=== PATIENT | female | born 1970 | race Caucasian/White ===

== ENCOUNTER 2022-12-20 09:20 | Outpatient (OUT) | payer MEDICARE, SELFPAY ==
--- NOTE | 2022-12-20 09:29 | MM_ITS ---
Patient: LEATHA RAMÍREZ Exam Date: 12/20/2022 : 1970 Gender:F Ordering : DR Giorgi Prakash . Admission #: [id number] Family : DR Carlos Mckeon Moijose rafaelhi . Order #: [id number] CLICK HERE TO VIEW EXAM RADIOLOGY REPORT PROCEDURE: MM TOMOSYNTHESIS DIAGNOSTIC BI COMPARISON: MG MAMM SCREEN FERNANDO W CAD, 01/21/2020. MG MAMM SCREEN FERNANDO W CAD, 09/03/2018. MG MAMM FERNANDO SCRN W CAD DIG, 04/19/2016. MG MAMM FERNANDO SCRN W CAD DIG, 09/23/2012. INDICATIONS: Breast Pain N64.4 Calculator Name NCI Breast Cancer Risk Assessment Tool 5 Year Breast Cancer Risk 0.90% Lifetime Breast Cancer Risk 8.00% Personal Breast Cancer No Personal Ovarian Cancer No Treatments None Family Cancers Grandfather-paternal with gastric cancer at age ~75; Mother with skin cancer at age 57. LOCATION: [facility] BREAST COMPOSITION: Scattered areas fibroglandular density. FINDINGS: DIAGNOSTIC CATEGORY 2--BENIGN FINDING: RIGHT BREAST: No significant suspicious finding. Scattered benign-appearing calcifications are present. No significant change has occurred. LEFT BREAST: No significant suspicious finding. Scattered benign-appearing calcifications are present. No significant change has occurred. RECOMMENDATIONS: ROUTINE MAMMOGRAM AND CLINICAL EVALUATION IN 12 MONTHS. PLEASE NOTE: A NORMAL MAMMOGRAM DOES NOT EXCLUDE THE POSSIBILITY OF BREAST CANCER. A CLINICALLY SUSPICIOUS PALPABLE LUMP SHOULD BE BIOPSIED. Dictated by: Champ Kinney M.D. on 12/20/2022 at 10:22 Approved by: Champ Kinney M.D. on 12/20/2022 at 10:25
--- NOTE | 2022-12-20 09:30 | XR_ITS ---
[address] [address] Patient Name: LEATHA RAMÍREZ MRN: [id number] date: 1970 Sex: F Assigned Patient Location: [facility] Current Patient Location: [facility] Accession/Order Number: [id number] Exam Date: 12/20/2022 10:10 Report Date: 12/20/2022 12:45 At the request of: NELY DUNCAN Procedure: XR DEXA axial skeleton EXAMINATION: XR DEXA axial skeleton HISTORY: Post Menopausal Screening M81.0 COMPARISON: No relevant comparison available. TECHNIQUE: Dual-energy X-ray absorptiometry (DXA) was performed. FINDINGS: FOREARM ANALYSIS: Average bone mineral density is 0.489 g/cm2. T-score (standard deviation relative to young adult mean): -3.1 . HIP ANALYSIS: Lowest bone mineral density is within the femoral trochanter, 0.647 g/cm2. T-score (standard deviation relative to young adult mean): -1.8 . XR/XR DEXA axial skeleton IMPRESSION: World Edward Organization Classification: Osteoporosis - High Fracture Risk Electronically authenticated by: LOURDES MORILLO Date: 12/20/2022 12:45
== END 2022-12-20 09:21 | disposition home or self-care (01) ==
LOC: MAMMO 09:22
PROVIDERS: PCP Family Medicine; Visit Provider Obstetrics & Gynecology
DX: N64.4 Mastodynia (principal); M81.0 Age-related osteoporosis without current pathological fracture
CPT/HCPCS: 77066; 77080; G0279

== ENCOUNTER 2023-03-14 13:54 | Outpatient (OUT) | payer MEDICARE, SELFPAY ==
[2023-03-14 14:48] LABS: Bilirubin Urine NEGATIVE (NEGATIVE); Blood Urine NEGATIVE (NEGATIVE); Clarity Urine CLEAR (CLEAR); Color Urine YELLOW (YELLOW); Glucose Urine UA NEGATIVE (NEGATIVE); Ketones Urine NEGATIVE (NEGATIVE); Leukocyte Esterase Urine NEGATIVE (NEGATIVE); Nitrite Urine NEGATIVE (NEGATIVE); Protein Urine NEGATIVE (NEG/TRACE); Specific Gravity Urine 1.015 (1.005-1.025); Urobilinogen Urine 0.2 EU/dL (0.2-1.0); pH Urine 7.5 (5.0-9.0)
[2023-03-14 14:49] LABS: Urine Microscopic Indicated NO
== END 2023-03-14 13:55 | disposition home or self-care (01) ==
LOC: LAB 13:54
PROVIDERS: PCP Family Medicine; Visit Provider Obstetrics & Gynecology
DX: N39.0 Urinary tract infection, site not specified (principal)
CPT/HCPCS: 81003; 87086

== ENCOUNTER 2023-09-09 16:18 | Emergency (ER) | payer MEDICARE, MEDICAID, SELFPAY ==
[2023-09-09 16:29] VITALS: BP 121/73; PULSE 85; TEMP 36.9; O2SAT 97; O2SAT 99; BMI 30.5
[2023-09-09 16:31] VITALS: PULSE 77
--- NOTE | 2023-09-09 16:35 | ECG_ITS ---
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
--- NOTE | 2023-09-09 16:36 | ED_ITS ---
HPI - SOB/Dyspnea General Chief Complaint: Shortness of Breath/Dyspnea Stated Complaint: Shortness of Breath Time Seen by Provider: 09/09/23 16:23 Source: patient Mode of arrival: Wheelchair Limitations: no limitations History of Present Illness HPI Narrative: 53-year-old female presents for shortness of breath. She is worried about pulmonary embolism. She is postop day #4 from breast reduction and subsequently developed some shortness of breath. She was sent in here by her plastic surgeon to rule out PE. No fever or productive cough. No leg swelling. Related Data Home Medications ?Medication ?Instructions ?Recorded ?Confirmed albuterol sulfate 90 mcg/actuation 2 inh inhalation Q8H 09/09/23 09/09/23 aerosol inhaler alendronate 70 mg tablet 70 mg PO .weekly 09/09/23 09/09/23 baclofen 20 mg tablet 20 mg PO DAILY 09/09/23 09/09/23 gabapentin 600 mg tablet 600 mg PO Q8H 09/09/23 09/09/23 hydroxyzine HCl 25 mg tablet 25 mg PO BID 09/09/23 09/09/23 levothyroxine 100 mcg tablet 100 mcg PO DAILY 09/09/23 09/09/23 oxycodone-acetaminophen 5 mg-325 1 tab PO Q8H 09/09/23 09/09/23 mg tablet phentermine 37.5 mg tablet 37.5 mg PO DAILY 09/09/23 09/09/23 venlafaxine 150 mg 150 mg PO DAILY 09/09/23 09/09/23 capsule,extended release 24 hr venlafaxine 75 mg capsule,extended 75 mg PO DAILY 09/09/23 09/09/23 release 24 hr Allergies Allergy/AdvReac Type Severity Reaction Status Date / Time metformin AdvReac Mild Chest Pain Verified 09/09/23 16:29 Review of Systems ROS Narrative A ten point review of systems is negative except as noted above. Exam Narrative Exam Narrative: Nurses note and vital signs reviewed and patient is not hypoxic. General: The patient appears well and in no apparent distress. Patient is resting comfortably on cart. Skin: Warm, dry, no pallor noted. There is no rash noted. Head: Normocephalic, atraumatic Eye: Normal conjunctiva, no drainage Ears, Nose, Mouth, and Throat: oral mucosa is moist. Nares patent. Cardiovascular: Regular Rate and Rhythm, not Respiratory: Patient is in no distress, no accessory muscle use, lungs are clear to auscultation, no wheezing, rales or rhonchi Back: non-tender GI: Soft and nontender Musculoskeletal: The patient has no evidence of calf tenderness, no pitting edema, symmetrical pulses noted bilaterally Neurological: A&O, normal speech Psychiatric: Cooperative Constitutional Vital Signs, click to edit/add: Last Vital Signs Temp 98.4 F 09/09/23 16:29 Pulse 77 09/09/23 16:31 Resp 16 09/09/23 16:29 BP 112/66 09/09/23 17:30 Pulse Ox 97 09/09/23 16:29 O2 Del Method Room Air 09/09/23 16:29 Course Vital Signs Vital signs: Vital Signs Temperature 98.4 F 09/09/23 16:29 Pulse Rate 85 09/09/23 16:29 Respiratory Rate 16 09/09/23 16:29 Blood Pressure 121/73 09/09/23 16:29 Pulse Oximetry 99 09/09/23 16:29 Oxygen Delivery Method Room Air 09/09/23 16:29 Temperature 98.4 F 09/09/23 16:29 Pulse Rate 77 09/09/23 16:31 Respiratory Rate 16 09/09/23 16:29 Blood Pressure 112/66 09/09/23 17:30 Pulse Oximetry 97 09/09/23 16:29 Oxygen Delivery Method Room Air 09/09/23 16:29 MDM - SOB/Dyspnea MDM Narrative Medical decision making narrative: Workup including CTA is negative and the patient is being discharged home. Treatment diagnosis and follow-up were discussed with the patient. Differential Diagnosis Differential diagnosis: Likely congestive heart failure, community acquired pneumonia and pulmonary embolism Lab Data Attestation: I reviewed the patient's lab results. Labs: Lab Results 09/09/23 Range/Units 16:43 WBC 8.8 (4.0-11.0) 10^3/uL RBC 4.13 L (4.20-5.40) 10^6/uL Hgb 12.2 (12.0-16.0) g/dL Hct 37.3 (36.0-48.0) % MCV 90.3 (81.0-99.0) fL MCH 29.5 (26.7-34.0) pg MCHC 32.7 (29.9-35.2) g/dL RDW 12.0 (11.0-15.0) % Plt Count 367 (150-450) 10^3/uL MPV 9.8 (9.5-13.5) fL Neut % (Auto) 62.3 (43.0-75.0) % Lymph % (Auto) 26.7 (20.5-60.0) % Lipscomb % (Auto) 7.1 (1.7-12.0) % Eos % (Auto) 2.7 (0.9-7.0) % Baso % (Auto) 1.0 (0.2-2.0) % Neut # (Auto) 5.5 (1.4-6.5) 10^3/uL Lymph # (Auto) 2.4 (1.2-3.8) 10^3/uL Lipscomb # (Auto) 0.6 (0.3-0.8) 10^3/uL Eos # (Auto) 0.2 (0.0-0.7) 10^3/uL Baso # (Auto) 0.1 (0.0-0.1) 10^3/uL Abs Immat Gran (auto) 0.02 (0.00-0.03) 10^3/uL Imm/Tot Granulo (auto) 0.2 (0.0-0.5) % Sodium 139 (136-145) mmol/L Potassium 4.0 (3.5-5.1) mmol/L Chloride 102 (98-107) mmol/L Carbon Dioxide 28.1 (21.0-32.0) mmol/L Anion Gap 12.9 BUN 17.0 (7.0-18.0) mg/dL Creatinine 0.53 L (0.55-1.02) mg/dL Est GFR ( Amer) >60 (>=60) Est GFR (Non-Af Amer) >60 (>=60) BUN/Creatinine Ratio 32.1 Glucose 85 (74-106) mg/dL Calcium 9.6 (8.5-10.1) mg/dL Troponin I High Sens 4.4 (4.0-51.3) pg/mL Serum HCG, Qual Negative (NEGATIVE) Imaging Data Chest x-ray: Radiologist's impression: ITS Impressions Chest X-Ray 05/06/24 16:53 Impression: No radiographic evidence of acute cardiopulmonary process. Electronically authenticated by: LAKHWINDER WEN Date: 09/09/2023 17:47 Chest CTA 09/09/23 18:06 IMPRESSION: No evidence of pulmonary embolus. Few patchy ground glass opacities of the left upper lobe, representing atelectasis or early consolidation. Bilateral breast focal subcutaneous emphysema, likely postsurgical changes. Correlation with patient's history is recommended. Electronically authenticated by: LAKHWINDER WEN Date: 09/09/2023 18:40 ECG Data Attestation: I personally reviewed and interpreted this ECG as follows: (EKG on my interpretation shows sinus rhythm with a rate of 77 and no acute changes) Discharge Plan Discharge Stand Alone Forms: Portal Instructions Chief Complaint: Shortness of Breath/Dyspnea Clinical Impression: Dyspnea Patient Disposition: Home, Self-Care Prescriptions / Home Meds: No Action albuterol sulfate 90 mcg/actuation HFA aerosol inhaler 2 inh INHALATION Q8H alendronate 70 mg tablet 70 mg PO .weekly baclofen 20 mg tablet 20 mg PO DAILY gabapentin 600 mg tablet 600 mg PO Q8H hydroxyzine HCl 25 mg tablet 25 mg PO BID levothyroxine 100 mcg tablet 100 mcg PO DAILY oxycodone-acetaminophen 5-325 mg tablet 1 tab PO Q8H phentermine 37.5 mg tablet 37.5 mg PO DAILY venlafaxine 150 mg capsule,extended release 24hr 150 mg PO DAILY venlafaxine 75 mg capsule,extended release 24hr 75 mg PO DAILY Print Language: Lao Instructions: Dyspnea (ED) Referrals: SNEHA BARNES [Primary Care Provider] - 1 week
[2023-09-09 16:47] VITALS: BP 106/71
[2023-09-09 16:50] VITALS: PULSE 77
[2023-09-09 16:52] LABS: Basophils Absolute Auto 0.1 10^3/uL (0.0-0.1); Eosinophils Absolute Auto 0.2 10^3/uL (0.0-0.7); Eosinophils Percent Auto 2.7 % (0.9-7.0); Hematocrit 37.3 % (36.0-48.0); Hemoglobin 12.2 g/dL (12.0-16.0); Immature Granulocytes Abs Auto 0.02 10^3/uL (0.00-0.03); Immature Granulocytes Pct Auto 0.2 % (0.0-0.5); Lymphocytes Absolute Auto 2.4 10^3/uL (1.2-3.8); Lymphocytes Percent Auto 26.7 % (20.5-60.0); Mean Corpuscular HGB Conc 32.7 g/dL (29.9-35.2); Mean Corpuscular Hemoglobin 29.5 pg (26.7-34.0); Mean Corpuscular Volume 90.3 fL (81.0-99.0); Mean Platelet Volume 9.8 fL (9.5-13.5); Monocytes Absolute Auto 0.6 10^3/uL (0.3-0.8); Monocytes Percent Auto 7.1 % (1.7-12.0); Neutrophils Absolute Auto 5.5 10^3/uL (1.4-6.5); Neutrophils Percent Auto 62.3 % (43.0-75.0); Platelet Count 367 10^3/uL (150-450); Red Blood Count 4.13 10^6/uL (4.20-5.40); White Blood Count 8.8 10^3/uL (4.0-11.0)
--- NOTE | 2023-09-09 16:53 | XR_ITS ---
The [address] [address] Patient Name: LEATHA RAMÍREZ MRN: [id number] date: 1970 Sex: F Assigned Patient Location: ER Current Patient Location: ED.MAIN Accession/Order Number: [id number] Exam Date: 09/09/2023 16:50 Report Date: 09/09/2023 17:47 At the request of: MICHELLE MANRIQUE Procedure: XR chest 1V EXAM: XR chest 1V HISTORY: SOB COMPARISON: None. TECHNIQUE: Chest X-ray AP, 1 view FINDINGS: Support devices: None. Lungs/pleura: No consolidation, effusion, or pneumothorax. Heart and mediastinum: Normal contours. Bones: No acute abnormality identified. XR/XR chest 1V Impression: No radiographic evidence of acute cardiopulmonary process. Electronically authenticated by: LAKHWINDER WEN Date: 09/09/2023 17:47
[2023-09-09 17:00] VITALS: BP 122/81
[2023-09-09 17:16] LABS: Anion Gap 12.9; BUN Creatinine Ratio 32.1; Calcium 9.6 mg/dL (8.5-10.1); Carbon Dioxide 28.1 mmol/L (21.0-32.0); Chloride 102 mmol/L (98-107); Estimated GFR (African America >60 (>=60); Estimated GFR (Non-African Ame >60 (>=60); Glucose 85 mg/dL (74-106); Sodium 139 mmol/L (136-145); Troponin I High Sensitivity 4.4 pg/mL (4.0-51.3)
[2023-09-09 17:18] LABS: HCG Qualitative NEGATIVE (NEGATIVE)
[2023-09-09 17:30] VITALS: BP 112/66
--- NOTE | 2023-09-09 18:06 | CT_ITS ---
[address] [address] Patient Name: LEATHA RAMÍREZ MRN: [id number] date: 1970 Sex: F Assigned Patient Location: ER Current Patient Location: Accession/Order Number: [id number] Exam Date: 09/09/2023 17:57 Report Date: 09/09/2023 18:40 At the request of: MICHELLE MANRIQUE Procedure: CT angio chest EXAM: CT angio chest HISTORY: Short of breath, rule out PE COMPARISON: None. TECHNIQUE: CT chest with intravenous contrast was performed with timing for the evaluation for pulmonary arteries. Multiplanar reformats were performed. MIP (maximum intensity projection) images or 3D post processing was performed. Dose reduction techniques were achieved by using automated exposure control and/or adjustment of mA and/or kV according to patient size and/or use of iterative reconstruction technique. FINDINGS: Lungs: No pneumothorax or effusion. Few patchy ground glass opacities of the left upper lobe, representing atelectasis or early consolidation. Airways: Normal. Mediastinum: No adenopathy. Aorta: No aneurysm. Cardiac: Normal size. No pericardial effusion. Pulmonary vasculature: Diagnostic opacification of pulmonary arteries without evidence of pulmonary embolus. Normal morphology. Bones: No acute bony abnormality. Axilla: No adenopathy. Thyroid gland: No abnormality demonstrated on provided imaging. Soft tissues: Bilateral breast focal subcutaneous emphysema, likely postsurgical changes. Correlation with patient's history is recommended. Upper abdomen: Unremarkable. Additional findings: None. CT/CT angio chest IMPRESSION: No evidence of pulmonary embolus. Few patchy ground glass opacities of the left upper lobe, representing atelectasis or early consolidation. Bilateral breast focal subcutaneous emphysema, likely postsurgical changes. Correlation with patient's history is recommended. Electronically authenticated by: LAKHWINDER WEN Date: 09/09/2023 18:40
== END 2023-09-09 18:56 | disposition home or self-care (01) ==
PROVIDERS: Emergency Provider Emergency Medicine; PCP Family Medicine
DX: R06.02 Shortness of breath (principal); R06.00 Dyspnea, unspecified; Z98.890 Other specified postprocedural states
CPT/HCPCS: 36415; 71045; 71275; 80048; 84484; 84703; 85025; 93005; 99285; Q9967

== ENCOUNTER 2023-11-06 21:19 | Outpatient (REF) | payer MEDICARE, MEDICAID, SELFPAY ==
--- OUTSIDE RECORDS SUMMARY | 2023-11-06 21:25 | XMS_ITS | CCD ---
Author Organization [facility] Inform ion Partnership [facility] Care Team Providers Care Dip Painter Name Role Phone Vinayak Antonio Unavailable Unavailable Vinayak Antonio Unavailable Unavailable FREE, TEXT ENTRY Unavailable Unavailable Trinidad, Griselda Leni Unavailable Unavailabl e Trinidad, Griselda Leni Unavailable Unavailabl e Trinidad, Griselda Leni Unavailable Unavailabl e Trinidad, Griselda Leni Unavailable Unavailabl e UNKNOWN, PCP Unavailable Unavailable Jimmy Hernandez Admitting Unavailable Jimmy Hernandez Attending Unavailable Jimmy Hernandez Primary Care Unavailable Unavailable Primary Care Provider Unavailclementina e Johnson, Laura Unavailable ISHA, DR CARLOS Obrien Primary Care Unavailable DAKOTA ., DR MCKAY Admitting Unavailable DAKOTA ., DR MCKAY Consulting Unavailable DAKOTA ., DR MCKAY Attending Unavailable Lourdes Morillo Consulting Unavailable ROLAND ., DR ALEXI Durbin Admitting Unavailable ROLAND ., DR ALEXI Durbin Consulting Unavailable ROLAND ., DR ALEXI Durbin Attending Unavailable ISHA, DR CARLOS Obrien Primary Care Unavailable ALLISON .MADDISON Consulting Unavailable ROLAND ., DR ALEXI Durbin Admitting Unavailable ROLAND ., DR ALEXI Durbin Consulting Unavailable ISHA, DR CARLOS Obrien Primary Care Unavailable ROLAND ., DR ALEXI Durbin Attending Unavailable ROLAND ., DR ALEXI Durbin Attending Unavailable ROLAND ., DR ALEXI Durbin Admitting Unavailable ALLISON ., MADDISON Consulting Unavailable ISHA, DR CARLOS Obrien Primary Care Unavailable ASUNCION ., DR ALEXI Durbin Attending Unavailable ROLAND ., DR ALEXI Durbin Admitting Unavailable ISHA, DR CARLOS Obrien Primary Care Unavailable ROLAND ., DR ALEXI Durbin Attending Unavailable ROLAND ., DR ALEXI Durbin Admitting Unavailable COOPER ., MADDISON Consulting Unavailable NADERER, DR CARLOS Obrien Primary Care Unavailable ROLAND ., DR ALEXI Durbin Attending Unavailable ROLAND ., DR ALEXI Durbin Admitting Unavailable ROLAND ., DR ALEXI Durbin Consulting Unavailable NADERER, DR CARLOS Obrien Primary Care Unavailable YOSELIN CARDOSO Consulting Unavailable MCCORNACK, LOURDES Consulting Unavailable ROLAND ., DR ALEXI Durbin Attending Unavailable ROLAND ., DR ALEXI Durbin Admitting Unavailable COOPER ., MADDISON Consulting Unavailable NADERER, DR CARLOS Obrien Primary Care Unavailable NADERER, DR CARLOS Obrien Primary Care Unavailable HAY ., DR LOPEZ Admitting Unavailable HAY ., DR LOPEZ Consulting Unavailable HAY ., DR LOPEZ Attending Unavailable NADERER, DR CARLOS Obrien Primary Care Unavailable DAKOTA ., DR MCKAY Admitting Unavailable DAKOTA ., DR MCKAY Consulting Unavailable DAKOTA ., DR MCKAY Attending Unavailable ROLAND ., DR ALEXI Durbin Admitting Unavailable ROLAND ., DR ALEXI Durbin Consulting Unavailable ROLAND ., DR ALEXI Durbin Attending Unavailable NADERER, DR CARLOS Obrien Primary Care Unavailable NADERER, DR CARLOS Obrien Primary Care Unavailable DAKOTA ., DR MCKAY Consulting Unavailable DAKOTA ., DR MCKAY Admitting Unavailable DAKOTA ., DR MCKAY Attending Unavailable COOPER ., MADDISON Attending Unavailable NADERER, DR CARLOS Obrien Primary Care Unavailable Lourdes Morillo Consulting Unavailable COOPER ., MADDISON Admitting Unavailable COOPER ., MADDISON Consulting Unavailable NADERER, CARLOS Referring Unavailable NILLTod Attending Unavailable NADERER, CARLOS Referring Unavailable NILLTod Attending Unavailable UI, VALE C Referring Unavailable Vale Barnes MD Primary Care Provider Dr. Carly Croft Attending Provider [facility], [place] Unavailable [phone] [facility] [place] Unavailable [phone] Dr. Carly Croft Attending Provider PRERNA SEGUNDO Attending Unavailable [facility], [place] A Attending Unavailab PRERNA Yi Attending Unavailable [facility], OBED A Attending Unavailab le [facility], OBED A Referring Unavailab le [facility] Referring Unavailab le [place], OBED A Referring Unavailab le HOELAINA YEUNG Attending Unavailable NORIEGA, JORGE Brower Attending Unavailable [place], OBED Obrien Attending Unavailab le NORIEGAJORGE Attending Unavailable NORIEGA, JORGE Brower Referring Unavailable NORIEGA, JORGE Brower Attending Unavailable NORIEGA, JORGE Brower Referring Unavailable BLACKSTONVANDA Attending Unavailable MOLLYVALE YI Attending Unavailable MARNI OLIVER Attending Unavailable NORIEGA, JORGE Brower Referring Unavailable NORIEGA, JORGE Brower Referring Unavailable SANYAPRERNA Attending Unavailable UI, VALE Damico Referring Unavailable UI, VALE Damico Referring Unavailable UI, VALE C Referring Unavailable [place], OBED A Referring Unavailab le UI, VALE Damico Attending Unavailable VALE BARNES Primary Care Provider Unavailab le VALE BARNES Referring Provider Unavailable Guerda, Dr. Carroll Referring Provider [phone] Dr. Carly Croft Other Provider VALE BARNES Primary Care Provider Cliftonesa Attending Unavailable Ghazoul, Carly Attending Unavailable BONDI, Primary Care Unavailable Ghazoul, Carly Attending Unavailable Ghazoul, Carly Referring Unavailable Ghazoul, Carly Consulting Unavailable Ghazoul, Carly Attending Unavailable Ghazoul, Carly Attending Unavailable BONDI, Primary Care Unavailable BONDI, Referring Unavailable Ghazoul, Carly Attending Unavailable BONDI, Primary Care Unavailable Ghazoul, Carly Attending Unavailable BONDI, Referring Unavailable Ghazoul, Carly Attending Unavailable BONDI, Referring Unavailable BONDI, Primary Care Unavailable Ghazoul, Carly Attending Unavailable BONDI, Primary Care Unavailable Ghazoul, Carly Attending Unavailable Ghazoul, Carly Referring Unavailable Allergies Allergy Classification Reported Allergen(s) Allergy Type Date of Onset Reaction(s) Facility metFORMIN (1 source) metFORMIN Drug Allergy 06-21-19 Other: See Comments [facility] (20 sources) metFORMIN; Translations: [metFORMIN] Drug Allergy 06-21-19 Other: See Comments [facility] (1 source) Betamethasone Drug Allergy hallucinations [place] Other (1 source) metFORMIN Drug Allergy 06-21-[address] [facility] (1 source) metFORMIN Drug Allergy 10-22-19 24 [facility] Medications Current Medications Medication Drug Class(es) Dates Sig (Normalized) Sig (Original) acetaminophen 325 mg oral tablet (15 sources) acetaminophen (T YLENOL) 325 mg tablet Acetaminophen 32 5 MG 2 tablets as needed Orally bedtime Active [id number] 200 actuat albuterol 0.09 mg/actuat metered dose inhaler (20 sources) beta2-Adrenergic Agonist Start: 08-23-2023 take 1 puff(s) by inhalation every six hours as needed Albuterol Sulfate Active 1 PUFF INHALATION EVERY 6 HOURS NEEDED August 23, 2023 12:00am Start: 05-09-2023 take 2 puff(s) by in halation every four hours for wheezing albuterol HFA (ProAir HFA) 90 mcg/act inhaler Indications: Mild intermittent asthma without complication (CMS/HCC) Inhale 2 puffs every 4 (four) hours if needed for wheezing 18 g 1 05/09/2023 Active Start: 04-30-2015 take 2 puff(s) by in halation every six hours as needed albuterol HFA (PROVENTIL HFA, VENTOLIN HFA) 90 mcg/actuation inhaler Inhale 2 Puffs as instructed every 6 hours as needed. 0 04/30/2015 Active take 2 puff(s) by in halation every six hours as needed ProAir HFA 108 (90 Base) MCG/ACT 2 puffs as needed Inhalation every 6 hrs PRN Active Comment on above: Inhale 2 Puffs as in structed every 6 hours as needed. alendronic acid 70 mg oral tablet (16 sources) Bisphosphonate Start: 06-12-2023 Alendronate Active 70 MG PO FR June 12, 2023 1:00am Start: 01-03-2023 End: 01-03-2024 take 1 tablet by mouth in the morning alendronate (Fosamax) 70 MG tablet Indications: Osteoporosis, post-menopausal (CMS/HCC) Take 1 tablet (70 mg) by mouth every 7 (seven) days. Take in the morning with a full glass of water, on an empty stomach, and do not take anything else by mouth or lie down for the next 30 min. 4 tablet 11 01/03/2023 01/03/2024 Active Comment on above: Take 70 mg by mouth one time a week. In AM with cup of water on empty stomach. Nothing else by mouth and stay upright for 30 min. ascorbic acid/collagen hydr (COLLAGEN PLUS VITAMIN C ORAL) (8 sources) ascorbic acid/collagen hydr (COLLAGEN PLUS VITAMIN C ORAL) b complex vitamins capsule (8 sources) take 1 capsule by mouth in the morning b complex vitamins capsule Take 1 capsule by mouth in the morning. 0 Active baclofen 20 mg oral tablet (20 sources) gamma-Aminobutyric Acid-ergic Agonist Start: 06-12-2023 take 40 mg by mouth twice daily Baclofen Active 40 MG PO TWICE A DAY June 12, 2023 1:00am Start: 06-12-2023 take 20 mg by mouth twice vin y Baclofen Active 20 MG PO TWICE A DAY June 12, 2023 1:00am Start: 04-11-2023 End: 07-10-2023 baclofen (Lioresal) 20 MG ta blet Indications: Muscle spasticity Take 2 tablets (40 mg) by mouth every 12 (twelve) hours 120 tablet 2 04/11/2023 07/10/2023 Active Start: 10-10-2020 take 2 tablets by ak ut twice daily baclofen (LIORESAL) 20 mg tablet Take 40 mg by mouth twice daily. 0 10/10/2020 Active Baclofen 20 MG 1 & 1/2 tablet with food or milk Orally bid Active Comment on above: Take 40 mg by mouth twice daily. BIOTIN 5,000 MCG GUMMY (3 sources) BIOTIN 5,000 MCG GUMMY 2 Pieces once daily. 0 Active Comment on above: 2 Pieces once daily. Calcium Carb-Cholecalciferol (CALCIUM 500 + D PO) (8 sources) take 1 dose by mouth once daily in the morning Calcium Carb-Cholecalciferol (CALCIUM 500 + D PO) Take 1 each by mouth in the morning. 0 Active calcium carbonate/vitamin D2 ([id number] ORAL) (3 sources) take 2 capsules by mouth once daily calcium carbonate/vitamin D2 ([id number] ORAL) Take 2 capsules by mouth once daily. 0 Active Comment on above: Take 2 capsules by m outh once daily. calcium gluconate 650 mg oral tablet (3 sources) Start: 024 take 120 mg by mouth once daily Calcium Gluconate Active 120 MG PO DAILY August 23, 2023 12:00am cephalexin 500 mg oral capsule (2 sources) Cephalosporin Antibacterial Start: take 500 mg by mouth twice daily Cephalexin Active 500 MG PO TWICE A DAY August 28, 2023 12:00am Cholecalciferol (18 sources) Vitamin D Start: take 10 ug by mouth once daily Cholecalciferol (Vitamin D3) Active 10 MCG PO DAILY June 12, 2023 1:00am Start: 06-12-2023 take 10 ug by mouth once daily Cholecalciferol (Vitamin D3) Active 10 MCG PO DAILY June 12, 2023 12:00am cholecalciferol (Vitamin D-3) 25 MCG (1000 UT) capsule Vitamin D3 0 Active cholecalciferol (VITAMIN D-3) 5,000 unit tab chromium picolinate 0.1 mg / inulin 2000 mg chewable tablet (8 sources) inulin-chromium picolinate (FIBER SELECT GUMMIES) 2-100 gram-mcg chew diphenhydrAMINE hydrochloride 25 mg oral tablet (18 sources) Histamine-1 Receptor Antagonist Start: 08-23-19 take 1 tablet by mouth every eight hours Diphenhydramine Hcl (Allergy (Diphenhydramine)) 25 mg tablet Active 25 MG PO Q8H August 23, 2023 12:00am diphenhydrAMINE (BENADRYL ALLERGY) 12.5 mg/5 mL liquid Benadryl 25 MG 1 -2 capsule as needed Orally Active docusate sodium 100 mg oral capsule (19 sources) Start: 08-23-2023 take 3 capsules by mouth at bedtime Docusate Sodium (Colace) 100 mg capsule Active 300 MG PO AT BEDTIME August 23, 2023 12:00am Start: 11-22-2020 STOOL SOFTENER 100 mg capsule Take 200 mg by mouth once daily. 0 11/22/2020 Active take 3 tablets by mo uth once daily at bedtime docusate sodium (COLACE ORAL) Take 3 tablets by mouth daily at bedtime. 0 Active take 1 capsule by mo uth in the morning docusate sodium (Colace) 100 MG capsule Take 100 mg by mouth in the morning and 100 mg before bedtime. 0 Active Comment on above: Take 200 mg by mouth once daily. Take 3 tablets by mo uth daily at bedtime. Fiber Select Gummies chewable tablet (6 sources) Fiber Select Gum mies chewable tablet gabapentin 600 mg oral tablet (20 sources) Anti-epileptic Agent Start: 08-23-2023 take 600 mg by mouth twice daily Gabapentin Active 600 MG PO TWICE A DAY August 23, 2023 12:00am Start: 09-11-2022 End: 08-23-2023 take 600 mg by mouth three times daily Gabapentin Discontinued 600 MG PO THREE TIMES A DAY June 12, 2023 1:00am August 23, 2023 8:13am Start: 01-02-2021 End: 04-02-2021 take 2 capsules by mouth three times daily gabapentin (NEURONTIN) 300 mg capsule Indications: Thoracic myelopathy Take 2 capsules by mouth three times daily for 90 days. 180 capsule 2 01/02/2021 Active Start: 11-18-2020 gabapentin (NE URONTIN) 300 mg capsule TAKE 1 CAP BY MOUTH IN THE MORNING , TAKE 2 CAPS IN THE AFTERNOON, & TAKE 2 CAPS AT BEDTIME 0 11/18/2020 Active Start: 05-12-2018 Gabapentin May, Active Comment on above: TAKE 1 CAP BY MOUTH IN THE MORNING , TAKE 2 CAPS IN THE AFTERNOON, & TAKE 2 CAPS AT BEDTIME Take 2 capsules by m outh three times daily for 90 days. Take 600 mg by mouth three times a day. hydrOXYzine hydrochloride 25 mg oral tablet (4 sources) Antihistamine Start: 08-23-19 take 25 mg by mouth once daily as needed Hydroxyzine Hcl Active 25 MG PO DAILY NEEDED August 23, 2023 12:00am Start: 01-19-2022 hydrOXYzine Pa moate 25 MG 1-2 capsule as needed Orally every 6-8 hrs for 7 days Jan, Active ibuprofen 800 mg oral tablet (20 sources) Nonsteroidal Anti-inflammatory Drug Start: 06-12-2023 take 800 mg by mouth three times daily Ibuprofen Active 800 MG PO THREE TIMES A DAY June 12, 2023 1:00am Start: 05-14-2023 take 1 tablet by jennifer th every eight hours for pain ibuprofen 800 MG tablet Indications: Spinal cord injury at T1-T6 level (CMS/HCC) Take 1 tablet (800 mg) by mouth every 8 (eight) hours if needed for moderate pain 270 tablet 0 05/14/2023 Active take 1 tablet by jennifer th every six hours as needed ibuprofen (MOTRIN) 800 mg tablet Take 800 mg by mouth every 6 hours as needed. 0 Active Comment on above: Take 800 mg by mouth every 6 hours as needed. inulin 2000 mg chewable tablet (3 sources) Start: 4 take 1 tablet by mouth at bedtime Inulin (Fiber Gummies) 2 gram tablet,chewable Active 4 GM PO AT BEDTIME August 23, 2023 12:00am levothyroxine sodium 0.1 mg oral capsule (20 sources) l-Thyroxine Start: take 100 ug by mouth once daily Levothyroxine Active 100 MCG PO DAILY June 12, 2023 1:00am Start: 01-08-2018 take 1 tablet by jennifer th once daily in the morning Levothyroxine Sodium 100 MCG 1 tablet on an empty stomach in the morning Orally Once a day for 90 days Jan, Active Start: 04-14-2015 levothyroxine (SYNTHROID) 100 mcg tablet Take 100 mcg by mouth. 0 04/14/2015 Active Comment on above: Take 100 mcg by mout h. loratadine 5 mg disintegrating oral tablet (20 sources) Start: 06-12-2023 Loratadine (Claritin Reditabs) 5 mg tablet,disintegrating Active 10 MG PO DAILY June 12, 2023 1:00am Start: 06-12-2023 take 1 tablet by jennifer th once Loratadine (Claritin Reditabs) 5 mg tablet,disintegrating Active 5 MG PO ONCE June 12, 2023 1:00am loratadine (CLAR ITIN) 10 mg tablet Take 10 mg by mouth. 0 Active Comment on above: Take 10 mg by mouth. magnesium citrate 100 mg oral tablet (3 sources) Start: 08-23-2023 take 100 mg by mouth once daily Magnesium Citrate Active 100 MG PO DAILY August 23, 2023 12:00am magnesium oxide 400 mg oral tablet (19 sources) End: 06-17-2023 magnesium oxide 400 mg magnesium tab once daily. 0 Active Comment on above: once daily. MEDICATION, NON-DATABASE (3 sources) MEDICATION, NON-DATABASE 2 tablets daily at bedtime. Lower bowel bowel stimulator 0 Active Comment on above: 2 tablets daily at b edtime. Lower bowel bowel stimulator melatonin 10 mg sublingual tablet (14 sources) melatonin 10 mg subl Melatonin 10 MG sublingual tablet Wvulclrx-Cax-Fyudp Ac-Collagen (Women's Multivitamin Collagen) 200 mcg- 25 mg tablet,chewable (3 sources) Start: 08-23-2023 take 2 tablets by mouth once daily Kcvwqqip-Qxk-Ijptd Ac-Collagen (Women's Multivitamin Collagen) 200 mcg- 25 mg tablet,chewable Active 2 TABLET PO DAILY August 23, 2023 12:00am Ekzylbef-Cas-Oxko-Fa-Vi t K-Lut (Centrum Minis Women 50 Plus) 4 mg iron-200 mcg-25 mcg tablet (3 sources) Start: 08-23-2023 take 1 tablet by mouth once daily Fmlgstzz-Qtc-Exmr-Fa-V it K-Lut (Centrum Minis Women 50 Plus) 4 mg iron-200 mcg-25 mcg tablet Active 1 TABLET PO DAILY August 23, 2023 12:00am polyethylene glycol 3350 55439 mg powder for oral solution (8 sources) Osmotic Laxative take 17 g by mouth once polyethylene glycol, PEG, 3350 (Miralax) 17 g packet Take 17 g by mouth 1 (one) time 0 Active Semaglutide (Weight Loss) (4 sources) Start: 08-07-2023 Semaglutide (Weight Loss) (Wegovy) 0.5 mg/0.5 mL pen injector Active 0.5 MG SC FR August 07, 2023 12:00am administer weeks 5 through 8 of therapy Start: 08-07-2023 Semaglutide (W eight Loss) (Wegovy) 0.5 mg/0.5 mL pen injector Active 0.5 MG SC EVERY WEEK August 07, 2023 12:00am administer weeks 5 through 8 of therapy valACYclovir 1000 mg oral tablet (13 sources) Herpesvirus Nucleoside Analog DNA Polymerase Inhibitor, Herpes Simplex Virus Nucleoside Analog DNA Polymerase Inhibitor, Herpes Zoster Virus Nucleoside Analog DNA Polymerase Inhibitor Start: 06-12-2023 take 1000 mg by mouth once daily as needed Valacyclovir Active 1000 MG PO DAILY NEEDED June 12, 2023 1:00am Start: 09-15-2020 take 1000 mg by mout h once daily valACYclovir (VALTREX) 1 gram Take 1,000 mg by mouth once daily. 0 09/15/2020 Active Start: 09-15-2020 take 2000 mg by mout h twice daily valACYclovir (VALTREX) 1 gram Take 2,000 mg by mouth twice daily. 0 09/15/2020 Active Comment on above: Take 2,000 mg by jennifer th twice daily. Take 1,000 mg by jennifer th once daily. 24 hr venlafaxine 75 mg extended release oral capsule (4 sources) Serotonin and Norepinephrine Reuptake Inhibitor Start: 08-07-19 take 1 capsule by mouth once daily Venlafaxine (Effexor Xr) 75 mg capsule,extended release 24hr Active 150 MG PO DAILY August 07, 2023 12:00am Vitamin B Complex (3 sources) vitamin B comple x (B COMPLEX ORAL) Take by mouth once daily. 0 Active Comment on above: Take by mouth once d aily. Womens One Daily - (1 source) Womens One Daily - Orally Active Completed/Discontinued Medications Medication Drug Class(es) Dates Sig (Normalized) Sig (Original) acetaminophen 325 mg / oxyCODONE hydrochloride 5 mg oral tablet (2 sources) Opioid Agonist Start: 08-28-2023 End: 08-31-2023 take 1 tablet by mouth three times daily Oxycodone-Acetami nophen (Percocet) 5-325 mg tablet Discontinued 1 TABLET PO THREE TIMES A DAY 8 3 August 28, 2023 August 31, 2023 12:16am calcium carbonate 420 mg chewable tablet (5 sources) Start: 06-12-2023 End: 08-23-2023 take 1 tablet by mouth three times daily Calcium Carbonate (Alcalak) 168 mg calcium (420 mg) tablet,chewable Discontinued 168 MG PO THREE TIMES A DAY June 12, 2023 1:00am August 23, 2023 8:07am citalopram 40 mg oral tablet (20 sources) Serotonin Reuptake Inhibitor Start: 10-01-2017 End: 08-07-2023 take 1 tablet by mouth once daily Citalopram (Celexa) 40 mg tablet Discontinued 40 MG PO DAILY June 12, 2023 1:00am August 07, 2023 11:18am Comment on above: Take 40 mg by mouth once daily. diazePAM 5 mg oral tablet (20 sources) Benzodiazepine Start: 04-19-2022 End: 08-23-2023 take 5 mg by mouth at bedtime Diazepam Discontinued 5 MG PO AT BEDTIME June 12, 2023 1:00am August 23, 2023 8:08am diazePAM (VALIUM ) 5 mg tablet every 8 hours as needed. 0 Active diazePAM 5 MG 1 tablet as needed Orally Active Comment on above: every 8 hours as nee ded. dicyclomine hydrochloride 20 mg oral tablet (5 sources) Anticholinergic Start: 2020 take 1 tablet by mouth every six hours as needed dicyclomine (BENTYL) 20 mg tablet Take 20 mg by mouth every 6 hours as needed. 0 11/25/2020 Active Comment on above: Take 20 mg by mouth every 6 hours as needed. iv contrast (will be provided with radiology test) (1 source) Start: 2020 End: 2020 inject 1 dose intravenously once iv contrast (will be provided with radiology test) Indications: Thoracic myelopathy MRI TSP Inject, intravenously, once for 1 dose. No IV access, insert saline lock prior to the beginning of sedation, infusion, injection of imaging exam. Discontinue saline lock post exam. If Pt. has a central line or IVAD, may access for administration according to line specific nursing protocol. Once exam is complete flush line and de-access according to line specific nursing protocol in the MR contrast administration guidelines link. 1 Each 0 12/02/2020 12/03/2020 Comment on above: MRI TSP Inject, intr avenously, once for 1 dose. No IV access, insert saline lock prior to the beginning of sedation, infusion, injection of imaging exam. Discontinue saline lock post exam. If Pt. has a central line or IVAD, may access for administration according to line specific nursing protocol. Once exam is complete flush line and de-access according to line specific nursing protocol in the MR contrast administration guidelines link. Magnesium (5 sources) Start: 2023 End: 2023 take 200 mg by mouth once daily Magnesium Discontinued 200 MG PO DAILY June 12, 2023 1:00am August 23, 2023 8:10am Start: 06-12-2023 take 200 mg by mouth once vin y Magnesium Active 200 MG PO DAILY June 12, 2023 1:00am Start: 06-12-2023 take 200 mg by mouth once vin y Magnesium Active 200 MG PO DAILY June 12, 2023 12:00am mv,calcium,min/iron/folic/vi tK (ONE-A-DAY WOMEN'S COMPLETE ORAL) (5 sources) mv,calcium,min/i codey/folic/vitK (ONE-A-DAY WOMEN'S COMPLETE ORAL) phentermine hydrochloride 37 .5 mg oral tablet (18 sources) Sympathomime tic Amine Anorectic S t a r t : 0 1 - 0 4 - 2 0 2 4 E n d : 0 4 - 0 3 - 2 0 2 4 take 37.5 mg by mouth once daily 30 minutes after breakfast Phentermine Discontinued 37.5 MG PO DAILY June 12, 2023 1:00am August 07, 2023 11:18am must administer 30 minutes before or 1-2 hours after breakfast take 1 capsule by mo uth once daily before breakfast Phentermine HCl 37.5 mg capsule Take 37. 5 mg by mouth daily before breakfast. 0 Active Comment on above: Take 37.5 mg by mout h daily before breakfast. therapeutic multivitamin-minerals (THERA-M PLUS) 9 mg iron-400 mcg tablet (5 sources) therapeutic multivitamin-minerals (THERA-M PLUS) 9 mg iron-400 mcg tablet Take 1 tablet by mouth. 0 Active Comment on above: Take 1 tablet by jennifer th. Problems Active Problems Problem Classification Problem Date Documented Da te Episodic/Chronic Abdominal hernia (1 source) Umbilical hernia; Translations: [Umbilical hernia without obstruction or gangrene] Episodic Abdominal pain (1 source) Abdominal pain; Translations: [Unspecified abdominal pain] Episodic Administrative/social admission (2 sources) Patient encounter status; Translations: [Persons encountering health services in other specified circumstances] 06-05-2023 Episodic Allergic reactions (1 source) Allergy to bee venom; Translations: [Other insect allergy status] Episodic Anxiety disorders (12 sources) Panic disorder; Translations: [Panic disorder [episodic paroxysmal anxiety]] Onset: 10-23-2022 10-23-2022 Chronic Diabetes mellitus without complication (1 source) Type 2 diabetes mellitus; Translations: [Type 2 diabetes mellitus without complications] Chronic Diabetes mellitus without complication (1 source) Diabetes mellitus without complication Onset: 07-12-2017 Disorders of lipid metabolism (1 source) Hyperlipidemia; Translations: [Hyperlipidemia, unspecified] Chronic E Codes: Fall (3 sources) Unspecified fall, initial encounter; Translations: [Fall (on) (from) unspecified stairs and steps, initial encounter] Onset: 07-30-2022 06-17-2023 Episodic Esophageal disorders (10 sources) Acid reflux; Translations: [Gastro-esophageal reflux disease without esophagitis] Onset: 10-23-2022 10-23-2022 Chronic Esophageal disorders (1 source) Esophageal disorders Onset: 05-24-2017 Essential hypertension (1 source) Hypertensive disorder; Translations: [Essential (primary) hypertension] Chronic Essential hypertension (1 source) Essential hypertension Onset: 07-12-2017 Fracture of lower limb (3 sources) Closed fracture distal tibia; Translations: [Other fracture of lower end of right tibia, initial encounter for closed fracture] 06-17-2023 Episodic Fracture of lower limb (1 source) Closed fracture of distal end of left tibia; Translations: [Unspecified fracture of lower end of left tibia, initial encounter for closed fracture] 06-18-2023 Episodic Genitourinary symptoms and ill-defined conditions (1 source) Urinary incontinence; Translations: [Unspecified urinary incontinence] Chronic Genitourinary symptoms and ill-defined conditions (1 source) Increased frequency of urination; Translations: [Frequency of micturition] Episodic Headache; including migraine (3 sources) Headache; including migraine; Translations: [HEADACHE UNSPECIFIED] Onset: 07-14-2022 Immunizations and screening for infectious disease (1 source) Encounter for immunization; Translations: [ENCOUNTER FOR IMMUNIZATION] Onset: 07-30-2022 Episodic Intracranial injury (1 source) Concussion without loss of consciousness, initial encounter; Translations: [CONCUSSION WITHOUT LOC INITIAL ENC] Onset: 07-30-2022 Episodic Menopausal disorders (1 source) Hormone replacement therapy; Translations: [HORMONE REPLACEMENT THERAPY] Onset: 07-30-2022 Episodic Menstrual disorders (10 sources) Amenorrhea; Translations: [Amenorrhea, unspecified] Onset: 10-23-2022 10-23-2022 Chronic Mood disorders (8 sources) Recurrent major depressive episodes, mild ; Translations: [Major depressive disorder, recurrent, mild] Onset: 10-23-2022 10-23-2022 Chronic Nonmalignant breast conditions (20 sources) Hypertrophy of breast; Translations: [Hypertrophy of breast] Onset: 09-18-2023 06-12-2023 Episodic Other aftercare (1 source) Other correction (current) drug therapy; Translations: [OTH [facility] CURRENT DRUG THERAPY] Onset: 07-30-2022 Episodic Other complications of ; puerperium affecting management of mother (1 source) Galactorrhea not associated with childbirth; Translations: [Galactorrhea] Episodic Other connective tissue disease (1 source) Paraparesis; Translations: [Muscle weakness (generalized)] Episodic Other connective tissue disease (1 source) Muscle weakness; Translations: [Muscle weakness (generalized)] Episodic Other connective tissue disease (1 source) Spasm; Translations: [Other muscle spasm] Episodic Other connective tissue disease (1 source) Disorder of musculoskeletal system; Translations: [Other symptoms and signs involving the musculoskeletal system] Episodic Other connective tissue disease (3 sources) Swelling of right foot; Translations: [Other specified soft tissue disorders] 06-17-2023 Episodic Other connective tissue disease (2 sources) Pain in left foot; Translations: [Pain in left foot] 06-17-2023 Episodic Other connective tissue disease (2 sources) Pain in right lower limb; Translations: [Pain in right leg] 06-17-2023 Episodic Other diseases of bladder and urethra (9 sources) Neurogenic bladder; Translations: [Neuromuscular dysfunction of bladder, unspecified] Onset: 10-23-2022 10-23-2022 Chronic Other endocrine disorders (1 source) Increased prolactin level; Translations: [Hyperfunction of pituitary gland, unspecified] Chronic Other female genital disorders (1 source) Other specified noninflammatory disorders of vagina; Translations: [OTH SPEC NONINFLAMMATORY D/O VAGINA] Onset: 06-18-2022 Episodic Other gastrointestinal disorders (9 sources) Neurogenic bowel; Translations: [Neurogenic bowel, not elsewhere classified] Onset: 10-23-2022 10-23-2022 Chronic Other injuries and conditions due to external causes (1 source) Unspecified injury of head, initial encounter; Translations: [UNSPECIFIED INJURY HEAD INITIAL ENC] Onset: 07-30-2022 Episodic Other nervous system disorders (1 source) Spinal cord disease; Translations: [Disease of spinal cord, unspecified] Chronic Other nervous system disorders (9 sources) Neuropathy; Translations: [Polyneuropathy, unspecified] Onset: 10-23-2022 10-23-2022 Chronic Other nervous system disorders (9 sources) Carpal tunnel syndrome of left wrist; Translations: [Carpal tunnel syndrome, left upper limb] Onset: 10-23-2022 10-23-2022 Chronic Other nervous system disorders (1 source) Carpal tunnel syndrome; Translations: [Carpal tunnel syndrome, unspecified upper limb] Chronic Other nervous system disorders (1 source) Other specified mononeuropathies; Translations: [OTHER SPECIFIED MONONEUROPATHIES] Onset: 12-05-2021 Chronic Other nervous system disorders (1 source) Other chronic pain; Translations: [Other chronic pain] Onset: 09-18-2023 Chronic Other nervous system disorders (1 source) Skin sensation disturbance; Translations: [Paresthesia of skin] Episodic Other nervous system disorders (1 source) Paresthesia; Translations: [Paresthesia of skin] Episodic Other non-traumatic joint disorders (2 sources) Swollen ankle region; Translations: [Effusion, right ankle] 06-17-2023 Episodic Other nutritional; endocrine; and metabolic disorders (1 source) Body mass index 40+ - severely obese; Translations: [Body mass index (BMI) 40.0-44.9, adult] Chronic Other nutritional; endocrine; and metabolic disorders (9 sources) Obesity; Translations: [Obesity, unspecified] Onset: 10-23-2022 10-23-2022 Chronic Other screening for suspected conditions (not mental disorders or infectious disease) (12 sources) Abnormal findings on diagnostic imaging of other specified body structures; Translations: [Endometrium thickened] Onset: 08-17-2021 Chronic Other screening for suspected conditions (not mental disorders or infectious disease) (4 sources) Encounter for screening for malignant neoplasm of cervix; Translations: [ENC SCREENING MALIG NEOPLASM CERV] Onset: 06-14-2022 Episodic Other skin disorders (1 source) Eruption; Translations: [Rash and other nonspecific skin eruption] Episodic Other skin disorders (1 source) O/E - dry skin; Translations: [Other skin changes] Episodic Paralysis (17 sources) Paraplegia; Translations: [Paraplegia, unspecified] Onset: 10-23-2022 10-23-2022 Chronic Pulmonary heart disease (1 source) H/O: pulmonary embolus; Translations: [Personal history of pulmonary embolism] Episodic Residual codes; unclassified (1 source) H/O Spinal surgery; Translations: [Other specified postprocedural states] Episodic Residual codes; unclassified (1 source) Edema of lower extremity; Translations: [Localized edema] Episodic Spinal cord injury (9 sources) Traumatic injury of spinal cord at T1-T6 level; Translations: [Unspecified injury at T1 level of thoracic spinal cord, initial encounter] Onset: 10-23-2022 10-23-2022 Chronic Spondylosis; intervertebral disc disorders; other back problems (20 sources) Thoracic myelopathy; Translations: [Other spondylosis with myelopathy, thoracic region] Onset: 12-02-2020 Chronic Spondylosis; intervertebral disc disorders; other back problems (20 sources) Spinal stenosis of lumbar region; Translations: [Spinal stenosis, lumbar region without neurogenic claudication] Onset: 10-17-2021 Episodic Spondylosis; intervertebral disc disorders; other back problems (3 sources) Spondylosis; intervertebral disc disorders; other back problems; Translations: [Other spondylosis with myelopathy, thoracic region] Onset: 05-10-2017 Superficial injury; contusion (1 source) Abrasion of right elbow, initial encounter; Translations: [ABRASION RIGHT ELBOW INITIAL ENC] Onset: 07-30-2022 Episodic Thyroid disorders (10 sources) Hypothyroidism; Translations: [Hypothyroidism, unspecified] Onset: 10-23-2022 10-23-2022 Chronic Unclassified (1 source) Other shock / R57.8(ICD-10) Onset: 05-24-2017 Unclassified (1 source) Spinal stenosis, thoracic region / M48.04(ICD-10) Onset: 07-12-2017 Unclassified (1 source) Hypothyroidism, unspecified / E03.9(ICD-10) Onset: 07-12-2017 Unclassified (1 source) Other pulmonary embolism without acute cor pulmonale / I26.99(ICD-10) Onset: 07-12-2017 Unclassified (1 source) Morbid (severe) obesity due to excess calories / E66.01(ICD-10) Onset: 05-24-2017 Unclassified (1 source) Family hx of ischem heart dis and oth dis of the circ sys / Z82.49(ICD-10) Onset: 07-12-2017 Unclassified (1 source) History of falling / Z91.81(ICD-10) Onset: 05-24-2017 Unclassified (1 source) Other muscle spasm / M62.838(ICD-10) Onset: 05-24-2017 Unclassified (1 source) Retention of urine, unspecified / R33.9(ICD-10) Onset: 05-24-2017 Unclassified (1 source) Unsp Escherichia coli as the cause of diseases classd elswhr / B96.20(ICD-10) Onset: 05-24-2017 Unclassified (1 source) Body mass index (BMI) 40.0-44.9, adult / Z68.41(ICD-10) Onset: 05-24-2017 Unclassified (1 source) Z51.81 - Encounter for therapeutic drug level monitoring; Translations: [Z51.81 - Encounter for therapeutic drug level monitoring] Onset: 05-12-2018 Unclassified (1 source) CONTACT W/AND (SUSP) EXPOS COVID-19; Translations: [CONTACT W/AND (SUSP) EXPOS COVID-19] Onset: 12-18-2021 Unclassified (1 source) APPOINTMENT CANCELLED 07-24-2023 Urinary tract infections (1 source) Urinary tract infections Onset: 05-24-2017 Past or Other Problems Problem Classification Problem Date Documented Da te Episodic/Chronic trauma (8 sources) Spinal cord injury; Translations: [ injury to spine and spinal cord] Onset: 10-24-2022 Resolved: 05-09-2023 05-09-2023 Episodic E Codes: Natural/environment (1 source) Bitten or stung by nonvenomous insect and other nonvenomous arthropods, initial encounter Onset: 01-19-2022 Resolved: 01-19-2022 Episodic Malaise and fatigue (1 source) Weakness; Translations: [WEAKNESS] Onset: 10-05-2021 Episodic Mood disorders (8 sources) Mood disorders Onset: 05-09-2023 05-09-2023 Other connective tissue disease (4 sources) Other muscle spasm; Translations: [OTHER MUSCLE SPASM] Onset: 12-19-2021 Episodic Other female genital disorders (8 sources) Enlarged uterus; Translations: [Hypertrophy of uterus] Onset: 10-23-2022 10-23-2022 Episodic Other gastrointestinal disorders (9 sources) Constipation; Translations: [Constipation, unspecified] Onset: 10-23-2022 10-23-2022 Episodic Other nervous system disorders (9 sources) Abnormal gait; Translations: [Unspecified abnormalities of gait and mobility] Onset: 10-23-2022 10-23-2022 Episodic Other nutritional; endocrine; and metabolic disorders (8 sources) Abnormal weight gain; Translations: [Abnormal weight gain] Onset: 10-23-2022 10-23-2022 Episodic Residual codes; unclassified (1 source) Other specified postprocedural states; Translations: [OTH SPECIFIED POSTPROCEDURAL STATES] Onset: 12-22-2021 Episodic Residual codes; unclassified (1 source) Procedure and treatment not carried out, unspecified reason; Translations: [PROC AND TX NOT CARRIED OUT UNS REASON] Onset: 10-18-2021 Episodic Urinary tract infections (4 sources) Urinary tract infection, site not specified; Translations: [UTI SITE NOT SPECIFIED] Onset: 11-25-2021 Episodic Results Test Name Value Interpretation Reference Range Facility Plastic Surgery Visit Report on 10-22-2023 Plastic Surgery Visit Report [facility] Plastic Reconstructive Surgery [address], [address] [place] [address] OFFICE VISIT Date of Service: 10/22/23 MR#: [id number] Acct: [id number] Name: ELDA NG Rep #: [id number] : 1970 Provider: Dr. Carly madrid MD Age/Sex: 53/F Location: [facility] Status: Signed Intake Vital Signs 10/09/23 14:40 10/22/23 13:25 Height 4 ft 11 in 4 ft 11 in Weight: 158 lb 6 oz 161 lb 2 oz BMI 31.9 32.5 BP 116/65 140/79 H Blood Pressure Location Lt brachial Lt brachial Position Sitting Sitting Respiration 16 16 Pulse 80 97 Temp 98.0 F 97.3 F L Temp Source Temporal Temporal Pulse Oximetry (%) 95 97 Oxygen Delivery Method room air room air Comment uses walker Intake Visit Reasons: FOLLOW UP Chief Complaint: post op heidi breast reduction Accompanied by: Mother Is patient in pain?: Yes (3/10 left breast tenderness) Allergies metformin Allergy (Mild, Verified 10/22/23 13:26) Chest tightness Medications ???Medication ???Instructions ???Recorded ???Confirmed ???Type alendronate 70 mg tablet 70 mg PO FR 06/12/23 10/22/23 History cholecalciferol (vitamin D3) 10 10 mcg PO DAILY 06/12/23 10/22/23 History mcg (400 unit) capsule ibuprofen 800 mg tablet 800 mg PO TID 06/12/23 10/22/23 History levothyroxine 100 mcg capsule 100 mcg PO DAILY 06/12/23 10/22/23 History loratadine 5 mg disintegrating 10 mg PO DAILY 06/12/23 10/22/23 History tablet (Claritin RediTabs) valacyclovir 1 gram tablet 1,000 mg PO DAILY PRN PRN cold 06/12/23 10/22/23 History sores semaglutide (weight loss) 0.5 0.5 mg subcut FR WEIGHT LOSS 08/07/23 10/22/23 History mg/0.5 mL subcutaneous pen injector (Wegovy) venlafaxine 75 mg capsule,extended 150 mg PO DAILY 08/07/23 10/22/23 History release 24 hr (Effexor XR) albuterol sulfate 90 mcg/actuation 1 puff inhalation Q6H PRN PRN 08/23/23 10/22/23 History aerosol inhaler allergy symptoms calcium gluconate 60 mg calcium 120 mg PO DAILY 08/23/23 10/22/23 History (650 mg) tablet diphenhydramine HCl 25 mg tablet 25 mg PO Q8H PRN allergy symptoms 08/23/23 10/22/23 History (Allergy (diphenhydramine)) docusate sodium 100 mg capsule 300 mg PO QHS 08/23/23 10/22/23 History (Colace) gabapentin 600 mg tablet 600 mg PO BID 08/23/23 10/22/23 History hydroxyzine HCl 25 mg tablet 25 mg PO DAILY PRN PRN anxiety 08/23/23 10/22/23 History inulin 2 gram chewable tablet 4 g PO QHS 08/23/23 10/22/23 History (Fiber Gummies) magnesium citrate 100 mg capsule 100 mg PO DAILY 08/23/23 10/22/23 History xgmmmbrz-wqv-gtowq acid 200 2 tab PO DAILY 08/23/23 10/22/23 History mcg-collagen, hydrolyzed 25 mg chew tablet (Women's Multivitamin with Collagen) sqxiqmry-hej-sbti 4 mg-folic acid 1 tab PO DAILY 08/23/23 10/22/23 History 200 mcg-vit K 25 mcg-lutein tablet (Centrum Minis Women 50 Plus) silver sulfadiazine 1 % topical 1 applic topical DAILY #20 grams 10/09/23 10/22/23 Rx cream (Silvadene) Nurse's Note: pt here with mother, 3/10 pain in left breast-tender. Subjective Details: Lodema comes in today for recheck of the bilateral breast reduction. She denies any problems. Objective Details: Incisions are well-approximated. There is no evidence of infection. The previous open areas are granulating and closed. She describes a sensitive area on the lateral aspect of the left breast. I have advocated for her to desensitize the skin. She does a similar procedure using a brush on her legs. She may resume normal activity, however she is cautioned to avoid extreme use of her upper extremities. Coding Level of Care Code Global Post Op Diagnoses Status post breast reduction Z98.890 [facility] Medical History (Updated 08/23/23 @ 09:01 by Lela Wilson) Wears glasses Uses wheelchair Walker as ambulation aid Arthritis Pulmonary embolism Spastic Back pain Injury of back Falls frequently Constipation Gastric reflux Non-smoker Leg cramps History of pain when walking History of edema History of stress test Hypertension Pain H/O back injury Anxiety Thyroid disease Polycystic ovary Osteoporosis Neuropathy Asthma Arthritis Surgical History (Updated 09/11/23 @ 12:[address] Carly Croft MD) H/O carpal tunnel repair H/O section H/O dilation and curettage Family History (Updated 06/12/23 @ 10:24 by Obed Todd) Other Arthritis Asthma Diabetes Heart disease High cholesterol Hypertension Kidney disease Osteoporosis Skin cancer Third disease Social History (Updated 06/12/23 @ 10:32 by Keyana Carranza) Smoking Status: Never smoker alcohol intake: never substance use type: does not use additional social history: pt denies vaping, denies edibles, (more content not included)... Normal [facility] Plastic Surgery Visit Report on 10-09-2023 Plastic Surgery Visit Report [facility] Plastic Reconstructive Surgery [address], [address] [place] [address] OFFICE VISIT Date of Service: 10/09/23 MR#: [id number] Acct: [id number] Name: ELDA NG Rep #: [id number] : 1970 Provider: Dr. Carly madrid MD Age/Sex: 53/F Location: [facility] Status: Signed Intake Vital Signs 10/02/23 11:04 10/08/23 11:37 10/09/23 14:40 Height 4 ft 11 in 4 ft 11 in 4 ft 11 in Weight: 158 lb 6 oz 158 lb 6 oz BMI 31.9 31.9 BP 144/77 H 116/65 Blood Pressure Location Lt brachial Lt brachial Position Sitting Sitting Respiration 16 16 Pulse 81 80 Pulse Source Monitor Temp 99.3 F H 98.0 F Temp Source Temporal Temporal Pulse Oximetry (%) 99 95 Oxygen Delivery Method room air room air Intake Visit Reasons: right breast Chief Complaint: breast reduction Is patient in pain?: No Allergies metformin Allergy (Mild, Verified 10/09/23 14:41) Chest tightness Medications ???Medication ???Instructions ???Recorded ???Confirmed ???Type alendronate 70 mg tablet 70 mg PO FR 06/12/23 10/09/23 History baclofen 20 mg tablet 40 mg PO BID 06/12/23 10/09/23 History cholecalciferol (vitamin D3) 10 10 mcg PO DAILY 06/12/23 10/09/23 History mcg (400 unit) capsule ibuprofen 800 mg tablet 800 mg PO TID 06/12/23 10/09/23 History levothyroxine 100 mcg capsule 100 mcg PO DAILY 06/12/23 10/09/23 History loratadine 5 mg disintegrating 10 mg PO DAILY 06/12/23 10/09/23 History tablet (Claritin RediTabs) valacyclovir 1 gram tablet 1,000 mg PO DAILY PRN PRN cold 06/12/23 10/09/23 History sores semaglutide (weight loss) 0.5 0.5 mg subcut FR WEIGHT LOSS 08/07/23 10/09/23 History mg/0.5 mL subcutaneous pen injector (Wegovy) venlafaxine 75 mg capsule,extended 150 mg PO DAILY 08/07/23 10/09/23 History release 24 hr (Effexor XR) albuterol sulfate 90 mcg/actuation 1 puff inhalation Q6H PRN PRN 08/23/23 10/09/23 History aerosol inhaler allergy symptoms calcium gluconate 60 mg calcium 120 mg PO DAILY 08/23/23 10/09/23 History (650 mg) tablet diphenhydramine HCl 25 mg tablet 25 mg PO Q8H PRN allergy symptoms 08/23/23 10/09/23 History (Allergy (diphenhydramine)) docusate sodium 100 mg capsule 300 mg PO QHS 08/23/23 10/09/23 History (Colace) gabapentin 600 mg tablet 600 mg PO BID 08/23/23 10/09/23 History hydroxyzine HCl 25 mg tablet 25 mg PO DAILY PRN PRN anxiety 08/23/23 10/09/23 History inulin 2 gram chewable tablet 4 g PO QHS 08/23/23 10/09/23 History (Fiber Gummies) magnesium citrate 100 mg capsule 100 mg PO DAILY 08/23/23 10/09/23 History skrrlmfb-ceu-sfhxx acid 200 2 tab PO DAILY 08/23/23 10/09/23 History mcg-collagen, hydrolyzed 25 mg chew tablet (Women's Multivitamin with Collagen) dmfshvci-mxz-ucsu 4 mg-folic acid 1 tab PO DAILY 08/23/23 10/09/23 History 200 mcg-vit K 25 mcg-lutein tablet (Centrum Minis Women 50 Plus) silver sulfadiazine 1 % topical 1 applic topical DAILY #20 grams 10/09/23 10/09/23 Rx cream (Silvadene) Nurse's Note: pt here with mother post op heidi breast reduction-concern with right breast at T zone Subjective Details: Lodema comes in for recheck of her bilateral breast reduction. She had noticed a small open area and had some concerns. Objective Details: She has a small open area at the base of the right side. This was debrided of fibrinous exudate. Bleeding tissue was encountered. There is no evidence of infection. The opening is approximately 3 to 4 mm in size. I have asked her to continue her present wound management including antibiotic ointment and dry gauze. I have applied Silvadene to the site and will have her do the same along with dry gauze. The opposite side is healing satisfactorily. I reminded the patient to be careful regarding use of her arms which can pull on the incisions. This is a challenge to her especially since she is dependent on using a walker and lacks complete function of her lower extremities. Coding Level of Care Code Global Post Op Diagnoses Status post breast reduction Z98.890 [facility] Medical History (Updated 08/23/23 @ 09:01 by Lela Wilson) Wears glasses Uses wheelchair Walker as ambulation aid Arthritis Pulmonary embolism Spastic Back pain Injury of back Falls frequently Constipation Gastric reflux Non-smoker Leg cramps History of pain when walking History of edema History of stress test Hypertension Pain H/O back injury Anxiety Thyroid disease Polycystic ovary Osteoporosis Neuropathy Asthma Arthritis Surgical History (Updated 09/11/23 @ 12:[address] Carly Croft MD) H/O carpal tunnel repair H/O section H/O dilation and curettage Family History (Updated 06/12/23 @ 10:24 by Obed Todd) O (more content not included)... Normal [facility] Plastic Surgery Visit Report on 10-02-2023 Plastic Surgery Visit Report [facility] [address] [place] [address] OFFICE VISIT Date of Service: 10/02/23 MR#: [id number] Acct: [id number] Name: ELDA NG Rep #: [id number] : 1970 Provider: Dr. Carly madrid MD Age/Sex: 53/F Location: [facility] Status: Signed Intake Vital Signs 09/17/23 11:34 10/02/23 11:04 Height 4 ft 11 in 4 ft 11 in Weight: 156 lb 6 oz 158 lb 6 oz BMI 31.6 31.9 BP 133/84 H 144/77 H Blood Pressure Location Lt brachial Lt brachial Position Sitting Sitting Respiration 18 16 Pulse 87 81 Pulse Source Monitor Monitor Temp 97.4 F L 99.3 F H Temp Source Temporal Temporal Pulse Oximetry (%) 98 99 Oxygen Delivery Method room air room air Comment pt ambulates with walker Intake Visit Reasons: follow up Chief Complaint: breast reduction post #2 Is patient in pain?: No Allergies metformin Allergy (Mild, Verified 10/02/23 11:05) Chest tightness Medications ???Medication ???Instructions ???Recorded ???Confirmed ???Type alendronate 70 mg tablet 70 mg PO FR 06/12/23 10/02/23 History baclofen 20 mg tablet 40 mg PO BID 06/12/23 10/02/23 History cholecalciferol (vitamin D3) 10 10 mcg PO DAILY 06/12/23 10/02/23 History mcg (400 unit) capsule ibuprofen 800 mg tablet 800 mg PO TID 06/12/23 10/02/23 History levothyroxine 100 mcg capsule 100 mcg PO DAILY 06/12/23 10/02/23 History loratadine 5 mg disintegrating 10 mg PO DAILY 06/12/23 10/02/23 History tablet (Claritin RediTabs) valacyclovir 1 gram tablet 1,000 mg PO DAILY PRN PRN cold 06/12/23 10/02/23 History sores semaglutide (weight loss) 0.5 0.5 mg subcut FR WEIGHT LOSS 08/07/23 10/02/23 History mg/0.5 mL subcutaneous pen injector (Weandreiveric) venlafaxine 75 mg capsule,extended 150 mg PO DAILY 08/07/23 10/02/23 History release 24 hr (Effexor XR) albuterol sulfate 90 mcg/actuation 1 puff inhalation Q6H PRN PRN 08/23/23 10/02/23 History aerosol inhaler allergy symptoms calcium gluconate 60 mg calcium 120 mg PO DAILY 08/23/23 10/02/23 History (650 mg) tablet diphenhydramine HCl 25 mg tablet 25 mg PO Q8H PRN allergy symptoms 08/23/23 10/02/23 History (Allergy (diphenhydramine)) docusate sodium 100 mg capsule 300 mg PO QHS 08/23/23 10/02/23 History (Colace) gabapentin 600 mg tablet 600 mg PO BID 08/23/23 10/02/23 History hydroxyzine HCl 25 mg tablet 25 mg PO DAILY PRN PRN anxiety 08/23/23 10/02/23 History inulin 2 gram chewable tablet 4 g PO QHS 08/23/23 10/02/23 History (Fiber Gummies) magnesium citrate 100 mg capsule 100 mg PO DAILY 08/23/23 10/02/23 History wyebaouu-qqm-wscps acid 200 2 tab PO DAILY 08/23/23 10/02/23 History mcg-collagen, hydrolyzed 25 mg chew tablet (Women's Multivitamin with Collagen) bhfmjycy-zdt-ruys 4 mg-folic acid 1 tab PO DAILY 08/23/23 10/02/23 History 200 mcg-vit K 25 mcg-lutein tablet (Centrum Minis Women 50 Plus) Nurse's Note: pt here for follow up bilateral breast reduction Subjective Details: No edema comes in for recheck of her breast reduction. She denies any problems. Objective Details: Incisions are well-approximated. She has a very small area of fibrinous exudate at the base of the right breast and just medial to this is a small suture abscess. The incisions are otherwise well- approximated. I reviewed wound care with the patient including application of antibiotic ointment to this specific area on her right breast as well as Aquaphor to the remainder of the incisions. I have asked her to continue sleeping in an elevated position however she can return to work for 3 to 4 hours at the time. Coding Level of Care Code Global Post Op Diagnoses Status post breast reduction Z98.890 [facility] Medical History (Updated 08/23/23 @ 09:01 by Lela Wilson) Wears glasses Uses wheelchair Walker as ambulation aid Arthritis Pulmonary embolism Spastic Back pain Injury of back Falls frequently Constipation Gastric reflux Non-smoker Leg cramps History of pain when walking History of edema History of stress test Hypertension Pain H/O back injury Anxiety Thyroid disease Polycystic ovary Osteoporosis Neuropathy Asthma Arthritis Surgical History (Updated 09/11/23 @ 12:[address] Carly Croft MD) H/O carpal tunnel repair H/O section H/O dilation and curettage Family History (Updated 06/12/23 @ 10:24 by Obed Todd) Other Arthritis Asthma Diabetes Heart disease High cholesterol Hypertension Kidney disease Osteoporosis Skin cancer Third disease Social History (Updated 06/12/23 @ 10:32 by Keyana Carranza) Smoking Status: Never smoker alcohol intake: never substance use type: does not use additional social history: (more content not included)... Normal [facility] Plastic Surgery Visit Report on 09-17-2023 Plastic Surgery Visit Report [facility] Plastic Reconstructive Surgery [address], [address] [place] [address] OFFICE VISIT Date of Service: 09/17/23 MR#: [id number] Acct: [id number] Name: ELDA NG Rep #: [id number] : 1970 Provider: Dr. Carly madrid MD Age/Sex: 53/F [place] [facility] Status: Signed Intake Vital Signs 06/12/23 10:32 09/11/23 11:45 09/17/23 11:34 Height 4 ft 11 in 4 ft 11 in 4 ft 11 in Weight: 156 lb 6 oz BMI 31.6 BP 133/84 H Blood Pressure Location Lt brachial Position Sitting Respiration 18 Pulse 87 Pulse Source Monitor Temp 97.4 F L Temp Source Temporal Pulse Oximetry (%) 98 Oxygen Delivery Method room air Comment pt ambulates with walker Intake Visit Reasons: post #2 heidi breast red Chief Complaint: breast reduction post #2 Accompanied by: Mother Is patient in pain?: No Allergies metformin Allergy (Mild, Verified 09/17/23 11:35) Chest tightness Medications ???Medication ???Instructions ???Recorded ???Confirmed ???Type alendronate 70 mg tablet 70 mg PO FR 06/12/23 09/11/23 History baclofen 20 mg tablet 40 mg PO BID 06/12/23 09/11/23 History cholecalciferol (vitamin D3) 10 10 mcg PO DAILY 06/12/23 09/11/23 History mcg (400 unit) capsule ibuprofen 800 mg tablet 800 mg PO TID 06/12/23 09/11/23 History levothyroxine 100 mcg capsule 100 mcg PO DAILY 06/12/23 09/11/23 History loratadine 5 mg disintegrating 10 mg PO DAILY 06/12/23 09/11/23 History tablet (Claritin RediTabs) valacyclovir 1 gram tablet 1,000 mg PO DAILY PRN PRN cold 06/12/23 09/11/23 History sores semaglutide (weight loss) 0.5 0.5 mg subcut FR WEIGHT LOSS 08/07/23 09/11/23 History mg/0.5 mL subcutaneous pen injector (Wegovy) venlafaxine 75 mg capsule,extended 150 mg PO DAILY 08/07/23 09/11/23 History release 24 hr (Effexor XR) albuterol sulfate 90 mcg/actuation 1 puff inhalation Q6H PRN PRN 08/23/23 09/11/23 History aerosol inhaler allergy symptoms calcium gluconate 60 mg calcium 120 mg PO DAILY 08/23/23 09/11/23 History (650 mg) tablet diphenhydramine HCl 25 mg tablet 25 mg PO Q8H PRN allergy symptoms 08/23/23 09/11/23 History (Allergy (diphenhydramine)) docusate sodium 100 mg capsule 300 mg PO QHS 08/23/23 09/11/23 History (Colace) gabapentin 600 mg tablet 600 mg PO BID 08/23/23 09/11/23 History hydroxyzine HCl 25 mg tablet 25 mg PO DAILY PRN PRN anxiety 08/23/23 09/11/23 History inulin 2 gram chewable tablet 4 g PO QHS 08/23/23 09/11/23 History (Fiber Gummies) magnesium citrate 100 mg capsule 100 mg PO DAILY 08/23/23 09/11/23 History qtyitpfx-fjn-sgsui acid 200 2 tab PO DAILY 08/23/23 09/11/23 History mcg-collagen, hydrolyzed 25 mg chew tablet (Women's Multivitamin with Collagen) zuzlffey-kcj-bqng 4 mg-folic acid 1 tab PO DAILY 08/23/23 09/11/23 History 200 mcg-vit K 25 mcg-lutein tablet (Centrum Minis Women 50 Plus) Nurse's Note: pt here with mother post op #2 heidi breast reduction-no issues/ has few questions. Subjective Details: Lodema comes in for recheck of the bilateral breast reduction. She denies any problems other than discomfort from the bra. Objective Details: The incisions are well-approximated. The bruising is slowly resolving. There is no evidence of infection or wound separation. The wounds were redressed with antibiotic ointment and dry gauze. She is instructed to do the same. She can begin to shower and drive short distances. Coding Level of Care Code Global Post Op Diagnoses Status post breast reduction Z98.890 [facility] Medical History (Updated 08/23/23 @ 09:01 by Lela Wilson) Wears glasses Uses wheelchair Walker as ambulation aid Arthritis Pulmonary embolism Spastic Back pain Injury of back Falls frequently Constipation Gastric reflux Non-smoker Leg cramps History of pain when walking History of edema History of stress test Hypertension Pain H/O back injury Anxiety Thyroid disease Polycystic ovary Osteoporosis Neuropathy Asthma Arthritis Surgical History (Updated 09/11/23 @ 12:[address] Carly Croft MD) H/O carpal tunnel repair H/O section H/O dilation and curettage Family History (Updated 06/12/23 @ 10:24 by Obed Todd) Other Arthritis Asthma Diabetes Heart disease High cholesterol Hypertension Kidney disease Osteoporosis Skin cancer Third disease Social History (Updated 06/12/23 @ 10:32 by Keyana Carranza) Smoking Status: Never smoker alcohol intake: never substance use type: does not use additional social history: pt denies vaping, denies edibles, denies marijuana use, denies aspirin, denies illegal drugs, Uses 800mg ibuprofen twice a day. Assessment and Plan (No Qualifiers) Assessmen (more content not included)... Normal [facility] Plastic Surgery Visit Report on 09-11-2023 Plastic Surgery Visit Report [facility] Plastic Reconstructive Surgery [address], [address] [place] [id number] OFFICE VISIT Date of Service: 09/11/23 MR#: [id number] Acct: [id number] Name: ELDA NG Rep #: [id number] : 1970 Provider: Dr. Carly madrid MD Age/Sex: 53/F Location: [facility] Status: Signed Intake Vital Signs 06/12/23 10:32 09/05/23 06:47 09/11/23 11:45 Height 4 ft 11 in 4 ft 11 in 4 ft 11 in Weight: 156 lb 6 oz BMI 31.6 BP 114/71 Blood Pressure Location Lt brachial Position Sitting Respiration 16 Pulse 96 Pulse Source Monitor Temp 97.3 F L Temp Source Temporal Pulse Oximetry (%) 96 Oxygen Delivery Method room air Intake Visit Reasons: post #1 heidi breast red Chief Complaint: breast reduction post #1 Accompanied by: Mother Is patient in pain?: No Allergies metformin Allergy (Mild, Verified 09/11/23 11:46) Chest tightness Medications alendronate 70 mg tablet 70 mg PO FR 06/12/23 [History Confirmed 09/11/23] baclofen 20 mg tablet 40 mg PO BID 06/12/23 [History Confirmed 09/11/23] cholecalciferol (vitamin D3) 10 mcg (400 unit) capsule 10 mcg PO DAILY 06/12/23 [History Confirmed 09/11/23] ibuprofen 800 mg tablet 800 mg PO TID 06/12/23 [History Confirmed 09/11/23] levothyroxine 100 mcg capsule 100 mcg PO DAILY 06/12/23 [History Confirmed 09/11/23] loratadine 5 mg disintegrating tablet (Claritin RediTabs) 10 mg PO DAILY 06/12/23 [History Confirmed 09/11/23] valacyclovir 1 gram tablet 1,000 mg PO DAILY PRN PRN cold sores 06/12/23 [History Confirmed 09/11/23] semaglutide (weight loss) 0.5 mg/0.5 mL subcutaneous pen injector (Wegovy) 0.5 mg subcut FR WEIGHT LOSS 08/07/23 [History Confirmed 09/11/23] venlafaxine 75 mg capsule,extended release 24 hr (Effexor XR) 150 mg PO DAILY 08/07/23 [History Confirmed 09/11/23] albuterol sulfate 90 mcg/actuation aerosol inhaler 1 puff inhalation Q6H PRN PRN allergy symptoms 08/23/23 [History Confirmed 09/11/23] calcium gluconate 60 mg calcium (650 mg) tablet 120 mg PO DAILY 08/23/23 [History Confirmed 09/11/23] diphenhydramine HCl 25 mg tablet (Allergy (diphenhydramine)) 25 mg PO Q8H PRN allergy symptoms 08/23/23 [History Confirmed 09/11/23] docusate sodium 100 mg capsule (Colace) 300 mg PO QHS 08/23/23 [History Confirmed 09/11/23] gabapentin 600 mg tablet 600 mg PO BID 08/23/23 [History Confirmed 09/11/23] hydroxyzine HCl 25 mg tablet 25 mg PO DAILY PRN PRN anxiety 08/23/23 [History Confirmed 09/11/23] inulin 2 gram chewable tablet (Fiber Gummies) 4 g PO QHS 08/23/23 [History Confirmed 09/11/23] magnesium citrate 100 mg capsule 100 mg PO DAILY 08/23/23 [History Confirmed 09/11/23] mmdceoik-zgi-pmdlb acid 200 mcg-collagen, hydrolyzed 25 mg chew tablet (Women's Multivitamin with Collagen) 2 tab PO DAILY 08/23/23 [History Confirmed 09/11/23] vdvqacby-gbc-ohke 4 mg-folic acid 200 mcg-vit K 25 mcg-lutein tablet (Centrum Minis Women 50 Plus) 1 tab PO DAILY 08/23/23 [History Confirmed 09/11/23] cephalexin 500 mg capsule 500 mg PO BID #14 caps 08/28/23 [Rx Confirmed 09/11/23] Nurse's Note: pt here with mother for post op #1 heidi breast reduction-no issues Subjective Details: Lodema comes in for recheck of the breast reduction. Earlier this week, she had complained feeling short of breath. She was seen in the emergency room at her local hospital ([facility]). They scanned her and found no evidence of pulmonary embolus or clot. She states that she has no problems and is otherwise feeling fine. Objective Details: The incisions are well-approximated. There is no evidence of infection. The periareolar aligning sutures are clipped. The wounds were redressed with Xeroform and dry gauze. She is placed back in her surgery bra. Instructions were reviewed including maintaining an elevated back and keeping the dressings intact. She is encouraged to call with any further problems. Coding Level of Care Code Global Post Op Diagnoses Status post breast reduction Z98.890 [facility] Medical History (Updated 08/23/23 @ 09:01 by Lela Wilson) Anxiety Arthritis Arthritis Asthma Back pain Constipation Falls frequently Gastric reflux H/O back injury History of edema History of pain when walking History of stress test Hypertension Injury of back Leg cramps Neuropathy Non-smoker Osteoporosis Pain Polycystic ovary Pulmonary embolism Spastic Thyroid disease Uses wheelchair Walker as ambulation aid Wears glasses Surgical History (Updated 09/11/23 @ 12:[address] Carly Croft MD) H/O carpal tunnel repair H/O section H/O dilation and curettage Family History (Updated 06/12/23 @ 10:24 by Obed Todd) Other Arthritis Asthma Diabetes Heart disease High cholesterol Hypertension Kidney disease Osteoporo (more content not included)... Normal [facility] Discharge Instructionon 05-0 Discharge Instruction [facility] Medical Records Department [address] [place] [address] Instructions for Home/Discharge Instructions 09/05/23 1203 MR#: [id number] Acct: [id number] Name: ELDA NG Rep #: [id number] : 1970 53 From: Carly Croft MD PCP: VALE BARNES Status:REG [facility] Discharge Instructions Dressing / Incision Additional Dressing/Incision Instructions:: Use the incentive spirometer 5-6 times a day. Follow the instructions given in the office. Follow Up Care Please Follow Up With: Carly Croft MD When: In 1 week Test Results: Test results from this visit will be discussed in further detail at your follow-up appointment, if applicable. Discharge Plan Admission Attending Provider: Carly Croft Primary Care Provider: VALE BARNES Discharge Orders/Prescriptions Prescriptions: No Action baclofen 20 mg tablet 40 mg PO BID levothyroxine 100 mcg capsule 100 mcg PO DAILY ibuprofen 800 mg tablet 800 mg PO TID valacyclovir 1 gram tablet 1,000 mg PO DAILY PRN PRN (Reason: cold sores) Claritin RediTabs 5 mg tablet,disintegrating 10 mg PO DAILY alendronate 70 mg tablet 70 mg PO FR cholecalciferol (vitamin D3) 10 mcg (400 unit) capsule 10 mcg PO DAILY cephalexin 500 mg capsule 500 mg PO BID Qty: 14 0RF venlafaxine [Effexor XR] 75 mg capsule,extended release 24hr 150 mg PO DAILY Wegovy 0.5 mg/0.5 mL pen injector 0.5 mg subcut FR Rx Instructions: administer weeks 5 through 8 of therapy calcium gluconate 60 mg calcium (650 mg) tablet 120 mg PO DAILY hydroxyzine HCl 25 mg tablet 25 mg PO DAILY PRN PRN (Reason: anxiety) magnesium citrate 100 mg capsule 100 mg PO DAILY albuterol sulfate 90 mcg/actuation HFA aerosol inhaler 1 puff inhalation Q6H PRN PRN (Reason: allergy symptoms) gabapentin 600 mg tablet 600 mg PO BID diphenhydramine HCl [Allergy (diphenhydramine)] 25 mg tablet 25 mg PO Q8H PRN (Reason: allergy symptoms) docusate sodium [Colace] 100 mg capsule 300 mg PO QHS Fiber Gummies 2 gram tablet,chewable 4 g PO QHS Women's Multivitamin Collagen 200 mcg- 25 mg tablet,chewable 2 tab PO DAILY Centrum Minis Women 50 Plus 4 mg iron-200 mcg-25 mcg tablet 1 tab PO DAILY Referrals / Follow Up: VALE BARNES [Other] Disposition Disposition (needs filled in before D/C Order can be placed): Home, Self Care 09/05/23 1207 Carly Croft MD CC: VALE BARNES Signed Normal [facility] Operative Reporton 4 Operative Report [facility] Medical Records Department [address] [place] [address] Operative Report 09/05/23 1207 MR#: [id number] Acct: [id number] Name: ELDA NG Rep #: [id number] : 1970 53 From: Carly Croft MD PCP: VALE BARNES Status:[facility] Location: [place] [address] Problems Associated Problem List Diagnoses (1) Chronic back pain: (2) Breast hypertrophy: Report of Operation Date of Procedure: 09/05/23 Pre-Operative Diagnosis: Breast hypertrophy; chronic back pain Post-Operative Diagnosis: Same Surgery/Procedure Performed:: Bilateral breast reduction (right???126 g; left???122 g) Surgeon: Carly Croft program director: RPADIP SALGUEROairworthiness safety inspector Type of Anesthesia: General Specimen's removed: Bilateral breast tissue Drains: None Estimated Blood Loss (mL): 25 cc Description of Procedure: The patient presents for bilateral breast reduction. The procedure been thoroughly reviewed with the patient. Potential risk and complications have been reviewed and informed consent has been obtained. The patient is marked in the preop holding area prior to surgery. The patient is brought to the operating room and placed under general anesthesia in the supine position. Care is taken to pad all pressure points, apply sequential compression stockings, Alex catheter, and a warming blanket. The breast and chest are prepped and draped in the usual sterile fashion. We initially began with incising the premarked incisions. The pedicle was then de- epithelialized leaving the nipple areola intact. Following this, the medial and lateral inferior aspects of the breast removed using argon coagulation. Following this, the upper flap is dissected cephalad maintaining at least 2 cm in thickness. The pedicle is then trimmed in order to allow it to comfortably sit beneath the upper flap. All tissue was passed off the operative field to be weighed and sent to pathology. The wound was then irrigated with antibiotic solution and checked for hemostasis which is controlled with cautery. The pedicle is then tacked to the chest wall using a few Vicryl sutures. The breast is then infolded and tacked together using silk suture and skin clips. When a satisfactory size and shape is noted, would begin wound closure. A few Vicryl sutures are initially placed in the inframammary crease area. Following this, a running strata fix suture is used to approximate the wound edges in 3 layers. The skin edges are approximated with a running subcuticular suture. Approximately 4 cm from the inframammary crease, the nipple areola is brought out through an opening. It is initially tacked in place with interrupted nylon suture. Following this, further refinement of the closure was done with a subcuticular strata fix suture. The identical procedure was performed on the opposite side. 1/4% plain Marcaine is injected along the incisions. The wounds are dressed with Xeroform and fluff gauze. She is placed in a surgery bra. She tolerated the procedure well and was taken to the recovery area in an awakening in stable condition. Needle and sponge counts are correct. Complications None Admit VTE Documentation VTE Mechan Device Prophylaxis: SCD's 09/05/23 1213 Cosigner Signature (if applicable): CC: Dr. Carly Croft MD; VALE BARNES Signed Normal [facility] Surgery Specimen Level Debbi 09-05-2023 Surgery Specimen Level IV Patient Age/Sex Location Account Attending Physician DARRELLELDA Gifty 53/F [facility] [id number]. Carly Croft MD Specimen: [id number] Received: 09/05/23-114 Status: PATRICK Sanches Num: [id number] Spec Type: MAMOPLASTY Subm Dr: Dr. Carly Croft MD HEADER OPERATION: Bilateral breast reduction PRE-OP DIAGNOSIS: Chronic back pain, Breast hypertrophy, Breast ptosis TISSUE SUBMITTED: A- Right breast tissue, B- Left breast tissue MICROSCOPIC DIAGNOSIS A. Right breast tissue, breast reduction mammoplasty: Benign breast tissue (126gm). Skin, no pathologic diagnosis. B. Left breast tissue, breast reduction mammoplasty: Benign breast tissue (122gm). Skin, no pathologic diagnosis. / 09/09/23 MICROSCOPIC DESCRIPTION Slides are reviewed. GROSS DESCRIPTION A. Received in fixative is one container designated Right breast tissue. The specimen consists of multiple irregular fragments of yellow fibrofatty tissue ranging in size from <0.1 to 7.0cm in greatest dimension. The larger fragment contains unremarkable skin. Serial sections do not reveal mass lesions. Several of the larger fragments contain adherent pink-chavez skin with no skin lesions. The fragments weigh in aggregate 126 gm. Serial sections reveal yellow fatty tissue interrupted occasionally by dense white fibrous streaks. No distinct mass lesions are identified. Nursing Home Assistant Administrator sections are submitted in five cassettes. B. Received in fixative is one container designated Left breast tissue. The specimen consists of multiple irregular fragments of yellow-chavez fibrofatty tissue. Several of the larger fragments contain adherent pink-chavez skin with no skin lesions. The fragments range in size from 0.5 to 9.0 cm and in aggregate weigh 122 gm. Serial sections reveal yellow fatty tissue interrupted occasionally by dense white fibrous streaks. No distinct mass lesions are identified. Nursing Home Assistant Administrator sections are submitted in five cassettes. / 09/05/23 TC: Patient Age/Sex Location Account Attending Physician ELDA NG Gifty 53/F [facility] [id number] Dr. Carly Croft MD Signed (signature on file) Dr. Baldo Pricthard MD 09/09/23 1208 Normal [facility] Comment on above: Performed By: #### P SUIV #### [facility] [address] [place], [place], [id number] Plastic Surgery Visit Report on 08-28-2023 Plastic Surgery Visit Report [facility] Plastic Reconstructive Surgery [address], [address] [place] [address] OFFICE VISIT Date of Service: 08/28/23 MR#: [id number] Acct: [id number] Name: ELDA NG Rep #: [id number] : 1970 Provider: Dr. Carly madrid MD Age/Sex: 53/F Location: [facility] Status: Signed Intake Vital Signs 06/12/23 10:32 08/07/23 11:16 08/28/23 11:56 Height 4 ft 11 in 4 ft 11 in 4 ft 11 in Weight: 162 lb 157 lb BMI 32.7 31.7 BP 144/86 H 123/81 H Blood Pressure Location Lt brachial Lt brachial Position Sitting Sitting Respiration 18 16 Pulse 100 81 Pulse Source Monitor Monitor Temp 98.0 F 97.5 F L Temp Source Oral Temporal Pulse Oximetry (%) 97 98 Oxygen Delivery Method room air room air Comment pt uses a walker pt uses a walker to ambulate Intake Visit Reasons: pre #2 Bilateral breast red. Chief Complaint: breast reduction pre op #2 Accompanied by: Mother Is patient in pain?: No Allergies metformin Allergy (Mild, Verified 08/28/23 11:57) Chest tightness Medications alendronate 70 mg tablet 70 mg PO FR 06/12/23 [History Confirmed 08/28/23] baclofen 20 mg tablet 40 mg PO BID 06/12/23 [History Confirmed 08/28/23] cholecalciferol (vitamin D3) 10 mcg (400 unit) capsule 10 mcg PO DAILY 06/12/23 [History Confirmed 08/28/23] ibuprofen 800 mg tablet 800 mg PO TID 06/12/23 [History Confirmed 08/28/23] levothyroxine 100 mcg capsule 100 mcg PO DAILY 06/12/23 [History Confirmed 08/28/23] loratadine 5 mg disintegrating tablet (Claritin RediTabs) 10 mg PO DAILY 06/12/23 [History Confirmed 08/28/23] valacyclovir 1 gram tablet 1,000 mg PO DAILY PRN PRN cold sores 06/12/23 [History Confirmed 08/28/23] semaglutide (weight loss) 0.5 mg/0.5 mL subcutaneous pen injector (Wegovy) 0.5 mg subcut FR WEIGHT LOSS 08/07/23 [History Confirmed 08/28/23] venlafaxine 75 mg capsule,extended release 24 hr (Effexor XR) 75 mg PO DAILY 08/07/23 [History Confirmed 08/28/23] albuterol sulfate 90 mcg/actuation aerosol inhaler 1 puff inhalation Q6H PRN PRN allergy symptoms 08/23/23 [History Confirmed 08/28/23] calcium gluconate 60 mg calcium (650 mg) tablet 120 mg PO DAILY 08/23/23 [History Confirmed 08/28/23] diphenhydramine HCl 25 mg tablet (Allergy (diphenhydramine)) 25 mg PO Q8H PRN allergy symptoms 08/23/23 [History Confirmed 08/28/23] docusate sodium 100 mg capsule (Colace) 300 mg PO QHS 08/23/23 [History Confirmed 08/28/23] gabapentin 600 mg tablet 600 mg PO BID 08/23/23 [History Confirmed 08/28/23] hydroxyzine HCl 25 mg tablet 25 mg PO DAILY PRN PRN anxiety 08/23/23 [History Confirmed 08/28/23] inulin 2 gram chewable tablet (Fiber Gummies) 4 g PO QHS 08/23/23 [History Confirmed 08/28/23] magnesium citrate 100 mg capsule 100 mg PO DAILY 08/23/23 [History Confirmed 08/28/23] aspfgfhc-iub-whqjr acid 200 mcg-collagen, hydrolyzed 25 mg chew tablet (Women's Multivitamin with Collagen) 2 tab PO DAILY 08/23/23 [History Confirmed 08/28/23] jgurknhn-pgf-ldyh 4 mg-folic acid 200 mcg-vit K 25 mcg-lutein tablet (Centrum Minis Women 50 Plus) 1 tab PO DAILY 08/23/23 [History Confirmed 08/28/23] cephalexin 500 mg capsule 500 mg PO BID #14 caps 08/28/23 [Rx Confirmed 08/28/23] oxycodone-acetaminophen 5 mg-325 mg tablet (Percocet) 1 tab PO TID PRN pain 3 days #8 tab-caps 08/28/23 [Rx Confirmed 08/28/23] Nurse's Note: pt here with mother for pre op #2 bilateral breast reduction PFSH Medical History (Updated 08/23/23 @ 09:01 by Lela Wilson) Anxiety Arthritis Arthritis Asthma Back pain Constipation Falls frequently Gastric reflux H/O back injury History of edema History of pain when walking History of stress test Hypertension Injury of back Leg cramps Neuropathy Non-smoker Osteoporosis Pain Polycystic ovary Pulmonary embolism Spastic Thyroid disease Uses wheelchair Walker as ambulation aid Wears glasses Surgical History (Updated 08/23/23 @ 09:00 by Lela Wilson) H/O carpal tunnel repair H/O section H/O dilation and curettage Family History (Updated 06/12/23 @ 10:24 by Obed Todd) Other Arthritis Asthma Diabetes Heart disease High cholesterol Hypertension Kidney disease Osteoporosis Skin cancer Third disease Social History (Updated 06/12/23 @ 10:32 by Keyana Carranza) Smoking Status: Never smoker alcohol intake: never substance use type: does not use additional social history: pt denies vaping, denies edibles, denies marijuana use, denies aspirin, denies illegal drugs, Uses 800mg ibuprofen twice a day. HPI pre #2 Bilateral breast red. Details: Edema comes in for preop preparation regarding the upcoming breast reduction surgery. She has seen her primary care provider and we are awaiting the medical clearance. She has had a mammogram with doc (more content not included)... Normal [facility] XR ANKLE 3+ VIEWS RIGHTon XR ANKLE 3+ VIEWS RIGHT FINDINGS: Comparison made with prior examination of July 23, 2023 and July 10, 2023. No significant change. 3 x 5 mm calcification neighbors the distal tip of the medial malleolus with minimal overlying soft tissue swelling. No additional cortical or or subchondral fracture. Plantar and Achilles calcaneal spurs. 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 TRANSCRIBED BY: ELECTRONICALLY SIGNED BY: Gregory Alvarado MD Normal Not Available Plastic Surgery Visit Report on 08-07-2023 Plastic Surgery Visit Report [facility] Plastic Reconstructive Surgery [address] [place] [address], [address] [place] [address] OFFICE VISIT Date of Service: 08/07/23 MR#: [id number] Acct: [id number] Name: ELDA NG Rep #: [id number] : 1970 Provider: Dr. Carly madrid MD Age/Sex: 53/F [place] [facility] Status: Signed Intake Vital Signs 06/12/23 10:32 08/07/23 11:16 Height 4 ft 11 in 4 ft 11 in Weight: 162 lb 161 lb 6 oz BMI 32.7 32.5 BP 144/86 H 138/83 H Blood Pressure Location Lt brachial Lt brachial Position Sitting Sitting Respiration 18 16 Pulse 100 80 Pulse Source Monitor Monitor Temp 98.0 F 97.6 F L Temp Source Oral Oral Pulse Oximetry (%) 97 99 Oxygen Delivery Method room air room air Comment pt uses a walker Intake Visit Reasons: pre #1 Bilateral Breast Reduction Chief Complaint: breast reduction pre #1 Accompanied by: Mother Allergies metformin Allergy (Mild, Verified 08/07/23 11:17) Chest tightness Medications alendronate 70 mg tablet 70 mg PO QWEEK 06/12/23 [History Confirmed 08/07/23] baclofen 20 mg tablet 20 mg PO BID 06/12/23 [History Confirmed 08/07/23] calcium carbonate 168 mg calcium (420 mg) chewable tablet (Alcalak) 168 mg PO TID 06/12/23 [History Confirmed 08/07/23] cholecalciferol (vitamin D3) 10 mcg (400 unit) capsule 10 mcg PO DAILY 06/12/23 [History Confirmed 08/07/23] diazepam 5 mg tablet 5 mg PO QHS PRN 06/12/23 [History Confirmed 08/07/23] gabapentin 600 mg tablet 600 mg PO TID 06/12/23 [History Confirmed 08/07/23] ibuprofen 800 mg tablet 800 mg PO TID 06/12/23 [History Confirmed 08/07/23] levothyroxine 100 mcg capsule 100 mcg PO DAILY 06/12/23 [History Confirmed 08/07/23] loratadine 5 mg disintegrating tablet (Claritin RediTabs) 5 mg PO ONCE 06/12/23 [History Confirmed 08/07/23] magnesium 200 mg tablet 200 mg PO DAILY 06/12/23 [History Confirmed 08/07/23] valacyclovir 1 gram tablet 1,000 mg PO DAILY 06/12/23 [History Confirmed 08/07/23] semaglutide (weight loss) 0.5 mg/0.5 mL subcutaneous pen injector (Wegovy) 0.5 mg subcut QWEEK 08/07/23 [History Confirmed 08/07/23] venlafaxine 75 mg capsule,extended release 24 hr (Effexor XR) 75 mg PO DAILY 08/07/23 [History Confirmed 08/07/23] Nurse's Note: pt here with mother for pre op#1 heidi breast reduction PFSH Medical History (Updated 06/12/23 @ 12:[address] Carly Croft MD) Allergies Anxiety Arthritis Asthma Back problem Bladder infection Carpal tunnel syndrome H/O back injury High blood pressure Neuropathy Osteoporosis Polycystic ovary Thyroid disease Surgical History (Updated 06/12/23 @ 10:31 by Keyana Carranza) H/O carpal tunnel repair H/O section H/O dilation and curettage Family History (Updated 06/12/23 @ 10:24 by Obed Todd) Other Arthritis Asthma Diabetes Heart disease High cholesterol Hypertension Kidney disease Osteoporosis Skin cancer Third disease Social History (Updated 06/12/23 @ 10:32 by Keyana Carranza) Smoking Status: Never smoker alcohol intake: never substance use type: does not use additional social history: pt denies vaping, denies edibles, denies marijuana use, denies aspirin, denies illegal drugs, Uses 800mg ibuprofen twice a day. HPI pre #1 Bilateral Breast Reduction Details: Elda presents for preop planning regarding the upcoming breast reduction surgery. She attends the appointment with her mother. Her medical history is reviewed. Her back issues emanated from her back surgery which was over 6 years ago. She states her status of her back is stable at this point. Her recent mammogram is within normal limits. She denies nicotine or marijuana use. She has a remote history of DVT for which she was on anticoagulants for short period of time. She is no longer on anticoagulation. Exam Details Patient with breast hypertrophy and ptosis. There are no obvious palpable masses present. The procedure of breast reduction was reviewed with her including the incisions and scars as well as limitations after surgery. She has recently seen her physician for medical clearance. She has lab work pending. She is aware that she will need help at home and that she will be sleeping in a recliner. She is aware of the need to maintain activities of her lower extremities to reduce her chance of DVT. She states that she does have balloon pumps at home. She was given a packet of information to review prior to the next appointment which includes documents such as the medications to avoid before surgery as well as pre and postop instructions and an informed consent. Coding Level of Care Code Off vis,est,level 3 Diagnoses Breast hypertrophy N62 Chronic back pain M54.9; G89.29 Assessment and Plan (No Qualifiers) Assessment and Plan (more content not included)... [facility] ELDA NG ([id number]) 1970 F Date Time Provider Department 07/24/23 8:15 AM TANIKA PEÑA During your visit today, we recorded the following information about you: Tanika Peña MD 07/24/2023 7:08 AM Signed The appointment was canceled. Referring Provider: VALE HUMPHREYS [[id number]] Allergies As of Date: 07/24/2023 Noted Allergy Reaction METFORMIN 06/21/2016 14 - Other: See Comments Comments: Chest pain Date Reviewed: 05/29/2023 Reviewed by: Toni Munoz LPN - Fully Assessed Reason for Visit: Appointment Cancelled [1023] Primary Visit Diagnosis:APPOINTMENT CANCELLED Prescriptions as of 07/24/2023 - gabapentin (NEURONTIN) 600 mg tablet Take 600 mg by mouth three times a day. - Phentermine HCl 37.5 mg capsule Take 37.5 mg by mouth daily before breakfast. - alendronate (FOSAMAX) 70 mg tablet Take 70 mg by mouth one time a week. In AM with cup of water on empty stomach. Nothing else by mouth and stay upright for 30 min. - calcium carbonate/vitamin D2 ([id number] ORAL) Take 2 capsules by mouth once daily. - vitamin B complex (B COMPLEX ORAL) Take by mouth once daily. - BIOTIN 5,000 MCG GUMMY 2 Pieces once daily. - MEDICATION, NON-DATABASE 2 tablets daily at bedtime. Lower bowel bowel stimulator - docusate sodium (COLACE ORAL) Take 3 tablets by mouth daily at bedtime. - acetaminophen (TYLENOL) 325 mg tablet - albuterol HFA (PROVENTIL HFA, VENTOLIN HFA) 90 mcg/actuation inhaler Inhale 2 Puffs as instructed every 6 hours as needed. - ascorbic acid/collagen hydr (COLLAGEN PLUS VITAMIN C ORAL) - baclofen (LIORESAL) 20 mg tablet Take 40 mg by mouth twice daily. - citalopram (CELEXA) 40 mg tablet Take 40 mg by mouth once daily. - diazePAM (VALIUM) 5 mg tablet every 8 hours as needed. - diphenhydrAMINE (BENADRYL ALLERGY) 12.5 mg/5 mL liquid - ibuprofen (MOTRIN) 800 mg tablet Take 800 mg by mouth every 6 hours as needed. - inulin-chromium picolinate (FIBER SELECT GUMMIES) 2-100 gram-mcg chew - levothyroxine (SYNTHROID) 100 mcg tablet Take 100 mcg by mouth. - loratadine (CLARITIN) 10 mg tablet Take 10 mg by mouth. - magnesium oxide 400 mg magnesium tab once daily. - melatonin 10 mg subl - valACYclovir (VALTREX) 1 gram Take 1,000 mg by mouth once daily. Problem List As Of Date 07/24/2023 Noted Resolved Thoracic myelopathy [M47.14] 12/02/2020 Encounter Status:Closed by TANIKA PEÑA on 07/24/23 [facility] MRI CERVICAL SPINE WO/W IVCO Non 06-27-2023 MRI CERVICAL SPINE WO/W IVCON * * *Final Report* * * DATE OF EXAM: Jun 27 2023 12:11PM LN [id number] - MRI CERVICAL SPINE WO/W IVCON / PROCEDURE REASON: Spondylosis with myelopathy, thoracic region * * * * Physician Interpretation * * * * EXAMINATION: MRI LUMBAR SPINE WO IVCON, MRI CERVICAL SPINE WO/W IVCON, MRI THORACIC SPINE WO/W IVCON CLINICAL HISTORY: Spinal stenosis of lumbar region, unspecified whether neurogenic claudication present. TECHNIQUE: Routine cervical and thoracic spine MR protocol with and without gadolinium. Routine MRI lumbar spine without contrast was performed. MQ: [id number]_3 COMPARISON: None. RESULT: CERVICAL: Counting reference: Craniocervical junction. Anatomic Variants: None. Localizer images: No additional significant findings. Alignment: Alignment is anatomic. Craniocervical junction: Craniocervical junction is normal. Cord: Flattening of the cord at the lower cervical levels secondary to spondylosis. No definite cord signal abnormality is seen. Bone marrow signal/fracture: Mild endplate degenerative signal change seen at C6-C7. No evidence of prior fracture. Cervical soft tissues: The paraspinal soft tissues are within normal limits. Canal and foramina: Disc-osteophyte complexes and facet and uncovertebral degenerative changes are seen throughout the cervical spine. At C2-C3, canal and foramina are patent. At C3-C4, there is mild bilateral foraminal narrowing and mild canal stenosis. At C4-C5, there is moderate right and mild left foraminal narrowing. Mild to moderate canal stenosis is seen. At C5-C6, there is moderate to severe canal stenosis and severe right and moderate left foraminal narrowing. At C6-C7, there is severe canal stenosis and severe left and moderate to severe right foraminal narrowing. At C7-T1, canal and foramina are patent. No abnormal enhancement. THORACIC: Counting reference: Craniocervical and lumbosacral junctions. For the purposes of this report, L4-5 is considered the level of the iliac crest and assume there are 5 lumbar-type vertebrae. Anatomic variant: None. Alignment: Alignment is anatomic. Cord: Marked flattening of the cord at some levels secondary to spondylosis. Some cord volume loss of up to a moderate degree is seen involving the upper and mid thoracic cord with areas of high T2 signal noted at the upper and mid thoracic levels, compatible with myelomalacia. Bone marrow signal/fracture: At the T5-T10 levels, there are areas of osteophyte formation and ossification of posterior longitudinal ligament, contributing to cord flattening at some levels. Laminectomies are seen at the T2-T9 levels. Thoracic soft tissues: Disruption of the posterior fat planes seen at the operative levels secondary to prior surgery. Canal and foramina: Disc right presence of laminectomies, there is multilevel canal narrowing of up to a moderate to severe degree at some mid and lower thoracic levels, most significant at T7-T8. Degenerative changes contribute to mild foraminal narrowing at some mid and lower thoracic levels. No abnormal enhancement. LUMBAR: Counting reference: Craniocervical and lumbosacral junctions. For the purposes of this report, L4-5 is considered the level of the iliac crest and assume there are 5 lumbar-type vertebrae. Anatomic variant: None. Localizer images: No additional significant findings. Alignment: Alignment is anatomic. Bone marrow signal/fracture: No evidence of pathologic marrow infiltration. No evidence of prior fracture. Conus: The conus is within normal limits of signal intensity and morphology. Paraspinal soft tissues: Unremarkable. Canal and foramina: At L5-S1, there is a mild bulging annulus. Mild facet degenerative changes are seen. Superimposed left foraminal disc protrusion is seen with moderate left and mild right foraminal narrowing. Canal is patent. At L4-L5, there is a bulging annulus and moderate to severe facet degenerative changes. Moderate canal stenosis is seen. Neural foramina are patent. At L3-L4, there is mild bulging annulus. No significant canal or foraminal narrowing is seen. At L1-L2 and L2-L3, canal and foramina are patent. Sacrum and iliac wings: The visualized sacrum and iliac wings are within normal limits. The presacral soft tissues are normal in appearance. IMPRESSION: Areas of apparent ossification of the posterior longitudinal ligament spanning the T5-T10 levels with laminectomies at T2-T9. Canal narrowing of up to a moderate to severe degree at some mid and lower thoracic levels, most significant at T7-T8. 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 Degenerative changes throughout the spine (see level by level discussion above). Otherwise, unremarkable MRI examinations of the cervical and thoracic spine with and without contrast and MRI lumbar spine without contrast. Cervical Anatomic Variant: None. Assume (more content not included)... [facility] MRI LUMBAR SPINE WO IVCONon 06-27-2023 MRI LUMBAR SPINE WO IVCON * * *Final Report* * * DATE OF EXAM: Jun 27 2023 12:08PM [facility] [id number] - MRI LUMBAR SPINE WO IVCON / PROCEDURE REASON: Spinal stenosis of lumbar region, unspecified whether neurogenic claudication pr * * * * Physician Interpretation * * * * EXAMINATION: MRI LUMBAR SPINE WO IVCON, MRI CERVICAL SPINE WO/W IVCON, MRI THORACIC SPINE WO/W IVCON CLINICAL HISTORY: Spinal stenosis of lumbar region, unspecified whether neurogenic claudication present. TECHNIQUE: Routine cervical and thoracic spine MR protocol with and without gadolinium. Routine MRI lumbar spine without contrast was performed. MQ: [id number]_3 COMPARISON: None. RESULT: CERVICAL: Counting reference: Craniocervical junction. Anatomic Variants: None. Localizer images: No additional significant findings. Alignment: Alignment is anatomic. Craniocervical junction: Craniocervical junction is normal. Cord: Flattening of the cord at the lower cervical levels secondary to spondylosis. No definite cord signal abnormality is seen. Bone marrow signal/fracture: Mild endplate degenerative signal change seen at C6-C7. No evidence of prior fracture. Cervical soft tissues: The paraspinal soft tissues are within normal limits. Canal and foramina: Disc-osteophyte complexes and facet and uncovertebral degenerative changes are seen throughout the cervical spine. At C2-C3, canal and foramina are patent. At C3-C4, there is mild bilateral foraminal narrowing and mild canal stenosis. At C4-C5, there is moderate right and mild left foraminal narrowing. Mild to moderate canal stenosis is seen. At C5-C6, there is moderate to severe canal stenosis and severe right and moderate left foraminal narrowing. At C6-C7, there is severe canal stenosis and severe left and moderate to severe right foraminal narrowing. At C7-T1, canal and foramina are patent. No abnormal enhancement. THORACIC: Counting reference: Craniocervical and lumbosacral junctions. For the purposes of this report, L4-5 is considered the level of the iliac crest and assume there are 5 lumbar-type vertebrae. Anatomic variant: None. Alignment: Alignment is anatomic. Cord: Marked flattening of the cord at some levels secondary to spondylosis. Some cord volume loss of up to a moderate degree is seen involving the upper and mid thoracic cord with areas of high T2 signal noted at the upper and mid thoracic levels, compatible with myelomalacia. Bone marrow signal/fracture: At the T5-T10 levels, there are areas of osteophyte formation and ossification of posterior longitudinal ligament, contributing to cord flattening at some levels. Laminectomies are seen at the T2-T9 levels. Thoracic soft tissues: Disruption of the posterior fat planes seen at the operative levels secondary to prior surgery. Canal and foramina: Disc right presence of laminectomies, there is multilevel canal narrowing of up to a moderate to severe degree at some mid and lower thoracic levels, most significant at T7-T8. Degenerative changes contribute to mild foraminal narrowing at some mid and lower thoracic levels. No abnormal enhancement. LUMBAR: Counting reference: Craniocervical and lumbosacral junctions. For the purposes of this report, L4-5 is considered the level of the iliac crest and assume there are 5 lumbar-type vertebrae. Anatomic variant: None. Localizer images: No additional significant findings. Alignment: Alignment is anatomic. Bone marrow signal/fracture: No evidence of pathologic marrow infiltration. No evidence of prior fracture. Conus: The conus is within normal limits of signal intensity and morphology. Paraspinal soft tissues: Unremarkable. Canal and foramina: At L5-S1, there is a mild bulging annulus. Mild facet degenerative changes are seen. Superimposed left foraminal disc protrusion is seen with moderate left and mild right foraminal narrowing. Canal is patent. At L4-L5, there is a bulging annulus and moderate to severe facet degenerative changes. Moderate canal stenosis is seen. Neural foramina are patent. At L3-L4, there is mild bulging annulus. No significant canal or foraminal narrowing is seen. At L1-L2 and L2-L3, canal and foramina are patent. Sacrum and iliac wings: The visualized sacrum and iliac wings are within normal limits. The presacral soft tissues are normal in appearance. IMPRESSION: Areas of apparent ossification of the posterior longitudinal ligament spanning the T5-T10 levels with laminectomies at T2-T9. Canal narrowing of up to a moderate to severe degree at some mid and lower thoracic levels, most significant at T7-T8. 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 Degenerative changes throughout the spine (see level by level discussion above). Otherwise, unremarkable MRI examinations of the cervical and thoracic spine with and without contrast and MRI lumbar spine without contrast. Cervi (more content not included)... [facility] MRI THORACIC SPINE WO/W IVCO Non 06-27-2023 MRI THORACIC SPINE WO/W IVCON * * *Final Report* * * DATE OF EXAM: Jun 27 2023 12:08PM [facility] [id number] - MRI THORACIC SPINE WO/W IVCON / PROCEDURE REASON: Spondylosis with myelopathy, thoracic region * * * * Physician Interpretation * * * * EXAMINATION: MRI LUMBAR SPINE WO IVCON, MRI CERVICAL SPINE WO/W IVCON, MRI THORACIC SPINE WO/W IVCON CLINICAL HISTORY: Spinal stenosis of lumbar region, unspecified whether neurogenic claudication present. TECHNIQUE: Routine cervical and thoracic spine MR protocol with and without gadolinium. Routine MRI lumbar spine without contrast was performed. MQ: MRCTLWO_3 COMPARISON: None. RESULT: CERVICAL: Counting reference: Craniocervical junction. Anatomic Variants: None. Localizer images: No additional significant findings. Alignment: Alignment is anatomic. Craniocervical junction: Craniocervical junction is normal. Cord: Flattening of the cord at the lower cervical levels secondary to spondylosis. No definite cord signal abnormality is seen. Bone marrow signal/fracture: Mild endplate degenerative signal change seen at C6-C7. No evidence of prior fracture. Cervical soft tissues: The paraspinal soft tissues are within normal limits. Canal and foramina: Disc-osteophyte complexes and facet and uncovertebral degenerative changes are seen throughout the cervical spine. At C2-C3, canal and foramina are patent. At C3-C4, there is mild bilateral foraminal narrowing and mild canal stenosis. At C4-C5, there is moderate right and mild left foraminal narrowing. Mild to moderate canal stenosis is seen. At C5-C6, there is moderate to severe canal stenosis and severe right and moderate left foraminal narrowing. At C6-C7, there is severe canal stenosis and severe left and moderate to severe right foraminal narrowing. At C7-T1, canal and foramina are patent. No abnormal enhancement. THORACIC: Counting reference: Craniocervical and lumbosacral junctions. For the purposes of this report, L4-5 is considered the level of the iliac crest and assume there are 5 lumbar-type vertebrae. Anatomic variant: None. Alignment: Alignment is anatomic. Cord: Marked flattening of the cord at some levels secondary to spondylosis. Some cord volume loss of up to a moderate degree is seen involving the upper and mid thoracic cord with areas of high T2 signal noted at the upper and mid thoracic levels, compatible with myelomalacia. Bone marrow signal/fracture: At the T5-T10 levels, there are areas of osteophyte formation and ossification of posterior longitudinal ligament, contributing to cord flattening at some levels. Laminectomies are seen at the T2-T9 levels. Thoracic soft tissues: Disruption of the posterior fat planes seen at the operative levels secondary to prior surgery. Canal and foramina: Disc right presence of laminectomies, there is multilevel canal narrowing of up to a moderate to severe degree at some mid and lower thoracic levels, most significant at T7-T8. Degenerative changes contribute to mild foraminal narrowing at some mid and lower thoracic levels. No abnormal enhancement. LUMBAR: Counting reference: Craniocervical and lumbosacral junctions. For the purposes of this report, L4-5 is considered the level of the iliac crest and assume there are 5 lumbar-type vertebrae. Anatomic variant: None. Localizer images: No additional significant findings. Alignment: Alignment is anatomic. Bone marrow signal/fracture: No evidence of pathologic marrow infiltration. No evidence of prior fracture. Conus: The conus is within normal limits of signal intensity and morphology. Paraspinal soft tissues: Unremarkable. Canal and foramina: At L5-S1, there is a mild bulging annulus. Mild facet degenerative changes are seen. Superimposed left foraminal disc protrusion is seen with moderate left and mild right foraminal narrowing. Canal is patent. At L4-L5, there is a bulging annulus and moderate to severe facet degenerative changes. Moderate canal stenosis is seen. Neural foramina are patent. At L3-L4, there is mild bulging annulus. No significant canal or foraminal narrowing is seen. At L1-L2 and L2-L3, canal and foramina are patent. Sacrum and iliac wings: The visualized sacrum and iliac wings are within normal limits. The presacral soft tissues are normal in appearance. IMPRESSION: Areas of apparent ossification of the posterior longitudinal ligament spanning the T5-T10 levels with laminectomies at T2-T9. Canal narrowing of up to a moderate to severe degree at some mid and lower thoracic levels, most significant at T7-T8. 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 Degenerative changes throughout the spine (see level by level discussion above). Otherwise, unremarkable MRI examinations of the cervical and thoracic spine with and without contrast and MRI lumbar spine without contrast. Cervical Anatomic Variant: None. Assume (more content not included)... [facility] No Panel Informationon 06-17 No acute osseous findings involving the right femur, right knee, or right tibia/fibula. ELECTRONICALLY SIGNED BY: Brad Artis MD IMAGING EXAMINATION/TECHNIQU E: XR TIBIA FIBULA 2 VIEWS RIGHT, XR KNEE 4+ VIEWS RIGHT, XR FEMUR 2+ VW RIGHT HISTORY: Fall with right leg pain. COMPARISON: None RESULT: Right femur/right knee/right tibia/fibula: No evidence for acute fracture involving the right hip, right femur, right knee, or right tibia/fibula. Visualized bony pelvis grossly intact. Mild to moderate degenerative changes right hip. No distinct suprapatellar joint effusion with limits of positioning of the lateral view. Inferior and superior patellar enthesophytes. Mild degenerative changes right knee with small osteophytes and maintained joint spaces. Ankle mortise appears grossly intact. Well-corticated chronic appearing density adjacent to the medial malleolus. Moderate plantar and posterior calcaneal enthesophytes. Mild degenerative changes in the imaged hindfoot and midfoot. Mild soft tissue edema. IMAGING Brad Artis M D - 06/17/2023 EXAMINATION/TECHNIQUE: XR TIBIA FIBULA 2 VIEWS RIGHT, XR KNEE 4+ VIEWS RIGHT, XR FEMUR 2+ VW RIGHT HISTORY: Fall with right leg pain. COMPARISON: None RESULT: Right femur/right knee/right tibia/fibula: No evidence for acute fracture involving the right hip, right femur, right knee, or right tibia/fibula. Visualized bony pelvis grossly intact. Mild to moderate degenerative changes right hip. No distinct suprapatellar joint effusion with limits of positioning of the lateral view. Inferior and superior patellar enthesophytes. Mild degenerative changes right knee with small osteophytes and maintained joint spaces. Ankle mortise appears grossly intact. Well-corticated chronic appearing density adjacent to the medial malleolus. Moderate plantar and posterior calcaneal enthesophytes. Mild degenerative changes in the imaged hindfoot and midfoot. Mild soft tissue edema. IMPRESSION: No acute osseous findings involving the right femur, right knee, or right tibia/fibula. ELECTRONICALLY SIGNED BY: Brad Artis MD [facility] FRACTURE OF THE DISTAL END OF THE TIBIA IS SEEN WITHOUT SIGNIFICANT DISPLACEMENT IN THE ANKLE. NO ACUTE FRACTURE IS SEEN IN THE FOOT. Heel spurs are noted. ELECTRONICALLY SIGNED BY: Shari Pryor DO IMAGING XR ANKLE 3+ VIEWS RIGHT, XR FOOT 3+ VIEWS RIGHT : 06/17/2023 2:32 PM CLINICAL HISTORY: fall down stairs. COMPARISON: None available. TECHNIQUE: ROUTINE FINDINGS: Right ankle: Swelling is seen over the ankle. Lucency is seen in the distal tibia. A large enthesophyte is seen on the superior aspect of the calcaneus posteriorly. Heel spurs are also noted. The mortise joint is maintained. Right foot: Enthesophyte and heel spurs are seen on the calcaneus. Mild degenerative changes are seen in the first metatarsal phalangeal joint. No radiopaque foreign body is visualized. IMAGING Shari Pryor DO - 06/17/2023 XR ANKLE 3+ VIEWS RIGHT, XR FOOT 3+ VIEWS RIGHT : 06/17/2023 2:32 PM CLINICAL HISTORY: fall down stairs. COMPARISON: None available. TECHNIQUE: ROUTINE FINDINGS: Right ankle: Swelling is seen over the ankle. Lucency is seen in the distal tibia. A large enthesophyte is seen on the superior aspect of the calcaneus posteriorly. Heel spurs are also noted. The mortise joint is maintained. Right foot: Enthesophyte and heel spurs are seen on the calcaneus. Mild degenerative changes are seen in the first metatarsal phalangeal joint. No radiopaque foreign body is visualized. IMPRESSION: FRACTURE OF THE DISTAL END OF THE TIBIA IS SEEN WITHOUT SIGNIFICANT DISPLACEMENT IN THE ANKLE. NO ACUTE FRACTURE IS SEEN IN THE FOOT. Heel spurs are noted. ELECTRONICALLY SIGNED BY: Shari Pryor DO [facility] No Panel InformationOrdered By: Brad Artis on 06-17-2023 [facility] Work Phone: No Panel InformationOrdered By: Shari Pryor on 06-17-2023 [facility] Work Phone: XR ANKLE 3+ VIEWS RIGHTon XR ANKLE 3+ VIEWS RIGHT XR ANKLE 3+ VIEWS RIGHT, XR FOOT 3+ VIEWS RIGHT : 06/17/2023 2:32 PM CLINICAL HISTORY: fall down stairs. COMPARISON: None available. TECHNIQUE: ROUTINE FINDINGS: Right ankle: Swelling is seen over the ankle. Lucency is seen in the distal tibia. A large enthesophyte is seen on the superior aspect of the calcaneus posteriorly. Heel spurs are also noted. The mortise joint is maintained. Right foot: Enthesophyte and heel spurs are seen on the calcaneus. Mild degenerative changes are seen in the first metatarsal phalangeal joint. No radiopaque foreign body is visualized. IMPRESSION: FRACTURE OF THE DISTAL END OF THE TIBIA IS SEEN WITHOUT SIGNIFICANT DISPLACEMENT IN THE ANKLE. NO ACUTE FRACTURE IS SEEN IN THE FOOT. Heel spurs are noted. ELECTRONICALLY SIGNED BY: Shari Pryor DO Normal Not Available XR Ankle - right 3 Viewson 0 06-17-2023 Radiology Study observation (narrative) [facility] XR FEMUR 2+ VW RIGHTon 06-17 XR FEMUR 2+ VW RIGHT EXAMINATION/TECHNIQ UE: XR TIBIA FIBULA 2 VIEWS RIGHT, XR KNEE 4+ VIEWS RIGHT, XR FEMUR 2+ VW RIGHT HISTORY: Fall with right leg pain. COMPARISON: None RESULT: Right femur/right knee/right tibia/fibula: No evidence for acute fracture involving the right hip, right femur, right knee, or right tibia/fibula. Visualized bony pelvis grossly intact. Mild to moderate degenerative changes right hip. No distinct suprapatellar joint effusion with limits of positioning of the lateral view. Inferior and superior patellar enthesophytes. Mild degenerative changes right knee with small osteophytes and maintained joint spaces. Ankle mortise appears grossly intact. Well-corticated chronic appearing density adjacent to the medial malleolus. Moderate plantar and posterior calcaneal enthesophytes. Mild degenerative changes in the imaged hindfoot and midfoot. Mild soft tissue edema. IMPRESSION: No acute osseous findings involving the right femur, right knee, or right tibia/fibula. ELECTRONICALLY SIGNED BY: Brad Artis MD Normal Not Available XR FOOT 3+ VIEWS LEFTon 06-06 XR FOOT 3+ VIEWS LEFT EXAMINATION: XR FO OT 3+ VIEWS LEFT, 06/17/2023 2:33 PM CLINICAL HISTORY: fall on stairs COMPARISON: None LEFT FOOT FINDINGS: There are no lytic or sclerotic bone lesions. There are enthesophytes of the insertion of the Achilles tendon and there is a plantar calcaneal spur. There is no acute fracture or subluxation. The joint spaces are preserved.. The soft tissues are within normal limits. There are no radiopaque foreign bodies in the soft tissues. IMPRESSION: There are no acute osseous injuries. ELECTRONICALLY SIGNED BY: Papito Jalloh MD Normal Not Available XR FOOT 3+ VIEWS RIGHTon XR FOOT 3+ VIEWS RIGHT XR ANKLE 3+ VIEWS RIGHT, XR FOOT 3+ VIEWS RIGHT : 06/17/2023 2:32 PM CLINICAL HISTORY: fall down stairs. COMPARISON: None available. TECHNIQUE: ROUTINE FINDINGS: Right ankle: Swelling is seen over the ankle. Lucency is seen in the distal tibia. A large enthesophyte is seen on the superior aspect of the calcaneus posteriorly. Heel spurs are also noted. The mortise joint is maintained. Right foot: Enthesophyte and heel spurs are seen on the calcaneus. Mild degenerative changes are seen in the first metatarsal phalangeal joint. No radiopaque foreign body is visualized. IMPRESSION: FRACTURE OF THE DISTAL END OF THE TIBIA IS SEEN WITHOUT SIGNIFICANT DISPLACEMENT IN THE ANKLE. NO ACUTE FRACTURE IS SEEN IN THE FOOT. Heel spurs are noted. ELECTRONICALLY SIGNED BY: Shari Pryor DO Normal Not Available XR Femur - right 2 Viewson 0 06-17-2023 Radiology Study observation (narrative) [facility] XR Foot - left 3 Viewson There are no acute o sseous injuries. ELECTRONICALLY SIGNED BY: Papito Jalloh MD IMAGING EXAMINATION: XR FOOT 3+ VIEWS LEFT, 06/17/2023 2:33 PM CLINICAL HISTORY: fall on stairs COMPARISON: None LEFT FOOT FINDINGS: There are no lytic or sclerotic bone lesions. There are enthesophytes of the insertion of the Achilles tendon and there is a plantar calcaneal spur. There is no acute fracture or subluxation. The joint spaces are preserved.. The soft tissues are within normal limits. There are no radiopaque foreign bodies in the soft tissues. IMAGING Papito Jalloh MD - 06/17/2023 EXAMINATION: XR FOOT 3+ VIEWS LEFT, 06/17/2023 2:33 PM CLINICAL HISTORY: fall on stairs COMPARISON: None LEFT FOOT FINDINGS: There are no lytic or sclerotic bone lesions. There are enthesophytes of the insertion of the Achilles tendon and there is a plantar calcaneal spur. There is no acute fracture or subluxation. The joint spaces are preserved.. The soft tissues are within normal limits. There are no radiopaque foreign bodies in the soft tissues. IMPRESSION: There are no acute osseous injuries. ELECTRONICALLY SIGNED BY: Papito Jalloh MD [facility] Radiology Study observation (narrative) [facility] XR Foot - left 3 ViewsOrdere d By: Papito Jalloh on 06-17-2023 [facility] Work Phone: XR Foot - right 3 Viewson Radiology Study observation (narrative) [facility] XR KNEE 4+ VIEWS RIGHTon XR KNEE 4+ VIEWS RIGHT EXAMINATION/TECHNIQUE: XR TIBIA FIBULA 2 VIEWS RIGHT, XR KNEE 4+ VIEWS RIGHT, XR FEMUR 2+ VW RIGHT HISTORY: Fall with right leg pain. COMPARISON: None RESULT: Right femur/right knee/right tibia/fibula: No evidence for acute fracture involving the right hip, right femur, right knee, or right tibia/fibula. Visualized bony pelvis grossly intact. Mild to moderate degenerative changes right hip. No distinct suprapatellar joint effusion with limits of positioning of the lateral view. Inferior and superior patellar enthesophytes. Mild degenerative changes right knee with small osteophytes and maintained joint spaces. Ankle mortise appears grossly intact. Well-corticated chronic appearing density adjacent to the medial malleolus. Moderate plantar and posterior calcaneal enthesophytes. Mild degenerative changes in the imaged hindfoot and midfoot. Mild soft tissue edema. IMPRESSION: No acute osseous findings involving the right femur, right knee, or right tibia/fibula. ELECTRONICALLY SIGNED BY: Brad Artis MD Normal Not Available XR Knee - right 4 Viewson Radiology Study observation (narrative) [facility] XR TIBIA FIBULA 2 VIEWS RIG Ton 06-17-2023 XR TIBIA FIBULA 2 VIEWS RIGHT EXAMINATION/TECHNIQUE: XR TIBIA FIBULA 2 VIEWS RIGHT, XR KNEE 4+ VIEWS RIGHT, XR FEMUR 2+ VW RIGHT HISTORY: Fall with right leg pain. COMPARISON: None RESULT: Right femur/right knee/right tibia/fibula: No evidence for acute fracture involving the right hip, right femur, right knee, or right tibia/fibula. Visualized bony pelvis grossly intact. Mild to moderate degenerative changes right hip. No distinct suprapatellar joint effusion with limits of positioning of the lateral view. Inferior and superior patellar enthesophytes. Mild degenerative changes right knee with small osteophytes and maintained joint spaces. Ankle mortise appears grossly intact. Well-corticated chronic appearing density adjacent to the medial malleolus. Moderate plantar and posterior calcaneal enthesophytes. Mild degenerative changes in the imaged hindfoot and midfoot. Mild soft tissue edema. IMPRESSION: No acute osseous findings involving the right femur, right knee, or right tibia/fibula. ELECTRONICALLY SIGNED BY: Brad Artis MD Normal Not Available XR Tibia and Fibula - right 2 Viewson 06-17-2023 Radiology Study observation (narrative) [facility] Plastic Surgery Visit Report on 06-12-2023 Plastic Surgery Visit Report [facility] Plastic Reconstructive Surgery [address], [address] [place], [place] [id number] OFFICE VISIT Date of Service: 06/12/23 MR#: [id number] Acct: [id number] Name: ELDA NG Rep #: [id number] : 1970 Provider: Dr. Carly madrid MD Age/Sex: 53/F [place] [facility] Status: Signed Intake Vital Signs 06/12/23 10:32 Height 4 ft 11 in Weight: 162 lb BMI 32.7 BP 144/86 H Blood Pressure Location Lt brachial Position Sitting Respiration 18 Pulse 100 Pulse Source Monitor Temp 98.0 F Temp Source Oral Pulse Oximetry (%) 97 Oxygen Delivery Method room air Comment pt uses a walker Intake Visit Reasons: BREAST REDUCTION Chief Complaint: breast reduction and panniculectomy consult Is patient in pain?: Yes (back pain) Allergies metformin Allergy (Mild, Verified 06/12/23 10:34) Chest tightness Medications alendronate 70 mg tablet 70 mg PO QWEEK 06/12/23 [History Confirmed 06/12/23] baclofen 20 mg tablet 20 mg PO BID 06/12/23 [History Confirmed 06/12/23] calcium carbonate 168 mg calcium (420 mg) chewable tablet (Alcalak) 168 mg PO TID 06/12/23 [History Confirmed 06/12/23] cholecalciferol (vitamin D3) 10 mcg (400 unit) capsule 10 mcg PO DAILY 06/12/23 [History Confirmed 06/12/23] citalopram 40 mg tablet (Celexa) 40 mg PO DAILY 06/12/23 [History Confirmed 06/12/23] diazepam 5 mg tablet 5 mg PO QHS PRN 06/12/23 [History Confirmed 06/12/23] gabapentin 600 mg tablet 600 mg PO TID 06/12/23 [History Confirmed 06/12/23] ibuprofen 800 mg tablet 800 mg PO TID 06/12/23 [History Confirmed 06/12/23] levothyroxine 100 mcg capsule 100 mcg PO DAILY 06/12/23 [History Confirmed 06/12/23] loratadine 5 mg disintegrating tablet (Claritin RediTabs) 5 mg PO ONCE 06/12/23 [History Confirmed 06/12/23] magnesium 200 mg tablet 200 mg PO DAILY 06/12/23 [History Confirmed 06/12/23] phentermine 37.5 mg tablet 37.5 mg PO DAILY 06/12/23 [History Confirmed 06/12/23] valacyclovir 1 gram tablet 1,000 mg PO DAILY 06/12/23 [History Confirmed 06/12/23] Nurse's Note: pt uses walker, here for consult breast reduction and panniculectomy [facility] Medical History (Updated 06/12/23 @ 12:[address] Carly Croft MD) Allergies Anxiety Arthritis Asthma Back problem Bladder infection Carpal tunnel syndrome H/O back injury High blood pressure Neuropathy Osteoporosis Polycystic ovary Thyroid disease Surgical History (Updated 06/12/23 @ 10:31 by Keyana Carranza) H/O carpal tunnel repair H/O section H/O dilation and curettage Family History (Updated 06/12/23 @ 10:24 by Obed Todd) Other Arthritis Asthma Diabetes Heart disease High cholesterol Hypertension Kidney disease Osteoporosis Skin cancer Third disease Social History (Updated 06/12/23 @ 10:32 by Keyana Carranza) Smoking Status: Never smoker alcohol intake: never substance use type: does not use additional social history: pt denies vaping, denies edibles, denies marijuana use, denies aspirin, denies illegal drugs, Uses 800mg ibuprofen twice a day. HPI BREAST REDUCTION Details: Elda is a 53-year-old female patient who presents today for consideration of breast reduction and possible panniculectomy. 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 She states she lost both motor and sensory. She uses a walker to ambulate. She states she sees physical therapy for neck and back pain as well as breast pain. She has seen up pain management provider for treatment and her pain was unrelieved by intervention. She denies use of nicotine or marijuana. She has had a mammogram earlier last year which was reportedly normal. ROS General General: Yes good health and fatigue; No fever(s) or weight loss HENMT HENMT: No rhinitis, sore throat/mouth sore, nasal congestion, contacts or glaucoma Endo Endocrine: Yes thyroid disease; No polydipsia, heat intolerance, cold intolerance, hepatitis or excessive urine Skin Skin: No Bleeding, bruising, changing moles or suspicious lesion Musc Musculoskeletal: Yes joint pain and joint stiffness; No muscle weakness, back pain, osteoarthritis or Muscle aches/ myalgia Neuro Neurological: No headache(s), No lightheadedness and No numbness Cardio Cardiovascular: Yes fatigue; No chest pain, pacemaker or shortness of breat with exertion Psych Psychiatric: Yes claustrophobia; No depression or anxiety Resp Respiratory: No spitting up, shortness of breath, sleep apnea, asthma, emphysema, TB, Cough or Smoker Gastro Gastrointestinal: Yes constipation; No diarrhea, blood in stool, nausea, vomiting or abdominal bloating Fareed Hematologic: No anemia, No bleeding and No abnormal bleeding Genitourinary: No urinary f (more content not included)... Normal [facility] CBC W Auto Differential pane l (Bld)on 05-29-2023 Basophils (Bld) [#/Vol] 0.12 10*3/uL High <0.11 [facility] Comment on above: Order Comment: Speci men Type: BLOOD SPECIMEN Ordering Facility: [facility] Address: [address] [place] [address] Performed By: #### 5 7021-8 #### [facility] CLIA [id number] [address] [place] [address] [place] Basophils/100 WBC (Bld) 1.2 % Normal [facility] Comment on above: Order Comment: Speci men Type: BLOOD SPECIMEN Ordering Facility: [facility] Address: [address] [place] [address] Performed By: #### 5 7021-8 #### [facility] CLIA [id number] [place] [address] [place] Differential cell count method Nom (Bld) Auto Normal [facility] Comment on above: Order Comment: Speci men Type: BLOOD SPECIMEN Ordering Facility: [facility] Address: [address] [place] [address] Performed By: #### 5 7021-8 #### [facility] CLIA [id number] [address] [place] [id number] [place] Eosinophils (Bld) [#/Vol] 0.18 10*3/uL Normal <0.46 [facility] Comment on above: Order Comment: Speci men Type: BLOOD SPECIMEN Ordering Facility: [facility] Address: [address] [place] [address] Performed By: #### 5 7021-8 #### [facility] CLIA [id number] [address] [place] [address] [place] Eosinophils/100 WBC (Bld) 1.8 % Normal [facility] Comment on above: Order Comment: Speci men Type: BLOOD SPECIMEN Ordering Facility: [facility] Address: [address] [place] [address] Performed By: #### 5 7021-8 #### [facility] IA [id number] [address] [place] [address] [place] Erythrocyte distribution width (RBC) [Ratio] 12.2 % Normal 11.5-15.0 [facility] Comment on above: Order Comment: Speci men Type: BLOOD SPECIMEN Ordering Facility: [facility] Address: [address] [place] [address] Performed By: #### 5 7021-8 #### [facility] IA [id number] [address] [place] [address] [place] Hematocrit (Bld) [Volume fraction] 44.5 % Normal 36.0-46.0 [facility] Comment on above: Order Comment: Speci men Type: BLOOD SPECIMEN Ordering Facility: [facility] Address: [address] [place] [address] Performed By: #### 5 7021-8 #### [facility] CLIA [id number] [address] [place] [address] [place] Hemoglobin (Bld) [Mass/Vol] 14.5 g/dL Normal 11.5-15.5 [facility] Comment on above: Order Comment: Speci men Type: BLOOD SPECIMEN Ordering Facility: [facility] Address: [address] [place] [address] Performed By: #### 5 7021-8 #### [facility] CLIA [id number] [address] [place] [address] [place] Immature granulocytes (Bld) [#/Vol] 10*3/uL Normal <0.10 [facility] Comment on above: Order Comment: Speci men Type: BLOOD SPECIMEN Ordering Facility: [facility] Address: [address] [place] [address] Performed By: #### 5 7021-8 #### [facility] CLIA [id number] [address] [place] [address] [place] Immature granulocytes/100 WBC (Bld) 0.2 % Normal [facility] Comment on above: Order Comment: Speci men Type: BLOOD SPECIMEN Ordering Facility: [facility] Address: [address] [place] [address] Performed By: #### 5 7021-8 #### [facility] IA [id number] [address] [place] [address] [place] Lymphocytes (Bld) [#/Vol] 2.31 10*3/uL Normal 1.00-4.00 [facility] Comment on above: Order Comment: Speci men Type: BLOOD SPECIMEN Ordering Facility: [facility] Address: [address] [place] [address] Performed By: #### 5 7021-8 #### [facility] IA [id number] [address] [place] [address] [place] Lymphocytes/100 WBC (Bld) 23.0 % Normal [facility] Comment on above: Order Comment: Speci men Type: BLOOD SPECIMEN Ordering Facility: [facility] Address: [address] [place] [address] Performed By: #### 5 7021-8 #### [facility] IA [id number] [address] [place] [address] [place] MCH (RBC) [Entitic mass] 29.2 pg Normal 26.0-34.0 [facility] Comment on above: Order Comment: Speci men Type: BLOOD SPECIMEN Ordering Facility: [facility] Address: [address] [place] [address] Performed By: #### 5 7021-8 #### [facility] IA [id number] [address] [place] [address] [place] MCHC (RBC) [Mass/Vol] 32.6 g/dL Normal 30.5-36.0 [facility] Comment on above: Order Comment: Speci men Type: BLOOD SPECIMEN Ordering Facility: [facility] Address: [address] [place] [address] Performed By: #### 5 7021-8 #### [facility] IA [id number] [address] [place] [address] [place] MCV (RBC) [Entitic vol] 89.7 fL Normal 80.0-100.0 [facility] Comment on above: Order Comment: Speci men Type: BLOOD SPECIMEN Ordering Facility: [facility] Address: [address] [place] [address] Performed By: #### 5 7021-8 #### [facility] IA [id number] [address] [place] [address] [place] Monocytes (Bld) [#/Vol] 0.59 10*3/uL Normal <0.87 [facility] Comment on above: Order Comment: Speci men Type: BLOOD SPECIMEN Ordering Facility: [facility] Address: [address] [place] [address] Performed By: #### 5 7021-8 #### [facility] [place] [id number] [address] [place] [address] [place] Monocytes/100 WBC (Bld) 5.9 % Normal [facility] Comment on above: Order Comment: Speci men Type: BLOOD SPECIMEN Ordering Facility: [facility] Address: [address] [place] [address] Performed By: #### 5 7021-8 #### [facility] IA [id number] [place] [address] [place] Neutrophils (Bld) [#/Vol] 6.81 10*3/uL Normal 1.45-7.50 [facility] Comment on above: Order Comment: Speci men Type: BLOOD SPECIMEN Ordering Facility: [facility] Address: [address] [place] [address] Performed By: #### 5 7021-8 #### [facility] IA [id number] [address] [place] [address] [place] Neutrophils/100 WBC (Bld) 67.9 % Normal [facility] Comment on above: Order Comment: Speci men Type: BLOOD SPECIMEN Ordering Facility: [facility] Address: [address] [place] [address] Performed By: #### 5 7021-8 #### [facility] IA [id number] [address] [place] [address] [place] Nucleated RBC (Bld) [#/Vol] 10*3/uL Normal <0.01 [facility] Comment on above: Order Comment: Speci men Type: BLOOD SPECIMEN Ordering Facility: [facility] Address: [address] [place] [address] Performed By: #### 5 7021-8 #### [facility] IA [id number] [address] [place] [address] [place] Nucleated RBC/100 WBC (Bld) [Ratio] 0.0 /100 WBC Normal [facility] Comment on above: Order Comment: Speci men Type: BLOOD SPECIMEN Ordering Facility: [facility] Address: [address] [place] [address] Performed By: #### 5 7021-8 #### [facility] IA [id number] [address] [place] [address] [place] Platelet mean volume (Bld) [Entitic vol] 10.1 fL Normal 9.0-12.7 [facility] Comment on above: Order Comment: Speci men Type: BLOOD SPECIMEN Ordering Facility: [facility] Address: [address] [place] [address] Performed By: #### 5 7021-8 #### [facility] IA [id number] [place] [address] [place] Platelets (Bld) [#/Vol] 412 10*3/uL High 150-400 [facility] Comment on above: Order Comment: Armando gaona Type: BLOOD SPECIMEN Ordering Facility: [facility] Address: [address] [place], [place] [address] Performed By: #### 5 7021-8 #### [facility] CLIA [id number] [address] [place] [address] [place] RBC (Bld) [#/Vol] 4.96 10*6/uL Normal 3.90-5.20 [facility] Comment on above: Order Comment: Gennaroi candelaria Type: BLOOD SPECIMEN Ordering Facility: [facility] Address: [address] [place], [place] [address] Performed By: #### 5 7021-8 #### [facility] CLIA [id number] [place] [address] [place] WBC (Bld) [#/Vol] 10.03 10*3/uL Normal 3.70-11.00 [facility] Comment on above: Order Comment: Armando gaona Type: BLOOD SPECIMEN Ordering Facility: [facility] Address: [address] [place], [place] [address] Performed By: #### 5 7021-8 #### [facility] CLIA [id number] [address] [place] [id number] [facility] [place] CNOVon 05-29-2023 [facility] -- ELDA NG ([id number]) 1970 F Date Time Provider Department 05/29/23 10:00 AM [facility] During your visit today, we recorded the following information about you: Pulse Blood pressure 87/minute 148/84 Vale Humphreys MD 05/29/2023 11:04 AM Signed [facility] - May 29, 2023 Reason for visit: Ms. Ng is referred by Obed Ashford for my opinion regarding neuropathy, paraparesis. My final recommendation will be communicated back to the requesting physician by way of shared medical record or letter. HISTORY OF PRESENT ILLNESS: Patient is a 53 year old, right-handed, White, female with history of thoracic myelopathy. History gathered from patient and electronic medical records. She was last seen by Dr. Antonio on 04/21/21: She is seen in follow-up today because of a thoracic myelopathy. She believes that there has been some improvement in her activities of daily living. The MRI of the thoracic spine failed to reveal any evidence of intercurrent pathology. In summary, overall she is doing well all things considered and I have encouraged her to persevere with regard to physical therapy. Follow-up will be on an as-needed basis She started having symptoms end of 2016; described as tinging in both legs, legs giving out and falling. She saw a local neurologist - EMG was reportedly pointing to a lumbar etiology. She was admitted at [facility] - MRI reportedly showed herniated disc and bone spurs from T2 to T10 with cord compression. Local neurosurgeon did not feel comfortable doing it hence transferred to [facility]. She had surgery on 05/13/2017: T3-10 laminectomy. She mentions that post operatively, she was paralyzed and could not feel from above the chest down. She was transferred to a rehab facility([facility]), course was complicated by PE, needing surgery. She was discharged to [place]. She was in [place] x 4 months for PT; was told she will not walk again; came home on a wheelchair. She continued with OP PT which significantly helped her - walks with a walker and drives with hand controls. 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 Her (of 30 years) left her when she was paralyzed. Currently, she is can walk with a walker x 10-15 minutes(limited by back pain), drives with hand controls. She continues to have patchy numbness from chest down. She reports the legs do not feel like they are hers, LLE can feel sensation(temperature/touc h), RLE cannot feel temperature with some touch. Has dull pain with hypersenstivity in the L breast to the mid back. Pain management tried injection with no benefit. She is treating with topical - biofreeze. She continues to have bladder issues - needs to think about urinating; has constipation. Has electrical feeling in the legs all day long. She mentions to started having neck pain 1 month ago, 'cracks'. No radicular symptoms. She mentions she had transient RUE weakness with activity - she was doing her hair x 10 minutes when RUE felt tired needing to rest it but this has improved recently. No constant weakness or numbness/tingling in the arms. She has known cervical disc disease since 2018. She is currently not with PT, admits not to be consistent with her exercises. Has bars at home. She is currently on baclofen 40 mg bid, not feeling benefit from it. PAST MEDICAL HISTORY Diagnosis Date Thoracic myelopathy No past surgical history on file. MEDICATIONS: Current Outpatient Medications Medication Sig Dispense Refill gabapentin (NEURONTIN) 300 mg capsule Take 2 capsules by mouth three times daily for 90 days. 180 capsule 2 acetaminophen (TYLENOL) 325 mg tablet albuterol HFA (PROVENTIL HFA, VENTOLIN HFA) 90 mcg/actuation inhaler Inhale 2 Puffs as instructed every 6 hours as needed. ascorbic acid/collagen hydr (COLLAGEN PLUS VITAMIN C ORAL) baclofen (LIORESAL) 20 mg tablet Take 40 mg by mouth twice daily. cholecalciferol (VITAMIN D-3) 5,000 unit tab citalopram (CELEXA) 40 mg tablet Take 40 mg by mouth once daily. diazePAM (VALIUM) 5 mg tablet dicyclomine (BENTYL) 20 mg tablet Take 20 mg by mouth every 6 hours as needed. diphenhydrAMINE (BENADRYL ALLERGY) 12.5 mg/5 mL liquid STOOL SOFTENER 100 mg capsule Take 200 mg by mouth once daily. ibuprofen (MOTRIN) 800 mg tablet Take 800 mg by mouth every 6 hours as needed. inulin-chromium picolinate (FIBER SELECT GUMMIES) 2-100 gram-mcg chew levothyroxine (SYNTHROID) 100 mcg tablet Take 100 mcg by mouth. loratadine (CLARITIN) 10 mg tablet Take 10 mg by mouth. magnesium oxide 400 mg magnesium tab melatonin 10 mg subl therapeutic multivitamin-minerals (THERA-M PLUS) 9 mg iron-400 mcg tablet Take 1 tablet by mouth. mv,calcium,min/iron/folic/ vitK (ONE-A-DAY W (more content not included)... Normal [facility] Comprehensive metabolic 2000 panelon 05-29-2023 Albumin [Mass/Vol] 4.6 g/dL Normal 3.9-4.9 [facility] Comment on above: Order Comment: Speci men Type: BLOOD SPECIMEN Ordering Facility: [facility] Address: [address] [place] [address] Performed By: #### 2 4323-8 #### [facility] CLIA [id number] [place] [address] [place] [facility] ALP [Catalytic activity/Vol] 62 U/L Normal 34-123 [facility] Comment on above: Order Comment: Speci men Type: BLOOD SPECIMEN Ordering Facility: [facility] Address: [address] [place] [address] Performed By: #### 2 4323-8 #### [facility] CLIA [id number] [place] [address] [place] [facility] ALT [Catalytic activity/Vol] 26 U/L Normal 7-38 [facility] Comment on above: Order Comment: Speci men Type: BLOOD SPECIMEN Ordering Facility: [facility] Address: [address] [place] [address] Performed By: #### 2 4323-8 #### [facility] CLIA [id number] [place] [address] [place] Anion gap [Moles/Vol] 12 mmol/L Normal 9-18 [facility] Comment on above: Order Comment: Speci men Type: BLOOD SPECIMEN Ordering Facility: [facility] Address: [address] [place] [address] Performed By: #### 2 4323-8 #### [facility] CLIA [id number] [place] [address] [place] AST [Catalytic activity/Vol] 26 U/L Normal 13-35 [facility] Comment on above: Order Comment: Speci men Type: BLOOD SPECIMEN Ordering Facility: [facility] Address: [address] [place] [address] Performed By: #### 2 4323-8 #### [facility] CLIA [id number] [place] [address] [place] Bilirubin [Mass/Vol] 0.3 mg/dL Normal 0.2-1.3 [facility] Comment on above: Order Comment: Speci men Type: BLOOD SPECIMEN Ordering Facility: [facility] Address: [address] [place] [address] Performed By: #### 2 4323-8 #### [facility] CLIA [id number] [place] [address] [place] Calcium [Mass/Vol] 9.8 mg/dL Normal 8.5-10.2 [facility] Comment on above: Order Comment: Speci men Type: BLOOD SPECIMEN Ordering Facility: [facility] Address: [address] [place] [address] Performed By: #### 2 4323-8 #### [facility] CLIA [id number] [address] [place] [address] [place] Chloride [Moles/Vol] 99 mmol/L Normal 97-105 [facility] Comment on above: Order Comment: Speci men Type: BLOOD SPECIMEN Ordering Facility: [facility] Address: [address] [place] [address] Performed By: #### 2 4323-8 #### [facility] CLIA [id number] [address] [place] [address] [place] CO2 [Moles/Vol] 30 mmol/L Normal 22-30 [facility] Comment on above: Order Comment: Speci men Type: BLOOD SPECIMEN Ordering Facility: [facility] Address: [address] [place] [address] Performed By: #### 2 4323-8 #### [facility] CLIA [id number] [address] [place] [address] [place] Creatinine [Mass/Vol] 0.62 mg/dL Normal 0.58-0.96 [facility] Comment on above: Order Comment: Armando gaona Type: BLOOD SPECIMEN Ordering Facility: [facility] Address: [address] [place] [address] Performed By: #### 2 4323-8 #### [facility] CLIA [id number] [facility] [place] [address] [place] Creatinine and Glomerular filtration rate.predicted panel (S/P/Bld) 108 mL/min/1.73m??? Normal >=60 [facility] Comment on above: Order Comment: Armando gaona Type: BLOOD SPECIMEN Ordering Facility: [facility] Address: [address] [place] [address] Result Comment: Priya mated Glomerular Filtration Rate (eGFR) is calculated using the 2020 CKD-EPI creatinine equation. This equation utilizes serum creatinine, sex, and age as parameters. The creatinine assay has traceable calibration to isotope dilution-mass spectrometry. Refer to KDIGO guidelines for clinical interpretation. In patients with unstable renal function, e.g. those with acute kidney injury, the eGFR may not accurately reflect actual GFR. Performed By: #### 2 4323-8 #### [facility] CLIA [id number] [address] [facility] [place] [address] [place] Glucose [Mass/Vol] 85 mg/dL Normal 74-99 [facility] Comment on above: Order Comment: Armando gaona Type: BLOOD SPECIMEN Ordering Facility: [facility] Address: [address] [place] [address] Result Comment: The [place] Diabetes Association (ADA) provides guidance for cutoff values for fasting glucose and random glucose. The ADA defines fasting as no caloric intake for at least 8 hours. Fasting plasma glucose results between 100 to 125 mg/dL indicate increased risk for diabetes (prediabetes). Fasting plasma glucose results greater than or equal to 126 mg/dL meet the criteria for diagnosis of diabetes. In the absence of unequivocal hyperglycemia, results should be confirmed by repeat testing. In a patient with classic symptoms of hyperglycemia or hyperglycemic crisis, random plasma glucose results greater than or equal to 200 mg/dL meet the criteria for diagnosis of diabetes. Reference: Standards of Medical Care in Diabetes 2016, [place] Diabetes Association. Diabetes Care. 2016.39(Suppl 1). Performed By: #### 2 4323-8 #### [facility] IA [id number] [address] [place], [place] [id number] [place] [address] [place] Potassium [Moles/Vol] 4.5 mmol/L Normal 3.7-5.1 [facility] Comment on above: Order Comment: Speci men Type: BLOOD SPECIMEN Ordering Facility: [facility] Address: [address] [place] [address] Performed By: #### 2 4323-8 #### [facility] IA [id number] [address] [place] [address] [place] Protein [Mass/Vol] 7.6 g/dL Normal 6.3-8.0 [facility] Comment on above: Order Comment: Speci men Type: BLOOD SPECIMEN Ordering Facility: [facility] Address: [address] [place] [address] Performed By: #### 2 4323-8 #### [facility] [place] [id number] [address] [place] [address] [place] [facility] Sodium [Moles/Vol] 141 mmol/L Normal 136-144 [facility] Comment on above: Order Comment: Speci men Type: BLOOD SPECIMEN Ordering Facility: [facility] Address: [address] [place] [address] Performed By: #### 2 4323-8 #### [facility] IA [id number] [address] [place] [address] [place] Urea nitrogen [Mass/Vol] 23 mg/dL High 7-21 [facility] Comment on above: Order Comment: Speci men Type: BLOOD SPECIMEN Ordering Facility: [facility] Address: [address] [place] [address] Performed By: #### 2 4323-8 #### [facility] IA [id number] [place] [address] [place] Physician Referralon 023 Physician Referral [id number] Normal [facility] PAP ACOG PANEL 2: 30 to 65on 02-16-[address] [facility] Comment on above: Result Comment: Perf ormed at: WB Performed By: #### 4 [id number] #### [facility] [address] [place] [address] Dr. Noemi Copeland Age Gdln ACOG Testing 30-[address] [facility] Comment on above: Performed By: #### 4 [id number] #### [facility] [address] [place] [address] Dr. Noemi Copeland DIAGNOSIS: Comment Abnormal [facility] Comment on above: Result Comment: EPIT HELIAL CELL ABNORMALITY. ATYPICAL SQUAMOUS CELLS OF UNDETERMINED SIGNIFICANCE (ASC-US). Performed at: WB Performed By: #### 4 [id number] #### [facility] [address] [place] [address] Dr. Noemi Copeland Electronically signed by: Comment Normal [facility] Comment on above: Result Comment: Jasmine Cadet MD, Pathologist Performed at: WB Performed By: #### 4 [id number] #### [facility] [address] [place] [address] Dr. Noemi Copeland HPV Aptima Negative Normal Negative [facility] Comment on above: Result Comment: This nucleic acid amplification test detects fourteen high-risk HPV types (16,18,31,33,35,39,45,51,52,56,58,59,66,68) without differentiation. Performed at: =G Performed By: #### 4 [id number] #### [facility] [address] [place] [address] Dr. Noemi Copeland HPV Genotype Reflex Comment Normal [facility] Comment on above: Result Comment: Crit eria not met, HPV Genotype not performed. Performed at: WB Performed By: #### 4 [id number] #### [facility] [address] [place] [address] Dr. Noemi Copeland Methodology: Comment Normal [facility] Comment on above: Result Comment: This liquid based ThinPrep(R) pap test was screened with the use of an image guided system. Performed at: WB Performed By: #### 4 [id number] #### [facility] [address] [address] [address] Noemi Copeland Note: Comment Normal [facility] Comment on above: Result Comment: The Pap smear is a screening test designed to aid in the detection of premalignant and malignant conditions of the uterine cervix. It is not a diagnostic procedure and should not be used as the sole means of detecting cervical cancer. Both false-positive and false-negative reports do occur. . Performed at: WB Performed By: #### 4 [id number] #### [facility] [address] [address] [address] Noemi Copeland Pathologist Provided ICD10 Comment Normal [facility] Comment on above: Result Comment: [id number] Performed at: WB Performed By: #### 4 [id number] #### [facility] [address] [place] [address] Dr. Noemi Copeland Performed by: Comment Normal [facility] Comment on above: Result Comment: Camilo Smith, Supervisory Mill Roll [employer]inder (ASCP) Performed at: WB Performed By: #### 4 [id number] #### [facility] [address] [place] [address] Dr. Noemi Copeland Recommendation: Comment Abnormal [facility] Comment on above: Result Comment: Sugg est follow up as clinically appropriate. Performed at: WB Performed By: #### 4 [id number] #### [facility] [address] [place] [address] Dr. Noemi Copeland Specimen adequacy: Comment Normal [facility] Comment on above: Result Comment: Sati sfactory for evaluation. Endocervical and/or squamous metaplastic cells (endocervical component) are present. Performed at: WB Performed By: #### 4 [id number] #### [facility] [address] [address] [address] Noemi Copeland CHLAMYDIA/GONOCOCCUS MILADIS (SW AB/URINE/PAPon 06-18-2022 Chlamydia trachomatis, MILADIS Negative Normal Negative [facility] Comment on above: Performed By: #### C T/NGNA #### [facility] [address] [address] [address] Noemi Copeland Neisseria gonorrhoeae, MILADIS Negative Normal Negative [facility] Comment on above: Performed By: #### C T/NGNA #### [facility] [address] [address] [address] Noemi Copeland VAGINITIS/VAGINOSIS DNA PROB Dylan 06-16-2022 Veronica species Negative Normal Negative [facility] Comment on above: Performed By: #### V AGINT ####[facility] [id number] [address]Dr. Noemi Copeland Gardnerella vaginalis Negative Normal Negative [facility] Comment on above: Performed By: #### V AGINT ####[facility] [id number] [address]Dr[address] Noemi Copeland Trichomonas vaginalis Negative Normal Negative [facility] Comment on above: Performed By: #### V AGINT ####[facility] [id number] [address]Dr. Noemi Copeland Covid-19 PCR (CVDTBH)on 12-04 SARS-CoV-2 (COVID-19) RNA MILADIS+probe Ql (Unsp spec) Not detected Normal NOT DETECTED [facility] Comment on above: Result Comment: This test is not yet approved or cleared by the [place] FDA. When there are no FDA-approved or cleared tests available, and other criteria are met, FDA can make tests available under an emergency access mechanism called an Emergency Use Authorization (EUA). The EUA for this test is supported by the [place] of Health and Human Service's (HHS's) declaration that circumstances exist to justify the emergency use of in vitro diagnostics for the detection and/or diagnosis of the virus that causes COVID-19. This EUA will remain in effect (meaning this test can be used) for the duration of the COVID-19 declaration justifying emergency of IVDs, unless it is terminated or revoked by FDA (after which the test may no longer be used). When diagnostic testing is negative, the possibility of a false negative should be considered in the context of a patient's recent exposures and the presence of clinical signs and symptoms consistent with SARS-CoV-2. Performed By: #### C VDTBH #### [facility] [address] [address] [address] Noemi Copeland CULTURE URINEon 11-27-2021 CULTURE URINE Isolate 1 Escherichia coli >100,000 cfu/mL of ORGANISM 1 Escherichia coli ANTIBIOTIC M.I.C RX STATUS Ampicillin >=32 R F Ampicillin/Sulbactam >=32 R F Piperacillin/Tazobactam <=4 S F Cefazolin <=4 S F Ceftazidime <=1 S F Ceftriaxone <=1 S F Ertapenem <=0.5 S F Imipenem <=0.25 S F Amikacin <=2 S F Gentamicin <=1 S F Tobramycin <=1 S F Ciprofloxacin <=0.25 S F Levofloxacin <=0.12 S F Nitrofurantoin <=16 S F Trimethoprim/Sulfamethoxaz ole >=320 R F Normal [facility] Comment on above: Performed By: #### U RCX ####[facility] [id number] [address]Dr. Noemi Copeland UA RANDOM W/MICROSCOPICon BACTERIA MODERATE Abnormal NONE SEEN [facility] Comment on above: Performed By: #### U AMIC #### [facility] [address] [place] [address] Dr. Noemi Copeland Bilirubin Ql (U) Negative Normal NEGATIVE [facility] Comment on above: Performed By: #### U AMIC #### [facility] [address] [place] [address] Dr. Noemi Copeland CAST NONE SEEN Normal NONE SEEN [facility] Comment on above: Performed By: #### U AMIC #### [facility] [address] [place] [address] Dr. Noemi Copeland Clarity (U) CLEAR Normal CLEAR [facility] Comment on above: Performed By: #### U AMIC #### [facility] [address] [place] [address] Dr. Noemi Copeland Color (U) LT. YELLOW Normal YELLOW [facility] Comment on above: Performed By: #### U AMIC #### [facility] [address] [place] [address] Dr. Noemi Copeland Crystals LM Nom (Urine sed) NONE SEEN Normal NONE SEEN [facility] Comment on above: Performed By: #### U AMIC #### [facility] [address] [address] [address] Noemi Copeland Epithelial cells LM Ql (Urine sed) FEW Abnormal NONE SEEN /RARE [facility] Comment on above: Performed By: #### U AMIC #### [facility] [address] [address] [address] Noemi Copeland Glucose Ql (U) Negative Normal NEGATIVE [facility] Comment on above: Performed By: #### U AMIC #### [facility] [address] [address] [address] Noemi Copeland Hemoglobin Ql (U) TRACE-INTACT Abnormal NEGATIVE [facility] Comment on above: Performed By: #### U AMIC #### [facility] [address] [address] [address] Noemi Copeland Ketones Ql (U) Negative Normal NEGATIVE [facility] Comment on above: Performed By: #### U AMIC #### [facility] [address] [address] [address] Noemi Copeland LEUKOCYTES SMALL Abnormal NEGATIVE [facility] Comment on above: Performed By: #### U AMIC #### [facility] [address] [address] [address] Noemi Copeland MUCOUS TRACE Abnormal NONE SEEN [facility] Comment on above: Performed By: #### U AMIC #### [facility] [address] [address] [address] Noemi Copeland Nitrite Ql (U) Positive Abnormal NEGATIVE [facility] Comment on above: Performed By: #### U AMIC #### [facility] [address] [address] [address] Noemi Copeland pH (U) 7.5 [pH] Normal 5-9 [facility] Comment on above: Performed By: #### U AMIC #### [facility] [address] [place] [address] Dr. Noemi Copeland RBC 5-10 Abnormal 0-2 [facility] Comment on above: Performed By: #### U AMIC #### [facility] [address] [address] [address] Noemi Copeland SPEC GRAVITY 1.020 Normal 1.005-<=1.0 25 [facility] Comment on above: Performed By: #### U AMIC #### [facility] [address] [address] [address] Noemi Copeland UA PROTEIN TRACE Normal NEGATIVE/ TRACE [facility] Comment on above: Performed By: #### U AMIC #### [facility] [address] [address] [address] Noemi Copeland Urobilinogen Qn (U) 0.2 {Marcie'U}/dL Normal 0.2 - 1. 0 [facility] Comment on above: Performed By: #### U AMIC #### [facility] [address] [address] [address] Noemi Copeland WBC 20-50 Abnormal NONE SEEN [facility] Comment on above: Performed By: #### U AMIC #### [facility] [address] [address] [address] Noemi Copeland PREG HCG QUALon 10-17-2021 , QUAL Negative Normal NEGATIVE [facility] Comment on above: Performed By: #### P REG #### [facility] [address] [address] [address] Noemi Copeland US PELVIS AND TRANSVAGon US PELVIS AND TRANSVAG EXAMINATION: US PELVIS AND TRANSVAG HISTORY: Imaging result abnormal ; follow-up left ovarian cyst, follow-up cervical debris versus polyp COMPARISON: Ultrasound pelvis 04/04/2021 TECHNIQUE: Transabdominal and transvaginal sonographic examination. FINDINGS: UTERUS: Posterior uterine wall leiomyoma, 1.9 cm. Several small fluid-filled structures within the cervix suggestive of nabothian cysts. A larger one measures 1.6 x 1.0 x 0.6 cm and contains internal debris versus a 4 mm soft tissues/polyp. Uterus size: 10.9 x 3.9 x 6.9 cm ENDOMETRIUM: Normal homogeneous appearance. Endometrial thickness: 10 mm RIGHT OVARY: Not seen. LEFT OVARY: Normal size and appearance. Duplex Doppler demonstrates normal waveform and flow; resistive index 0.47. Ovary size: 4.7 x 2.0 x 2.1 cm CUL-DE-SAC: Unremarkable. No significant free fluid. BLADDER: Unremarkable. OTHER: None. IMPRESSION: 1. Persistent nonspecific fluid collection within cervical canal containing debris versus polyp/soft tissue. 2. Posterior wall uterine leiomyoma. 3. Resolution of previously seen left ovarian cyst. Electronically authenticated by: LOURDES MORILLO Date: 2021-08-17 12:[address] [facility] XR CSPINE MIN 4 VIEWSon 040 XR CSPINE MIN 4 VIEWS EXAMINATION: XR CS PINE MIN 4 VIEWS HISTORY: Displacement of cervical intervertebral disc ; acute cervical pain, no known injury COMPARISON: No relevant comparison available. FINDINGS: BONES: Multilevel mild degenerative facet arthropathy, left greater right. No fracture, dislocation, bone lesion. DISC SPACES: Marked narrowing C6-7. PARASPINOUS: Negative. No paraspinous abnormality is seen. OTHER: Negative. IMPRESSION: 1. C6-7 marked degenerative disc disease. Consider MRI for further evaluation. Electronically authenticated by: LOURDES MORILLO Date: 2021-08-10 14:[address] [facility] CNOVon 04-21-2021 CNOV Office Visit (NEADFV ) -- ELDA TARIQ ([id number]) 1970 F Date Time Provider Department 04/21/21 2:20 PM MELVA ANTONIO During your visit today, we recorded the following information about you: Temperature Pulse Blood pressure Weight 97.1 degrees 68/minute 139/81 74.4 kg Height 1.499 m Melva Antonio MD 04/21/2021 7:16 PM Signed She is seen in follow-up today because of a thoracic myelopathy. She believes that there has been some improvement in her activities of daily living. The MRI of the thoracic spine failed to reveal any evidence of intercurrent pathology. Today on examination she is awake, alert, pleasant, cooperative and coherent. Although she stands readily her stance is a least mild to moderately wide-based and the gait very prominently spastic/ataxic. The rapid alternating movements of the fingers are normal bilaterally with a mild decrement in the feet this a bit more prominent on the right. Cranial Nerves: II?visual florentino full III IV ?extraocular movements normal VII?muscles of facial expression normal in power bilaterally Motor System: Strength in the deltoids, biceps, triceps, wrist extensors, finger extensors, interossei, iliopsoas, quadriceps, hamstrings, anterior tibialis and toe extensors is normal save for suspect mild weakness of the right iliopsoas and hamstrings with mild to moderate weakness of the anterior tibialis/toe extensors. The tendon reflexes are at least moderately increased in the lower extremities particularly on the right and there are bilateral Babinski responses. Again noted is mild to moderate spastic tone in both lower extremities. In summary, overall she is doing well all things considered and I have encouraged her to persevere with regard to physical therapy. Follow-up will be on an as-needed basis. Referring Provider: SELF [[id number]] Allergies As of Date: 04/21/2021 Noted Allergy Reaction METFORMIN 06/21/2016 14 - Other: See Comments Comments: Chest pain Date Reviewed: 04/21/2021 Reviewed by: Melva Antonio MD - Fully Assessed Reason for Visit: Follow Up [171] Leg Weakness [1329] Spasticity [487] Primary Visit Diagnosis:Thoracic myelopathy [M47.14] Prescriptions as of 04/21/2021 - gabapentin (NEURONTIN) 300 mg capsule Take 2 capsules by mouth three times daily for 90 days. - acetaminophen (TYLENOL) 325 mg tablet - albuterol HFA (PROVENTIL HFA, VENTOLIN HFA) 90 mcg/actuation inhaler Inhale 2 Puffs as instructed every 6 hours as needed. - ascorbic acid/collagen hydr (COLLAGEN PLUS VITAMIN C ORAL) - baclofen (LIORESAL) 20 mg tablet Take 40 mg by mouth twice daily. - cholecalciferol (VITAMIN D-3) 5,000 unit tab - citalopram (CELEXA) 40 mg tablet Take 40 mg by mouth once daily. - diazePAM (VALIUM) 5 mg tablet - dicyclomine (BENTYL) 20 mg tablet Take 20 mg by mouth every 6 hours as needed. - diphenhydrAMINE (BENADRYL ALLERGY) 12.5 mg/5 mL liquid - STOOL SOFTENER 100 mg capsule Take 200 mg by mouth once daily. - ibuprofen (MOTRIN) 800 mg tablet Take 800 mg by mouth every 6 hours as needed. - inulin-chromium picolinate (FIBER SELECT GUMMIES) 2-100 gram-mcg chew - levothyroxine (SYNTHROID) 100 mcg tablet Take 100 mcg by mouth. - loratadine (CLARITIN) 10 mg tablet Take 10 mg by mouth. - magnesium oxide 400 mg magnesium tab - melatonin 10 mg subl - therapeutic multivitamin-minerals (THERA-M PLUS) 9 mg iron-400 mcg tablet Take 1 tablet by mouth. - mv,calcium,min/iron/folic/ vitK (ONE-A-DAY WOMEN'S COMPLETE ORAL) - valACYclovir (VALTREX) 1 gram Take 2,000 mg by mouth twice daily. Medication notes this encounter GABAPENTIN 300 MG CAPSULE >> Dilcia Antoine Ma 04/21/2021 2:24 PM >> DILCIA ANTOINE MA Apr 21, 2021 2:24 PM 600mg TID Problem List As Of Date 04/21/2021 Noted Resolved Thoracic myelopathy [M47.14] 12/02/2020 Disposition: Return if symptoms worsen or fail to improve. Follow-up and Disposition History for Encounter Date Provider Department Center 04/21/2021 [id number] ANTONIO Hosp Encounter Status:Closed by MELVA ANTONIO on 04/21/21 [facility] 02-06-2021 JI Telephone (NANNETTE) -- ELDA TARIQ ([id number]) 1970 F Date Time Provider Department 02/06/21 MELVA ANTONIO During your visit today, we recorded the following information about you: Maggie Edwards [facility] 02/06/2021 4:39 PM Signed Received outside medical records by fax, scanned to patient's chart. Zoë Bush RN 02/06/2021 4:53 PM Signed Clinical records available in scanned documents for your review. Melva Antonio MD 02/13/2021 1:49 PM Signed Noted and appreciated. Melva Antonio MD Allergies As of Date: 02/06/2021 Noted Allergy Reaction METFORMIN 06/21/2016 14 - Other: See Comments Comments: Chest pain Date Reviewed: 02/02/2021 Reviewed by: Melva Antonio MD - Fully Assessed Reason for Visit: Received Outside Medical Records [[id number]] Prescriptions as of 02/13/2021 - gabapentin (NEURONTIN) 300 mg capsule Take 2 capsules by mouth three times daily for 90 days. - acetaminophen (TYLENOL) 325 mg tablet - albuterol HFA (PROVENTIL HFA, VENTOLIN HFA) 90 mcg/actuation inhaler Inhale 2 Puffs as instructed every 6 hours as needed. - ascorbic acid/collagen hydr (COLLAGEN PLUS VITAMIN C ORAL) - baclofen (LIORESAL) 20 mg tablet Take 40 mg by mouth twice daily. - cholecalciferol (VITAMIN D-3) 5,000 unit tab - citalopram (CELEXA) 40 mg tablet Take 40 mg by mouth once daily. - diazePAM (VALIUM) 5 mg tablet - dicyclomine (BENTYL) 20 mg tablet Take 20 mg by mouth every 6 hours as needed. - diphenhydrAMINE (BENADRYL ALLERGY) 12.5 mg/5 mL liquid - STOOL SOFTENER 100 mg capsule Take 200 mg by mouth once daily. - ibuprofen (MOTRIN) 800 mg tablet Take 800 mg by mouth every 6 hours as needed. - inulin-chromium picolinate (FIBER SELECT GUMMIES) 2-100 gram-mcg chew - levothyroxine (SYNTHROID) 100 mcg tablet Take 100 mcg by mouth. - loratadine (CLARITIN) 10 mg tablet Take 10 mg by mouth. - magnesium oxide 400 mg magnesium tab - melatonin 10 mg subl - therapeutic multivitamin-minerals (THERA-M PLUS) 9 mg iron-400 mcg tablet Take 1 tablet by mouth. - mv,calcium,min/iron/folic/ vitK (ONE-A-DAY WOMEN'S COMPLETE ORAL) - valACYclovir (VALTREX) 1 gram Take 2,000 mg by mouth twice daily. Problem List As Of Date 02/06/2021 Noted Resolved Thoracic myelopathy [M47.14] 12/02/2020 Encounter Status:Closed by ZOË BUSH on 02/08/21 [facility] CNOVon 02-02-2021 CNOV Office Visit (NEADFV ) -- ELDA TARIQ ([id number]) 1970 F Date Time Provider Department 02/02/21 3:00 PM MELVA ANTONIO During your visit today, we recorded the following information about you: Temperature Pulse Respiration Blood pressure 98.1 degrees 74/minute 22/minute 130/83 Melva Antonio MD 02/02/2021 5:10 PM Signed She is seen in follow-up today because of a thoracic myelopathy. She believes that there has been some ongoing return of strength in both lower extremities. She apparently had the MRI of the thoracic spine performed but we have yet to receive the results. Today on examination she is awake, alert, pleasant, cooperative and coherent. She stands readily and her gait displays a prominent spastic/ataxic quality. Her stance is at least mild to moderately wide-based. Cranial Nerves: II?visual florentino full III IV ?extraocular movements normal VII?muscles of facial expression normal in power bilaterally Motor System: Strength in the deltoids, biceps, triceps, wrist extensors, finger extensors, interossei, iliopsoas, quadriceps, hamstrings, anterior tibialis and toe extensors is normal save for suspect mild weakness in the right iliopsoas and hamstrings with moderate weakness of the anterior tibialis/toe extensors. Tendon reflexes are at least moderately increased in the lower extremities particularly on the right and there are bilateral Babinski responses. Mild to moderate spastic tone is noted in both lower extremities. In summary, I believe she has made mild improvement. We will not alter her management at this time and a follow-up visit has been scheduled. Referring Provider: MELVA ANTONIO [[id number]] Allergies As of Date: 02/02/2021 Noted Allergy Reaction METFORMIN 06/21/2016 14 - Other: See Comments Comments: Chest pain Date Reviewed: 02/02/2021 Reviewed by: Melva Antonio MD - Fully Assessed Reason for Visit: Leg Weakness [1329] Spasticity [487] Primary Visit Diagnosis:Thoracic myelopathy [M47.14] Prescriptions as of 02/02/2021 - gabapentin (NEURONTIN) 300 mg capsule Take 2 capsules by mouth three times daily for 90 days. - acetaminophen (TYLENOL) 325 mg tablet - albuterol HFA (PROVENTIL HFA, VENTOLIN HFA) 90 mcg/actuation inhaler Inhale 2 Puffs as instructed every 6 hours as needed. - ascorbic acid/collagen hydr (COLLAGEN PLUS VITAMIN C ORAL) - baclofen (LIORESAL) 20 mg tablet Take 40 mg by mouth twice daily. - cholecalciferol (VITAMIN D-3) 5,000 unit tab - citalopram (CELEXA) 40 mg tablet Take 40 mg by mouth once daily. - diazePAM (VALIUM) 5 mg tablet - dicyclomine (BENTYL) 20 mg tablet Take 20 mg by mouth every 6 hours as needed. - diphenhydrAMINE (BENADRYL ALLERGY) 12.5 mg/5 mL liquid - STOOL SOFTENER 100 mg capsule Take 200 mg by mouth once daily. - ibuprofen (MOTRIN) 800 mg tablet Take 800 mg by mouth every 6 hours as needed. - inulin-chromium picolinate (FIBER SELECT GUMMIES) 2-100 gram-mcg chew - levothyroxine (SYNTHROID) 100 mcg tablet Take 100 mcg by mouth. - loratadine (CLARITIN) 10 mg tablet Take 10 mg by mouth. - magnesium oxide 400 mg magnesium tab - melatonin 10 mg subl - therapeutic multivitamin-minerals (THERA-M PLUS) 9 mg iron-400 mcg tablet Take 1 tablet by mouth. - mv,calcium,min/iron/folic/ vitK (ONE-A-DAY WOMEN'S COMPLETE ORAL) - valACYclovir (VALTREX) 1 gram Take 2,000 mg by mouth twice daily. Problem List As Of Date 02/02/2021 Noted Resolved Thoracic myelopathy [M47.14] 12/02/2020 Disposition: Return in about 6 months (around 08/02/2021) for Thoracic Myelopathy. Follow-up and Disposition History Recorded Encounter Status:Closed by MELVA ANTONIO on 02/02/21 [facility] CNOVon 12-02-2020 CNOV Office Visit (NEADFV ) -- ELDA TARIQ ([id number]) 1970 F Date Time Provider Department 12/02/20 1:00 PM MELVA ANTONIO During your visit today, we recorded the following information about you: Temperature Pulse Blood pressure Weight 97.6 degrees 74/minute 126/69 72.1 kg Height Last Period 1.499 m 11/03/20 Katherine Dani 12/05/2020 10:12 AM Signed Mother with pt. Melva Antonio MD 12/02/2020 1:47 PM Signed Please increase the dose of gabapentin to two three times daily. Melva Antonio MD 12/05/2020 10:12 AM Signed Ms. Elda Tariq is essentially self-referred for an initial outpatient consultation because of paraplegia. She is a 50-year-old right-handed white female with a past medical history otherwise significant for hypothyroidism. In late 2016 she began developing numbness and weakness of both lower extremities which progressed. She began to drag both legs and there was a series of falls. Subsequent evaluation including imaging demonstrated bone spurs as well as herniated disks involving the thoracic spine. This was apparently from T2-T10. She saw a local neurosurgeon and subsequently was referred to a tertiary center where she underwent surgery on May 13, 2017 for. Upon awakening she was paralyzed from the lower chest distally. Her postoperative course was complicated by DVT with pulmonary emboli. Previous to this postoperatively there were issues with hypotension which subsequently resolved. She was in a mcc for 4 months and states that she began to improve about a year and a half after the incident with decreasing numbness although she still has patchy numbness from the just below the breasts distally this less extensive on the left. She estimates approximately 85% return of a combination of both sensory and motor function in the left leg but only 10% on the right. About a year ago she began to walk with a walker and she has been able to drive with a suitably adapted vehicle. She continues to experience a deep pain about the lower chest circumferentially. Chronic problems with constipation continue and she finds the paresthesias quite troublesome from time to time for which she takes Neurontin. Spasticity has been an issue and she is taking baclofen. Past Medical History: Her past medical history is as previously delineated. Family History: There is no history in her family of inherited problems with coordination, Multiple Sclerosis, peripheral nerve disease, recurrent troublesome headaches or seizure. Her maternal great uncle had muscular dystrophy and a maternal great aunt parkinsonism/dementia. Her paternal grandmother also had dementia. Psychosocial History: She is and was 32 years. She has 2 children both of whom are healthy. She is a non-smoker/non-drinker. 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 Review of Systems: There is no history of recurrent troublesome headaches or seizures but she fainted once with the pulmonary emboli. She denies any weakness, wasting, unusual cramping or twitching of her muscles, numbness or tingling aside from what we have already discussed or implied. She experiences shooting pains in various parts of her body these with an electrical quality. There are no visual difficulties aside from wearing corrective lenses and she denies any aberration of her sense of hearing, taste or smell. Speech, swallowing, bladder and bowel function are unimpaired aside from what we have already discussed or implied. There is no history of head injury sufficient to cause loss of consciousness, fracture of the spinal column, meningitis or encephalitis. Neurologic examination on December 02, 2020 revealed an awake, alert, pleasant, cooperative and coherent woman. She can stand from her wheelchair and her stance is moderately wide-based with the gait having a prominent spastic/ataxic quality. We did not feel it prudent to assess for rombergism or have her attempt to walk tandem. The rapid alternating movements of the tongue fingers and toes were performed well save for a mild decrement in the left toes with a moderate decrement of the right. [id number]-sv-[id number] testing was performed without difficulty. Cranial Nerves: II?visual florentino full III IV ?extraocular movements normal VII?muscles of facial expression normal in power bilaterally XII?tongue midline Motor System: Strength in the deltoids, biceps, triceps, wrist extensors, finger extensors, interossei, iliopsoas, quadriceps, hamstrings, anterior tibialis and toe extensors was normal with the notable exception of at least mild weakness of the left iliopsoas, hamstrings anterior tibialis and toe extensors with relative sparing of the quadriceps. On the right the iliopsoas and hamstrings were mild to moderately weak again with sparing (more content not included)... Normal [facility] HISTORY PHYSICALon HISTORY PHYSICAL HNO ID: [id number] Author: Melva Antonio MD Service: ? Author Type: Physician Type: HANDP Filed: 12/05/2020 10:12 AM Note Text: Ms. Elda Tariq is essentially self-referred for an initial outpatient consultation because of paraplegia. She is a 50-year-old right-handed white female with a past medical history otherwise significant for hypothyroidism. In late 2016 she began developing numbness and weakness of both lower extremities which progressed. She began to drag both legs and there was a series of falls. Subsequent evaluation including imaging demonstrated bone spurs as well as herniated disks involving the thoracic spine. This was apparently from T2-T10. She saw a local neurosurgeon and subsequently was referred to a tertiary center where she underwent surgery on May 13, 2017 for. Upon awakening she was paralyzed from the lower chest distally. Her postoperative course was complicated by DVT with pulmonary emboli. Previous to this postoperatively there were issues with hypotension which subsequently resolved. She was in a mcc for 4 months and states that she began to improve about a year and a half after the incident with decreasing numbness although she still has patchy numbness from the just below the breasts distally this less extensive on the left. She estimates approximately 85% return of a combination of both sensory and motor function in the left leg but only 10% on the right. About a year ago she began to walk with a walker and she has been able to drive with a suitably adapted vehicle. She continues to experience a deep pain about the lower chest circumferentially. Chronic problems with constipation continue and she finds the paresthesias quite troublesome from time to time for which she takes Neurontin. Spasticity has been an issue and she is taking baclofen. Past Medical History: Her past medical history is as previously delineated. Family History: There is no history in her family of inherited problems with coordination, Multiple Sclerosis, peripheral nerve disease, recurrent troublesome headaches or seizure. Her maternal great uncle had muscular dystrophy and a maternal great aunt parkinsonism/dementia. Her paternal grandmother also had dementia. Psychosocial History: She is and was 32 years. She has 2 children both of whom are healthy. She is a non-smoker/non-drinker. 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 Review of Systems: There is no history of recurrent troublesome headaches or seizures but she fainted once with the pulmonary emboli. She denies any weakness, wasting, unusual cramping or twitching of her muscles, numbness or tingling aside from what we have already discussed or implied. She experiences shooting pains in various parts of her body these with an electrical quality. There are no visual difficulties aside from wearing corrective lenses and she denies any aberration of her sense of hearing, taste or smell. Speech, swallowing, bladder and bowel function are unimpaired aside from what we have already discussed or implied. There is no history of head injury sufficient to cause loss of consciousness, fracture of the spinal column, meningitis or encephalitis. Neurologic examination on December 02, 2020 revealed an awake, alert, pleasant, cooperative and coherent woman. She can stand from her wheelchair and her stance is moderately wide-based with the gait having a prominent spastic/ataxic quality. We did not feel it prudent to assess for rombergism or have her attempt to walk tandem. The rapid alternating movements of the tongue fingers and toes were performed well save for a mild decrement in the left toes with a moderate decrement of the right. [id number] testing was performed without difficulty. Cranial Nerves: II?visual florentino full III IV ?extraocular movements normal VII?muscles of facial expression normal in power bilaterally XII?tongue midline Motor System: Strength in the deltoids, biceps, triceps, wrist extensors, finger extensors, interossei, iliopsoas, quadriceps, hamstrings, anterior tibialis and toe extensors was normal with the notable exception of at least mild weakness of the left iliopsoas, hamstrings anterior tibialis and toe extensors with relative sparing of the quadriceps. On the right the iliopsoas and hamstrings were mild to moderately weak again with sparing of the quadriceps which were at least mildly weak. There was a least moderate weakness of the right anterior tibialis and toe extensors. The tendon reflexes were symmetric in the upper extremities but at least moderate to markedly increased at the quadriceps bilaterally. The left gastrocsoleus tendon reflex was normal to mildly reduced with a moderate decrement of the right. There were bilateral Babinski responses. Sensory System: Joint position sensation was markedly r (more content not included)... Normal [facility] Discharge Summaryon 05-24-19 Discharge Summary Send Summary:Dischar ge Summary Providers:Provider Role Provider Name? Attending Griselda Trinidad? Primary Free, Text EntryNote Recipients: Free, Text Entry, MDDischarge:Summary:Admiss ion Date: .10-May-2017 21:46:00Discharge Date: [id number] Physician at Discharge: Griselda Trinidad RAdmission Reason: Thoracic spinal stenosisFinal Discharge Diagnoses: Spinal stenosis of thoracic regionProcedures: Date: 13-May-2017 11:42:00Procedure Name: T3-10 laminectomyCondition at Discharge: SatisfactoryDisposition at Discharge: Rehab Facility or UnitVital Signs: T P R BP EbB9Dspbt 36.4 63 14 153/75 100%Date/Time 05/24 8:00 05/24 10:00 05/24 10:05/24 10:0:00Range (36C - 36.8C ) (60 - 87 ) (11 - 19 ) (112 - 153 )/ (41- 78 ) (93% -100% ) As of 24-May-2017 04:00:00, patient is on 0 L/min of oxygen via room air.Hospital Course:This is a 47 yo female with PMHx of HTN, GERD, hypothyroidism, anxiety, morbidobesity who presented for evaluation of 6 months of bilateral lower extremityparesthesias and 4 months of lower extremity progressive weakness.MRI demonstrated multilevel thoracic disc herniations and associatedcalcification.Th e patient was taken to the OR on 05/13 for T3-10 decompressive laminectomies.The patient's post-operative exam was significant for worsening lower extremityweakness but emergent MRI demonstrated satisfactory cord decompression andanticipated POC. CT Abdomen on 05/13 negative for hernia. Patient admitted tothe ICU post operatively for vasopressor therapy (s/p PICC on 05/14) to keep MAP>85 for one week post operatively. With increased MAP goals, patient's lowerextremity showing signs of improvement.Patient transferred to the [facility] on 05/20. WBC noted to be 24, +UA and urineculture + for Ecoli - patient started on Ceftriaxone and changed to oralBactrim through 05/27/17.PT/OT evaluated the patient and determined the patient to be appropriate foracute rehab.Neurological Exam on day of discharge as documented:AOx35/5 UELLE 2 HF, 3 KF, 4 KE, 4 DF/PF/EHLRLE 2 HF, 1 KE, 0 DF/PF/EHLpatchy sensory preservation below L1teplbuln c/d/iDischarge Information:and Continuing Care:Discharge Instructions:Activity: activity as tolerated. May not drive until follow-up visit. No pushing, pulling, or lifting objects greater than 10 pounds untilfollow-up visit. Weight-bearing Instructions: weight-bearing as tolerated. Activity as tolerated Slowly increase your activity level. You may feel fine but your body isstill recovering and needs a balance of sleep and rest. It may take a month ortwo before you regain the energy you had before surgery Pain or discomfort is a guide to cut back on your activity No heavy lifting (more than 10 pounds), pulling or pushing activityuntil cleared by MD at follow-up appointment You may shower immediately after discharge DO NOT allow direct water spray on your incision No tub soaking You may ride in a car with your seat belt onNutrition/Diet: diabetic/carbohydrate counted Diabetic/Carbohydrate Counted: 60gram/Carb meal, 30gram/Carb snack(1600-1800cals) diabetic adultWound Care: Inspect your incision daily for signs of infection: redness, swelling,drainage and foul discharge Keep surgical incision open to air DO NOT soak in a tub or swim until incision is completely healed. Thismay take approximately 4 weeks DO NOT scrub or rub the incision. You may gently pat the incision DO NOT pick off scabs, or old blood from the incision site. Theincision should heal naturally on its own No Lotions, creams, gels or powders. No hair products, conditioner,rubbing alcohol, hydrogen peroxide or ointments on or around your incision There may be some tenderness, bruising and a small amount of swellingalong the incision line. This will gradually go away over the next severalweeks OK for Acute Rehab to remove sutures or andrea on or around 05/27/17.Please call Dr. Trinidad office at [phone] with any questions or concernsregarding surgical prior to or after removing sutures/andrea.Catheter Care: Type: indwelling, placed for urinary retention Catheter Care: soap and water Catheter Care Frequency: Daily Catheter Change: Monthly Date Last Changed: Placed dditional Orders: Blood Glucose Monitoring: Before meals and bedtime Additional Instructions: OK for Acute Rehab to remove sutures orstaples on or around 05/27/17. Please call Dr. Trinidad office at [phone] any questions or concerns regarding surgical prior to or after removingsutures/andrea.Ho or Metoprolol 25mg BID is currently on hold; resume as needed for increasedheart rate/BPRehab Services: Occupational Therapy Orders: Eval and Treat ([facility]) 2 times/day Physical Therapy Orders: Eval and Treat ([facility]) 2 times/dayInfectious Disease: PPD Status: not given MRSA: no VRE: no C. Diff: no Other Resistant Organism: no Isolation Type: noneCare Recommendation: I recommend that INPATIENT care is required at:: Acute rehab Estimated Stay: Convalescent stay < 30 daysFollow Up Appointments:Follow-Up - Neurosurgeon: Physician/Dept/Service: Neurosurgeon Dr. Griselda Trinidad Scheduled Date/Time: 05-Jun-2017 14:30 Location: [facility] [address] [facility], [address] [place] [address] Uzfubp-Up Appointment 01: Physician/Dept/Service: Dr. Tavo Graham - Urology Scheduled Date/Time: 06-Jun-2017 11:15 Location: [address] [place] [address] [place] [address] [phone] Medications: Home Medication omeprazole 20 mg oral delayed release capsule - 1 cap(s) orally once a day levothyroxine 100 mcg (0.1 mg) oral tablet - 1 tab(s) orally once a day citalopram 20 mg oral tablet - 1 tab(s) orally once a day heparin - 7500 unit(s) subcutaneous every 8 hours -Continue until patient fully ambulatory and/or per facility protocol docusate sodium 100 mg oral capsule - 1 cap(s) orally 2 times a day senna 8.6 mg oral tablet - 2 tab(s) orally once a day insulin lispro 100 units/mL injectable solution - Give SubCutaneous threetimes a day before meals Hypoglycemia Protocol Call LIP unit(s) if Blood Glucose is between 0 - 70 0 unit(s) if Blood Glucose is between 71 - 150 4 unit(s) if Blood Glucose is between 151 - 200 6 unit(s) if Blood Glucose is between 201 - 250 8 unit(s) if Blood Glucose is between 251 - 300 10 unit(s) if Blood Glucose is between 301 - 350 12 unit(s) if Blood Glucose is between 351 - 400 Notify Physician unit(s) if Blood Glucose is greater than 400 lidocaine 5% topical film - Apply topically to affected area once a day; on inmorning, off at bedtime polyethylene glycol 3350 oral powder for reconstitution - 17 gram(s) orallyonce a day baclofen - 5 milligram(s) orally 3 times a day sulfamethoxazole-trimethop rim 800 mg-160 mg oral tablet - 1 tab(s) orallyevery 12 hours through 05/27/17 PRN Medication diphenhydrAMINE 25 mg oral capsule - 1 cap(s) orally every 6 hours, As needed,Itching diazePAM 5 mg oral tablet - 1 tab(s) orally every 6 hours, As needed, formuscle spasms LORazepam 0.5 mg oral tablet - 1 tab(s) orally every 8 hours, As needed,Anxiety albuterol 90 mcg/inh inhalation aerosol - 2 inhaler(s) inhaled every 4 hours,As Needed via MDI for shortness of breath bisacodyl 10 mg rectal suppository - 1 suppository(ies) rectal once a day, Asneeded, if no BM in the previous 36 hours acetaminophen 325 mg oral tablet - 2 tab(s) orally every 6 hours, As needed,while having painoxyCODONE 5 mg oral tablet - 1 -2 tab(s) orally every 4 to 6 hours, as neededfor moderate to severe post operative painLab Results - Pending: NoneRadiology Results - Pending: PICC Line Radiology Placement (patient 5yrs orolder) at 14-May-2017 17:23:00 PICC Line Radiology Placement (patient 5yrs or older) at 14-May-2017 17:20:00Xray Fluoro Spine at 13-May-2017 08:00:00Electronic Signatures:Raven Carroll ([facility] [employer]) (Signed 24-May-2017 10:36) Authored: Send Summary, Summary Content, Ongoing Care,Signature/Cosignature /AttestationHoGriselda galloway) (Signed 26-May-2017 22:00) Authored: Summary Content, Ongoing Care Co-Signer: Send Summary, Summary Content, Ongoing Care,Signature/Cosignature /AttestationLast Updated: 26-May-2017 22:00 by Griselda Trinidad) Normal [facility] CALCIUM, IONIZEDon 8 CALCIUM,IONIZED 1.24 mmol/L Normal 1.10 - 1.33 [facility] Comment on above: Result Comment: The performance characteristics of ionized calcium tested in heparinized plasma or serum have been validated by the individual laboratory site where testing is performed. Testing on heparinized plasma or serum is not approved by the FDA; however, such approval is not necessary. Performed By: #### C BCDF ####[facility] [place] [address] CBC AND DIFFERENTIALon 05-23 % AUTOMATED IMMATURE GRAN 1.4 % High 0.0 - 0.9 [facility] Comment on above: Result Comment: Perc ent differential counts (%) should be interpreted in the context of the absolute cell counts (cells/L). Performed By: #### C BCDF ####[facility] [place] [address] % NEUTROPHIL 64.4 % Normal 40.0 - 80.0 [facility] Comment on above: Performed By: #### C BCDF ####[facility] [place] [address] Basophils/100 WBC Auto (Bld) 0.03 x10E9/L Normal 0.00 - 0.10 [facility] Comment on above: Performed By: #### C BCDF ####[facility] [place] [address] Basophils/100 WBC Auto (Bld) 0.3 % Normal 0.0 - 2.0 [facility] Comment on above: Performed By: #### C BCDF ####[facility] [place] [address] Eosinophils 0.26 10*3/uL Normal 0.00 - 0.70 [facility] Comment on above: Performed By: #### C BCDF ####[facility] [place] [address] Eosinophils/100 leukocytes 3.0 % Normal 0.0 - 6.0 [facility] Comment on above: Performed By: #### C BCDF ####[facility] [place] [address] Erythrocyte distribution width Auto Ratio (RBC) 13.8 % Normal 11.5 - 14.5 [facility] Comment on above: Performed By: #### C BCDF ####[facility] [place] [address] Erythrocytes (RBC) 3.08 x10E12/L Low 4.00 - 5.20 [facility] Comment on above: Performed By: #### C BCDF ####[facility] [place] [address] Hematocrit (HCT) 25.9 % Low 36.0 - 46.0 [facility] Comment on above: Performed By: #### C BCDF ####[facility] [place] [address] Hemoglobin mass conc (Bld) 8.9 g/dL Low 12.0 - 16.0 [facility] Comment on above: Performed By: #### C BCDF ####[facility] [place] [address] Lymphocytes 2.05 10*3/uL Normal 1.20 - 4.80 [facility] Comment on above: Performed By: #### C BCDF ####[facility] [place] [address] Lymphocytes/100 leukocytes 23.3 % Normal 13.0 - 44.0 [facility] Comment on above: Performed By: #### C BCDF ####[facility] [place] [address] MCHC mass conc (RBC) 34.4 g/dL Normal 32.0 - 36.0 [facility] Comment on above: Performed By: #### C BCDF ####[facility] [place] [address] MCV 84 fL Normal 80 - 100 [facility] Comment on above: Performed By: #### C BCDF ####[facility] [place] [address] Monocytes 0.67 10*3/uL Normal 0.10 - 1.00 [facility] Comment on above: Performed By: #### C BCDF ####[facility] [place] [address] Monocytes/100 leukocytes 7.6 % Normal 2.0 - 10.0 [facility] Comment on above: Performed By: #### C BCDF ####[facility] [place] [address] Neutrophils 5.66 10*3/uL Normal 1.20 - 7.70 [facility] Comment on above: Performed By: #### C BCDF ####[facility] [place] [address] Nucleated erythrocytes 0.0 /100 WBC Normal 0.0-0.0 [facility] Comment on above: Performed By: #### C BCDF ####[facility] [place] [address] Platelets 251 10*3/uL Normal 150 - 450 [facility] Comment on above: Performed By: #### C BCDF ####[facility] [place] [address] WBC (Leukocytes) 8.8 10*3/uL Normal 4.4 - 11.3 [facility] Comment on above: Performed By: #### C BCDF ####[facility] [place] [address] COAGULATION SCREENon 018 aPTT 37 s High 25 - 36 [facility] Comment on above: Result Comment: THE APTT IS NO LONGER USED FOR MONITORING UNFRACTIONATED HEPARIN THERAPY. FOR MONITORING HEPARIN THERAPY, USE THE HEPARIN ASSAY. Performed By: #### C BCDF ####[facility] [place] [address] INR Coag RelTime (PPP) 1.0 {INR} Normal 0.9 - 1.1 [facility] Comment on above: Performed By: #### C BCDF ####[facility] [place] [address] Prothrombin time (PT) Coag time (PPP) 11.5 s Normal 9.8 - 12.7 [facility] Comment on above: Performed By: #### C BCDF ####[facility] [place] [address] MAGNESIUMon 05-23-2017 Magnesium 1.90 mg/dL Normal 1.60 - 2.40 [facility] Comment on above: Performed By: #### C BCDF ####[facility] [place] [address] RENAL FUNCTION PANELon 05-23 Albumin 3.2 g/dL Low 3.4 - 5.0 [facility] Comment on above: Performed By: #### C BCDF ####[facility] [place] [address] Anion gap 8 mmol/L Low 10 - 20 [facility] Comment on above: Performed By: #### C BCDF ####[facility] [place] [address] Bicarbonate (HCO3) 29 mmol/L Normal 21 - 32 [facility] Comment on above: Performed By: #### C BCDF ####[facility] [place] [address] Calcium 8.8 mg/dL Normal 8.6 - 10.6 [facility] Comment on above: Performed By: #### C BCDF ####[facility] [place] [address] Chloride 106 mmol/L Normal 98 - 107 [facility] Comment on above: Performed By: #### C BCDF ####[facility] [place] [address] Creatinine 0.57 mg/dL Normal 0.50 - 1.05 [facility] Comment on above: Performed By: #### C BCDF ####[facility] [place] [address] eGFR (non-black) mL/min/{1.73_m2} Normal >60 [facility] Comment on above: Result Comment: CALC ULATIONS OF ESTIMATED GFR ARE PERFORMED USING THE MDRD STUDY EQUATION FOR THE IDMS-TRACEABLE CREATININE METHODS. CLIN CHEM 2007;53:766-72 Performed By: #### C BCDF ####[facility] [place] [address] Glucose mass conc 151 mg/dL High 74 - 99 [facility] Comment on above: Performed By: #### C BCDF ####[facility] [place] [address] Phosphate 4.3 mg/dL Normal 2.5 - 4.9 [facility] Comment on above: Result Comment: The performance characteristics of phosphorus testing in heparinized plasma have been validated by the individual laboratory site where testing is performed. Testing on heparinized plasma is not approved by the FDA; however, such approval is not necessary. Performed By: #### C BCDF ####[facility] [place] [address] Potassium molar conc 3.9 mmol/L Normal 3.5 - 5.3 [facility] Comment on above: Performed By: #### C BCDF ####[facility] [place] [address] Sodium 139 mmol/L Normal 136 - 145 [facility] Comment on above: Performed By: #### C BCDF ####[facility] [place] [address] Urea nitrogen 13 mg/dL Normal 6 - 23 [facility] Comment on above: Performed By: #### C BCDF ####[facility] [place] [address] CBC AND DIFFERENTIALon 05-22 % AUTOMATED IMMATURE GRAN 1.8 % High 0.0 - 0.9 [facility] Comment on above: Result Comment: Perc ent differential counts (%) should be interpreted in the context of the absolute cell counts (cells/L). Performed By: #### C BCDF ####[facility] [place] [address] % NEUTROPHIL 63.6 % Normal 40.0 - 80.0 [facility] Comment on above: Performed By: #### C BCDF ####[facility] [place] [address] Basophils/100 WBC Auto (Bld) 0.03 x10E9/L Normal 0.00 - 0.10 [facility] Comment on above: Performed By: #### C BCDF ####[facility] [place] [address] Basophils/100 WBC Auto (Bld) 0.2 % Normal 0.0 - 2.0 [facility] Comment on above: Performed By: #### C BCDF ####[facility] [place] [address] Eosinophils 0.47 10*3/uL Normal 0.00 - 0.70 [facility] Comment on above: Performed By: #### C BCDF ####[facility] [place] [address] Eosinophils/100 leukocytes 3.6 % Normal 0.0 - 6.0 [facility] Comment on above: Performed By: #### C BCDF ####[facility] [place] [address] Erythrocyte distribution width Auto Ratio (RBC) 14.0 % Normal 11.5 - 14.5 [facility] Comment on above: Performed By: #### C BCDF ####[facility] [place] [address] Erythrocytes (RBC) 3.22 x10E12/L Low 4.00 - 5.20 [facility] Comment on above: Performed By: #### C BCDF ####[facility] [place] [address] Hematocrit (HCT) 27.5 % Low 36.0 - 46.0 [facility] Comment on above: Performed By: #### C BCDF ####[facility] [place] [address] Hemoglobin mass conc (Bld) 9.2 g/dL Low 12.0 - 16.0 [facility] Comment on above: Performed By: #### C BCDF ####[facility] [place] [address] Lymphocytes 3.02 10*3/uL Normal 1.20 - 4.80 [facility] Comment on above: Performed By: #### C BCDF ####[facility] [place] [address] Lymphocytes/100 leukocytes 23.2 % Normal 13.0 - 44.0 [facility] Comment on above: Performed By: #### C BCDF ####[facility] [place] [address] MCHC mass conc (RBC) 33.5 g/dL Normal 32.0 - 36.0 [facility] Comment on above: Performed By: #### C BCDF ####[facility] [place] [address] MCV 85 fL Normal 80 - 100 [facility] Comment on above: Performed By: #### C BCDF ####[facility] [place] [address] Monocytes 0.99 10*3/uL Normal 0.10 - 1.00 [facility] Comment on above: Performed By: #### C BCDF ####[facility] [place] [address] Monocytes/100 leukocytes 7.6 % Normal 2.0 - 10.0 [facility] Comment on above: Performed By: #### C BCDF ####[facility] [place] [address] Neutrophils 8.26 10*3/uL High 1.20 - 7.70 [facility] Comment on above: Performed By: #### C BCDF ####[facility] [place] [address] Nucleated erythrocytes 0.2 /100 WBC Abnormal 0.0-0.0 [facility] Comment on above: Performed By: #### C BCDF ####[facility] [place] [address] Platelets 312 10*3/uL Normal 150 - 450 [facility] Comment on above: Performed By: #### C BCDF ####[facility] [place] [address] WBC (Leukocytes) 13.0 10*3/uL High 4.4 - 11.3 [facility] Comment on above: Performed By: #### C BCDF ####[facility] [place] [address] COAGULATION SCREENon 018 aPTT 47 s High 25 - 36 [facility] Comment on above: Result Comment: THE APTT IS NO LONGER USED FOR MONITORING UNFRACTIONATED HEPARIN THERAPY. FOR MONITORING HEPARIN THERAPY, USE THE HEPARIN ASSAY. Performed By: #### C BCDF ####[facility] [place] [address] INR Coag RelTime (PPP) 1.0 {INR} Normal 0.9 - 1.1 [facility] Comment on above: Performed By: #### C BCDF ####[facility] [place] [address] Prothrombin time (PT) Coag time (PPP) 11.6 s Normal 9.8 - 12.7 [facility] Comment on above: Performed By: #### C BCDF ####[facility] [place] [address] EMR ADDONon 05-22-2017 ADDON CONFIRMATION REQUEST REC'D Normal [facility] Comment on above: Performed By: #### C BCDF ####[facility] [place] [address] GLUCOSE-POCTon 05-22-2017 Glucose mass conc 107 mg/dL High 74 - 99 [facility] Comment on above: Performed By: #### C BCDF ####[facility] [place] [address] Glucose mass conc 130 mg/dL High 74 - 99 [facility] Comment on above: Performed By: #### C BCDF ####[facility] [place] [address] Glucose mass conc 108 mg/dL High 74 - 99 [facility] Comment on above: Performed By: #### C BCDF ####[facility] [place] [address] Glucose mass conc 114 mg/dL High 74 - 99 [facility] Comment on above: Performed By: #### C BCDF ####[facility] [place] [address] MAGNESIUMon 05-22-2017 Magnesium 2.06 mg/dL Normal 1.60 - 2.40 [facility] Comment on above: Performed By: #### C BCDF ####[facility] [place] [address] RENAL FUNCTION PANELon 05-22 Albumin 3.3 g/dL Low 3.4 - 5.0 [facility] Comment on above: Performed By: #### C BCDF ####[facility] [place] [address] Anion gap 10 mmol/L Normal 10 - 20 [facility] Comment on above: Performed By: #### C BCDF ####[facility] [place] [address] Bicarbonate (HCO3) 29 mmol/L Normal 21 - 32 [facility] Comment on above: Performed By: #### C BCDF ####[facility] [place] [address] Calcium 8.8 mg/dL Normal 8.6 - 10.6 [facility] Comment on above: Performed By: #### C BCDF ####[facility] [place] [address] Chloride 103 mmol/L Normal 98 - 107 [facility] Comment on above: Performed By: #### C BCDF ####[facility] [place] [address] Creatinine 0.53 mg/dL Normal 0.50 - 1.05 [facility] Comment on above: Performed By: #### C BCDF ####[facility] [place] [address] eGFR (non-black) mL/min/{1.73_m2} Normal >60 [facility] Comment on above: Performed By: #### C BCDF ####[facility] [place] [address] Result Comment: CALC ULATIONS OF ESTIMATED GFR ARE PERFORMED USING THE MDRD STUDY EQUATION FOR THE IDMS-TRACEABLE CREATININE METHODS. CLIN CHEM 2007;53:766-72 Glucose mass conc 110 mg/dL High 74 - 99 [facility] Comment on above: Performed By: #### C BCDF ####[facility] [place] [address] Phosphate 5.0 mg/dL High 2.5 - 4.9 [facility] Comment on above: Result Comment: The performance characteristics of phosphorus testing in heparinized plasma have been validated by the individual laboratory site where testing is performed. Testing on heparinized plasma is not approved by the FDA; however, such approval is not necessary. Performed By: #### C BCDF ####[facility] [place] [address] Potassium molar conc 4.1 mmol/L Normal 3.5 - 5.3 [facility] Comment on above: Performed By: #### C BCDF ####[facility] [place] [address] Sodium 138 mmol/L Normal 136 - 145 [facility] Comment on above: Performed By: #### C BCDF ####[facility] [place] [address] Urea nitrogen 16 mg/dL Normal 6 - 23 [facility] Comment on above: Performed By: #### C BCDF ####[facility] [place] [address] THYROXINE,FREEon 05-22-2017 THYROXINE,FREE 1.05 ng/dL Normal 0.78 - 1.48 [facility] Comment on above: Result Comment: Thyr oxine Free testing is performed using different testing methodology at [facility] than at other [facility]. Direct result comparisons should only be made within the same method.. Patients receiving more than 5 mg/day of biotin may have interference in test results. A sample should be taken no sooner than eight hours after previous dose. Contact [phone] for additional information. Performed By: #### C BCDF ####[facility] [place] [address] TRIIODOTHYRONINEon 8 TRIIODOTHYRONINE 99 ng/dL Normal 60 - 200 [facility] Comment on above: Performed By: #### C BCDF ####[facility] [place] [address] TSHon 05-22-2017 Thyroid stimulating hormone (TSH) 3.80 m[IU]/L Normal 0.44 - 3.98 [facility] Comment on above: Result Comment: TSH testing is performed using different testing methodology at [facility] than at other [facility]. Direct result comparisons should only be made within the same method.. Patients receiving more than 5 mg/day of biotin may have interference in test results. A sample should be taken no sooner than eight hours after previous dose. Contact [phone] for additional information. Performed By: #### C BCDF ####[facility] [place] [address] CBCon 05-21-2017 Erythrocyte distribution width Auto Ratio (RBC) Canceled Normal [facility] Comment on above: Order Comment: TEST CBC WAS CANCELLED, 05/21/2017 01:03 UNLABELEDNational Patient Safety Guidelines specify that all specimens must be labeledwith 2 unique identifiers. Specimen was received without 2 patientidentifiers.. Performed By: #### C BCDF ####[facility] [place] [address] Erythrocytes (RBC) Canceled Normal [facility] Comment on above: Order Comment: TEST CBC WAS CANCELLED, 05/21/2017 01:03 UNLABELEDNational Patient Safety Guidelines specify that all specimens must be labeledwith 2 unique identifiers. Specimen was received without 2 patientidentifiers.. Performed By: #### C BCDF ####[facility] [place] [address] Hematocrit (HCT) Canceled Normal [facility] Comment on above: Order Comment: TEST CBC WAS CANCELLED, 05/21/2017 01:03 UNLABELEDNational Patient Safety Guidelines specify that all specimens must be labeledwith 2 unique identifiers. Specimen was received without 2 patientidentifiers.. Performed By: #### C BCDF ####[facility] [place] [address] Hemoglobin mass conc (Bld) Canceled Normal [facility] Comment on above: Order Comment: TEST CBC WAS CANCELLED, 05/21/2017 01:03 UNLABELEDNational Patient Safety Guidelines specify that all specimens must be labeledwith 2 unique identifiers. Specimen was received without 2 patientidentifiers.. Performed By: #### C BCDF ####[facility] [place] [address] MCHC mass conc (RBC) Canceled Normal [facility] Comment on above: Order Comment: TEST CBC WAS CANCELLED, 05/21/2017 01:03 UNLABELEDNational Patient Safety Guidelines specify that all specimens must be labeledwith 2 unique identifiers. Specimen was received without 2 patientidentifiers.. Performed By: #### C BCDF ####[facility] [place] [address] MCV Canceled Normal [facility] Comment on above: Order Comment: TEST CBC WAS CANCELLED, 05/21/2017 01:03 UNLABELEDNational Patient Safety Guidelines specify that all specimens must be labeledwith 2 unique identifiers. Specimen was received without 2 patientidentifiers.. Performed By: #### C BCDF ####[facility] [place] [address] Nucleated erythrocytes Canceled Normal [facility] Comment on above: Order Comment: TEST CBC WAS CANCELLED, 05/21/2017 01:03 UNLABELEDNational Patient Safety Guidelines specify that all specimens must be labeledwith 2 unique identifiers. Specimen was received without 2 patientidentifiers.. Performed By: #### C BCDF ####[facility] [place] [address] Platelets Canceled Normal [facility] Comment on above: Order Comment: TEST CBC WAS CANCELLED, 05/21/2017 01:03 UNLABELEDNational Patient Safety Guidelines specify that all specimens must be labeledwith 2 unique identifiers. Specimen was received without 2 patientidentifiers.. Performed By: #### C BCDF ####[facility] [place] [address] WBC (Leukocytes) Canceled Normal [facility] Comment on above: Order Comment: TEST CBC WAS CANCELLED, 05/21/2017 01:03 UNLABELEDNational Patient Safety Guidelines specify that all specimens must be labeledwith 2 unique identifiers. Specimen was received without 2 patientidentifiers.. Performed By: #### C BCDF ####[facility] [place] [address] CBC AND DIFFERENTIALon 01-16 -2018 % AUTOMATED IMMATURE GRAN 1.6 % High 0.0 - 0.9 [facility] Comment on above: Result Comment: Perc ent differential counts (%) should be interpreted in the context of the absolute cell counts (cells/L). Performed By: #### C BCDF ####[facility] [place] [address] % NEUTROPHIL 65.0 % Normal 40.0 - 80.0 [facility] Comment on above: Performed By: #### C BCDF ####[facility] [place] [address] Basophils/100 WBC Auto (Bld) 0.2 % Normal 0.0 - 2.0 [facility] Comment on above: Performed By: #### C BCDF ####[facility] [place] [address] Basophils/100 WBC Auto (Bld) 0.04 x10E9/L Normal 0.00 - 0.10 [facility] Comment on above: Performed By: #### C BCDF ####[facility] [place] [address] Eosinophils 0.44 10*3/uL Normal 0.00 - 0.70 [facility] Comment on above: Performed By: #### C BCDF ####[facility] [place] [address] Eosinophils/100 leukocytes 2.6 % Normal 0.0 - 6.0 [facility] Comment on above: Performed By: #### C BCDF ####[facility] [place] [address] Erythrocyte distribution width Auto Ratio (RBC) 13.7 % Normal 11.5 - 14.5 [facility] Comment on above: Performed By: #### C BCDF ####[facility] [place] [address] Erythrocytes (RBC) 3.16 x10E12/L Low 4.00 - 5.20 [facility] Comment on above: Performed By: #### C BCDF ####[facility] [place] [address] Hematocrit (HCT) 27.3 % Low 36.0 - 46.0 [facility] Comment on above: Performed By: #### C BCDF ####[facility] [place] [address] Hemoglobin mass conc (Bld) 9.0 g/dL Low 12.0 - 16.0 [facility] Comment on above: Performed By: #### C BCDF ####[facility] [place] [address] Lymphocytes 4.16 10*3/uL Normal 1.20 - 4.80 [facility] Comment on above: Performed By: #### C BCDF ####[facility] [place] [address] Lymphocytes/100 leukocytes 25.0 % Normal 13.0 - 44.0 [facility] Comment on above: Performed By: #### C BCDF ####[facility] [place] [address] MCHC mass conc (RBC) 33.0 g/dL Normal 32.0 - 36.0 [facility] Comment on above: Performed By: #### C BCDF ####[facility] [place] [address] MCV 86 fL Normal 80 - 100 [facility] Comment on above: Performed By: #### C BCDF ####[facility] [place] [address] Monocytes 0.93 10*3/uL Normal 0.10 - 1.00 [facility] Comment on above: Performed By: #### C BCDF ####[facility] [place] [address] Monocytes/100 leukocytes 5.6 % Normal 2.0 - 10.0 [facility] Comment on above: Performed By: #### C BCDF ####[facility] [place] [address] Neutrophils 10.78 10*3/uL High 1.20 - 7.70 [facility] Comment on above: Performed By: #### C BCDF ####[facility] [place] [address] Nucleated erythrocytes 0.1 /100 WBC Abnormal 0.0-0.0 [facility] Comment on above: Performed By: #### C BCDF ####[facility] [place] [address] Platelets 295 10*3/uL Normal 150 - 450 [facility] Comment on above: Performed By: #### C BCDF ####[facility] [place] [address] WBC (Leukocytes) 16.6 10*3/uL High 4.4 - 11.3 [facility] Comment on above: Performed By: #### C BCDF ####[facility] [place] [address] COAGULATION SCREENon 018 aPTT 53 s High 25 - 36 [facility] Comment on above: Result Comment: THE APTT IS NO LONGER USED FOR MONITORING UNFRACTIONATED HEPARIN THERAPY. FOR MONITORING HEPARIN THERAPY, USE THE HEPARIN ASSAY. Performed By: #### C BCDF ####[facility] [place] [address] INR Coag RelTime (PPP) 1.0 {INR} Normal 0.9 - 1.1 [facility] Comment on above: Performed By: #### C BCDF ####[facility] [place] [address] Prothrombin time (PT) Coag time (PPP) 11.4 s Normal 9.8 - 12.7 [facility] Comment on above: Performed By: #### C BCDF ####[facility] [place] [address] aPTT Canceled Normal [facility] Comment on above: Order Comment: TEST COAGULATION SCREEN WAS CANCELLED, 05/21/2017 01:03 [facility] Patient Safety Guidelines specify that all specimens must be labeledwith 2 unique identifiers. Specimen was received without 2 patientidentifiers.. Result Comment: THE APTT IS NO LONGER USED FOR MONITORING UNFRACTIONATED HEPARIN THERAPY. FOR MONITORING HEPARIN THERAPY, USE THE HEPARIN ASSAY. Performed By: #### C BCDF ####[facility] [place] [address] INR Coag RelTime (PPP) Canceled Normal [facility] Comment on above: Order Comment: TEST COAGULATION SCREEN WAS CANCELLED, 05/21/2017 01:03 UNLABELEDNational Patient Safety Guidelines specify that all specimens must be labeledwith 2 unique identifiers. Specimen was received without 2 patientidentifiers.. Performed By: #### C BCDF ####[facility] [place] [address] Prothrombin time (PT) Coag time (PPP) Canceled Normal [facility] Comment on above: Order Comment: TEST COAGULATION SCREEN WAS CANCELLED, 05/21/2017 01:03 UNLABELEDNational Patient Safety Guidelines specify that all specimens must be labeledwith 2 unique identifiers. Specimen was received without 2 patientidentifiers.. Performed By: #### C BCDF ####[facility] [place] [address] GLUCOSE-POCTon 05-21-2017 Glucose mass conc 116 mg/dL High 74 - 99 [facility] Comment on above: Performed By: #### C BCDF ####[facility] [place] [address] Glucose mass conc 84 mg/dL Normal 74 - 99 [facility] Comment on above: Performed By: #### C BCDF ####[facility] [place] [address] Glucose mass conc 108 mg/dL High 74 - 99 [facility] Comment on above: Performed By: #### C BCDF ####[facility] [place] [address] Glucose mass conc 101 mg/dL High 74 - 99 [facility] Comment on above: Performed By: #### C BCDF ####[facility] [place] [address] Glucose mass conc 122 mg/dL High 74 - 99 [facility] Comment on above: Performed By: #### C BCDF ####[facility] [place] [address] MAGNESIUMon 05-21-2017 Magnesium 1.85 mg/dL Normal 1.60 - 2.40 [facility] Comment on above: Performed By: #### C BCDF ####[facility] [place] [address] Magnesium Canceled Normal [facility] Comment on above: Order Comment: TEST MAGNESIUM WAS CANCELLED, 05/21/2017 01:03 [facility] Patient Safety Guidelines specify that all specimens must be labeledwith 2 unique identifiers. Specimen was received without 2 patientidentifiers.. Performed By: #### C BCDF ####[facility] [place] [address] RENAL FUNCTION PANELon 05-21 Albumin 3.1 g/dL Low 3.4 - 5.0 [facility] Comment on above: Performed By: #### C BCDF ####[facility] [place] [address] Anion gap 10 mmol/L Normal 10 - 20 [facility] Comment on above: Performed By: #### C BCDF ####[facility] [place] [address] Bicarbonate (HCO3) 27 mmol/L Normal 21 - 32 [facility] Comment on above: Performed By: #### C BCDF ####[facility] [place] [address] Calcium 8.5 mg/dL Low 8.6 - 10.6 [facility] Comment on above: Performed By: #### C BCDF ####[facility] [place] [address] Chloride 103 mmol/L Normal 98 - 107 [facility] Comment on above: Performed By: #### C BCDF ####[facility] [place] [address] Creatinine 0.46 mg/dL Low 0.50 - 1.05 [facility] Comment on above: Performed By: #### C BCDF ####[facility] [place] [address] eGFR (non-black) mL/min/{1.73_m2} Normal >60 [facility] Comment on above: Performed By: #### C BCDF ####[facility] [place] [address] Result Comment: CALC ULATIONS OF ESTIMATED GFR ARE PERFORMED USING THE MDRD STUDY EQUATION FOR THE IDMS-TRACEABLE CREATININE METHODS. CLIN CHEM 2007;53:766-72 Glucose mass conc 100 mg/dL High 74 - 99 [facility] Comment on above: Performed By: #### C BCDF ####[facility] [place] [address] Phosphate 4.5 mg/dL Normal 2.5 - 4.9 [facility] Comment on above: Result Comment: The performance characteristics of phosphorus testing in heparinized plasma have been validated by the individual laboratory site where testing is performed. Testing on heparinized plasma is not approved by the FDA; however, such approval is not necessary. Performed By: #### C BCDF ####[facility] [place] [address] Potassium molar conc 4.2 mmol/L Normal 3.5 - 5.3 [facility] Comment on above: Performed By: #### C BCDF ####[facility] [place] [address] Sodium 136 mmol/L Normal 136 - 145 [facility] Comment on above: Performed By: #### C BCDF ####[facility] [place] [address] Urea nitrogen 22 mg/dL Normal 6 - 23 [facility] Comment on above: Performed By: #### C BCDF ####[facility] [place] [address] Albumin Canceled Normal [facility] Comment on above: Order Comment: TEST RENAL FUNCTION PANEL WAS CANCELLED, 05/21/2017 01:03 UNLABELEDNational Patient Safety Guidelines specify that all specimens must be labeledwith 2 unique identifiers. Specimen was received without 2 patientidentifiers.. Performed By: #### C BCDF ####[facility] [place] [address] Anion gap Canceled Normal [facility] Comment on above: Order Comment: TEST RENAL FUNCTION PANEL WAS CANCELLED, 05/21/2017 01:03 UNLABELEDNational Patient Safety Guidelines specify that all specimens must be labeledwith 2 unique identifiers. Specimen was received without 2 patientidentifiers.. Performed By: #### C BCDF ####[facility] [place] [address] Bicarbonate (HCO3) Canceled Normal [facility] Comment on above: Order Comment: TEST RENAL FUNCTION PANEL WAS CANCELLED, 05/21/2017 01:03 UNLABELEDNational Patient Safety Guidelines specify that all specimens must be labeledwith 2 unique identifiers. Specimen was received without 2 patientidentifiers.. Performed By: #### C BCDF ####[facility] [place] [address] Calcium Canceled Normal [facility] Comment on above: Order Comment: TEST RENAL FUNCTION PANEL WAS CANCELLED, 05/21/2017 01:03 UNLABELEDNational Patient Safety Guidelines specify that all specimens must be labeledwith 2 unique identifiers. Specimen was received without 2 patientidentifiers.. Performed By: #### C BCDF ####[facility] [place] [address] Chloride Canceled Normal [facility] Comment on above: Order Comment: TEST RENAL FUNCTION PANEL WAS CANCELLED, 05/21/2017 01:03 UNLABELEDNational Patient Safety Guidelines specify that all specimens must be labeledwith 2 unique identifiers. Specimen was received without 2 patientidentifiers.. Performed By: #### C BCDF ####[facility] [place] [address] Creatinine Canceled Normal [facility] Comment on above: Order Comment: TEST RENAL FUNCTION PANEL WAS CANCELLED, 05/21/2017 01:03 UNLABELEDNational Patient Safety Guidelines specify that all specimens must be labeledwith 2 unique identifiers. Specimen was received without 2 patientidentifiers.. Performed By: #### C BCDF ####[facility] [place] [address] eGFR (non-black) Canceled Normal [facility] Comment on above: Order Comment: TEST RENAL FUNCTION PANEL WAS CANCELLED, 05/21/2017 01:03 UNLABELEDNational Patient Safety Guidelines specify that all specimens must be labeledwith 2 unique identifiers. Specimen was received without 2 patientidentifiers.. Performed By: #### C BCDF ####[facility] [place] [address] Result Comment: CALC ULATIONS OF ESTIMATED GFR ARE PERFORMED USING THE MDRD STUDY EQUATION FOR THE IDMS-TRACEABLE CREATININE METHODS. CLIN CHEM 2007;53:766-72 Glucose mass conc Canceled Normal [facility] Comment on above: Order Comment: TEST RENAL FUNCTION PANEL WAS CANCELLED, 05/21/2017 01:03 UNLABELEDNational Patient Safety Guidelines specify that all specimens must be labeledwith 2 unique identifiers. Specimen was received without 2 patientidentifiers.. Performed By: #### C BCDF ####[facility] [place] [address] Phosphate Canceled Normal [facility] Comment on above: Order Comment: TEST RENAL FUNCTION PANEL WAS CANCELLED, 05/21/2017 01:03 UNLABELEDNational Patient Safety Guidelines specify that all specimens must be labeledwith 2 unique identifiers. Specimen was received without 2 patientidentifiers.. Result Comment: The performance characteristics of phosphorus testing in heparinized plasma have been validated by the individual laboratory site where testing is performed. Testing on heparinized plasma is not approved by the FDA; however, such approval is not necessary. Performed By: #### C BCDF ####[facility] [place] [address] Potassium molar conc Canceled Normal [facility] Comment on above: Order Comment: TEST RENAL FUNCTION PANEL WAS CANCELLED, 05/21/2017 01:03 UNLABELEDNational Patient Safety Guidelines specify that all specimens must be labeledwith 2 unique identifiers. Specimen was received without 2 patientidentifiers.. Performed By: #### C BCDF ####[facility] [place] [address] Sodium Canceled Normal [facility] Comment on above: Order Comment: TEST RENAL FUNCTION PANEL WAS CANCELLED, 05/21/2017 01:03 UNLABELEDNational Patient Safety Guidelines specify that all specimens must be labeledwith 2 unique identifiers. Specimen was received without 2 patientidentifiers.. Performed By: #### C BCDF ####[facility] [place] [address] Urea nitrogen Canceled Normal [facility] Comment on above: Order Comment: TEST RENAL FUNCTION PANEL WAS CANCELLED, 05/21/2017 01:03 [place]ED[place] Patient Safety Guidelines specify that all specimens must be labeledwith 2 unique identifiers. Specimen was received without 2 patientidentifiers.. Performed By: #### C BCDF ####[facility] [place] [address] BLOOD CULTURE, BACTERIALon 0 05-20-2017 BLOOD CULTURE, BACTERIAL PATIENT: ELDA TARIQ LOCATION: [facility]#: [id number] : 74 AGE: SEX: F ORDERED BY: ADÁN MOORE JR: Blood COLLECTED: 05/20/17 03:59ANTIBIOTICS AT [facility]ESS[facility].: RECEIVED : 05/20/17 08:32SITE: PICC CENTRAL LINE R E S U L T S BLOOD CULTURE, BACTERIAL FINAL 05/25/17 09:42 No Growth at 1 days No Growth at 2 days No Growth at 3 days No Growth at 4 days NO GROWTH - FINAL REPORT Normal [facility] Comment on above: Performed By: #### C BCDF ####[facility] [place] [address] CALCIUM, IONIZEDon 8 CALCIUM,IONIZED 1.19 mmol/L Normal 1.10 - 1.33 [facility] Comment on above: Result Comment: The performance characteristics of ionized calcium tested in heparinized plasma or serum have been validated by the individual laboratory site where testing is performed. Testing on heparinized plasma or serum is not approved by the FDA; however, such approval is not necessary. Performed By: #### C BCDF ####[facility] [place] [address] CBCon 05-20-2017 Erythrocyte distribution width Auto Ratio (RBC) 13.3 % Normal 11.5 - 14.5 [facility] Comment on above: Performed By: #### C BCDF ####[facility] [place] [address] Erythrocytes (RBC) 3.60 x10E12/L Low 4.00 - 5.20 [facility] Comment on above: Performed By: #### C BCDF ####[facility] [place] [address] Hematocrit (HCT) 31.9 % Low 36.0 - 46.0 [facility] Comment on above: Performed By: #### C BCDF ####[facility] [place] [address] Hemoglobin mass conc (Bld) 10.2 g/dL Low 12.0 - 16.0 [facility] Comment on above: Performed By: #### C BCDF ####[facility] [place] [address] MCHC mass conc (RBC) 32.0 g/dL Normal 32.0 - 36.0 [facility] Comment on above: Performed By: #### C BCDF ####[facility] [place] [address] MCV 89 fL Normal 80 - 100 [facility] Comment on above: Performed By: #### C BCDF ####[facility] [place] [address] Nucleated erythrocytes 0.2 /100 WBC Abnormal 0.0-0.0 [facility] Comment on above: Performed By: #### C BCDF ####[facility] [place] [address] Platelets 409 10*3/uL Normal 150 - 450 [facility] Comment on above: Performed By: #### C BCDF ####[facility] [place] [address] WBC (Leukocytes) 24.4 10*3/uL High 4.4 - 11.3 [facility] Comment on above: Performed By: #### C BCDF ####[facility] [place] [address] GLUCOSE-POCTon 05-20-2017 Glucose mass conc 104 mg/dL High 74 - 99 [facility] Comment on above: Performed By: #### C BCDF ####[facility] [place] [address] Glucose mass conc 117 mg/dL High 74 - 99 [facility] Comment on above: Performed By: #### C BCDF ####[facility] [place] [address] Glucose mass conc 133 mg/dL High 74 - 99 [facility] Comment on above: Performed By: #### C BCDF ####[facility] [place] [address] Glucose mass conc 117 mg/dL High 74 - 99 [facility] Comment on above: Performed By: #### C BCDF ####[facility] [place] [address] Glucose mass conc 123 mg/dL High 74 - 99 [facility] Comment on above: Performed By: #### C BCDF ####[facility] [place] [address] Glucose mass conc 197 mg/dL High 74 - 99 [facility] Comment on above: Performed By: #### C BCDF ####[facility] [place] [address] MAGNESIUMon 05-20-2017 Magnesium 1.95 mg/dL Normal 1.60 - 2.40 [facility] Comment on above: Performed By: #### C BCDF ####[facility] [place] [address] RENAL FUNCTION PANELon 05-20 Albumin 3.3 g/dL Low 3.4 - 5.0 [facility] Comment on above: Performed By: #### C BCDF ####[facility] [place] [address] Anion gap 14 mmol/L Normal 10 - 20 [facility] Comment on above: Performed By: #### C BCDF ####[facility] [place] [address] Bicarbonate (HCO3) 27 mmol/L Normal 21 - 32 [facility] Comment on above: Performed By: #### C BCDF ####[facility] [place] [address] Calcium 8.7 mg/dL Normal 8.6 - 10.6 [facility] Comment on above: Performed By: #### C BCDF ####[facility] [place] [address] Chloride 102 mmol/L Normal 98 - 107 [facility] Comment on above: Performed By: #### C BCDF ####[facility] [place] [address] Creatinine 0.40 mg/dL Low 0.50 - 1.05 [facility] Comment on above: Performed By: #### C BCDF ####[facility] [place] [address] eGFR (non-black) mL/min/{1.73_m2} Normal >60 [facility] Comment on above: Result Comment: CALC ULATIONS OF ESTIMATED GFR ARE PERFORMED USING THE MDRD STUDY EQUATION FOR THE IDMS-TRACEABLE CREATININE METHODS. CLIN CHEM 2007;53:766-72 Performed By: #### C BCDF ####[facility] [place] [address] Glucose mass conc 118 mg/dL High 74 - 99 [facility] Comment on above: Performed By: #### C BCDF ####[facility] [place] [address] Phosphate 3.5 mg/dL Normal 2.5 - 4.9 [facility] Comment on above: Result Comment: The performance characteristics of phosphorus testing in heparinized plasma have been validated by the individual laboratory site where testing is performed. Testing on heparinized plasma is not approved by the FDA; however, such approval is not necessary. Performed By: #### C BCDF ####[facility] [place] [address] Potassium molar conc 4.0 mmol/L Normal 3.5 - 5.3 [facility] Comment on above: Performed By: #### C BCDF ####[facility] [place] [address] Sodium 139 mmol/L Normal 136 - 145 [facility] Comment on above: Performed By: #### C BCDF ####[facility] [place] [address] Urea nitrogen 15 mg/dL Normal 6 - 23 [facility] Comment on above: Performed By: #### C BCDF ####[facility] [place] [address] UA MICROSCOPICon 05-20-2017 AMORPHOUS CRYSTAL 1+ /HPF Normal [facility] Comment on above: Performed By: #### C BCDF ####[facility] [place] [address] Erythrocytes (RBC) 106 /HPF Abnormal 0-5 [facility] Comment on above: Performed By: #### C BCDF ####[facility] [place] [address] SQUAMOUS EPITH. CELLS 1 /HPF Normal [facility] Comment on above: Performed By: #### C BCDF ####[facility] [place] [address] Urine, bacteria in sediment 1+ /HPF Abnormal [facility] Comment on above: Performed By: #### C BCDF ####[facility] [place] [address] Urine, mucus presence in sediment 1+ /LPF Normal [facility] Comment on above: Performed By: #### C BCDF ####[facility] [place] [address] WBC (Leukocytes) 93 /HPF Abnormal 0-5 [facility] Comment on above: Performed By: #### C BCDF ####[facility] [place] [address] WBC (Leukocytes) OCC Normal [facility] Comment on above: Performed By: #### C BCDF ####[facility] [place] [address] URINALYSISon 05-20-2017 Bilirubin (total) Negative Normal NEGATIVE [facility] Comment on above: Performed By: #### C BCDF ####[facility] [place] [address] BLOOD MODERATE (2+) Abnormal NEGATIVE [facility] Comment on above: Performed By: #### C BCDF ####[facility] [place] [address] Glucose mass conc Negative Normal NEGATIVE [facility] Comment on above: Performed By: #### C BCDF ####[facility] [place] [address] pH of blood 7.0 [pH] Normal 5.0 - 8.0 [facility] Comment on above: Performed By: #### C BCDF ####[facility] [place] [address] Protein Negative Normal NEGATIVE [facility] Comment on above: Performed By: #### C BCDF ####[facility] [place] [address] Urine, appearance HAZY Normal CLEAR [facility] Comment on above: Performed By: #### C BCDF ####[facility] [place] [address] Urine, color RED Normal STRAW,YELLO W [facility] Comment on above: Performed By: #### C BCDF ####[facility] [place] [address] Urine, ketones presence Negative Normal NEGATIVE [facility] Comment on above: Performed By: #### C BCDF ####[facility] [place] [address] Urine, leukocyte esterase presence MODERATE (2+) Abnormal NEGATIVE [facility] Comment on above: Performed By: #### C BCDF ####[facility] [place] [address] Urine, nitrite presence Negative Normal NEGATIVE [facility] Comment on above: Performed By: #### C BCDF ####[facility] [place] [address] Urine, specific gravity 1.015 Normal 1.005 - 1.035 [facility] Comment on above: Performed By: #### C BCDF ####[facility] [place] [address] Urine, urobilinogen <2.0 Normal 0.0 - 1.9 [facility] Comment on above: Performed By: #### C BCDF ####[facility] [place] [address] BLOOD CULTURE, BACTERIALon 0 05-19-2017 BLOOD CULTURE, BACTERIAL PATIENT: ELDA TARIQ LOCATION: [facility]#: [id number] : 74 AGE: SEX: F ORDERED BY: ELSA RODRÍGUEZ: Blood COLLECTED: 05/19/17 15:15ANTIBIOTICS AT [facility]ESS[facility].: RECEIVED : 05/19/17 17:14SITE: CENTRAL LINE R E S U L T S BLOOD CULTURE, BACTERIAL FINAL 05/24/17 17:42 No Growth at 1 days No Growth at 2 days No Growth at 3 days No Growth at 4 days NO GROWTH - FINAL REPORT Normal [facility] Comment on above: Performed By: #### C BCDF ####[facility] [place] [address] CALCIUM, IONIZEDon 8 CALCIUM,IONIZED 1.22 mmol/L Normal 1.10 - 1.33 [facility] Comment on above: Result Comment: The performance characteristics of ionized calcium tested in heparinized plasma or serum have been validated by the individual laboratory site where testing is performed. Testing on heparinized plasma or serum is not approved by the FDA; however, such approval is not necessary. Performed By: #### C BCDF ####[facility] [place] [address] CALCIUM,IONIZED 1.19 mmol/L Normal 1.10 - 1.33 [facility] Comment on above: Result Comment: The performance characteristics of ionized calcium tested in heparinized plasma or serum have been validated by the individual laboratory site where testing is performed. Testing on heparinized plasma or serum is not approved by the FDA; however, such approval is not necessary. Performed By: #### C BCDF ####[facility] [place] [address] CBC AND DIFFERENTIALon 05-19 % AUTOMATED IMMATURE GRAN 1.8 % High 0.0 - 0.9 [facility] Comment on above: Result Comment: Perc ent differential counts (%) should be interpreted in the context of the absolute cell counts (cells/L). Performed By: #### C BCDF ####[facility] [place] [address] % NEUTROPHIL 66.5 % Normal 40.0 - 80.0 [facility] Comment on above: Performed By: #### C BCDF ####[facility] [place] [address] Basophils/100 WBC Auto (Bld) 0.3 % Normal 0.0 - 2.0 [facility] Comment on above: Performed By: #### C BCDF ####[facility] [place] [address] Basophils/100 WBC Auto (Bld) 0.05 x10E9/L Normal 0.00 - 0.10 [facility] Comment on above: Performed By: #### C BCDF ####[facility] [place] [address] Eosinophils 0.77 10*3/uL High 0.00 - 0.70 [facility] Comment on above: Performed By: #### C BCDF ####[facility] [place] [address] Eosinophils/100 leukocytes 4.2 % Normal 0.0 - 6.0 [facility] Comment on above: Performed By: #### C BCDF ####[facility] [place] [address] Erythrocyte distribution width Auto Ratio (RBC) 13.6 % Normal 11.5 - 14.5 [facility] Comment on above: Performed By: #### C BCDF ####[facility] [place] [address] Erythrocytes (RBC) 3.79 x10E12/L Low 4.00 - 5.20 [facility] Comment on above: Performed By: #### C BCDF ####[facility] [place] [address] Hematocrit (HCT) 33.5 % Low 36.0 - 46.0 [facility] Comment on above: Performed By: #### C BCDF ####[facility] [place] [address] Hemoglobin mass conc (Bld) 10.9 g/dL Low 12.0 - 16.0 [facility] Comment on above: Performed By: #### C BCDF ####[facility] [place] [address] Lymphocytes 3.93 10*3/uL Normal 1.20 - 4.80 [facility] Comment on above: Performed By: #### C BCDF ####[facility] [place] [address] Lymphocytes/100 leukocytes 21.6 % Normal 13.0 - 44.0 [facility] Comment on above: Performed By: #### C BCDF ####[facility] [place] [address] MCHC mass conc (RBC) 32.5 g/dL Normal 32.0 - 36.0 [facility] Comment on above: Performed By: #### C BCDF ####[facility] [place] [address] MCV 88 fL Normal 80 - 100 [facility] Comment on above: Performed By: #### C BCDF ####[facility] [place] [address] Monocytes 1.02 10*3/uL High 0.10 - 1.00 [facility] Comment on above: Performed By: #### C BCDF ####[facility] [place] [address] Monocytes/100 leukocytes 5.6 % Normal 2.0 - 10.0 [facility] Comment on above: Performed By: #### C BCDF ####[facility] [place] [address] Neutrophils 12.08 10*3/uL High 1.20 - 7.70 [facility] Comment on above: Performed By: #### C BCDF ####[facility] [place] [address] Nucleated erythrocytes 0.3 /100 WBC Abnormal 0.0-0.0 [facility] Comment on above: Performed By: #### C BCDF ####[facility] [place] [address] Platelets 396 10*3/uL Normal 150 - 450 [facility] Comment on above: Performed By: #### C BCDF ####[facility] [place] [address] WBC (Leukocytes) 18.2 10*3/uL High 4.4 - 11.3 [facility] Comment on above: Performed By: #### C BCDF ####[facility] [place] [address] % AUTOMATED IMMATURE GRAN 1.7 % High 0.0 - 0.9 [facility] Comment on above: Result Comment: Perc ent differential counts (%) should be interpreted in the context of the absolute cell counts (cells/L). Performed By: #### C BCDF ####[facility] [place] [address] DIFFERENTIAL SEE MANUAL DIFF Normal [facility] Comment on above: Performed By: #### C BCDF ####[facility] [place] [address] Erythrocyte distribution width Auto Ratio (RBC) 13.0 % Normal 11.5 - 14.5 [facility] Comment on above: Performed By: #### C BCDF ####[facility] [place] [address] Erythrocytes (RBC) 3.57 x10E12/L Low 4.00 - 5.20 [facility] Comment on above: Performed By: #### C BCDF ####[facility] [place] [address] Hematocrit (HCT) 29.5 % Low 36.0 - 46.0 [facility] Comment on above: Performed By: #### C BCDF ####[facility] [place] [address] Hemoglobin mass conc (Bld) 10.2 g/dL Low 12.0 - 16.0 [facility] Comment on above: Performed By: #### C BCDF ####[facility] [place] [address] MCHC mass conc (RBC) 34.6 g/dL Normal 32.0 - 36.0 [facility] Comment on above: Performed By: #### C BCDF ####[facility] [place] [address] MCV 83 fL Normal 80 - 100 [facility] Comment on above: Performed By: #### C BCDF ####[facility] [place] [address] Nucleated erythrocytes 0.3 /100 WBC Abnormal 0.0-0.0 [facility] Comment on above: Performed By: #### C BCDF ####[facility] [place] [address] Platelets 364 10*3/uL Normal 150 - 450 [facility] Comment on above: Performed By: #### C BCDF ####[facility] [place] [address] WBC (Leukocytes) 18.7 10*3/uL High 4.4 - 11.3 [facility] Comment on above: Performed By: #### C BCDF ####[facility] [place] [address] COAGULATION SCREENon 018 aPTT 29 s Normal 25 - 36 [facility] Comment on above: Result Comment: THE APTT IS NO LONGER USED FOR MONITORING UNFRACTIONATED HEPARIN THERAPY. FOR MONITORING HEPARIN THERAPY, USE THE HEPARIN ASSAY. Performed By: #### C BCDF ####[facility] [place] [address] INR Coag RelTime (PPP) 1.1 {INR} Normal 0.9 - 1.1 [facility] Comment on above: Performed By: #### C BCDF ####[facility] [place] [address] Prothrombin time (PT) Coag time (PPP) 12.2 s Normal 9.8 - 12.7 [facility] Comment on above: Performed By: #### C BCDF ####[facility] [place] [address] aPTT 55 s High 25 - 36 [facility] Comment on above: Result Comment: THE APTT IS NO LONGER USED FOR MONITORING UNFRACTIONATED HEPARIN THERAPY. FOR MONITORING HEPARIN THERAPY, USE THE HEPARIN ASSAY. Performed By: #### C BCDF ####[facility] [place] [address] INR Coag RelTime (PPP) 1.1 {INR} Normal 0.9 - 1.1 [facility] Comment on above: Performed By: #### C BCDF ####[facility] [place] [address] Prothrombin time (PT) Coag time (PPP) 12.0 s Normal 9.8 - 12.7 [facility] Comment on above: Performed By: #### C BCDF ####[facility] [place] [address] GLUCOSE-POCTon 05-19-2017 Glucose mass conc 172 mg/dL High 74 - 99 [facility] Comment on above: Performed By: #### C BCDF ####[facility] [place] [address] Glucose mass conc 121 mg/dL High 74 - 99 [facility] Comment on above: Performed By: #### C BCDF ####[facility] [place] [address] Glucose mass conc 205 mg/dL High 74 - 99 [facility] Comment on above: Performed By: #### C BCDF ####[facility] [place] [address] Glucose mass conc 110 mg/dL High 74 - 99 [facility] Comment on above: Performed By: #### C BCDF ####[facility] [place] [address] Glucose mass conc 142 mg/dL High 74 - 99 [facility] Comment on above: Performed By: #### C BCDF ####[facility] [place] [address] Glucose mass conc 123 mg/dL High 74 - 99 [facility] Comment on above: Performed By: #### C BCDF ####[facility] [place] [address] MAGNESIUMon 05-19-2017 Magnesium 2.07 mg/dL Normal 1.60 - 2.40 [facility] Comment on above: Performed By: #### C BCDF ####[facility] [place] [address] Magnesium 1.87 mg/dL Normal 1.60 - 2.40 [facility] Comment on above: Performed By: #### C BCDF ####[facility] [place] [address] MANUAL DIFFERENTIALon 2017 % BAND NEUTROPHIL 5.0 % Normal 0.0 - 5.0 [facility] Comment on above: Performed By: #### C BCDF ####[facility] [place] [address] % MYELOCYTE 1.0 % Abnormal 0.0 - 0.0 [facility] Comment on above: Performed By: #### C BCDF ####[facility] [place] [address] % SEG NEUTROPHIL 65.0 % Normal 40.0 - 80.0 [facility] Comment on above: Result Comment: Perc ent differential counts (%) should be interpreted in the context of the absolute cell counts (cells/L). Performed By: #### C BCDF ####[facility] [place] [address] ANC 13.10 X10E9/L Normal [facility] Comment on above: Performed By: #### C BCDF ####[facility] [place] [address] BAND NEUTROPHIL 0.94 X10E9/L High 0.00 - 0.70 [facility] Comment on above: Performed By: #### C BCDF ####[facility] [place] [address] Basophils/100 WBC Auto (Bld) 0.0 % Normal 0.0 - 2.0 [facility] Comment on above: Performed By: #### C BCDF ####[facility] [place] [address] Basophils/100 WBC Auto (Bld) 0.00 x10E9/L Normal 0.00 - 0.10 [facility] Comment on above: Performed By: #### C BCDF ####[facility] [place] [address] Eosinophils 1.68 10*3/uL High 0.00 - 0.70 [facility] Comment on above: Performed By: #### C BCDF ####[facility] [place] [address] Eosinophils/100 leukocytes 9.0 % High 0.0 - 6.0 [facility] Comment on above: Performed By: #### C BCDF ####[facility] [place] [address] Lymphocytes 3.18 10*3/uL Normal 1.20 - 4.80 [facility] Comment on above: Performed By: #### C BCDF ####[facility] [place] [address] Lymphocytes/100 leukocytes 17.0 % Normal 13.0 - 44.0 [facility] Comment on above: Performed By: #### C BCDF ####[facility] [place] [address] Monocytes 0.56 10*3/uL Normal 0.10 - 1.00 [facility] Comment on above: Performed By: #### C BCDF ####[facility] [place] [address] Monocytes/100 leukocytes 3.0 % Normal 2.0 - 10.0 [facility] Comment on above: Performed By: #### C BCDF ####[facility] [place] [address] MYELOCYTE 0.19 x10E9/L Abnormal 0.00 - 0.00 [facility] Comment on above: Performed By: #### C BCDF ####[facility] [place] [address] SEG NEUTROPHIL 12.16 X10E9/L High 1.20 - 7.00 [facility] Comment on above: Performed By: #### C BCDF ####[facility] [place] [address] RED CELL MORPHOLOGYon 2017 Erythrocyte morphology See Below Normal [facility] Comment on above: Performed By: #### C BCDF ####[facility] [place] [address] POLYCHROMASIA Mild Normal [facility] Comment on above: Performed By: #### C BCDF ####[facility] [place] [address] RENAL FUNCTION PANELon 05-19 Albumin 3.6 g/dL Normal 3.4 - 5.0 [facility] Comment on above: Performed By: #### C BCDF ####[facility] [place] [address] Anion gap 12 mmol/L Normal 10 - 20 [facility] Comment on above: Performed By: #### C BCDF ####[facility] [place] [address] Bicarbonate (HCO3) 31 mmol/L Normal 21 - 32 [facility] Comment on above: Performed By: #### C BCDF ####[facility] [place] [address] Calcium 9.1 mg/dL Normal 8.6 - 10.6 [facility] Comment on above: Performed By: #### C BCDF ####[facility] [place] [address] Chloride 100 mmol/L Normal 98 - 107 [facility] Comment on above: Performed By: #### C BCDF ####[facility] [place] [address] Creatinine 0.51 mg/dL Normal 0.50 - 1.05 [facility] Comment on above: Performed By: #### C BCDF ####[facility] [place] [address] eGFR (non-black) mL/min/{1.73_m2} Normal >60 [facility] Comment on above: Result Comment: CALC ULATIONS OF ESTIMATED GFR ARE PERFORMED USING THE MDRD STUDY EQUATION FOR THE IDMS-TRACEABLE CREATININE METHODS. CLIN CHEM 2007;53:766-72 Performed By: #### C BCDF ####[facility] [place] [address] Glucose mass conc 128 mg/dL High 74 - 99 [facility] Comment on above: Performed By: #### C BCDF ####[facility] [place] [address] Phosphate 4.4 mg/dL Normal 2.5 - 4.9 [facility] Comment on above: Result Comment: The performance characteristics of phosphorus testing in heparinized plasma have been validated by the individual laboratory site where testing is performed. Testing on heparinized plasma is not approved by the FDA; however, such approval is not necessary. Performed By: #### C BCDF ####[facility] [place] [address] Potassium molar conc 4.4 mmol/L Normal 3.5 - 5.3 [facility] Comment on above: Performed By: #### C BCDF ####[facility] [place] [address] Sodium 139 mmol/L Normal 136 - 145 [facility] Comment on above: Performed By: #### C BCDF ####[facility] [place] [address] Urea nitrogen 14 mg/dL Normal 6 - 23 [facility] Comment on above: Performed By: #### C BCDF ####[facility] [place] [address] Albumin 3.3 g/dL Low 3.4 - 5.0 [facility] Comment on above: Performed By: #### C BCDF ####[facility] [place] [address] Anion gap 13 mmol/L Normal 10 - 20 [facility] Comment on above: Performed By: #### C BCDF ####[facility] [place] [address] Bicarbonate (HCO3) 30 mmol/L Normal 21 - 32 [facility] Comment on above: Performed By: #### C BCDF ####[facility] [place] [address] Calcium 8.5 mg/dL Low 8.6 - 10.6 [facility] Comment on above: Performed By: #### C BCDF ####[facility] [place] [address] Chloride 97 mmol/L Low 98 - 107 [facility] Comment on above: Performed By: #### C BCDF ####[facility] [place] [address] Creatinine 0.50 mg/dL Normal 0.50 - 1.05 [facility] Comment on above: Performed By: #### C BCDF ####[facility] [place] [address] eGFR (non-black) mL/min/{1.73_m2} Normal >60 [facility] Comment on above: Result Comment: CALC ULATIONS OF ESTIMATED GFR ARE PERFORMED USING THE MDRD STUDY EQUATION FOR THE IDMS-TRACEABLE CREATININE METHODS. CLIN CHEM 2007;53:766-72 Performed By: #### C BCDF ####[facility] [place] [address] Glucose mass conc 146 mg/dL High 74 - 99 [facility] Comment on above: Performed By: #### C BCDF ####[facility] [place] [address] Phosphate 4.4 mg/dL Normal 2.5 - 4.9 [facility] Comment on above: Result Comment: The performance characteristics of phosphorus testing in heparinized plasma have been validated by the individual laboratory site where testing is performed. Testing on heparinized plasma is not approved by the FDA; however, such approval is not necessary. Performed By: #### C BCDF ####[facility] [place] [address] Potassium molar conc 4.0 mmol/L Normal 3.5 - 5.3 [facility] Comment on above: Performed By: #### C BCDF ####[facility] [place] [address] Sodium 136 mmol/L Normal 136 - 145 [facility] Comment on above: Performed By: #### C BCDF ####[facility] [place] [address] Urea nitrogen 15 mg/dL Normal 6 - 23 [facility] Comment on above: Performed By: #### C BCDF ####[facility] [place] [address] TH CHEST 1 VIEWon 05-19-2017 TH CHEST 1 VIEW Name: ELDA TARIQ STUDY:TH CHEST 1 VIEW; 05/19/2017 1:58 pm INDICATION:Signs/Symptoms: leukocytosis. COMPARISON:Chest radiograph 05/11/2017 ORDERING CLINICIAN:SHARIF MOORE FINDINGS:Surgical andrea extend throughout the right neck soft tissues andalong the right hemithorax. Interval placement of a left upperextremity PICC, with tip not well visualized as it approaches midline. CARDIOMEDIASTINAL SILHOUETTE:Cardiomediastin al silhouette is normal in size and configuration. LUNGS:No pulmonary consolidation, pleural effusion or pneumothorax. ABDOMEN:No remarkable upper abdominal findings. BONES:No acute osseous abnormality. IMPRESSION:Postoperative andrea without focal consolidation or pneumothoraxInterval placement of a left upper extremity PICC. The tip is notwell visualized as it approaches midline.Electronically signed by: HAILEY MOSCOSO MD Normal [facility] URINE CULTURE,BACTERIALon URINE CULTURE,BACTERIAL PATIENT: ELDA TARIQ LOCATION: [facility]#: [id number] : 74 AGE: SEX: F ORDERED BY: ADÁN MOORE JR: URINE COLLECTED: 05/19/17 14:04ANTIBIOTICS AT JESSICA.: RECEIVED : 05/19/17 17:28SITE: [facility] R E S U L T S URINE CULTURE,BACTERIAL FINAL 05/21/17 08:11 ISOLATE1 : Enterobacter cloacae >100,000 CFU/ML SECOND AND THIRD GENERATION CEPHALOSPORIN RESULTS ARE NOT REPORTED RESISTANCE TO SECOND AND THIRD GENERATION CEPHALOSPORINS MAY DEVELOP DURING THERAPY WITH THESE AGENTS. Organism Ent cloacae Antibiotic BP INTRP Ampicill in R Cefazolin R Ciprofloxacin S Nitrofurantoin I Gentamicin S Levofloxacin S Piperc/Tazobact S Trimeth/Sulfa S Tetracycline I S=SUSCEPTIBLE I=INTERMEDIATE R=RESISTANT SDD=SUSCEPTIBLE DOSE DEPENDENT NS=NONSUSCEPTIBLEX=REPORTE D IN ERROR Normal [facility] Comment on above: Performed By: #### C BCDF ####[facility] [place] [address] CALCIUM, IONIZEDon 8 CALCIUM,IONIZED 1.15 mmol/L Normal 1.10 - 1.33 [facility] Comment on above: Result Comment: The performance characteristics of ionized calcium tested in heparinized plasma or serum have been validated by the individual laboratory site where testing is performed. Testing on heparinized plasma or serum is not approved by the FDA; however, such approval is not necessary. Performed By: #### I ONC1 ####[facility] [place] [address] CBCon 05-18-2017 Erythrocyte distribution width Auto Ratio (RBC) 13.3 % Normal 11.5 - 14.5 [facility] Comment on above: Performed By: #### C BC ####[facility] [place] [address] Erythrocytes (RBC) 3.50 x10E12/L Low 4.00 - 5.20 [facility] Comment on above: Performed By: #### C BC ####[facility] [place] [address] Hematocrit (HCT) 30.8 % Low 36.0 - 46.0 [facility] Comment on above: Performed By: #### C BC ####[facility] [place] [address] Hemoglobin mass conc (Bld) 10.0 g/dL Low 12.0 - 16.0 [facility] Comment on above: Performed By: #### C BC ####[facility] [place] [address] MCHC mass conc (RBC) 32.5 g/dL Normal 32.0 - 36.0 [facility] Comment on above: Performed By: #### C BC ####[facility] [place] [address] MCV 88 fL Normal 80 - 100 [facility] Comment on above: Performed By: #### C BC ####[facility] [place] [address] Nucleated erythrocytes 1.0 /100 WBC Abnormal 0.0-0.0 [facility] Comment on above: Performed By: #### C BC ####[facility] [place] [address] Platelets 238 10*3/uL Normal 150 - 450 [facility] Comment on above: Performed By: #### C BC ####[facility] [place] [address] WBC (Leukocytes) 13.1 10*3/uL High 4.4 - 11.3 [facility] Comment on above: Performed By: #### C BC ####[facility] [place] [address] COAGULATION SCREENon 018 aPTT 23 s Low 25 - 36 [facility] Comment on above: Result Comment: THE APTT IS NO LONGER USED FOR MONITORING UNFRACTIONATED HEPARIN THERAPY. FOR MONITORING HEPARIN THERAPY, USE THE HEPARIN ASSAY. Performed By: #### C OAGS ####[facility] [place] [address] INR Coag RelTime (PPP) 1.1 {INR} Normal 0.9 - 1.1 [facility] Comment on above: Performed By: #### C OAGS ####[facility] [place] [address] Prothrombin time (PT) Coag time (PPP) 12.5 s Normal 9.8 - 12.7 [facility] Comment on above: Performed By: #### C OAGS ####[facility] [place] [address] GLUCOSE-POCTon 05-18-2017 Glucose mass conc 127 mg/dL High 74 - 99 [facility] Comment on above: Performed By: #### C BCDF ####[facility] [place] [address] Glucose mass conc 141 mg/dL High 74 - 99 [facility] Comment on above: Performed By: #### G MIKAEL ####[facility] [place] [address] Glucose mass conc 102 mg/dL High 74 - 99 [facility] Comment on above: Performed By: #### G MIKAEL ####[facility] [place] [address] Glucose mass conc 93 mg/dL Normal 74 - 99 [facility] Comment on above: Performed By: #### G MIKAEL ####[facility] [place] [address] Glucose mass conc 105 mg/dL High 74 - 99 [facility] Comment on above: Performed By: #### G MIKAEL ####[facility] [place] [address] Glucose mass conc 116 mg/dL High 74 - 99 [facility] Comment on above: Performed By: #### G MIKAEL ####[facility] [place] [address] MAGNESIUMon 05-18-2017 Magnesium 1.99 mg/dL Normal 1.60 - 2.40 [facility] Comment on above: Performed By: #### M G ####[facility] [place] [address] RENAL FUNCTION PANELon 05-18 Albumin 3.5 g/dL Normal 3.4 - 5.0 [facility] Comment on above: Performed By: #### R ENAL ####[facility] [place] [address] Anion gap 12 mmol/L Normal 10 - 20 [facility] Comment on above: Performed By: #### R ENAL ####[facility] [place] [address] Bicarbonate (HCO3) 34 mmol/L High 21 - 32 [facility] Comment on above: Performed By: #### R ENAL ####[facility] [place] [address] Calcium 8.4 mg/dL Low 8.6 - 10.6 [facility] Comment on above: Performed By: #### R ENAL ####[facility] [place] [address] Chloride 97 mmol/L Low 98 - 107 [facility] Comment on above: Performed By: #### R ENAL ####[facility] [place] [address] Creatinine 0.51 mg/dL Normal 0.50 - 1.05 [facility] Comment on above: Performed By: #### R ENAL ####[facility] [place] [address] eGFR (non-black) mL/min/{1.73_m2} Normal >60 [facility] Comment on above: Performed By: #### R ENAL ####[facility] [place] [address] Result Comment: CALC ULATIONS OF ESTIMATED GFR ARE PERFORMED USING THE MDRD STUDY EQUATION FOR THE IDMS-TRACEABLE CREATININE METHODS. CLIN CHEM 2007;53:766-72 Glucose mass conc 103 mg/dL High 74 - 99 [facility] Comment on above: Performed By: #### R ENAL ####[facility] [place] [address] Phosphate 4.2 mg/dL Normal 2.5 - 4.9 [facility] Comment on above: Result Comment: The performance characteristics of phosphorus testing in heparinized plasma have been validated by the individual laboratory site where testing is performed. Testing on heparinized plasma is not approved by the FDA; however, such approval is not necessary. Performed By: #### R ENAL ####[facility] [place] [address] Potassium molar conc 3.9 mmol/L Normal 3.5 - 5.3 [facility] Comment on above: Performed By: #### R ENAL ####[facility] [place] [address] Sodium 139 mmol/L Normal 136 - 145 [facility] Comment on above: Performed By: #### R ENAL ####[facility] [place] [address] Urea nitrogen 15 mg/dL Normal 6 - 23 [facility] Comment on above: Performed By: #### R ENAL ####[facility] [place] [address] CALCIUM, IONIZEDon 8 CALCIUM,IONIZED 1.18 mmol/L Normal 1.10 - 1.33 [facility] Comment on above: Result Comment: The performance characteristics of ionized calcium tested in heparinized plasma or serum have been validated by the individual laboratory site where testing is performed. Testing on heparinized plasma or serum is not approved by the FDA; however, such approval is not necessary. Performed By: #### T +S ####[facility] [place] [address] CBCon 05-17-2017 Erythrocyte distribution width Auto Ratio (RBC) 13.5 % Normal 11.5 - 14.5 [facility] Comment on above: Performed By: #### T +S ####[facility] [place] [address] Erythrocytes (RBC) 3.30 x10E12/L Low 4.00 - 5.20 [facility] Comment on above: Performed By: #### T +S ####[facility] [place] [address] Hematocrit (HCT) 28.0 % Low 36.0 - 46.0 [facility] Comment on above: Performed By: #### T +S ####[facility] [place] [address] Hemoglobin mass conc (Bld) 9.4 g/dL Low 12.0 - 16.0 [facility] Comment on above: Performed By: #### T +S ####[facility] [place] [address] MCHC mass conc (RBC) 33.6 g/dL Normal 32.0 - 36.0 [facility] Comment on above: Performed By: #### T +S ####[facility] [place] [address] MCV 85 fL Normal 80 - 100 [facility] Comment on above: Performed By: #### T +S ####[facility] [place] [address] Nucleated erythrocytes 0.9 /100 WBC Abnormal 0.0-0.0 [facility] Comment on above: Performed By: #### T +S ####[facility] [place] [address] Platelets 290 10*3/uL Normal 150 - 450 [facility] Comment on above: Performed By: #### T +S ####[facility] [place] [address] WBC (Leukocytes) 16.0 10*3/uL High 4.4 - 11.3 [facility] Comment on above: Performed By: #### T +S ####[facility] [place] [address] COAGULATION SCREENon 018 aPTT 24 s Low 25 - 36 [facility] Comment on above: Result Comment: THE APTT IS NO LONGER USED FOR MONITORING UNFRACTIONATED HEPARIN THERAPY. FOR MONITORING HEPARIN THERAPY, USE THE HEPARIN ASSAY. Performed By: #### T +S ####[facility] [place] [address] INR Coag RelTime (PPP) 1.1 {INR} Normal 0.9 - 1.1 [facility] Comment on above: Performed By: #### T +S ####[facility] [place] [address] Prothrombin time (PT) Coag time (PPP) 12.5 s Normal 9.8 - 12.7 [facility] Comment on above: Performed By: #### T +S ####[facility] [place] [address] GLUCOSE-POCTon 05-17-2017 Glucose mass conc 119 mg/dL High 74 - 99 [facility] Comment on above: Performed By: #### T +S ####[facility] [place] [address] Glucose mass conc 90 mg/dL Normal 74 - 99 [facility] Comment on above: Performed By: #### T +S ####[facility] [place] [address] Glucose mass conc 109 mg/dL High 74 - 99 [facility] Comment on above: Performed By: #### T +S ####[facility] [place] [address] Glucose mass conc 104 mg/dL High 74 - 99 [facility] Comment on above: Performed By: #### T +S ####[facility] [place] [address] Glucose mass conc 109 mg/dL High 74 - 99 [facility] Comment on above: Performed By: #### T +S ####[facility] [place] [address] Glucose mass conc 155 mg/dL High 74 - 99 [facility] Comment on above: Performed By: #### E SRWS ####[facility] [place] [address] MAGNESIUMon 05-17-2017 Magnesium 2.13 mg/dL Normal 1.60 - 2.40 [facility] Comment on above: Performed By: #### T +S ####[facility] [place] [address] RENAL FUNCTION PANELon 05-17 Albumin 3.5 g/dL Normal 3.4 - 5.0 [facility] Comment on above: Performed By: #### T +S ####[facility] [place] [address] Anion gap 13 mmol/L Normal 10 - 20 [facility] Comment on above: Performed By: #### T +S ####[facility] [place] [address] Bicarbonate (HCO3) 32 mmol/L Normal 21 - 32 [facility] Comment on above: Performed By: #### T +S ####[facility] [place] [address] Calcium 8.5 mg/dL Low 8.6 - 10.6 [facility] Comment on above: Performed By: #### T +S ####[facility] [place] [address] Chloride 101 mmol/L Normal 98 - 107 [facility] Comment on above: Performed By: #### T +S ####[facility] [place] [address] Creatinine 0.47 mg/dL Low 0.50 - 1.05 [facility] Comment on above: Performed By: #### T +S ####[facility] [place] [address] eGFR (non-black) mL/min/{1.73_m2} Normal >60 [facility] Comment on above: Performed By: #### T +S ####[facility] [place] [address] Result Comment: CALC ULATIONS OF ESTIMATED GFR ARE PERFORMED USING THE MDRD STUDY EQUATION FOR THE IDMS-TRACEABLE CREATININE METHODS. CLIN CHEM 2007;53:766-72 Glucose mass conc 108 mg/dL High 74 - 99 [facility] Comment on above: Performed By: #### T +S ####[facility] [place] [address] Phosphate 3.3 mg/dL Normal 2.5 - 4.9 [facility] Comment on above: Result Comment: The performance characteristics of phosphorus testing in heparinized plasma have been validated by the individual laboratory site where testing is performed. Testing on heparinized plasma is not approved by the FDA; however, such approval is not necessary. Performed By: #### T +S ####[facility] [place] [address] Potassium molar conc 4.2 mmol/L Normal 3.5 - 5.3 [facility] Comment on above: Performed By: #### T +S ####[facility] [place] [address] Sodium 142 mmol/L Normal 136 - 145 [facility] Comment on above: Performed By: #### T +S ####[facility] [place] [address] Urea nitrogen 17 mg/dL Normal 6 - 23 [facility] Comment on above: Performed By: #### T +S ####[facility] [place] [address] CALCIUM, IONIZEDon 8 CALCIUM,IONIZED 1.14 mmol/L Normal 1.10 - 1.33 [facility] Comment on above: Result Comment: The performance characteristics of ionized calcium tested in heparinized plasma or serum have been validated by the individual laboratory site where testing is performed. Testing on heparinized plasma or serum is not approved by the FDA; however, such approval is not necessary. Performed By: #### H CGQU ####[facility] [place] [address] CBCon 05-16-2017 Erythrocyte distribution width Auto Ratio (RBC) 13.5 % Normal 11.5 - 14.5 [facility] Comment on above: Performed By: #### H CGQU ####[facility] [place] [address] Erythrocytes (RBC) 3.02 x10E12/L Low 4.00 - 5.20 [facility] Comment on above: Performed By: #### H CGQU ####[facility] [place] [address] Hematocrit (HCT) 25.7 % Low 36.0 - 46.0 [facility] Comment on above: Performed By: #### H CGQU ####[facility] [place] [address] Hemoglobin mass conc (Bld) 8.7 g/dL Low 12.0 - 16.0 [facility] Comment on above: Performed By: #### H CGQU ####[facility] [place] [address] MCHC mass conc (RBC) 33.9 g/dL Normal 32.0 - 36.0 [facility] Comment on above: Performed By: #### H CGQU ####[facility] [place] [address] MCV 85 fL Normal 80 - 100 [facility] Comment on above: Performed By: #### H CGQU ####[facility] [place] [address] Nucleated erythrocytes 0.1 /100 WBC Abnormal 0.0-0.0 [facility] Comment on above: Performed By: #### H CGQU ####[facility] [place] [address] Platelets 305 10*3/uL Normal 150 - 450 [facility] Comment on above: Performed By: #### H CGQU ####[facility] [place] [address] WBC (Leukocytes) 21.1 10*3/uL High 4.4 - 11.3 [facility] Comment on above: Performed By: #### H CGQU ####[facility] [place] [address] COAGULATION SCREENon 018 aPTT 24 s Low 25 - 36 [facility] Comment on above: Result Comment: THE APTT IS NO LONGER USED FOR MONITORING UNFRACTIONATED HEPARIN THERAPY. FOR MONITORING HEPARIN THERAPY, USE THE HEPARIN ASSAY. Performed By: #### H CGQU ####[facility] [place] [address] INR Coag RelTime (PPP) 1.3 {INR} High 0.9 - 1.1 [facility] Comment on above: Performed By: #### H CGQU ####[facility] [place] [address] Prothrombin time (PT) Coag time (PPP) 14.3 s High 9.8 - 12.7 [facility] Comment on above: Performed By: #### H CGQU ####[facility] [place] [address] GLUCOSE-POCTon 05-16-2017 Glucose mass conc 167 mg/dL High 74 - 99 [facility] Comment on above: Performed By: #### E SRWS ####[facility] [place] [address] Glucose mass conc 124 mg/dL High 74 - 99 [facility] Comment on above: Performed By: #### E SRWS ####[facility] [place] [address] Glucose mass conc 107 mg/dL High 74 - 99 [facility] Comment on above: Performed By: #### E SRWS ####[facility] [place] [address] Glucose mass conc 122 mg/dL High 74 - 99 [facility] Comment on above: Performed By: #### E SRWS ####[facility] [place] [address] Glucose mass conc 174 mg/dL High 74 - 99 [facility] Comment on above: Performed By: #### E SRWS ####[facility] [place] [address] Glucose mass conc 203 mg/dL High 74 - 99 [facility] Comment on above: Performed By: #### E SRWS ####[facility] [place] [address] Glucose mass conc 157 mg/dL High 74 - 99 [facility] Comment on above: Performed By: #### H CGQU ####[facility] [place] [address] MAGNESIUMon 05-16-2017 Magnesium 1.83 mg/dL Normal 1.60 - 2.40 [facility] Comment on above: Performed By: #### H CGQU ####[facility] [place] [address] RENAL FUNCTION PANELon 05-16 Albumin 3.2 g/dL Low 3.4 - 5.0 [facility] Comment on above: Performed By: #### H CGQU ####[facility] [place] [address] Anion gap 9 mmol/L Low 10 - 20 [facility] Comment on above: Performed By: #### H CGQU ####[facility] [place] [address] Bicarbonate (HCO3) 28 mmol/L Normal 21 - 32 [facility] Comment on above: Performed By: #### H CGQU ####[facility] [place] [address] Calcium 7.6 mg/dL Low 8.6 - 10.6 [facility] Comment on above: Performed By: #### H CGQU ####[facility] [place] [address] Chloride 109 mmol/L High 98 - 107 [facility] Comment on above: Performed By: #### H CGQU ####[facility] [place] [address] Creatinine 0.41 mg/dL Low 0.50 - 1.05 [facility] Comment on above: Performed By: #### H CGQU ####[facility] [place] [address] eGFR (non-black) mL/min/{1.73_m2} Normal >60 [facility] Comment on above: Performed By: #### H CGQU ####[facility] [place] [address] Result Comment: CALC ULATIONS OF ESTIMATED GFR ARE PERFORMED USING THE MDRD STUDY EQUATION FOR THE IDMS-TRACEABLE CREATININE METHODS. CLIN CHEM 2007;53:766-72 Glucose mass conc 167 mg/dL High 74 - 99 [facility] Comment on above: Performed By: #### H CGQU ####[facility] [place] [address] Phosphate 2.1 mg/dL Low 2.5 - 4.9 [facility] Comment on above: Result Comment: The performance characteristics of phosphorus testing in heparinized plasma have been validated by the individual laboratory site where testing is performed. Testing on heparinized plasma is not approved by the FDA; however, such approval is not necessary. Performed By: #### H CGQU ####[facility] [place] [address] Potassium molar conc 3.5 mmol/L Normal 3.5 - 5.3 [facility] Comment on above: Performed By: #### H CGQU ####[facility] [place] [address] Sodium 142 mmol/L Normal 136 - 145 [facility] Comment on above: Performed By: #### H CGQU ####[facility] [place] [address] Urea nitrogen 22 mg/dL Normal 6 - 23 [facility] Comment on above: Performed By: #### H CGQU ####[facility] [place] [address] REQUEST-LEUKOREDUCED RED WILMER LSon 05-16-2017 REQUEST-LEUKOREDUCED RED CELLS ORDER RECD Normal [facility] Comment on above: Performed By: #### E SRWS ####[facility] [place] [address] UA MICROSCOPICon 05-16-2017 BUDDING YEAST PRESENT Abnormal [facility] Comment on above: Performed By: #### E SRWS ####[facility] [place] [address] Erythrocytes (RBC) None Normal 0-5 [facility] Comment on above: Performed By: #### E SRWS ####[facility] [place] [address] HYPHAE YEAST PRESENT Abnormal [facility] Comment on above: Performed By: #### E SRWS ####[facility] [place] [address] SQUAMOUS EPITH. CELLS <1 Normal [facility] Comment on above: Performed By: #### E SRWS ####[facility] [place] [address] Urine, bacteria in sediment 1+ /HPF Abnormal [facility] Comment on above: Performed By: #### E SRWS ####[facility] [place] [address] WBC (Leukocytes) None Normal 0-5 [facility] Comment on above: Performed By: #### E SRWS ####[facility] [place] [address] URINALYSISon 05-16-2017 Bilirubin (total) Negative Normal NEGATIVE [facility] Comment on above: Performed By: #### E SRWS ####[facility] [place] [address] BLOOD MODERATE (2+) Abnormal NEGATIVE [facility] Comment on above: Performed By: #### E SRWS ####[facility] [place] [address] Glucose mass conc Negative Normal NEGATIVE [facility] Comment on above: Performed By: #### E SRWS ####[facility] [place] [address] pH of blood 8.0 [pH] Normal 5.0 - 8.0 [facility] Comment on above: Performed By: #### E SRWS ####[facility] [place] [address] Protein Negative Normal NEGATIVE [facility] Comment on above: Performed By: #### E SRWS ####[facility] [place] [address] Urine, appearance HAZY Normal CLEAR [facility] Comment on above: Performed By: #### E SRWS ####[facility] [place] [address] Urine, color STRAW Normal STRAW,YELLO W [facility] Comment on above: Performed By: #### E SRWS ####[facility] [place] [address] Urine, ketones presence Negative Normal NEGATIVE [facility] Comment on above: Performed By: #### E SRWS ####[facility] [place] [address] Urine, leukocyte esterase presence TRACE Abnormal NEGATIVE [facility] Comment on above: Performed By: #### E SRWS ####[facility] [place] [address] Urine, nitrite presence Negative Normal NEGATIVE [facility] Comment on above: Performed By: #### E SRWS ####[facility] [place] [address] Urine, specific gravity 1.003 Low 1.005 - 1.035 [facility] Comment on above: Performed By: #### E SRWS ####[facility] [place] [address] Urine, urobilinogen <2.0 Normal 0.0 - 1.9 [facility] Comment on above: Performed By: #### E SRWS ####[facility] [place] [address] CALCIUM, IONIZEDon 8 CALCIUM,IONIZED 1.20 mmol/L Normal 1.10 - 1.33 [facility] Comment on above: Result Comment: The performance characteristics of ionized calcium tested in heparinized plasma or serum have been validated by the individual laboratory site where testing is performed. Testing on heparinized plasma or serum is not approved by the FDA; however, such approval is not necessary. Performed By: #### H CGU ####[facility] [place] [address] CBC AND DIFFERENTIALon 05-15 % AUTOMATED IMMATURE GRAN 0.9 % Normal 0.0 - 0.9 [facility] Comment on above: Result Comment: Perc ent differential counts (%) should be interpreted in the context of the absolute cell counts (cells/L). Performed By: #### H CGU ####[facility] [place] [address] % NEUTROPHIL 85.9 % Normal 40.0 - 80.0 [facility] Comment on above: Performed By: #### H CGU ####[facility] [place] [address] Basophils/100 WBC Auto (Bld) 0.03 x10E9/L Normal 0.00 - 0.10 [facility] Comment on above: Performed By: #### H CGU ####[facility] [place] [address] Basophils/100 WBC Auto (Bld) 0.2 % Normal 0.0 - 2.0 [facility] Comment on above: Performed By: #### H CGU ####[facility] [place] [address] Eosinophils 0.00 10*3/uL Normal 0.00 - 0.70 [facility] Comment on above: Performed By: #### H CGU ####[facility] [place] [address] Eosinophils/100 leukocytes 0.0 % Normal 0.0 - 6.0 [facility] Comment on above: Performed By: #### H CGU ####[facility] [place] [address] Erythrocyte distribution width Auto Ratio (RBC) 13.4 % Normal 11.5 - 14.5 [facility] Comment on above: Performed By: #### H CGU ####[facility] [place] [address] Erythrocytes (RBC) 3.22 x10E12/L Low 4.00 - 5.20 [facility] Comment on above: Performed By: #### H CGU ####[facility] [place] [address] Hematocrit (HCT) 28.4 % Low 36.0 - 46.0 [facility] Comment on above: Performed By: #### H CGU ####[facility] [place] [address] Hemoglobin mass conc (Bld) 9.3 g/dL Low 12.0 - 16.0 [facility] Comment on above: Performed By: #### H CGU ####[facility] [place] [address] Lymphocytes 1.52 10*3/uL Normal 1.20 - 4.80 [facility] Comment on above: Performed By: #### H CGU ####[facility] [place] [address] Lymphocytes/100 leukocytes 8.5 % Low 13.0 - 44.0 [facility] Comment on above: Performed By: #### H CGU ####[facility] [place] [address] MCHC mass conc (RBC) 32.7 g/dL Normal 32.0 - 36.0 [facility] Comment on above: Performed By: #### H CGU ####[facility] [place] [address] MCV 88 fL Normal 80 - 100 [facility] Comment on above: Performed By: #### H CGU ####[facility] [place] [address] Monocytes 0.80 10*3/uL Normal 0.10 - 1.00 [facility] Comment on above: Performed By: #### H CGU ####[facility] [place] [address] Monocytes/100 leukocytes 4.5 % Normal 2.0 - 10.0 [facility] Comment on above: Performed By: #### H CGU ####[facility] [place] [address] Neutrophils 15.33 10*3/uL High 1.20 - 7.70 [facility] Comment on above: Performed By: #### H CGU ####[facility] [place] [address] Nucleated erythrocytes 0.0 /100 WBC Normal 0.0-0.0 [facility] Comment on above: Performed By: #### H CGU ####[facility] [place] [address] Platelets 251 10*3/uL Normal 150 - 450 [facility] Comment on above: Performed By: #### H CGU ####[facility] [place] [address] WBC (Leukocytes) 17.8 10*3/uL High 4.4 - 11.3 [facility] Comment on above: Performed By: #### H CGU ####[facility] [place] [address] COAGULATION SCREENon 018 aPTT 24 s Low 25 - 36 [facility] Comment on above: Result Comment: THE APTT IS NO LONGER USED FOR MONITORING UNFRACTIONATED HEPARIN THERAPY. FOR MONITORING HEPARIN THERAPY, USE THE HEPARIN ASSAY. Performed By: #### H CGU ####[facility] [place] [address] INR Coag RelTime (PPP) 1.3 {INR} High 0.9 - 1.1 [facility] Comment on above: Performed By: #### H CGU ####[facility] [place] [address] Prothrombin time (PT) Coag time (PPP) 14.5 s High 9.8 - 12.7 [facility] Comment on above: Performed By: #### H CGU ####[id number] [place] [address] GLUCOSE-POCTon 05-15-2017 Glucose mass conc 265 mg/dL High 74 - 99 [facility] [facility] Comment on above: Performed By: #### H CGQU ####[facility] [place] [address] Glucose mass conc 211 mg/dL High 74 - 99 [facility] Comment on above: Performed By: #### H CGQU ####[facility] [place] [address] Glucose mass conc 215 mg/dL High 74 - 99 [facility] Comment on above: Performed By: #### H CGQU ####[facility] [place] [address] HEMOGLOBIN A1Con 05-15-2017 Glucose mass conc 131 mg/dL Normal [facility] Comment on above: Performed By: #### H CGQU ####[facility] [place] [address] Hemoglobin A1c/Hemoglobin.total mass fraction (Bld) 6.2 % Normal [facility] Comment on above: Result Comment: Diag nosis of Diabetes-Adults Non-Diabetic: < or = 5.6% Increased risk for developing diabetes: 5.7-6.4% Diagnostic of diabetes: > or = 6.5%. Monitoring of Diabetes Age (y) Therapeutic Goal (%) Adults: >18 <7.0 Pediatrics: 13-18 <7.5 7-12 <8.0 0- 6 7.5-8.5 [employer] [employer]. Diabetes Care 33(S1), May 2009. Performed By: #### H CGQU ####[facility] [place] [address] MAGNESIUMon 05-15-2017 Magnesium 1.99 mg/dL Normal 1.60 - 2.40 [facility] Comment on above: Performed By: #### H CGU ####[facility] [place] [address] RENAL FUNCTION PANELon 05-15 Albumin 3.6 g/dL Normal 3.4 - 5.0 [facility] Comment on above: Performed By: #### H CGU ####[facility] [place] [address] Anion gap 11 mmol/L Normal 10 - 20 [facility] Comment on above: Performed By: #### H CGU ####[facility] [place] [address] Bicarbonate (HCO3) 29 mmol/L Normal 21 - 32 [facility] Comment on above: Performed By: #### H CGU ####[facility] [place] [address] Calcium 8.3 mg/dL Low 8.6 - 10.6 [facility] Comment on above: Performed By: #### H CGU ####[facility] [place] [address] Chloride 101 mmol/L Normal 98 - 107 [facility] Comment on above: Performed By: #### H CGU ####[facility] [place] [address] Creatinine 0.50 mg/dL Normal 0.50 - 1.05 [facility] Comment on above: Performed By: #### H CGU ####[facility] [place] [address] eGFR (non-black) mL/min/{1.73_m2} Normal >60 [facility] Comment on above: Result Comment: CALC ULATIONS OF ESTIMATED GFR ARE PERFORMED USING THE MDRD STUDY EQUATION FOR THE IDMS-TRACEABLE CREATININE METHODS. CLIN CHEM 2007;53:766-72 Performed By: #### H CGU ####[facility] [place] [address] Glucose mass conc 223 mg/dL High 74 - 99 [facility] Comment on above: Performed By: #### H CGU ####[facility] [place] [address] Phosphate 3.1 mg/dL Normal 2.5 - 4.9 [facility] Comment on above: Result Comment: The performance characteristics of phosphorus testing in heparinized plasma have been validated by the individual laboratory site where testing is performed. Testing on heparinized plasma is not approved by the FDA; however, such approval is not necessary. Performed By: #### H CGU ####[facility] [place] [address] Potassium molar conc 4.0 mmol/L Normal 3.5 - 5.3 [facility] Comment on above: Performed By: #### H CGU ####[facility] [place] [address] Sodium 137 mmol/L Normal 136 - 145 [facility] Comment on above: Performed By: #### H CGU ####[facility] [place] [address] Urea nitrogen 14 mg/dL Normal 6 - 23 [facility] Comment on above: Performed By: #### H CGU ####[facility] [place] [address] CBCon 05-14-2017 Erythrocyte distribution width Auto Ratio (RBC) 13.2 % Normal 11.5 - 14.5 [facility] Comment on above: Performed By: #### C RP ####[facility] [place] [address] Erythrocytes (RBC) 3.70 x10E12/L Low 4.00 - 5.20 [facility] Comment on above: Performed By: #### C RP ####[facility] [place] [address] Hematocrit (HCT) 30.8 % Low 36.0 - 46.0 [facility] Comment on above: Performed By: #### C RP ####[facility] [place] [address] Hemoglobin mass conc (Bld) 10.4 g/dL Low 12.0 - 16.0 [facility] Comment on above: Performed By: #### C RP ####[facility] [place] [address] MCHC mass conc (RBC) 33.8 g/dL Normal 32.0 - 36.0 [facility] Comment on above: Performed By: #### C RP ####[facility] [place] [address] MCV 83 fL Normal 80 - 100 [facility] Comment on above: Performed By: #### C RP ####[facility] [place] [address] Nucleated erythrocytes 0.0 /100 WBC Normal 0.0-0.0 [facility] Comment on above: Performed By: #### C RP ####[facility] [place] [address] Platelets 365 10*3/uL Normal 150 - 450 [facility] Comment on above: Performed By: #### C RP ####[place] [id number] [place] [address] WBC (Leukocytes) 20.2 10*3/uL High 4.4 - 11.3 [facility] Comment on above: Performed By: #### C RP ####[facility] [id number] COAGULATION SCREENon 018 aPTT 21 s Low 25 - 36 [facility] Comment on above: Result Comment: THE APTT IS NO LONGER USED FOR MONITORING UNFRACTIONATED HEPARIN THERAPY. FOR MONITORING HEPARIN THERAPY, USE THE HEPARIN ASSAY. Performed By: #### C RP ####[facility] [place] [address] INR Coag RelTime (PPP) 1.2 {INR} High 0.9 - 1.1 [facility] Comment on above: Performed By: #### C RP ####[facility] [place] [address] Prothrombin time (PT) Coag time (PPP) 12.8 s High 9.8 - 12.7 [facility] Comment on above: Performed By: #### C RP ####[facility] [place] [address] GLUCOSE-POCTon 05-14-2017 Glucose mass conc 194 mg/dL High 74 - 99 [facility] Comment on above: Performed By: #### H CGU ####[facility] [place] [address] Glucose mass conc 177 mg/dL High 74 - 99 [facility] Comment on above: Performed By: #### H CGU ####[facility] [place] [address] Glucose mass conc 155 mg/dL High 74 - 99 [facility] Comment on above: Performed By: #### H CGU ####[facility] [place] [address] Glucose mass conc 148 mg/dL High 74 - 99 [facility] Comment on above: Performed By: #### H CGU ####[facility] [place] [address] Glucose mass conc 166 mg/dL High 74 - 99 [facility] Comment on above: Performed By: #### R ENAL ####[facility] [place] [address] Glucose mass conc 168 mg/dL High 74 - 99 [facility] Comment on above: Performed By: #### R ENAL ####[facility] [place] [address] Glucose mass conc 164 mg/dL High 74 - 99 [facility] Comment on above: Performed By: #### R ENAL ####[facility] [place] [address] Glucose mass conc 149 mg/dL High 74 - 99 [facility] Comment on above: Performed By: #### R ENAL ####[facility] [place] [address] Glucose mass conc 148 mg/dL High 74 - 99 [facility] Comment on above: Performed By: #### R ENAL ####[facility] [place] [address] Glucose mass conc 156 mg/dL High 74 - 99 [facility] Comment on above: Performed By: #### R ENAL ####[facility] [place] [address] Glucose mass conc 159 mg/dL High 74 - 99 [facility] Comment on above: Performed By: #### R ENAL ####[facility] [place] [address] Glucose mass conc 180 mg/dL High 74 - 99 [facility] Comment on above: Performed By: #### R ENAL ####[facility] [place] [address] Glucose mass conc 171 mg/dL High 74 - 99 [facility] Comment on above: Performed By: #### R ENAL ####[facility] [place] [address] Glucose mass conc 168 mg/dL High 74 - 99 [facility] Comment on above: Performed By: #### R ENAL ####[facility] [place] [address] Glucose mass conc 194 mg/dL High 74 - 99 [facility] Comment on above: Performed By: #### C RP ####[facility] [place] [address] Glucose mass conc 193 mg/dL High 74 - 99 [facility] Comment on above: Performed By: #### C RP ####[facility] [place] [address] Glucose mass conc 217 mg/dL High 74 - 99 [facility] Comment on above: Performed By: #### C RP ####[facility] [place] [address] Glucose mass conc 199 mg/dL High 74 - 99 [facility] Comment on above: Performed By: #### C RP ####[facility] [place] [address] Glucose mass conc 222 mg/dL High 74 - 99 [facility] Comment on above: Performed By: #### C RP ####[facility] [place] [address] RENAL FUNCTION PANELon 05-14 Albumin 3.9 g/dL Normal 3.4 - 5.0 [facility] Comment on above: Performed By: #### C RP ####[facility] [place] [address] Anion gap 12 mmol/L Normal 10 - 20 [facility] Comment on above: Performed By: #### C RP ####[facility] [place] [address] Bicarbonate (HCO3) 28 mmol/L Normal 21 - 32 [facility] Comment on above: Performed By: #### C RP ####[facility] [place] [address] Calcium 8.3 mg/dL Low 8.6 - 10.6 [facility] Comment on above: Performed By: #### C RP ####[facility] [place] [address] Chloride 98 mmol/L Normal 98 - 107 [facility] Comment on above: Performed By: #### C RP ####[facility] [place] [address] Creatinine 0.55 mg/dL Normal 0.50 - 1.05 [facility] Comment on above: Performed By: #### C RP ####[facility] [place] [address] eGFR (non-black) mL/min/{1.73_m2} Normal >60 [facility] Comment on above: Result Comment: CALC ULATIONS OF ESTIMATED GFR ARE PERFORMED USING THE MDRD STUDY EQUATION FOR THE IDMS-TRACEABLE CREATININE METHODS. CLIN CHEM 2007;53:766-72 Performed By: #### C RP ####[facility] [place] [address] Glucose mass conc 219 mg/dL High 74 - 99 [facility] Comment on above: Performed By: #### C RP ####[facility] [place] [address] Phosphate 3.4 mg/dL Normal 2.5 - 4.9 [facility] Comment on above: Result Comment: The performance characteristics of phosphorus testing in heparinized plasma have been validated by the individual laboratory site where testing is performed. Testing on heparinized plasma is not approved by the FDA; however, such approval is not necessary. Performed By: #### C RP ####[facility] [place] [address] Potassium molar conc 4.2 mmol/L Normal 3.5 - 5.3 [facility] Comment on above: Performed By: #### C RP ####[facility] [place] [address] Sodium 134 mmol/L Low 136 - 145 [facility] Comment on above: Performed By: #### C RP ####[facility] [place] [address] Urea nitrogen 14 mg/dL Normal 6 - 23 [facility] Comment on above: Performed By: #### C RP ####[facility] [place] [address] ABDOMEN; 1 VIEWon 05-13-2017 ABDOMEN; 1 VIEW Name: HERMILA ELDA STUDY:ABDOMEN; 1 VIEW; 05/13/2017 12:08 pm INDICATION:Signs/Symptoms: possible hernia. COMPARISON:None. ORDERING CLINICIAN:FRANCIS RODRÍGUEZ FINDINGS:Single-view of the abdomen. The lower pelvis is not included. Thereis enteric tube with the tip not included but likely terminating inthe gastric fundus.. Nonobstructive bowel gas pattern. Limitedevaluation of pneumoperitoneum on supine imaging, however no grossevidence of free air is noted. Skin andrea projecting over themidline chest. Visualized lungs are clear. Osseous structures demonstrate no acute bony changes. IMPRESSION:1. Enteric tube tip is not included in the provided image, but likelyterminates in the gastric fundus.2. Nonobstructive bowel gas pattern.Electronically signed by: WEST WISDOM MD Normal [facility] ABO/RH GROUP TESTon 05-13-19 18 ABO TYPE B Normal [facility] Comment on above: Performed By: #### C BCDF ####[facility] [place] [address] RH TYPE Positive Normal [facility] Comment on above: Performed By: #### C BCDF ####[facility] [place] [address] ABDOMEN AND PELVIS WO CONTRASTon 05-13-[address] ABDOMEN AND PELVIS WO CONTRAST Name: LOVELY TARIQCHARLES STUDY:BD CT ABDOMEN AND PELVIS WO CONTRAST; 05/13/2017 3:48 pm INDICATION:Signs/Symptoms: possible hernia. 47-year-old female with past medicalhistory of morbid obesity, anxiety, hypertension, GERD,hypothyroidism presenting for thoracic spondylolisthesis withmyelopathy. Status post 05/13/2017 T3-T10 laminectomy. COMPARISON:None ORDERING CLINICIAN:FRANCIS RODRÍGUEZ TECHNIQUE:CT of the abdomen and pelvis was performed. Contiguous axial imageswere obtained at 3 mm slice thickness through the abdomen and pelvis.Coronal and sagittal reconstructions at 3 mm slice thickness wereperformed. No intravenous contrast was administered; positive oralcontrast was given. FINDINGS:Please note that the evaluation of vessels, lymph nodes and organs islimited without intravenous contrast. LOWER CHEST:The visualized lung base is unremarkable. The heart is normal in sizewithout evidence of pericardial effusion. No pleural effusion ispresent. Visualized distal esophagus appears normal. ABDOMEN: LIVER:The liver is normal in size without evidence of focal liver lesions.Mild diffuse hypoattenuation with focal areas of sparing in theliver, suggestive of hepatic steatosis. BILE DUCTS:Cannot be evaluated in this unenhanced study. GALLBLADDER:The gallbladder is of normal size and no evidence of calcifiedcalculi are pericholecystic inflammatory changes. PANCREAS:Normal size and attenuation. SPLEEN:The spleen is normal in size. Small splenule was identifiedanteriorly. ADRENAL GLANDS:Bilateral adrenal glands appear normal. KIDNEYS AND URETERS:The kidneys are normal in size and unremarkable in appearance. Thereis mild hydronephrosis of the right renal pelvis and mild prominenceof the left renal pelvis, but otherwise no hydroureteronephrosis ornephroureterolithiasis is identified. PELVIS: BLADDER:The urinary bladder is decompressed with a Alex catheter in place.Foci of air identified within the bladder, correlating with recentcatheterization. REPRODUCTIVE ORGANS:The uterus is present. Uterus is tethered to the anterior abdominalwall. BOWEL:The stomach is unremarkable. The small and large bowel are normal incaliber and demonstrate no wall thickening. The appendix appearsnormal. VESSELS:There is no aneurysmal dilatation of the abdominal aorta. The IVCappears normal. PERITONEUM/RETROPERITONEUM /LYMPH NODES:There is no free or loculated fluid collection, no freeintraperitoneal air. The retroperitoneum appears normal. Noabdominopelvic lymphadenopathy is present. ABDOMINAL WALL:Mild diastasis of the rectus muscle without evidence of hernia.Posteriorly numerous foci of air identified in the subcutaneoustissue likely postsurgical in nature. BONES:No suspicious osseous lesions are identified. Degenerative discogenicdisease is noted in the lower thoracic and lumbar spine. Surgicalchanges consistent with thoracic laminectomy extending to the [id number] are identified with lumbar drain visualized at the T8-E4gmwkrbsrngvuht level. IMPRESSION:1. Mild diastasis of the rectus muscle without evidence of hernia.2. Postsurgical changes consistent with thoracic laminectomyextending to the T10 level with lumbar drain identified at the T8-K8ezsbrdjdrvggqi level.3. Hepatic steatosis.I personally reviewed the image(s) / study and resident, 's interpretation. I agree with the findings as stated. [facility]study [facility] [place], [place].Electronically signed by: JOHN ARAGON MD Normal [facility] CBC AND DIFFERENTIALon 05-13 % AUTOMATED IMMATURE GRAN 0.7 % Normal 0.0 - 0.9 [facility] Comment on above: Result Comment: Perc ent differential counts (%) should be interpreted in the context of the absolute cell counts (cells/L). Performed By: #### U A ####[facility] [address] % NEUTROPHIL 90.3 % Normal 40.0 - 80.0 [facility] Comment on above: Performed By: #### U A ####[facility] [place] [address] Basophils/100 WBC Auto (Bld) 0.2 % Normal 0.0 - 2.0 [facility] Comment on above: Performed By: #### U A ####[facility] [place] [address] Basophils/100 WBC Auto (Bld) 0.04 x10E9/L Normal 0.00 - 0.10 [facility] Comment on above: Performed By: #### U A ####[facility] [place] [address] Eosinophils 0.00 10*3/uL Normal 0.00 - 0.70 [facility] Comment on above: Performed By: #### U A ####[facility] [place] [address] Eosinophils/100 leukocytes 0.0 % Normal 0.0 - 6.0 [facility] Comment on above: Performed By: #### U A ####[facility] [place] [address] Erythrocyte distribution width Auto Ratio (RBC) 13.3 % Normal 11.5 - 14.5 [facility] Comment on above: Performed By: #### U A ####[facility] [place] [address] Erythrocytes (RBC) 3.73 x10E12/L Low 4.00 - 5.20 [facility] Comment on above: Performed By: #### U A ####[facility] [place] [address] Hematocrit (HCT) 31.3 % Low 36.0 - 46.0 [facility] Comment on above: Performed By: #### U A ####[facility] [place] [address] Hemoglobin mass conc (Bld) 10.6 g/dL Low 12.0 - 16.0 [facility] Comment on above: Performed By: #### U A ####[facility] [place] [address] Lymphocytes 1.44 10*3/uL Normal 1.20 - 4.80 [facility] Comment on above: Performed By: #### U A ####[facility] [place] [address] Lymphocytes/100 leukocytes 7.6 % Low 13.0 - 44.0 [facility] Comment on above: Performed By: #### U A ####[facility] [place] [address] MCHC mass conc (RBC) 33.9 g/dL Normal 32.0 - 36.0 [facility] Comment on above: Performed By: #### U A ####[facility] [place] [address] MCV 84 fL Normal 80 - 100 [facility] Comment on above: Performed By: #### U A ####[facility] [place] [address] Monocytes 0.23 10*3/uL Normal 0.10 - 1.00 [facility] Comment on above: Performed By: #### U A ####[facility] [place] [address] Monocytes/100 leukocytes 1.2 % Low 2.0 - 10.0 [facility] Comment on above: Performed By: #### U A ####[facility] [place] [address] Neutrophils 17.10 10*3/uL High 1.20 - 7.70 [facility] Comment on above: Performed By: #### U A ####[facility] [place] [address] Nucleated erythrocytes 0.0 /100 WBC Normal 0.0-0.0 [facility] Comment on above: Performed By: #### U A ####[facility] [place] [address] Platelets 355 10*3/uL Normal 150 - 450 [facility] Comment on above: Performed By: #### U A ####[facility] [place] [address] WBC (Leukocytes) 18.9 10*3/uL High 4.4 - 11.3 [facility] Comment on above: Performed By: #### U A ####[facility] [place] [address] COAGULATION SCREENon 018 aPTT 23 s Low 25 - 36 [facility] Comment on above: Result Comment: THE APTT IS NO LONGER USED FOR MONITORING UNFRACTIONATED HEPARIN THERAPY. FOR MONITORING HEPARIN THERAPY, USE THE HEPARIN ASSAY. Performed By: #### U A ####[facility] [place] [address] INR Coag RelTime (PPP) 1.1 {INR} Normal 0.9 - 1.1 [facility] Comment on above: Performed By: #### U A ####[facility] [place] [address] Prothrombin time (PT) Coag time (PPP) 12.7 s Normal 9.8 - 12.7 [facility] Comment on above: Performed By: #### U A ####[facility] [place] [address] aPTT Canceled Normal [facility] Comment on above: Order Comment: TEST COAGULATION SCREEN WAS CANCELLED, 05/13/2017 18:03 QNS, PLEASE RESUBMIT.. Result Comment: THE APTT IS NO LONGER USED FOR MONITORING UNFRACTIONATED HEPARIN THERAPY. FOR MONITORING HEPARIN THERAPY, USE THE HEPARIN ASSAY. Performed By: #### U A ####[facility] [place] [address] INR Coag RelTime (PPP) Canceled Normal [facility] Comment on above: Order Comment: TEST COAGULATION SCREEN WAS CANCELLED, 05/13/2017 18:03 QNS, PLEASE RESUBMIT.. Performed By: #### U A ####[facility] [place] [address] Prothrombin time (PT) Coag time (PPP) Canceled Normal [facility] Comment on above: Order Comment: TEST COAGULATION SCREEN WAS CANCELLED, 05/13/2017 18:03 QNS, PLEASE RESUBMIT.. Performed By: #### U A ####[facility] [place] [address] GLUCOSE-POCTon 05-13-2017 Glucose mass conc 225 mg/dL High 74 - 99 [facility] Comment on above: Performed By: #### C RP ####[facility] [place] [address] Glucose mass conc 199 mg/dL High 74 - 99 [facility] Comment on above: Performed By: #### C RP ####[facility] [place] [address] Glucose mass conc 200 mg/dL High 74 - 99 [facility] Comment on above: Performed By: #### U A ####[facility] [place] [address] Glucose mass conc 145 mg/dL High 74 - 99 [facility] Comment on above: Performed By: #### U A ####[facility] [place] [address] Glucose mass conc 148 mg/dL High 74 - 99 [facility] Comment on above: Performed By: #### U A ####[facility] [place] [address] Glucose mass conc 158 mg/dL High 74 - 99 [facility] Comment on above: Performed By: #### U A ####[facility] [place] [address] Glucose mass conc 161 mg/dL High 74 - 99 [facility] Comment on above: Performed By: #### U A ####[facility] [place] [address] Glucose mass conc 173 mg/dL High 74 - 99 [facility] Comment on above: Performed By: #### C BCDF ####[facility] [place] [address] MAGNESIUMon 05-13-2017 Magnesium 1.78 mg/dL Normal 1.60 - 2.40 [facility] Comment on above: Performed By: #### U A ####[facility] [place] [address] NR MRI T-SPINE WOon 05-13-19 18 NR MRI T-SPINE WO Name: ELDA TARIQ STUDY:NR MRI T-SPINE WO; 05/13/2017 12:55 pm INDICATION:Signs/Symptoms: s/p T3-10 decompressive laminectomy, Lie Flat: Yes,Pre Med: No. COMPARISON:Preoperative CT thoracic spine from 05/11/2017. ORDERING CLINICIAN:FRANCIS RODRÍGUEZ TECHNIQUE:MRI of the thoracic spine was performed with acquisition of sagittalT2, sagittal T1, axial T1, and axial T2 weighted sequences. FINDINGS:There are postoperative changes from laminectomies at T2 throughT9-T10 for spinal decompression. There is edema in the laminectomybeds. There is no hematoma in the spinal canal. There are bulky disc osteophyte complexes/ossification of posteriorlongitudinal ligament at T2-T3 through T9-T10, most pronounced atT6-T8, and calcification of the ligamentum flavum at T3-T4, T4-T5,T5-T6, and T8-T9 which result in variable spinal canal stenosis.Spinal canal stenosis is most pronounced (marked) at T7-T8 withflattening of the cord and to a lesser extent at T2-T3. There ismoderate spinal canal stenosis at T3-T4, T4-T5, T5-T6, and T6-T7.There is mild spinal canal stenosis at T8-T9 and T9-T10. There is T2 hyperintense signal in the cord T2-T3, T4-T5, T5-T6,T6-T7, and T7-T8 which may reflect edema and/or myelomalacia. Ofnote, evaluation of the cord is somewhat degraded due to spinal canalstenosis at multiple levels. There is mild left neural foraminal narrowing at T3-T4 and T4-T5 andmild right neural foraminal narrowing at T2-T3. There is mild facet osteoarthropathy at T10-T11 and T11-T12. IMPRESSION:1. Postoperative changes from laminectomies at T2 through T9-T10 forspinal decompression. There is edema in the laminectomy beds. Thereis no hematoma in the spinal canal. 2. Redemonstration of bulky anterior disc osteophytecomplexes/ossifi cation of posterior longitudinal ligament andcalcification of ligamentum flavum at multiple levels. There isresulting variable spinal canal stenosis, most pronounced at T2-T3and T7-T8 causing marked spinal canal stenosis and koxm-rc-jrrixfeaocamdr canal stenosis at multiple other levels. There is abnormalsignal in the cord at T2 through T7-T8 which is most consistent withedema and/or myelomalacia. There is stable neural foraminal narrowingat multiple levels. This study was interpreted at [facility]. Electronically signed by: MATTHIAS BROCK MD Normal [facility] RENAL FUNCTION PANELon 05-13 Albumin 4.1 g/dL Normal 3.4 - 5.0 [facility] Comment on above: Performed By: #### U A ####[facility] [place] [address] Anion gap 16 mmol/L Normal 10 - 20 [facility] Comment on above: Performed By: #### U A ####[facility] [place] [address] Bicarbonate (HCO3) 23 mmol/L Normal 21 - 32 [facility] Comment on above: Performed By: #### U A ####[facility] [place] [address] Calcium 8.5 mg/dL Low 8.6 - 10.6 [facility] Comment on above: Performed By: #### U A ####[facility] [place] [address] Chloride 101 mmol/L Normal 98 - 107 [facility] Comment on above: Performed By: #### U A ####[facility] [place] [address] Creatinine 0.56 mg/dL Normal 0.50 - 1.05 [facility] Comment on above: Performed By: #### U A ####[facility] [place] [address] eGFR (non-black) mL/min/{1.73_m2} Normal >60 [facility] Comment on above: Result Comment: CALC ULATIONS OF ESTIMATED GFR ARE PERFORMED USING THE MDRD STUDY EQUATION FOR THE IDMS-TRACEABLE CREATININE METHODS. CLIN CHEM 2007;53:766-72 Performed By: #### U A ####[facility] [place] [address] Glucose mass conc 169 mg/dL High 74 - 99 [facility] Comment on above: Performed By: #### U A ####[facility] [place] [address] Phosphate 4.1 mg/dL Normal 2.5 - 4.9 [facility] Comment on above: Result Comment: The performance characteristics of phosphorus testing in heparinized plasma have been validated by the individual laboratory site where testing is performed. Testing on heparinized plasma is not approved by the FDA; however, such approval is not necessary. Performed By: #### U A ####[facility] [place] [address] Potassium molar conc 4.4 mmol/L Normal 3.5 - 5.3 [facility] Comment on above: Result Comment: MILD HEMOLYSIS DETECTED. The result may be falsely elevated due tohemolysis or other interferents. Clinical correlation is recommended.Repeat testing may be considered. Performed By: #### U A ####[facility] [place] [address] Sodium 136 mmol/L Normal 136 - 145 [facility] Comment on above: Performed By: #### U A ####[facility] [place] [address] Urea nitrogen 18 mg/dL Normal 6 - 23 [facility] Comment on above: Performed By: #### U A ####[facility] [place] [address] CBCon 05-12-2017 Erythrocyte distribution width Auto Ratio (RBC) 13.3 % Normal 11.5 - 14.5 [facility] Comment on above: Performed By: #### C BCDF ####[facility] [place] [address] Erythrocytes (RBC) 4.70 x10E12/L Normal 4.00 - 5.20 [facility] Comment on above: Performed By: #### C BCDF ####[facility] [place] [address] Hematocrit (HCT) 41.0 % Normal 36.0 - 46.0 [facility] Comment on above: Performed By: #### C BCDF ####[facility] [place] [address] Hemoglobin mass conc (Bld) 13.4 g/dL Normal 12.0 - 16.0 [facility] Comment on above: Performed By: #### C BCDF ####[facility] [place] [address] MCHC mass conc (RBC) 32.7 g/dL Normal 32.0 - 36.0 [facility] Comment on above: Performed By: #### C BCDF ####[facility] [place] [address] MCV 87 fL Normal 80 - 100 [facility] Comment on above: Performed By: #### C BCDF ####[facility] [place] [address] Nucleated erythrocytes 0.0 /100 WBC Normal 0.0-0.0 [facility] Comment on above: Performed By: #### C BCDF ####[facility] [place] [address] Platelets 326 10*3/uL Normal 150 - 450 [facility] Comment on above: Performed By: #### C BCDF ####[facility] [place] [address] WBC (Leukocytes) 12.8 10*3/uL High 4.4 - 11.3 [facility] Comment on above: Performed By: #### C BCDF ####[facility] [place] [address] RENAL FUNCTION PANELon 05-12 Albumin 4.0 g/dL Normal 3.4 - 5.0 [facility] Comment on above: Performed By: #### C BCDF ####[facility] [place] [address] Anion gap 13 mmol/L Normal 10 - 20 [facility] Comment on above: Performed By: #### C BCDF ####[facility] [place] [address] Bicarbonate (HCO3) 29 mmol/L Normal 21 - 32 [facility] Comment on above: Performed By: #### C BCDF ####[facility] [place] [address] Calcium 9.5 mg/dL Normal 8.6 - 10.6 [facility] Comment on above: Performed By: #### C BCDF ####[facility] [place] [address] Chloride 100 mmol/L Normal 98 - 107 [facility] Comment on above: Performed By: #### C BCDF ####[facility] [place] [address] Creatinine 0.58 mg/dL Normal 0.50 - 1.05 [facility] Comment on above: Performed By: #### C BCDF ####[facility] [place] [address] eGFR (non-black) mL/min/{1.73_m2} Normal >60 [facility] Comment on above: Result Comment: CALC ULATIONS OF ESTIMATED GFR ARE PERFORMED USING THE MDRD STUDY EQUATION FOR THE IDMS-TRACEABLE CREATININE METHODS. CLIN CHEM 2007;53:766-72 Performed By: #### C BCDF ####[facility] [place] [address] Glucose mass conc 102 mg/dL High 74 - 99 [facility] Comment on above: Performed By: #### C BCDF ####[facility] [place] [address] Phosphate 5.1 mg/dL High 2.5 - 4.9 [facility] Comment on above: Result Comment: The performance characteristics of phosphorus testing in heparinized plasma have been validated by the individual laboratory site where testing is performed. Testing on heparinized plasma is not approved by the FDA; however, such approval is not necessary. Performed By: #### C BCDF ####[facility] [place] [address] Potassium molar conc 4.1 mmol/L Normal 3.5 - 5.3 [facility] Comment on above: Performed By: #### C BCDF ####[facility] [place] [address] Sodium 138 mmol/L Normal 136 - 145 [facility] Comment on above: Performed By: #### C BCDF ####[facility] [place] [address] Urea nitrogen 29 mg/dL High 6 - 23 [facility] Comment on above: Performed By: #### C BCDF ####[facility] [place] [address] C-REACTIVE PROTEINon 018 C reactive protein (CRP) 1.82 mg/dL Abnormal [facility] Comment on above: Result Comment: REF VALUE< 1.00 Performed By: #### C RP ####[facility] [place] [address] CBC AND DIFFERENTIALon 05-11 % AUTOMATED IMMATURE GRAN 0.5 % Normal 0.0 - 0.9 [facility] Comment on above: Result Comment: Perc ent differential counts (%) should be interpreted in the context of the absolute cell counts (cells/L). Performed By: #### C BCDF ####[facility] [place] [address] % NEUTROPHIL 87.5 % Normal 40.0 - 80.0 [facility] Comment on above: Performed By: #### C BCDF ####[facility] [place] [address] Basophils/100 WBC Auto (Bld) 0.2 % Normal 0.0 - 2.0 [facility] Comment on above: Performed By: #### C BCDF ####[facility] [place] [address] Basophils/100 WBC Auto (Bld) 0.03 x10E9/L Normal 0.00 - 0.10 [facility] Comment on above: Performed By: #### C BCDF ####[facility] [place] [address] Eosinophils 0.00 10*3/uL Normal 0.00 - 0.70 [facility] Comment on above: Performed By: #### C BCDF ####[facility] [place] [address] Eosinophils/100 leukocytes 0.0 % Normal 0.0 - 6.0 [facility] Comment on above: Performed By: #### C BCDF ####[facility] [place] [address] Erythrocyte distribution width Auto Ratio (RBC) 13.1 % Normal 11.5 - 14.5 [facility] Comment on above: Performed By: #### C BCDF ####[facility] [place] [address] Erythrocytes (RBC) 5.14 x10E12/L Normal 4.00 - 5.20 [facility] Comment on above: Performed By: #### C BCDF ####[facility] [place] [address] Hematocrit (HCT) 44.3 % Normal 36.0 - 46.0 [facility] Comment on above: Performed By: #### C BCDF ####[facility] [place] [address] Hemoglobin mass conc (Bld) 14.5 g/dL Normal 12.0 - 16.0 [facility] Comment on above: Performed By: #### C BCDF ####[facility] [place] [address] Lymphocytes 1.57 10*3/uL Normal 1.20 - 4.80 [facility] Comment on above: Performed By: #### C BCDF ####[facility] [place] [address] Lymphocytes/100 leukocytes 11.0 % Low 13.0 - 44.0 [facility] Comment on above: Performed By: #### C BCDF ####[facility] [place] [address] MCHC mass conc (RBC) 32.7 g/dL Normal 32.0 - 36.0 [facility] Comment on above: Performed By: #### C BCDF ####[facility] [place] [address] MCV 86 fL Normal 80 - 100 [facility] Comment on above: Performed By: #### C BCDF ####[facility] [place] [address] Monocytes 0.12 10*3/uL Normal 0.10 - 1.00 [facility] Comment on above: Performed By: #### C BCDF ####[facility] [place] [address] Monocytes/100 leukocytes 0.8 % Low 2.0 - 10.0 [facility] Comment on above: Performed By: #### C BCDF ####[facility] [place] [address] Neutrophils 12.51 10*3/uL High 1.20 - 7.70 [facility] Comment on above: Performed By: #### C BCDF ####[facility] [place] [address] Nucleated erythrocytes 0.0 /100 WBC Normal 0.0-0.0 [facility] Comment on above: Performed By: #### C BCDF ####[facility] [place] [address] Platelets 378 10*3/uL Normal 150 - 450 [facility] Comment on above: Performed By: #### C BCDF ####[facility] [place] [address] WBC (Leukocytes) 14.3 10*3/uL High 4.4 - 11.3 [facility] Comment on above: Performed By: #### C BCDF ####[facility] [place] [address] COAGULATION SCREENon 018 aPTT 28 s Normal 25 - 36 [facility] Comment on above: Result Comment: THE APTT IS NO LONGER USED FOR MONITORING UNFRACTIONATED HEPARIN THERAPY. FOR MONITORING HEPARIN THERAPY, USE THE HEPARIN ASSAY. Performed By: #### C BCDF ####[facility] [place] [address] INR Coag RelTime (PPP) 1.0 {INR} Normal 0.9 - 1.1 [facility] Comment on above: Performed By: #### C BCDF ####[facility] [place] [address] Prothrombin time (PT) Coag time (PPP) 11.5 s Normal 9.8 - 12.7 [facility] Comment on above: Performed By: #### C BCDF ####[facility] [place] [address] ESR-WESTERGRENon 05-11-2017 ESR-WESTERGREN 24 mm/h High 0 - 20 [facility] Comment on above: Performed By: #### E SRWS ####[facility] [place] [address] HCG,BETA-QUANTITATIVEon HCG,BETA-QUANTITATIVE <2 Normal [facility] Comment on above: Result Comment: Low- level positive HCG results can be seen in early , in efren- or post-menopausal females due to normal pituitary HCG production, or with analytic interference. Repeat testing in 48-72 hours can aid in assessing for as results should double in this time period. FSH measurement is recommended in efren- or post-menopausal females as concurrent elevation of FSH can support pituitary production as the source of the HCG elevation.. Total HCG measurement is performed using the Siemens Advia Centaur immunoassay which detects intact HCG and free beta HCG subunit. This test is not indicated for use as a tumor marker. HCG testing is performed using a different test methodology at [facility] than other [facility]. Direct result comparison should only be made within the same method.REF VALUESNON FEMALE <5MALES <5 Performed By: #### H CGQU ####[facility] [place] [address] HCG,URINEon 05-11-2017 HCG.beta subunit ( test) Ql (U) Negative Normal Negative [facility] Comment on above: Performed By: #### H CGU ####[facility] [place] [address] C-SPINE WO CONTRASTon 05-11-[address] C-SPINE WO CONTRAST Name: HERMILA ELDA STUDY:NR CT C-SPINE WO CONTRAST; NR CT T-SPINE WO CONTRAST; 05/11/2017 2:15 am INDICATION:Signs/Symptoms: pre-op surgical planning, myelopathy; Signs/Symptoms:myelpathy. COMPARISON:None. [id number] ORDERING CLINICIAN:FRANCIS RODRÍGUEZ TECHNIQUE:Axial CT images of the cervical and thoracic spine are obtained.Axial, coronal and sagittal reconstructions are provided for review. FINDINGS:Cervical spine: Alignment: There is straightening of the normal cervical lordosis. Nofocal subluxation is identified. Craniocervical Junction: There are degenerative changes at theatlantodental interval. Otherwise, the odontoid process andcraniocervical junction are intact. Vertebrae/Disc Spaces: The cervical vertebral body heights areintact. Loss of disc height and endplate spurring are most pronouncedat C6/7. There is calcification and/or ossification of the posteriorlongitudinal ligament at C3, C5, C6, and C7. Evaluation of the degree of central canal stenosis is limited on thisnon myelographic CT. C2-3: There is no significant bony encroachment on the central canalor neural foramina.C3-4: There is ossification of the posterior longitudinal ligament.There is also subtle disc bulging with some calcification along itsposterior margin. There is likely at least mild central canalstenosis. There is no significant bony encroachment on the neuralforamina.C4-5: There is subtle disc bulging and endplate spurring likely withat least mild central canal stenosis. There is no significant bonyencroachment on the neural foramina.C5-6: There is subtle disc bulging and endplate spurring. There isalso ossification of the posterior longitudinal ligament posterior tothe C5 and C6 vertebral bodies. At least mild central canal stenosisis suspected. There is minimal neural foraminal encroachment due touncovertebral joint hypertrophy.C6-7: There is a posterior disc/osteophyte complex. There is alsoossification of the posterior longitudinal ligament posterior to theC6 and C7 vertebral bodies. At least moderate central canal stenosisis suspected. There is mild right and rbrd-gu-leenirev left neuralforaminal narrowing due to uncovertebral joint and facet hypertrophy.C7-T1: There is no significant bony encroachment on the central canalor neural foramina. Prevertebral/Paraspinal Soft Tissues: The prevertebral and paraspinalsoft tissues are unremarkable. Thoracic spine: Alignment: The thoracic vertebral bodies are in anatomic alignment. Vertebrae/disc spaces: The thoracic vertebral body heights areintact. There is multilevel degenerative endplate spurring. T1-2: There is no significant bony encroachment on the central canal.T2-3: There is ossification of the posterior longitudinal ligament aswell as dense calcification along the posterior margin of the disccentered to the right of midline. There is at least mild centralcanal stenosis.T3-4: There is dense calcification or ossification along the leftventral thecal sac. There is also ossification of ligamentum flavumon the right with at least moderate central canal stenosis.T4-5: There is ossification of ligamentum flavum asymmetrically morepronounced to the left. There is also ossification of the posteriorlongitudinal ligament and along the posterior aspect of the discspace with severe central canal stenosis particularly to the left ofmidline.T5-6: There is ossification of ligamentum flavum on the left. Thereis also ossification along the posterior margin of the disc andinvolving the posterior longitudinal ligament. This ossification isalso asymmetrically more pronounced to the left and there is at leastmoderate central canal stenosis.T6-7: There is ossification of the posterior longitudinal ligamentand along the ventral aspect of the dura with at least moderatecentral canal stenosis.T7-8: There is ossification of the posterior longitudinal ligamentand along the ventral aspect of the dura with severe central canalstenosis.T8-9: There is ossification of ligamentum flavum and along theanterior margin of the dura, right greater than left with at leastmild to moderate central canal stenosis.T9-10: There is ossification along the anterior margin of the duraasymmetrically more pronounced to the left with at least mild centralcanal stenosis.T10-11: There is mild ligamentum flavum hypertrophy which is at leastpartially ossified. There is mild central canal stenosis.T11-12: There is asymmetric facet and ligamentum flavum hypertrophyand ossification on the left with very mild central canal stenosis.T12-L1: Mild degenerative facet changes do not significantly narrowthe central canal. The liver is diffusely diminished in attenuation suggesting fattyinfiltration. IMPRESSION:1. Degenerative changes of the cervical spine are most pronounced atC6/7.2. Multilevel degenerative changes of the thoracic spine with densecalcification and/or ossification of ligamentum flavum. There is alsoscattered ossification of the posterior longitudinal ligament as wellas dense calcification or ossification along the posterior discspaces at multiple levels throughout the thoracic spine. Associatedcentral canal stenosis is most pronounced from T3-4 through T8-9 andto a lesser extent at T9-10 and T2-3.Electronically signed by: DO Cathy SOTOMAYOR [facility] NR CT T-SPINE WO CONTRASTon 05-11-[address] T-SPINE WO CONTRAST Name: ELDA TARIQ STUDY:NR CT C-SPINE WO CONTRAST; NR CT T-SPINE WO CONTRAST; 05/11/2017 2:15 am INDICATION:Signs/Symptoms: pre-op surgical planning, myelopathy; Signs/Symptoms:myelpathy. COMPARISON:None. [id number] ORDERING CLINICIAN:FRANCIS RODRÍGUEZ TECHNIQUE:Axial CT images of the cervical and thoracic spine are obtained.Axial, coronal and sagittal reconstructions are provided for review. FINDINGS:Cervical spine: Alignment: There is straightening of the normal cervical lordosis. Nofocal subluxation is identified. Craniocervical Junction: There are degenerative changes at theatlantodental interval. Otherwise, the odontoid process andcraniocervical junction are intact. Vertebrae/Disc Spaces: The cervical vertebral body heights areintact. Loss of disc height and endplate spurring are most pronouncedat C6/7. There is calcification and/or ossification of the posteriorlongitudinal ligament at C3, C5, C6, and C7. Evaluation of the degree of central canal stenosis is limited on thisnon myelographic CT. C2-3: There is no significant bony encroachment on the central canalor neural foramina.C3-4: There is ossification of the posterior longitudinal ligament.There is also subtle disc bulging with some calcification along itsposterior margin. There is likely at least mild central canalstenosis. There is no significant bony encroachment on the neuralforamina.C4-5: There is subtle disc bulging and endplate spurring likely withat least mild central canal stenosis. There is no significant bonyencroachment on the neural foramina.C5-6: There is subtle disc bulging and endplate spurring. There isalso ossification of the posterior longitudinal ligament posterior tothe C5 and C6 vertebral bodies. At least mild central canal stenosisis suspected. There is minimal neural foraminal encroachment due touncovertebral joint hypertrophy.C6-7: There is a posterior disc/osteophyte complex. There is alsoossification of the posterior longitudinal ligament posterior to theC6 and C7 vertebral bodies. At least moderate central canal stenosisis suspected. There is mild right and pqyq-[id number] left neuralforaminal narrowing due to uncovertebral joint and facet hypertrophy.C7-T1: There is no significant bony encroachment on the central canalor neural foramina. Prevertebral/Paraspinal Soft Tissues: The prevertebral and paraspinalsoft tissues are unremarkable. Thoracic spine: Alignment: The thoracic vertebral bodies are in anatomic alignment. Vertebrae/disc spaces: The thoracic vertebral body heights areintact. There is multilevel degenerative endplate spurring. T1-2: There is no significant bony encroachment on the central canal.T2-3: There is ossification of the posterior longitudinal ligament aswell as dense calcification along the posterior margin of the disccentered to the right of midline. There is at least mild centralcanal stenosis.T3-4: There is dense calcification or ossification along the leftventral thecal sac. There is also ossification of ligamentum flavumon the right with at least moderate central canal stenosis.T4-5: There is ossification of ligamentum flavum asymmetrically morepronounced to the left. There is also ossification of the posteriorlongitudinal ligament and along the posterior aspect of the discspace with severe central canal stenosis particularly to the left ofmidline.T5-6: There is ossification of ligamentum flavum on the left. Thereis also ossification along the posterior margin of the disc andinvolving the posterior longitudinal ligament. This ossification isalso asymmetrically more pronounced to the left and there is at leastmoderate central canal stenosis.T6-7: There is ossification of the posterior longitudinal ligamentand along the ventral aspect of the dura with at least moderatecentral canal stenosis.T7-8: There is ossification of the posterior longitudinal ligamentand along the ventral aspect of the dura with severe central canalstenosis.T8-9: There is ossification of ligamentum flavum and along theanterior margin of the dura, right greater than left with at leastmild to moderate central canal stenosis.T9-10: There is ossification along the anterior margin of the duraasymmetrically more pronounced to the left with at least mild centralcanal stenosis.T10-11: There is mild ligamentum flavum hypertrophy which is at leastpartially ossified. There is mild central canal stenosis.T11-12: There is asymmetric facet and ligamentum flavum hypertrophyand ossification on the left with very mild central canal stenosis.T12-L1: Mild degenerative facet changes do not significantly narrowthe central canal. The liver is diffusely diminished in attenuation suggesting fattyinfiltration. IMPRESSION:1. Degenerative changes of the cervical spine are most pronounced atC6/7.2. Multilevel degenerative changes of the thoracic spine with densecalcification and/or ossification of ligamentum flavum. There is alsoscattered ossification of the posterior longitudinal ligament as wellas dense calcification or ossification along the posterior discspaces at multiple levels throughout the thoracic spine. Associatedcentral canal stenosis is most pronounced from T3-4 through T8-9 andto a lesser extent at T9-10 and T2-3.Electronically signed by: DO Cathy SOTOMAYOR [facility] RENAL FUNCTION PANELon 05-11 Albumin 4.4 g/dL Normal 3.4 - 5.0 [facility] Comment on above: Performed By: #### R ENAL ####[facility] [place] [address] Anion gap 15 mmol/L Normal 10 - 20 [facility] Comment on above: Performed By: #### R ENAL ####[facility] [place] [address] Bicarbonate (HCO3) 25 mmol/L Normal 21 - 32 [facility] Comment on above: Performed By: #### R ENAL ####[facility] [place] [address] Calcium 9.8 mg/dL Normal 8.6 - 10.6 [facility] Comment on above: Performed By: #### R ENAL ####[facility] [place] [address] Chloride 98 mmol/L Normal 98 - 107 [facility] Comment on above: Performed By: #### R ENAL ####[facility] [place] [address] Creatinine 0.58 mg/dL Normal 0.50 - 1.05 [facility] Comment on above: Performed By: #### R ENAL ####[facility] [place] [address] eGFR (non-black) mL/min/{1.73_m2} Normal >60 [facility] Comment on above: Performed By: #### R ENAL ####[facility] [place] [address] Result Comment: CALC ULATIONS OF ESTIMATED GFR ARE PERFORMED USING THE MDRD STUDY EQUATION FOR THE IDMS-TRACEABLE CREATININE METHODS. CLIN CHEM 2007;53:766-72 Glucose mass conc 259 mg/dL High 74 - 99 [facility] Comment on above: Performed By: #### R ENAL ####[facility] [place] [address] Phosphate 2.5 mg/dL Normal 2.5 - 4.9 [facility] Comment on above: Result Comment: The performance characteristics of phosphorus testing in heparinized plasma have been validated by the individual laboratory site where testing is performed. Testing on heparinized plasma is not approved by the FDA; however, such approval is not necessary. Performed By: #### R ENAL ####[facility] [place] [address] Potassium molar conc 4.4 mmol/L Normal 3.5 - 5.3 [facility] Comment on above: Performed By: #### R ENAL ####[facility] [place] [address] Sodium 134 mmol/L Low 136 - 145 [facility] Comment on above: Performed By: #### R ENAL ####[facility] [place] [address] Urea nitrogen 17 mg/dL Normal 6 - 23 [facility] Comment on above: Performed By: #### R ENAL ####[facility] [place] [address] REQUEST-LEUKOREDUCED RED WILMER LSon 05-11-2017 REQUEST-LEUKOREDUCED RED CELLS ORDER RECD Normal [facility] Comment on above: Performed By: #### O ALBERENE STONE SETTER ####[facility] [place] [address] STAPH/MRSA SCREENon 05-11-19 18 STAPH/MRSA SCREEN PATIENT: LOVELY TARIQ LOCATION: [facility]#: [id number] : 74 AGE: SEX: F ORDERED BY: ELSA RODRÍGUEZ: ANTERIOR NARES COLLECTED: 05/11/17 01:23ANTIBIOTICS AT JESSICA.: RECEIVED : 05/11/17 03:05SITE: nares R E S U L T S STAPH/MRSA SCREEN FINAL 05/13/17 12:56 ISOLATE1 : Staphylococcus aureus 1+ METHICILLIN(OXACILLIN)SUSC EPTIBLE STAPHYLOCOCCI ARE SUSCEPTIBLE TO SEMI-SYNTHETIC PENICILLINS (OXACILLIN,NAFCILLIN, ETC),BETA-LACTAM/BETA-LACT AMASE INHIBITOR COMBINATIONS(INCLUDING AMPICILLIN/SULBACTAM, AMOXICILLIN/CLAVULANATE AND PIPERACILLIN/TAZOBACTAM), CARBAPENEMS AND CEPHALOSPORINS APPROVED FOR USE BY THE FDA FOR STAPHYLOCOCCAL INFECTIONS. Organism S aureus Antibiotic BP INTRP Ampicill in R Clindamycin S Ciprofloxacin S Erythromycin S Gentamicin S Levofloxacin S Oxacillin S Penicillin R Trimeth/Sulfa S Tetracycline I Vancomycin S S=SUSCEPTIBLE I=INTERMEDIATE R=RESISTANT SDD=SUSCEPTIBLE DOSE DEPENDENT NS=NONSUSCEPTIBLEX=REPORTE D IN ERROR Normal [facility] Comment on above: Performed By: #### C BCDF ####[facility] [place] [address] TH CHEST 1 VIEWon 05-11-2017 TH CHEST 1 VIEW Name: ELDA TARIQ STUDY:TH CHEST 1 VIEW; 05/11/2017 6:16 pm INDICATION:Signs/Symptoms: preop. COMPARISON:None. ORDERING CLINICIAN:MATTEO MONZON FINDINGS:Life-support systems in satisfactory position. CARDIOMEDIASTINAL SILHOUETTE:Cardiomediastin al silhouette is normal in size and configuration. LUNGS:Lungs are clear. ABDOMEN:No remarkable upper abdominal findings. BONES:No acute osseous changes. IMPRESSION:1. No evidence of acute cardiopulmonary process.Electronically signed by: Katia SAMPSON MD Normal [facility] TYPE + SCREENon 05-11-2017 ABO TYPE B Normal [facility] Comment on above: Performed By: #### T +S ####[facility] [place] [address] ANTIBODY SCREEN Negative Normal [facility] Comment on above: Performed By: #### T +S ####[facility] [place] [address] RH TYPE Positive Normal [facility] Comment on above: Performed By: #### T +S ####[facility] [place] [address] URINALYSISon 05-11-2017 Bilirubin (total) Negative Normal NEGATIVE [facility] Comment on above: Performed By: #### U A ####[facility] [place] [address] BLOOD Negative Normal NEGATIVE [facility] Comment on above: Performed By: #### U A ####[facility] [place] [address] Glucose mass conc >=500 (3+) Abnormal NEGATIVE [facility] Comment on above: Performed By: #### U A ####[facility] [place] [address] pH of blood 6.0 [pH] Normal 5.0 - 8.0 [facility] Comment on above: Performed By: #### U A ####[facility] [place] [address] Protein Negative Normal NEGATIVE [facility] Comment on above: Performed By: #### U A ####[facility] [place] [address] Urine, appearance CLEAR Normal CLEAR [facility] Comment on above: Performed By: #### U A ####[facility] [place] [address] Urine, color STRAW Normal STRAW,YELLO W [facility] Comment on above: Performed By: #### U A ####[facility] [place] [address] Urine, ketones presence 5 (TRACE) Abnormal NEGATIVE [facility] Comment on above: Performed By: #### U A ####[facility] [place] [address] Urine, leukocyte esterase presence Negative Normal NEGATIVE [facility] Comment on above: Performed By: #### U A ####[facility] [place] [address] Urine, nitrite presence Negative Normal NEGATIVE [facility] Comment on above: Performed By: #### U A ####[facility] [place] [address] Urine, specific gravity 1.012 Normal 1.005 - 1.035 [facility] Comment on above: Performed By: #### U A ####[facility] [place] [address] Urine, urobilinogen <2.0 Normal 0.0 - 1.9 [facility] Comment on above: Performed By: #### U A ####[facility] [place] [address] Vital Signs Date Time Vital Sign Value Performing Clinician Facility 09-11-2023 11:45-040 Body height 149.86 cm VALE BARNES [facility] 09-11-2023 11:45-0400 Body mass index (BMI) [Ratio] 31.6 kg/m2 VALE BARNES [facility] 09-11-2023 11:45-040 Body temperature 97.3 [degF] VALE BARNES [facility] 09-11-2023 11:45-0400 Body weight 70.93 [facility] 11:45-0400 Diastolic blood pressure 71 mm[Hg] [facility] 09-11-2023 11:45-0400 Heart rate 96 /min [facility] 09-11-2023 11:45-0400 Respiratory rate 16 /min [facility] 09-11-2023 11:45-0400 SaO2% (BldA) [Mass fraction] 96 % [facility] 09-11-2023 11:45-0400 Systolic blood pressure 114 mm[Hg] [facility] 09-05-2023 14:57-0400 Diastolic blood pressure 66 mm[Hg] [facility] 09-05-2023 14:57-0400 Heart rate 105 /min [facility] 09-05-2023 14:57-0400 Respiratory rate 16 /min [facility] 09-05-2023 14:57-0400 SaO2% (BldA) [Mass fraction] 98 % [facility] 09-05-2023 14:57-0400 Systolic blood pressure 121 mm[Hg] [facility] 09-05-2023 12:45-0400 Body temperature 97.8 [degF] [facility] 09-05-2023 12:30-0400 Inhaled oxygen flow rate 3 L/min [facility] 09-05-2023 06:47-0400 Body height 149.86 cm [facility] 09-05-2023 06:47-0400 Body mass index (BMI) [Ratio] 31.1 kg/m2 [facility] 09-05-2023 06:47-0400 Body weight 70 kg [facility] 08-28-2023 11:56-0400 Body height 149.86 cm [facility] 08-28-2023 11:56-0400 Body mass index (BMI) [Ratio] 31.7 kg/m2 [facility] 08-28-2023 11:56-0400 Body temperature 97.5 [degF] [facility] 08-28-2023 11:56-0400 Body weight 71.21 kg [facility] 08-28-2023 11:56-0400 Diastolic blood pressure 81 mm[Hg] [facility] 08-28-2023 11:56-0400 Heart rate 81 /min [facility] 08-28-2023 11:56-0400 Respiratory rate 16 /min [facility] 08-28-2023 11:56-0400 SaO2% (BldA) [Mass fraction] 98 % [facility] 08-28-2023 11:56-0400 Systolic blood pressure 123 mm[Hg] [facility] 08-07-2023 11:16-0400 Body height 149.[address] Carly Croft Work Phone: [facility] 08-07-2023 11:16-0400 Body mass index (BMI) [Ratio] 32.5 kg/m2 Dr. Carly Croft Work Phone: [facility] 08-07-2023 11:16-0400 Body temperature 97.6 [degF] Dr. Carly Croft Work Phone: [facility] 08-07-2023 11:16-0400 Body weight 73.[address] Carly Croft Work Phone: [facility] 08-07-2023 11:16-0400 Diastolic blood pressure 83 mm[Hg] Dr. Carly Croft Work Phone: [facility] 08-07-2023 11:16-0400 Heart rate 80 /min Dr. Carly Croft Work Phone: [facility] 08-07-2023 11:16-0400 Respiratory rate 16 /min Dr. Carly Croft Work Phone: [facility] 08-07-2023 11:16-0400 SaO2% (BldA) [Mass fraction] 99 % Dr. Carly Croft Work Phone: [facility] 08-07-2023 11:16-0400 Systolic blood pressure 138 mm[Hg] Dr. Carly Croft Work Phone: [facility] 06-17-2023 18:24-0500 Diastolic blood pressure 84 mm[Hg] Obed Haedwinaenburg [employer] Work Phone: [facility] 06-17-2023 18:24-0500 Systolic blood pressure 140 mm[Hg] Obed Haedwinaenburg [employer] Work Phone: [facility] 06-17-2023 13:06-0500 Body temperature 96.6 [degF] Obed Steveericka [employer] Work Phone: [facility] 06-17-2023 13:06-0500 Heart rate 88 /min Obed Haedwinaenburg [employer] Work Phone: [facility] 06-17-2023 13:06-0500 SaO2% (BldA) [Mass fraction] 97 % Obed Steveedwinaenburg [employer] Work Phone: [facility] 06-12-2023 10:32-0500 Body height 149.[address] Carly Croft Work Phone: [facility] 06-12-2023 10:32-0500 Body mass index (BMI) [Ratio] 32.7 kg/m2 Dr. Carly Croft Work Phone: [facility] 06-12-2023 10:32-0500 Body temperature 98 [degF] Dr. Carly Croft Work Phone: [facility] 06-12-2023 10:32-0500 Body weight 73.[address] Carly Croft Work Phone: [facility] 06-12-2023 10:32-0500 Diastolic blood pressure 86 mm[Hg] Dr. Carly Croft Work Phone: [facility] 06-12-2023 10:32-0500 Heart rate 100 /min Dr. Carly Croft Work Phone: [facility] 06-12-2023 10:32-0500 Respiratory rate 18 /min Dr. Carly Croft Work Phone: [facility] 06-12-2023 10:32-0500 SaO2% (BldA) [Mass fraction] 97 % Dr. Carly Croft Work Phone: [facility] 06-12-2023 10:32-0500 Systolic blood pressure 144 mm[Hg] Dr. Carly Croft Work Phone: [facility] 06-06-2023 10:56-0500 Body mass index (BMI) [Ratio] 32.48 kg/m2 Prerna Segundo PA Work Phone: [facility] 06-06-2023 10:56-0500 Body weight 72.94 kg Prerna Segundo PA Work Phone: [facility] 06-06-2023 10:56-0500 Diastolic blood pressure 86 mm[Hg] Prerna Segundo PA Work Phone: [facility] 06-06-2023 10:56-0500 Systolic blood pressure 120 mm[Hg] Prerna Segundo PA Work Phone: [facility] 01-19-2022 18:10-0400 Body height 149.86 cm Laura Johnson Other [facility] Other 01-19-2022 18:10-0400 Body mass index (BMI) [Ratio] 31.3 kg/m2 Laura Johnson Other [facility] Other 01-19-2022 18:10-0400 Body temperature 97.9 [degF] Laura Johnson Other [facility] Other 01-19-2022 18:10-0400 Body weight 70.31 kg Laura Johnson Other [facility] Other 01-19-2022 18:10-0400 Diastolic blood pressure 84 mm[Hg] Laura Johnson Other [facility] Other 01-19-2022 18:10-0400 Respiratory rate 18 /min Laura Johnson Other [facility] Other 01-19-2022 18:10-0400 SaO2% (BldA) [Mass fraction] 98 % Laura Johnson Other [facility] Other 01-19-2022 18:10-0400 Systolic blood pressure 134 mm[Hg] Laura Johnson Other [facility] Other 04-21-2021 14:24-0500 Body height 149.9 cm Melva Antonio MD Work Phone: [facility] 04-21-2021 14:24-0500 Body temperature 97.11 [degF] Melva Antonio MD Work Phone: [facility] 04-21-2021 14:24-0500 Body weight 74.39 kg Melva Antonio MD Work Phone: [facility] 04-21-2021 14:24-0500 Diastolic blood pressure 81 mm[Hg] Melva Antonio MD Work Phone: [facility] 04-21-2021 14:24-0500 Heart rate 68 /min Melva Antonio MD Work Phone: [facility] 04-21-2021 14:24-0500 SaO2% (BldA) [Mass fraction] 97 % Melva Antonio MD Work Phone: [facility] 04-21-2021 14:24-0500 Systolic blood pressure 139 mm[Hg] Melva Antonio MD Work Phone: [facility] 02-02-2021 14:49-0400 Body temperature 98.1 [degF] Melva Antonio MD Work Phone: [facility] 02-02-2021 14:49-0400 Diastolic blood pressure 83 mm[Hg] Melva Antonio MD Work Phone: [facility] 02-02-2021 14:49-0400 Heart rate 74 /min Melva Antonio MD Work Phone: [facility] 02-02-2021 14:49-0400 Respiratory rate 22 /min Melva Antonio MD Work Phone: [facility] 02-02-2021 14:49-0400 Systolic blood pressure 130 mm[Hg] Melva Antonio MD Work Phone: [facility] 12-02-2020 12:55-0400 Body height 149.9 cm Melva Antonio MD Work Phone: [facility] 12-02-2020 12:55-0400 Body temperature 97.59 [degF] Melva Antonio MD Work Phone: [facility] 12-02-2020 12:55-0400 Body weight 72.12 kg Melva Antonio MD Work Phone: [facility] 12-02-2020 12:55-0400 Diastolic blood pressure 69 mm[Hg] Melva Antonio MD Work Phone: [facility] 12-02-2020 12:55-0400 Heart rate 74 /min Melva Antonio MD Work Phone: [facility] 12-02-2020 12:55-0400 SaO2% (BldA) [Mass fraction] 97 % Melva Antonio MD Work Phone: [facility] 12-02-2020 12:55-0400 Systolic blood pressure 126 mm[Hg] Melva Antonio MD Work Phone: [facility] Encounters Encounter Date Encounter Type Care Provider Facility Start: 10-22-2023 End: 10-22-2023 ambulatory Carly Ghazoul Facility:[facility] Start: 10-09-2023 End: 10-09-2023 ambulatory Carly Ghazoul Facility:[facility] Start: 10-02-2023 End: 10-02-2023 ambulatory Carly Ghazoul Facility:[facility] Start: 09-17-2023 End: 09-17-2023 ambulatory Carly Ghazoul Facility:[facility] Start: 09-11-2023 End: 09-11-2023 [facility] Start: 09-11-2023 End: 09-11-2023 ambulatory [facility] Work Phone: Start: 09-05-2023 ambulatory GIFTY MTZ Facility:[facility] Start: 09-05-2023 [facility] Start: 09-05-2023 End: 09-05-2023 Admission to same day surgery center [facility] Start: 09-05-2023 End: 09-05-2023 ambulatory [facility] Work Phone: Start: 08-28-2023 End: 08-28-2023 [facility] Start: 08-28-2023 End: 08-28-2023 ambulatory [facility] Work Phone: Start: 08-20-2023 Chart abstracting Unk Pcp (Hist) García whitley Start: 08-16-2023 End: 08-17-2023 ambulatory JORGE NORIEGA Not Available Start: 08-14-2023 End: 08-14-2023 ambulatory MARNI OLIVER Not Available Start: 08-07-2023 End: 08-07-[address] Carly Croft Work Phone: [facility] Work Phone: Start: 08-07-2023 End: 08-07-2023 ambulatory Carly Croft [facility] Work Phone: Start: 08-06-2023 End: 08-06-2023 ambulatory VALE BARNES Not Available Start: 07-31-2023 End: 07-31-2023 ambulatory VANDA KEARNS Not Available Start: 07-24-2023 End: 07-24-2023 Patient encounter procedure Tanika Peña MD Work Phone: Rehab Medicine Comment on above: APPOINTMENT CANCELLE D (Primary Dx) Start: 07-23-2023 End: 07-24-2023 ambulatory JORGE NORIEGA Not Available Start: 07-10-2023 End: 07-11-2023 ambulatory JORGE NORIEGA Not Available Start: 07-04-2023 End: 07-04-2023 ambulatory OBED ASHFORD Not Available Start: 06-27-2023 End: 06-27-2023 ambulatory Jaleesa Sales RT(R) Radiology Comment on above: Radiology MRI Start: 06-27-2023 Patient encounter procedure Jaleesa Sales RT(R) [facility] [place] Start: 06-21-2023 End: 06-21-2023 ambulatory JORGE NORIEGA Not Available Start: 06-18-2023 Bamboo flowsheet Elaina Hoops [facility] Start: 06-18-2023 Bamboo flowsheet Elaina Hoops [facility] Start: 06-18-2023 Telephone encounter Obed Ashford [employer] Work Phone: [facility] Start: 06-18-2023 End: 06-18-2023 ambulatory Elaina Hoops [facility] Comment on above: Closed fracture of d istal end of left tibia, unspecified fracture morphology, initial encounter (Primary Dx) Start: 06-17-2023 End: 06-18-2023 ambulatory OBED A HAEDWINAENBURG Not Available Start: 06-17-2023 Bamboo flowsheet Obed A Wilson edwinaenburg [employer] Work Phone: [facility] Start: 06-17-2023 Bamboo flowsheet Obed A Wilson edwinaenburg [employer] DES[employer]ER Work Phone: [facility] Start: 06-17-2023 End: 06-17-2023 Office outpatient visit 25 minutes Obed A Haedwinaenburg [employer] Work Phone: [facility] Comment on above: Fall on stairs, init ial encounter (Primary Dx); Right ankle swelling; Swelling of right foot; Left foot pain; Right leg pain; Other closed fracture of distal end of right tibia, initial encounter Start: 06-12-2023 End: 06-12-[address] Carly Croft Work Phone: [facility] Work Phone: Start: 06-12-2023 End: 06-12-2023 ambulatory Carly Croft [facility] Work Phone: Start: 06-06-2023 End: 06-06-2023 ambulatory PRERNA SEGUNDO Not Available Start: 06-06-2023 End: 06-06-2023 Office outpatient visit 15 minutes Prerna Segundo PA Work Phone: [facility] Comment on above: Encounter for weight management Start: 05-29-2023 End: 05-30-2023 ambulatory VALE HUMPHREYS [facility] Start: 05-09-2023 End: 05-09-2023 ambulatory OBED A HAEDWINAENBURG Not Available Start: 05-09-2023 End: 05-09-2023 ambulatory PRERNA SANYA Not Available Start: 04-10-2023 End: 04-10-2023 ambulatory PRERNA SANYA Not Available Start: 03-20-2023 ambulatory CARLOS VIEIRA Facility:[facility] Start: 01-16-2023 ambulatory CARLOS VIEIRA Facility:[facility] Start: 11-30-2022 ambulatory CARLOS VIEIRA Facility: [facility] Start: 07-14-2022 End: 07-14-[address] CARLOS VIEIRA Facility:[facility] Start: 06-14-2022 End: 06-14-[address] CARLOS VIEIRA Facility:[facility] Start: 01-19-2022 End: 01-19-2022 ambulatory Laura Johnson Other [facility] Other Start: 01-19-2022 Office outpatient vi sit 10 minutes Laura Johnson [facility] Start: 12-19-2021 End: 12-20-[address] ALEXI ROLAND . Facility:[facility] Start: 12-18-2021 Encounter for preprocedural laboratory examination DR ALEXI ROLAND . [facility] Start: 12-14-2021 End: 12-15-[address] ALEXI ROLAND . Facility:[facility] Start: 12-14-2021 End: 12-15-2021 Encounter for preprocedural laboratory examination DR ALEXI ROLAND . Facility:[facility] Start: 11-25-2021 End: 11-26-[address] CARLOS VIEIRA Facility:[facility] Start: 11-16-2021 End: 11-17-[address] ALEXI ROLAND . Facility:[facility] Start: 11-15-[address] ALEXI ROLAND . Faci lity:[facility] Start: 10-17-2021 End: 10-17-[address] ALEXI ROLAND . Facility:[facility] Start: 09-28-2021 End: 09-29-[address] ALEXI ROLAND . Facility:[facility] Start: 09-07-[address] ALEXI ROLAND . Faci lity:[facility] Start: 08-17-2021 End: 08-18-[address] CARLOS VIEIRA Facility:[facility] Start: 08-10-2021 End: 08-11-2021 ambulatory MADDISON COOPER . Facility:[facility] Start: 04-21-2021 End: 04-21-2021 Patient encounter procedure Melva Antonio MD Work Phone: Neurology Comment on above: Thoracic myelopathy (Primary Dx) Start: 02-06-2021 End: 02-06-2021 Telephone encounter Melva Antonio MD Work Phone: Neurology Comment on above: Received Outside Med ical Records Start: 02-02-2021 End: 02-02-2021 Patient encounter procedure Melva Antonio MD Work Phone: Neurology Comment on above: Thoracic myelopathy (Primary Dx) Start: 01-06-2021 End: 01-06-2021 ambulatory Melva Antonio MD Work Phone: Neurology Comment on above: RE: Medication Quest ion (Not Renewal) Start: 12-02-2020 End: 12-02-2020 Patient encounter procedure Melva Antonio MD Work Phone: Neurology Comment on above: Thoracic myelopathy (Primary Dx); Myelopathy (HCC) Start: 05-12-2018 End: 05-13-2018 Patient encounter procedure Jimmy Hernandez Facility:[facility] Start: 07-12-2017 Ambulatory Griselda Farrar Trinidad Yosi cility:[facility] Start: 05-10-2017 End: 05-24-2017 Evaluation and management of inpatient Vinayak Antonio Facility:[facility] Procedures Date Procedure Procedure Detail Performing Clinician Start: 09-05-2023 Reduction mammoplasty Inocente BARNES Start: 06-14-2022 Mammography Prerna HUANG Work Phone: Start: 06-14-2022 Microscopic observat ion [Identifier] in Cervix by Cyto stain Prerna HUANG Work Phone: Start: 04-20-2021 Adult depression scr eening assessment Melva Antonio MD Work Phone: Start: 02-02-2021 Adult depression scr eening assessment Melva Antonio MD Work Phone: Start: 11-30-2020 Adult depression scr eening assessment Melva Antonio MD Work Phone: Start: 05-14-2017 Insertion of Infusio n Device into Superior Vena Cava, Percutaneous Approach Vinayak Antonio Start: 05-14-2017 Ultrasonography of S uperior Vena Cava, Guidance Vinayak Antonio Start: 05-13-2017 Introduction of Vaso pressor into Peripheral Vein, Percutaneous Approach Vinayak Antonio Start: 05-13-2017 Release Thoracic Spi nal Cord, Open Approach Vinayak Antonio Plan of Treatment Date Care Activity Detail Author Start: 07-14-2032 Urine microalbumin profile DTaP,Tdap,Td Vaccine (2 - Tdap) [facility] Start: 05-29-2026 Diabetes Screening Diabetes Screenin g [facility] Start: 06-14-2025 Screening for malign ant neoplasm of cervix [facility] Start: 01-29-2024 End: 01-29-2024 Patient encounter procedure 01/29/2024 11:30 AM EDT Office Visit Neurology [id number] [place] [address] [place] [address] [place] [address] FOLLOW UP Neurology Comment on above: FOLLOW UP Start: 10-23-2023 End: 10-23-2023 Patient encounter procedure 10/23/2023 8:15 AM EDT Office Visit Rehab Medicine [address] [place], [place] [id number] Tanika Peña MD [address] [place] [address] New consult - [facility] Comment on above: New consult [facility] Start: 09-05-2023 Anesthesia reconstruction breast ANESTH SURGERY OF BREAST [facility] Start: 09-05-2023 Reduction mammaplasty BREAST REDUCTI ON [facility] Start: 09-05-2023 Patient discharge [facility] Start: 07-04-2023 End: 07-04-2023 Patient encounter procedure 07/04/2023 11:00 AM EST Office Visit [facility] [address] [place] [id number] Prerna Segundo PA [address] [place] [address] [facility] Start: 06-21-2023 End: 06-21-2023 Patient encounter procedure 06/21/2023 9:45 AM EST Office Visit [facility] [address] [facility] [address] [place] [address] Jorge Noriega PA [address] [facility] [address] [place] [address] [facility] Start: 06-20-2023 End: 06-20-2023 Patient encounter procedure 06/20/2023 11:00 AM EST Office Visit [facility] [address] [facility] [place] [id number] Giorgi Prakash DO [address] [facility] [address] [facility] Start: 06-14-2023 Screening for malign ant neoplasm of breast [facility] Start: 05-06-2023 Behavioral Health Screening Behavioral Health Screening [facility] Start: 05-06-2023 Depression Assessment Depression Ass essment [facility] Start: 01-04-2023 Covid-19 Vaccine ( season) Covid-19 Vaccine ( season) [facility] Start: 04-20-2022 Adult depression screening assessment DEPRESSION SCREENING [facility] Start: 02-02-2022 Adult depression screening assessment DEPRESSION SCREENING [facility] Start: 01-14-2022 Shingrix Vaccine (1 of 2) Shingrix Vaccine (1 of 2) [facility] Start: 11-30-2021 Adult depression screening assessment DEPRESSION SCREENING [facility] Start: 02-17-2021 COVID-19 VACCINE (3 - Booster for Pfizer series) COVID-19 VACCINE (3 - Booster for Pfizer series) [facility] Start: 01-04-2021 Influenza vaccination INFLUENZA (#1) [facility] Start: 01-14-2017 COLOGUARD (FIT-DNA) COLOGUARD (FIT-D NA) [facility] Start: 01-14-2017 Colonoscopy COLONOSCOPY [facility] Start: 01-14-2017 COLORECTAL CANCER SCREENING COLORECTAL CANCER SCREENING [facility] Start: 01-14-[address] COLONOGRAPHY [facility] Start: 01-14-2017 DIABETES SCREEN DIABETES SCREEN [facility] Start: 01-14-2017 FECAL OCCULT BLOOD FECAL OCCULT BLOO D [facility] Start: 01-14-2017 Lipid panel Lipid Screening [facility] Start: 01-14-2017 LIPID SCREEN LIPID SCREEN [facility] Start: 01-14-2017 Screening for malign ant neoplasm of colon [facility] Start: 01-14-2017 SIGMOIDOSCOPY SIGMOIDOSCOPY [facility] Start: 2012 Mammography MAMMOGRAM [facility] Start: 01-14-2002 HPV TESTING HPV TESTING [facility] Start: 01-14-2002 Screening for malign ant neoplasm of cervix [facility] Start: 01-14-1993 PAP TESTING PAP TESTING [facility] Start: 01-14-1993 Screening for malign ant neoplasm of cervix Pap Testing [facility] Start: 01-14-1991 Hepatitis B Vaccine (1 of 3 - 19+ 3-dose series) Hepatitis B Vaccine (1 of 3 - 19+ 3-dose series) [facility] Start: 01-14-1991 Urine microalbumin profile DTAP,TDAP,TD (1 - Tdap) [facility] Start: 01-14-1990 HEPATITIS C SCREENING HEPATITIS C [facility] Start: 01-14-1990 Hepatitis C screening Hepatitis C [facility] Start: 01-14-1990 HIV SCREENING HIV SCREENING [facility] Start: 01-14-1990 HIV screening HIV Screening [facility] Start: 1972 Hepatitis B Vaccine (1 of 3 - 3-dose series) Hepatitis B Vaccine (1 of 3 - 3-dose series) [facility] Start: 1972 Medicare Annual Well ness (AWV) Medicare Annual Wellness (AWV) [facility] Start: 1972 Screening for malign ant neoplasm of colon [facility] End: 01-01-2022 Mri spinal canal thoracic w/o & w/contr matrl MRI THORACIC SPINE WO/W IVCON Radiology Routine Myelopathy (HCC) 1 Occurrences starting 12/02/2020 until 01/01/2022 [facility] Comment on above: 1 Occurrences starti ng 12/02/2020 until 01/01/2022 Patient referral [facility] Work Phone: End: 09-25-2024 XR Thoracic and lumbar spine Views for scoliosis W standing XR SCOLIOSIS PA STAND/LAT 2V Radiology Routine Spondylosis with myelopathy, thoracic region 1 Occurrences starting 08/27/2023 until 09/25/2024 [facility] Work Phone: Comment on above: 1 Occurrences starti ng 08/27/2023 until 09/25/2024 [facility] Immunizations Immunization Date Immunization Notes Care Provider Yosi gold 03-08-2023 influenza, injectabl e, quadrivalent, preservative free Prerna [place] PA Work Phone: [facility] Work Phone: 07-14-2022 diphtheria, tetanus toxoids and pertussis vaccine Prerna [place] PA Work Phone: [facility] 04-03-2022 influenza, injectabl e, quadrivalent, preservative free Prerna [place] PA Work Phone: [facility] 07-06-2021 influenza, injectabl e, quadrivalent, preservative free Prerna [place] PA Work Phone: [facility] 01-29-2020 Influenza, injectabl e, Madin Houston Canine Kidney, preservative free, quadrivalent Prerna [place] PA Work Phone: [facility] 04-14-2019 influenza, injectabl e, quadrivalent, preservative free Prerna Sanya PA Work Phone: [facility] 02-13-2018 influenza, high dose seasonal, preservative-free Laura Johnson Other [place] Other 12-18-2016 influenza, injectabl e, quadrivalent, preservative free Prerna Sanya PA Work Phone: [facility] 12-29-2015 influenza, injectabl e, madin milagros canine kidney, preservative free Prerna Sanya PA Work Phone: [facility] 01-06-2015 influenza, seasonal, injectable, preservative free Prerna Sanya PA Work Phone: [facility] Payers Date Payer Category Payer Medicaid [id number] 2023 Self-pay 2023 Medicare [facility] MED[facility] ADVANT[facility] MED[facility] ADVANTAGE [id number] 2023-Present [address] [place] [address] [id number] 2023 Medicare [id number] 2023 Unknown [facility] BLUE [facility] S AND BLUE [employer] [facility] MEDICARE ADVANTAGE HMO [id number] 2023-Present [phone] [address] [place] [address] HMO [id number]. [id number] 2023 Unknown [id number] 2020 Medicaid MEDICAID [facility] MEDICAID [id number] 2020-Present Medicaid [id number] [id number]. [id number] 2019 Medicare [id number] 1.2.840.761436.1.13.159.2. 7.3.441259.315 1972 Unknown [id number] 2.16.840.1.701995.3.579.2. 593 1972 Unknown [id number] 2.16.840.1.522131.3.579.2. 593 1972 Unknown [id number] 2.16.840.1.506448.3.579.2. 593 1972 Unknown [id number] 2.16.840.1.409189.3.579.2. 593 1972 Unknown [id number] 2.16.840.1.441250.3.579.2. 593 1972 Unknown [id number] 2.16.840.1.739830.3.579.2. 593 1972 Unknown [id number] 2.16.840.1.240087.3.579.2. 59 1972 Unknown [id number] 2.16.840.1.777561.3.579.2. 59 1972 Unknown [id number] 2.16.840.1.715955.3.579.2. 59 1972 Unknown [id number] 2.16.840.1.142585.3.579.2. 59 1972 Unknown [id number] 2.16.840.1.899305.3.579.2. 59 1972 Unknown [id number] 2.16.840.1.741135.3.579.2. 59 1972 Unknown [id number] 2.16.840.1.462463.3.579.2. 59 1972 Unknown [id number] 2.16.840.1.369647.3.579.2. 72 1972 Unknown [id number] 2.16.840.1.600887.3.579.2. 72 1972 Unknown [id number] 2.16.840.1.396956.3.579.2. 1258 1972 Unknown [id number] 2.16.840.1.821090.3.579.2. 125 1972 Unknown [id number] 2.16.840.1.266980.3.579.2. 125 1972 Unknown [id number] 2.16.840.1.265237.3.579.2. 1258 1972 Unknown [id number] 2.16.840.1.387822.3.579.2. 125 1972 Unknown [id number] 2.16.840.1.714049.3.579.2. 125 1972 Unknown [id number] 2.16.840.1.028498.3.579.2. 1258 1972 Unknown [id number] 2.16.840.1.543579.3.579.2. 1258 1972 Unknown [id number] 2.16.840.1.455484.3.579.2. 1258 1972 Unknown [id number] 2.16.840.1.877966.3.579.2. 1258 1972 Unknown [id number] 2.16.840.1.898937.3.579.2. 1258 1972 Unknown [id number] 2.16.840.1.115724.3.579.2. 1258 1972 Unknown [id number] 2.16.840.1.492054.3.579.2. 1258 1972 Unknown [id number] 2.16.840.1.853950.3.579.2. 1258 1972 Unknown [id number] 2.16.840.1.417131.3.579.2. 1258 1972 Unknown [id number] 2.16.840.1.896005.3.579.2. 1258 1972 Unknown [id number] 2.16.840.1.434187.3.579.2. 1258 1972 Unknown [id number] 2.16.840.1.458415.3.579.2. 1258 1972 Unknown [id number] 2.16.840.1.422578.3.579.2. 1258 1972 Unknown [id number] 2.16.840.1.242085.3.579.2. 1258 1972 Unknown [id number] 2.16.840.1.973741.3.579.2. 1258 1972 Unknown [id number] 2.16.840.1.336721.3.579.2. 1258 1959 Medicare [id number] 2.16.840.1.868482.19 Private Health Insurance [id number] Unknown [id number] 2.16.840.1.081371.3.579.2. 462 Unknown [id number] 2.16.840.1.886101.3.579.2. 462 Unknown [id number] 2.16.840.1.950483.3.579.2. 462 Unknown [id number] 2.16.840.1.671343.3.579.2. 462 Unknown [id number] 2.16.840.1.624575.3.579.2. 462 Unknown [id number] 2.16.840.1.282539.3.579.2. 462 Unknown [id number] 2.16.840.1.707422.3.579.2. 462 Unknown [id number] 2.16.840.1.569570.3.579.2. 462 Unknown [id number] 2.16.840.1.738290.3.579.2. 462 Unknown [id number] 2.16.840.1.248916.3.579.2. 462 Social History Date Type Detail Facility Start: 12-02-2020 End: 05-09-2023 Tobacco smoking status NHIS Never smoker [facility] Start: 12-02-2020 End: 05-09-2023 Tobacco use and exposure [facility] Start: 1970 Sex Assigned At Female C [facility] Exposure to SARS-CoV -2 (event) Not sure [facility] Start: 05-08-2023 End: 05-29-2023 Sex Assigned At [facility] Start: 06-06-2023 Alcohol intake Lifetime non-d jimy (finding) [facility] Start: 05-08-2023 End: 05-29-2023 History of Social function [facility] Within the last year , have you been afraid of your partner or ex-partner? No [facility] Are you now , , , , never or living with a partner? [facility] How often to you hav e a drink containing alcohol? Monthly or less [facility] How many standard dr inks containing alcohol do you have on a typical day? 1 or 2 [facility] How often do you hav e 6 or more drinks on 1 occasion? Never [facility] How hard is it for y ou to pay for the very basics like food, housing, medical care, and heating Not very hard [facility] Do you feel stress - tense, restless, nervous, or anxious, or unable to sleep at night because your mind is troubled all the time - these days [OSQ] Not at all [facility] (I/We) worried wheth er (my/our) food would run out before (I/we) got money to buy more. Never true [facility] In the past 12 month s, has lack of transportation kept you from medical appointments or from getting medications? No [facility] Start: 11-20-2022 Alcohol Comment Caffeine intake: non e [facility] Start: 1970 Sex Assigned At Not on file [facility] Start: 06-12-2023 End: 08-23-2023 Tobacco smoking status NHIS Unknown if ever smoked [facility] Start: 06-17-2023 Alcohol intake Ex-drinker (finding) [facility] Start: 11-30-2020 Gender identity Identifies as female gender (finding) [facility] Start: 11-30-2020 Sexual orientation Heterosexua l (finding) [facility] NEGATED: Highlighted row [facility] Goals Date Patient Goal Desired Activity /State Mental Status Date Assessment Result Facility 09-05-2023 Cognitive function Touch/Shaking;Light Pa in [facility] Work Phone: Clinical Notes 03-12-2017 to 09-05-2023 Note Date & Type Note Facility 09-05-2023 Discharge summary Note Date/Time September 05, 2023 12:05p m [facility] Medical Records Department [address] [place] [address] Instructions for Home/Discharge Instructions 09/05/23 1203 MR#: [id number] Acct: [id number] Name: ELDA NG Rep #:[id number] : 1970 53 From: Carly Croft MD PCP: VALE BARNES Status:[facility] Discharge Instructions Dressing / Incision Additional Dressing/Incision Instructions:: Use the incentive spirometer 5-6 times a day. Follow the instructions given in the office. Follow Up Care Please Follow Up With: Carly Croft MD When: In 1 week Test Results: Test results from this visit will be discussed in further detail at your follow-up appointment, if applicable. Discharge Plan Admission Attending Provider: Carly Croft Primary Care Provider: VALE BARNES Discharge Orders/Prescriptions Prescriptions: No Action baclofen 20 mg tablet 40 mg PO BID levothyroxine 100 mcg capsule 100 mcg PO DAILY ibuprofen 800 mg tablet 800 mg PO TID valacyclovir 1 gram tablet 1,000 mg PO DAILY PRN PRN (Reason: cold sores) Claritin RediTabs 5 mg tablet,disintegrating 10 mg PO DAILY alendronate 70 mg tablet 70 mg PO FR cholecalciferol (vitamin D3) 10 mcg (400 unit) capsule 10 mcg PO DAILY cephalexin 500 mg capsule 500 mg PO BID Qty: 14 0RF venlafaxine [Effexor XR] 75 mg capsule,extended release 24hr 150 mg PO DAILY Wegovy 0.5 mg/0.5 mL pen injector 0.5 mg subcut FR Rx Instructions: administer weeks 5 through 8 of therapy calcium gluconate 60 mg calcium (650 mg) tablet 120 mg PO DAILY hydroxyzine HCl 25 mg tablet 25 mg PO DAILY PRN PRN (Reason: anxiety) magnesium citrate 100 mg capsule 100 mg PO DAILY albuterol sulfate 90 mcg/actuation HFA aerosol inhaler 1 puff inhalation Q6H PRN PRN (Reason: allergy symptoms) gabapentin 600 mg tablet 600 mg PO BID diphenhydramine HCl [Allergy (diphenhydramine)] 25 mg tablet 25 mg PO Q8H PRN (Reason: allergy symptoms) docusate sodium [Colace] 100 mg capsule 300 mg PO QHS Fiber Gummies 2 gram tablet,chewable 4 g PO QHS Women's Multivitamin Collagen 200 mcg- 25 mg tablet,chewable 2 tab PO DAILY Centrum Minis Women 50 Plus 4 mg iron-200 mcg-25 mcg tablet 1 tab PO DAILY Referrals / Follow Up: MOLLY,VALE [Other] Disposition Disposition (needs filled in before D/C Order can be placed): Home, Self Care 09/05/23 1207<Electronically signed by Carly Croft MD>Carly Croft MD CC: VALE BARNES ~ Signed [facility] Work Phone: 1(597) 981-105205-02-2024 History and physical note Author Carly Croft [facility] September 05, 2023 12:03pm Note Date/Time September 05, 2023 12:02p m [facility] Medical Records Department [address] [place] [address] History & Physical Exam 09/05/23 1202 MR#: [id number] Acct: [id number] Name: ELDA NG S Rep #:[id number] : 1970 53 From: Carly Croft MD PCP: VALE BARNES Status:[facility] Location: [place] [address] History and Physical Date of Admission: 09/05/23 The patient is examined and there are no changes to the H&P dated 08/29/23. Informed consent was obtained. The patient is here for bilateral breast reduction. No guarantees were made as to the final size. She is marked in the preop holding area prior to surgery. Assessment & Plan Assessment/Plan (1) Breast hypertrophy: (2) Breast ptosis: (3) Chronic back pain: PLAN: Plan Patient for bilateral breast reduction 09/05/23 1203 <Electronically signed by Carly Croft MD> Cosigner Signature (if applicable): CC: Dr. Carly Croft MD; VALE BARNES~ Signed [facility] Work Phone: 1(340) 771-694605-02-2024 Procedure [facility] 09-05-2023 [facility] Medical Records Department [address] [place] [address] History Physical Exam 09/05/23 1202 MR#: [id number] Acct: [id number] Name: ELDA NG Rep #: [id number] : 1970 53 From: Carly Croft MD PCP: VALE BARNES Status:[facility] Location: [place] [address] History and Physical Date of Admission: 09/05/23 The patient is examined and there are no changes to the H P dated 08/29/23. Informed consent was obtained. The patient is here for bilateral breast reduction. No guarantees were made as to the final size. She is marked in the preop holding area prior to surgery. Assessment Plan Assessment/Plan (1) Breast hypertrophy: (2) Breast ptosis: (3) Chronic back pain: PLAN: Plan Patient for bilateral breast reduction 09/05/23 1203 Cosigner Signature (if applicable): CC: Dr. Carly Croft MD; VALE BARNES [facility]24 NoteHNO ID: [id number] Author: ELDA BURROWS PA-C Service: ? 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 Canal narrowing of up to a moderate to severe degree at some mid and lower thoracic levels, most significant at T7-T8. 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 Moderate canal narrowing noted at L4-5 as well. I'd recommend the patient see first available surgeon. 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 Canal narrowing of up to a moderate to severe degree at some mid and lower thoracic levels, most significant at T7-T8. 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 Moderate canal narrowing noted at L4-5 as well. I'd recommend the patient see first available surgeon. XR ordered * Rickey Warren - 08/20/2023 2:12 PM EDT Patient name: Elda Ng Are you being referred by a [facility] Spine Health Provider or Pain Management Provider at [facility]? No If answer is YES please schedule directly with surgeon, triage does not need to be completed. Is this a self-referral No If not, who is the Referring Provider Vale Humphreys MD Is this a 2nd opinion from another spine surgeon? No Were you offered surgery? No MRI/CT/myelogram within 12 months? Yes If NO , please refer to medical spine or PCP to complete above imaging, triage does not need to be completed If YES, please ask for the name/address of the facility where the MRI/CT/myelogram was completed: [facility] MRI/CT/myelogram viewable in Epic: Yes If not, please provide [phone] to fax in imaging reports for review. Also, please inform patient to hand carry imaging disc to appointment. XR (spine) within 12 months: No If YES, please ask for the name/address of the facility where the XR was completed: Dr. Lopez's patients: Have you had previous EMG/Nerve Conduction Study, Ultrasound, or MRI for thesesame symptoms? If YES, please ask for the name/address of the facility where they were completed: Requested provider (First and Last name): unknown Are you interested in a virtual visit if offered? 1. Where are you having symptoms related to this visit? Cervical/Thoracic/Lumbar Back pain Yes mid to low Leg pain Yes Arm pain No Neck pain Yes 2. Are you having any of the following symptoms: Difficulty walking Yes Numbness Yes Rt leg, foot Weakness Yes Rt arm, Rt leg Trouble using your hands? No 3. Have you had any injections or physical therapy in the last 12 months? No If YES then please ask for the name/address of the facility where the injections and/or physical therapy was completed Have you tried any other kinds of non-surgical treatments in the last 12 months? (For example: NSAIDS, muscle relaxants, analgesics, oral steroids, Chiropractor, Acupuncture): Baclofen, Gabapentin, Ibuprofen, Tylenol, Biofreeze, ice 4. Are you currently taking daily prescribed narcotic medications for your current symptoms (For example Oxycodone, Hydrocodone, Tramadol, Morphine, Other)? No 5. Have you had previous spinal surgery for this same symptoms? Yes 2017 If YES please ask for the name of facility/address of where the surgery was completed: [facility] [address] [place] [address] Additional Comments [phone] documented in [facility] encounter[facility] NoteHNO ID: [id number] Author: ?, ?, ? Service: ? Author Type: ? Type: Progress Notes Filed: 08/27/2023 07:30 Note Text: Patient name: Elda Ng Are you being referred by a [place] for Spine Health Provider or Pain Management Provider at [facility]? No If answer is YES please schedule directly with surgeon, triage does not need to be completed. Is this a self-referral No If not, who is the Referring Provider Vale Humphreys MD Is this a 2nd opinion from another spine surgeon? No Were you offered surgery? No MRI/CT/myelogram within 12 months? Yes If NO , please refer to medical spine or PCP to complete above imaging, triage does not need to be completed If YES,? please ask for the name/address of the facility where the MRI/CT/myelogram was completed: [facility] MRI/CT/myelogram viewable in Epic: Yes If not, please provide [phone] to fax in imaging reports for review. Also, please inform patient to hand carry imaging disc to appointment. XR (spine) within 12 months: No If YES,? please ask for the name/address of the facility where the XR was completed: Dr. Lopez's patients: Have you had previous EMG/Nerve Conduction Study, Ultrasound, or MRI for these same symptoms? If YES,? please ask for the name/address of the facility where they were completed: Requested provider (First and Last name): unknown Are you interested in a virtual visit if offered? 1. Where are you having symptoms related to this visit? Cervical/Thoracic/Lumbar Back pain Yes mid to low Leg pain Yes Arm pain No Neck pain Yes 2. Are you having any of the following symptoms: Difficulty walking Yes Numbness Yes Rt leg, foot Weakness Yes Rt arm, Rt leg Trouble using your hands? No 3. Have you had any injections or physical therapy in the last 12 months? No If YES then please ask for the name/address of the facility where the injections and/or physical therapy was completed Have you tried any other kinds of non-surgical treatments in the last 12 months? (For example: NSAIDS, muscle relaxants, analgesics, oral steroids, Chiropractor, Acupuncture): Baclofen, Gabapentin, Ibuprofen, Tylenol, Biofreeze, ice 4. Are you currently taking daily prescribed narcotic medications for your current symptoms (For example Oxycodone, Hydrocodone, Tramadol, Morphine, Other)? No 5. Have you had previous spinal surgery for this same symptoms? Yes Thoracic 2018 If YES? please ask for the name of facility/address of where the surgery was completed: [facility] [address] [place] [address] Additional Comments [phone]03-[facility]-2024 NoteHNO ID: [id number] Author: TANIKA PEÑA MD Service: ? Author Type: Physician Type: Progress Notes Filed: 07/24/2023 07:08 Note Text: The appointment was canceled.[facility] History of Present illness Narrative* Tanika Peña MD - 07/24/2023 7:06 AM EDT The appointment was canceled. documented in this encounterHol[facility]24 NoteHNO ID: [id number] Author: JALEESA SALES RT(R) Service: ? Author Type: Technologist Type: Progress Notes Filed: 06/27/2023 11:54 Note Text: Radiology Service Progress Note DATE OF SERVICE: June 27, 2023 TIME: 11:53 AM PATIENT IDENTITY VERIFICATION COMPLETED USING TWO (2) STANDARD IDENTIFIERS: Name and Date of confirmed by patient verbally. FALL SCREENING: Has the patient had 2 falls in the last year or 1 fall with injury or currently using an Ambulatory Assistive Device (Walker, Cane, Wheelchair, Crutches, etc.)? Yes, Patient High Risk for Falls What interventions were put in place to prevent falls during this visit? Non-Skid Socks Used, Yellow Falls Risk Wristband Applied, Instructed Patient to Call for Help if Needed, Offered Assistance with Transfers/Clothing, Instructed Patient to Remain Seated (Not on Exam Table) Until Exam, and Increased Observations by Caregivers PATIENT GENDER DATA: Female. status: : No status: NO. PATIENT RELEVANT IMPLANT DATA REVIEWED: Yes PATIENT PRESENTS WITH AN IMPLANTABLE OR ATTACHED ORCHID SUPERINTENDENT: No ALLERGIES: Reviewed and unchanged CONTRAST ALLERGY: NO. EXAM: MRI - CONTRAST TYPE: GROUP II PERIPHERAL IV DATA: Ambulatory: A peripheral IV was started in the Right antecubital site with a Angio cath: 24 gauge. RADIOLOGY DEPARTMENT: MR; Exam(s) Completed: Spine: Cervical spine, Thoracic spine, and Lumbar spine SIGNATURE: RT Neema(Katia) PATIENT NAME: Elda Ng DATE: June 27, 2023 TIME: 11:53 [facility]02-22-2024 History of Present illness Narrative* Jaleesa Sales RT(R) - 06/27/2023 11:53 AM EST Radiology Service Progress Note DATE OF SERVICE: June 27, 2023 TIME: 11:53 AM PATIENT IDENTITY VERIFICATION COMPLETED USING TWO (2) STANDARD IDENTIFIERS: Name and Date of confirmed by patient verbally. FALL SCREENING: Has the patient had 2 falls in the last year or 1 fall with injury or currently using an Ambulatory Assistive Device (Walker, Cane, Wheelchair, Crutches, etc.)? Yes, Patient High Riskfor Falls What interventions were put in place to prevent falls during this visit? Non- Skid Socks Used, Yellow Falls Risk Wristband Applied, Instructed Patient to Call for Help if Needed, Offered Assistance with Transfers/Clothing, Instructed Patient to Remain Seated (Not on Exam Table) Until Exam, and Increased Observations by Caregivers PATIENT GENDER DATA: Female. status: : No status: NO. PATIENT RELEVANT IMPLANT DATA REVIEWED: Yes PATIENT PRESENTS WITH AN IMPLANTABLE OR ATTACHED ORCHID SUPERINTENDENT: No ALLERGIES: Reviewed and unchanged CONTRAST ALLERGY: NO. EXAM: MRI - CONTRAST TYPE: GROUP II PERIPHERAL IV DATA: Ambulatory: A peripheral IV was started in the Right antecubital site with a Angio cath: 24 gauge. RADIOLOGY DEPARTMENT: MR; Exam(s) Completed: Spine: Cervical spine, Thoracic spine, and Lumbar spine SIGNATURE: RT Neema(R) PATIENT NAME: Elda Ng DATE: June 27, 2023 TIME: 11:53 AM [facility] Telephone encounter Note * Telephone Encounter - Obed Ashford NP - 06/20/2023 10:55 AM EST 06/18/23 6:30 pm: Patient is in significant pain. Called in to [facility] in [place]; Tramadol 50 mg TID PRN severe pain; dispense 9 tablets for 3 days until she follows up with ortho Saturday. PDMP reviewed and appropriate. [facility] [id number] Miscellaneous Notes* Telephone Encounter - Obed Ashford NP - 06/20/2023 10:55 AM EST 06/18/23 6:30 pm: Patient is in significant pain. Called in to [facility] in [place]; Tramadol 50 mg TID PRN severe pain; dispense 9 tablets for 3 days until she follows up with ortho Saturday. PDMP reviewed and appropriate. documented in this encounterFulton State [id number] History of Present illness Narrative* Elaina Nettles - 06/18/2023 1:00 PM EST Elda Ng is a 53 y.o. female presents with chief complaint of Ankle Pain (Right/) HPI: Patient presents for fitting of right pneumatic walking boot. Ankle Pain SUBJECTIVE: MEDICATIONS: Current Outpatient Medications Medication Instructions acetaminophen (Tylenol) 325 MG tablet albuterol HFA (ProAir HFA) 90 mcg/act inhaler 2 puffs, Inhalation, Every 4 hours PRN alendronate (FOSAMAX) 70 mg, Oral, Every 7 days, Take in the morning with a full glass of water, rob empty stomach, and do not take anything else by mouth or lie down for the next 30 min. b complex vitamins capsule 1 capsule, Oral, Daily baclofen (LIORESAL) 40 mg, Oral, Every 12 hours Calcium Carb-Cholecalciferol (CALCIUM 500 + D PO) 1 each, Oral, Daily cholecalciferol (Vitamin D-3) 25 MCG (1000 UT) capsule Vitamin D3 citalopram (CELEXA) 40 mg, Oral, Daily diazePAM (VALIUM) 5 mg, Oral, 3 times daily PRN diphenhydrAMINE (BENADryl) 12.5 MG/5ML liquid docusate sodium (COLACE) 100 mg, Oral, 2 times daily Fiber Select Gummies chewable tablet gabapentin (NEURONTIN) 600 mg, Oral, 3 times daily ibuprofen 800 mg, Oral, Every 8 hours PRN levothyroxine (Synthroid, Levoxyl) 100 MCG tablet TAKE 1 TABLET BY MOUTH EVERY DAY Oral for 90 loratadine (Claritin) 10 MG tablet Every 24 hours magnesium oxide (Mag-Ox) 400 mg tablet as directed Orally Melatonin 10 MG sublingual tablet phentermine (ADIPEX-P) 37.5 mg, Oral, Daily before breakfast polyethylene glycol (PEG) 3350 (MIRALAX) 17 g, Oral, Once REVIEW OF SYMPTOMS: Review of Systems OBJECTIVE: Visit Vitals OB Status Oopherectomy Smoking Status Never Physical Exam Musculoskeletal: Right ankle: Tenderness present over the medial malleolus. Decreased range of motion. ASSESSMENT AND PLAN: Assessment/Plan Diagnoses and all orders for this visit: Closed fracture of distal end of left tibia, unspecified fracture morphology, initial encounter A right [id number] Walking Boot, Pneumatic and/or Vacuum, With or Without Joints, Prefabricated, Off theShelf was dispensed and applied at this visit. Due to the patient's diagnosis and related symptoms this is medically necessary for treatment. The function of this device is to restrict and limit motion, provide stabilization, immobilization, and compression to the affected area. The goals and function-of this device were explained in detail to the patient. Upon gait analysis, the device appeared to be fitting well and the patient states that the device is comfortable at this time. The patient was shown and told in detail how to properly wear and care for the device. They were able to apply the device properly themselves and able to ambulate without distress. At the time the device was dispensed, it was suitable for the condition and was not substandard. No guarantees were given and precautions were reviewed. Written instructions and warranty information was given along with the list of the current Durable Medical Equipment Supplier Guidelines. The patient was given a patient education sheet regarding signs and symptoms of a DVT and was instructed to call the doctor immediately if they experience any symptoms. documented in this encounterFulton State [id number] History of Present illness Narrative* Obed Ashford NP - 06/17/2023 1:00 PM EST Elda Ng is a 53 y.o. female presents with chief complaint of Fall HPI: Fell on Saturday on concrete steps and has a cold feeling going up and down her right leg and foot.Saturday pt couldn't walk at all (unsure what it hurt) and today is the first day that her right ankle is swollen, then her left top part of her foot is discolored. Pt cannot rate the pain due to having no feeling in her legs. However patient has a cold sensation going up and down her right leg so she feels like there is something wrong in her leg from her thighdown. Left foot has pain on the top of her foot. Legs feel stiffer than usual. Fall The accident occurred 2 days ago. The fall occurred while walking. She fell from a height of 1 to 2ft. She landed on [place]. There was no blood loss. The point of impact was the right foot and left foot. The symptoms are aggravated by use of injured limb, movement, flexion, standing and rotation. Associated symptoms include nausea, numbness and tingling. Pertinent negatives include no abdominal pain, bowel incontinence, fever, headaches, hearing loss, hematuria, loss of consciousness, visualchange or vomiting. She has tried acetaminophen, NSAID, ice and elevation for the symptoms. The treatment provided no relief. SUBJECTIVE: MEDICATIONS: Current Outpatient Medications Medication Instructions acetaminophen (Tylenol) 325 MG tablet albuterol HFA (ProAir HFA) 90 mcg/act inhaler 2 puffs, Inhalation, Every 4 hours PRN alendronate (FOSAMAX) 70 mg, Oral, Every 7 days, Take in the morning with a full glass of water, rob empty stomach, and do not take anything else by mouth or lie down for the next 30 min. b complex vitamins capsule 1 capsule, Oral, Daily baclofen (LIORESAL) 40 mg, Oral, Every 12 hours Calcium Carb-Cholecalciferol (CALCIUM 500 + D PO) 1 each, Oral, Daily cholecalciferol (Vitamin D-3) 25 MCG (1000 UT) capsule Vitamin D3 citalopram (CELEXA) 40 mg, Oral, Daily diazePAM (VALIUM) 5 mg, Oral, 3 times daily PRN diphenhydrAMINE (BENADryl) 12.5 MG/5ML liquid docusate sodium (COLACE) 100 mg, Oral, 2 times daily Fiber Select Gummies chewable tablet gabapentin (NEURONTIN) 600 mg, Oral, 3 times daily ibuprofen 800 mg, Oral, Every 8 hours PRN levothyroxine (Synthroid, Levoxyl) 100 MCG tablet TAKE 1 TABLET BY MOUTH EVERY DAY Oral for 90 loratadine (Claritin) 10 MG tablet Every 24 hours magnesium oxide (Mag-Ox) 400 mg tablet as directed Orally Melatonin 10 MG sublingual tablet phentermine (ADIPEX-P) 37.5 mg, Oral, Daily before breakfast polyethylene glycol (PEG) 3350 (MIRALAX) 17 g, Oral, Once REVIEW OF SYMPTOMS: Review of Systems Constitutional: Negative for fever. Gastrointestinal: Positive for nausea. Negative for abdominal pain, bowel incontinence and vomiting. Genitourinary: Negative for hematuria. Neurological: Positive for tingling and numbness. Negative for loss of consciousness and headaches. All other systems reviewed and are negative. OBJECTIVE: Visit Vitals BP 140/84 Pulse 88 Temp 96.6 F SpO2 97% OB Status Oopherectomy Smoking Status Never Physical Exam Vitals and nursing note reviewed. Constitutional: Appearance: Normal appearance. HENT: Head: Normocephalic and atraumatic. Right Ear: Tympanic membrane normal. Left Ear: Tympanic membrane normal. Nose: Nose normal. Eyes: Extraocular Movements: Extraocular movements intact. Conjunctiva/sclera: Conjunctivae normal. Pupils: Pupils are equal, round, and reactive to light. Cardiovascular: Rate and Rhythm: Normal rate and regular rhythm. Heart sounds: Normal heart sounds. Pulmonary: Effort: Pulmonary effort is normal. Breath sounds: Normal breath sounds. Musculoskeletal: Cervical back: Normal range of motion and neck supple. Comments: Right ankle: medial and lateral malleolus significantly swollen, patient does not have feeling in her right leg Left foot: 3rd and 4th metatarsals with redness and tenderness Skin: Capillary Refill: Capillary refill takes less than 2 seconds. Neurological: Mental Status: She is alert and oriented to person, place, and time. Sensory: Sensory deficit (patient has no feeling in her right leg) present. Gait: Gait abnormal (ambulates with walker). ASSESSMENT AND PLAN: Assessment/Plan Diagnoses and all orders for this visit: Fall on stairs, initial encounter - XR foot 3+ views left; Future Right ankle swelling - XR ankle 3+ views right; Future Swelling of right foot - XR foot 3+ views right; Future Left foot pain - XR foot 3+ views left; Future Right leg pain - XR femur right 2+ views; Future - XR tibia fibula 2 views right; Future - XR knee 4+ views right; Future Other closed fracture of distal end of right tibia, initial encounter RICE therapy as discussed. Referral to ortho. Patient to be NWB until appointment with ortho. She does have a wheelchair at home and will use this. documented in this encounterFulton State [id number] History of Present illness Narrative* SAL Vazquez - 06/06/2023 10:30 AM EST Reason for Appointment: Patient ID: Elda Ng is a 53 y.o. female who presents for Weight Management Patient presents today for a weight management consultation. Patient has been prescribed Adipex andshe is here for her 3rd prescription. Today's Vitals: Estimated body mass index is 32.48 kg/m as calculated from the following: Height as of 05/09/23: 4' 11 . Weight as of this encounter: 160 lb 12.8 oz. Previous Weight/BMI: Wt Readings from Last 3 Encounters: 06/06/23 160 lb 12.8 oz 05/09/23 162 lb 05/09/23 162 lb 6.4 oz BMI Readings from Last 3 Encounters: 06/06/23 32.48 kg/m 05/09/23 32.72 kg/m 05/09/23 32.80 kg/m Allergies as of 06/06/2023 - Reviewed 06/06/2023 Allergen Reaction Noted Metformin 03/25/2017 Past Medical History: Diagnosis Date Abnormal weight gain Anxiety disorder Arthritis Breast cancer screening Carpal tunnel syndrome Degenerative disc disease, lumbar Diabetes (CMS/HCC) Enlarged uterus MOISES (generalized anxiety disorder) (CMS/HCC) Gastroesophageal reflux disease History of pulmonary embolism Hypertension (CMS/HCC) Hypothyroid (CMS/HCC) Major depressive disorder (CMS/HCC) Major depressive disorder, recurrent episode, mild (HCC) (CMS/HCC) Menorrhagia Obesity (BMI 30.0-34.9) Obsessive compulsive disorder (CMS/HCC) Panic disorder (CMS/HCC) Paraparesis (CMS/HCC) Postmenopausal state Spinal cord injury, T1-T6 (CMS/HCC) Spinal cord injury, thoracic region (CMS/HCC) Thickened endometrium Thoracic disc disease Vaginal discharge Wheezing Past Surgical History: Procedure Laterality Date BACK SURGERY 2018 CARPAL TUNNEL RELEASE Left 03/27/2017 Dr. Gibbs CARPAL TUNNEL RELEASE Right 03/07/2016 SECTION, LOW TRANSVERSE x2 DILATION AND CURETTAGE OF UTERUS 3 TUBAL LIGATION Bilateral Review of Systems: Review of Systems Objective OBGyn Exam Assessment/Plan Encounter Diagnosis Name Primary? Encounter for weight management Patient presents today for 3rd Adipex prescription. Patient desires additional weigh loss and she is currently taking metformin along with working out to achieve further results. Weight and blood pressure has been captured and I have discussed/reiterated the importance of keeping a food journal, proper nutrition/diet, and exercise regimen. Patient verbalized understanding. Patient has not lost more than 5% of her initial body weight Follow Up: Patient is to return to the office in 1 month for further evaluation to assess patient progress. Weight and blood pressure will need to be obtained in order for patient to receive 4th Adipex prescription. Documented by: SAL Vazquez on behalf of SAL Vazquez documented in this encounterFulton State [id number] NoteHNO ID: [id number] Author: VALE HUMPHREYS MD Service: ? Author Type: Physician Type: Progress Notes Filed: 05/29/2023 11:04 Note Text: Neurology Clinic - May 29, 2023 Reason for visit: Ms. Ng is referred by Obed Ashford for my opinion regarding neuropathy, paraparesis. My final recommendation will be communicated back to the requesting physician by way of shared medical record or letter. HISTORY OF PRESENT ILLNESS: Patient is a 53 year old, right-handed, White, female with history of thoracic myelopathy. History gathered from patient and electronic medical records. She was last seen by Dr. Antonio on 04/21/21: She is seen in follow-up today because of a thoracic myelopathy. She believes that there has been some improvement in her activities of daily living. The MRI of the thoracic spine failed to reveal any evidence of intercurrent pathology. In summary, overall she is doing well all things considered and I have encouraged her to persevere with regard to physical therapy. Follow-up will be on an as-needed basis She started having symptoms end of 2016; described as tinging in both legs, legs giving out and falling. She saw a local neurologist - EMG was reportedly pointing to a lumbar etiology. She was admitted at [facility] - MRI reportedly showed herniated disc and bone spurs from T2 to T10 with cord compression. Local neurosurgeon did not feel comfortable doing it hence transferred to [facility]. She had surgery on 05/13/2017: T3-10 laminectomy. She mentions that post operatively, she was paralyzed and could not feel from above the chest down. She was transferred to a rehab facility([facility]), course was complicated by PE, needing surgery. She was discharged to [place]. She was in [place] x 4 months for PT; was told she will not walk again; came home on a wheelchair. She continued with OP PT which significantly helped her - walks with a walker and drives with hand controls. 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 Her (of 30 years) left her when she was paralyzed. Currently, she is can walk with a walker x 10-15 minutes(limited by back pain), drives with hand controls. She continues to have patchy numbness from chest down. She reports the legs do not feel like they are hers, LLE can feel sensation(temperature/touch), RLE cannot feel temperature with some touch. Has dull pain with hypersenstivity in the L breast to the mid back. Pain management tried injection with no benefit. She is treating with topical - biofreeze. She continues to have bladder issues - needs to think about urinating; has constipation. Has electrical feeling in the legs all day long. She mentions to started having neck pain 1 month ago, 'cracks'. No radicular symptoms. She mentions she had transient RUE weakness with activity - she was doing her hair x 10 minutes when RUE felt tired needing to rest it but this has improved recently. No constant weakness or numbness/tingling in the arms. She has known cervical disc disease since 2018. She is currently not with PT, admits not to be consistent with her exercises. Has bars at home. She is currently on baclofen 40 mg bid, not feeling benefit from it. PAST MEDICAL HISTORY Diagnosis Date Thoracic myelopathy No past surgical history on file. MEDICATIONS: Current Outpatient Medications Medication Sig Dispense Refill gabapentin (NEURONTIN) 300 mg capsule Take 2 capsules by mouth three times daily for 90 days. 180 capsule 2 acetaminophen (TYLENOL) 325 mg tablet albuterol HFA (PROVENTIL HFA, VENTOLIN HFA) 90 mcg/actuation inhaler Inhale 2 Puffs as instructed every 6 hours as needed. ascorbic acid/collagen hydr (COLLAGEN PLUS VITAMIN C ORAL) baclofen (LIORESAL) 20 mg tablet Take 40 mg by mouth twice daily. cholecalciferol (VITAMIN D-3) 5,000 unit tab citalopram (CELEXA) 40 mg tablet Take 40 mg by mouth once daily. diazePAM (VALIUM) 5 mg tablet dicyclomine (BENTYL) 20 mg tablet Take 20 mg by mouth every 6 hours as needed. diphenhydrAMINE (BENADRYL ALLERGY) 12.5 mg/5 mL liquid STOOL SOFTENER 100 mg capsule Take 200 mg by mouth once daily. ibuprofen (MOTRIN) 800 mg tablet Take 800 mg by mouth every 6 hours as needed. inulin-chromium picolinate (FIBER SELECT GUMMIES) 2-100 gram-mcg chew levothyroxine (SYNTHROID) 100 mcg tablet Take 100 mcg by mouth. loratadine (CLARITIN) 10 mg tablet Take 10 mg by mouth. magnesium oxide 400 mg magnesium tab melatonin 10 mg subl therapeutic multivitamin-minerals (THERA-M PLUS) 9 mg iron-400 mcg tablet Take 1 tablet by mouth. mv,calcium,min/iron/folic/vitK (ONE-A-DAY WOMEN'S COMPLETE ORAL) valACYclovir (VALTREX) 1 gram Take 2,000 mg by mouth twice daily. No current facility-administered medications for this visit. ALLERGY: ALLERGIES Allergen Reactions Metformin Other: See Comments Chest pain (more content not included)...[facility]09-16-2022 Evaluation note* Encounter Date Diagnosis Assessment Notes Treatment Notes Treatment Clinical Notes Jan, Insect bite, unspecified site, initial encounter (ICD-10 - W57.XXXA) pt reports hallucinations with steroid use. atarax rx sent for itching, d/c benadryl, she may use claritin in the AM and continue with topical creams. wash areas with warm soapy water, avoid scratching, watch for s/s of secondary infection. follow up if new/worsening symptoms. [place] Other [id number] NoteCONSULTATION PROCEDURE DATE: 12/19/2021 PREOPERATIVE DIAGNOSIS: Left rhomboid paravertebral spasm. POSTOPERATIVE DIAGNOSIS: Left rhomboid paravertebral spasm. PROCEDURE: Left paravertebral trigger point injection. Subsequent to obtaining informed consent, the patient placed in the sitting position. Alcohol prep was used to sterilize the site. A 25 gauge needle was advanced and it comes to rest along the deep trigger points. Negative aspiration. Marcaine 0.125% along with Kenalog a total of 20 mg are injected to the site. Negative heme. The patient tolerates the procedure well without any overt complication. Post procedurally reports having mitigation of her pain symptomatology.[facility] [id number] NoteCONSULTATION CONSULTATION DATE: 12/19/2021 CHIEF COMPLAINT: Left anterior chest wall and shoulder blade pain. HISTORY OF PRESENT ILLNESS: This is a very pleasant, 51-year-old female who is known to the Pain Clinic. The patient reports the pain as a 5/10, a sharp pain. It radiates into her left shoulder blade and radiates anteriorly. Twisting, pushing activities, walking, housework aggravate the pain. The patient had a thoracotomy and had a partial paresis subsequent to this surgery. The patient currently takes baclofen 10 mg on a b.i.d. basis, Celexa 20 mg, gabapentin 600 mg t.i.d., Tylenol 500 mg, Valium on a p.r.n. basis, along with a multivitamin regimen. The patient also takes ibuprofen 800 mg b.i.d. The patient's PAST MEDICAL HISTORY / SURGICAL HISTORY / REVIEW OF SYSTEMS are noted on the chart, along with the MEDICATION LIST, ALLERGIES. No recent RADIOLOGICAL IMAGES. PHYSICAL EXAMINATION: GENERAL: Upon physical examination, this is a pleasant, cooperative female, who does not appear to be in any acute distress. The patient ambulates with a walker, has improved substantially compared to the baseline paresis that the patient had and that the patient continues to have. VITAL SIGNS: Stable at 112/75, with a heart rate of 76. At a height of 4'11 , the patient weighs 72 kg. HEAD: Atraumatic, normocephalic. NECK: Slight crepitus is noted.THORACIC: Well healed surgical scar mid thoracic spine. The rhomboids on the left hand side have significant spasming. The patient reports having pain radiating anteriorly along her chest wall and into her left breast; however, this is at the end of day. The patient has recently started working, and when she is sitting a lot notes this more. HEART: Regular rate. LUNGS: Normal expansion. ABDOMEN: Protuberant, non-distended. IMPRESSION: Current working diagnosis on the patient is rhomboid minor spasm, left pectoral tautness and trigger points, thoracic status post thoracotomy with complications with partial paresis requiring a walker for ambulation, thoracic neuritis, left thoracic radiculitis. PLAN: We will schedule the patient for a thoracic epidural steroid injection under fluoroscopy with a leftward tilt. In addition to this, the patient today will receive a left rhomboid trigger point injection deep. The patient understands and would like to proceed. CC: Carlos Vieira M.D.[facility] [id number] NoteCONSULTATION PROCEDURE DATE: 11/30/2021 PRE AND POSTOPERATIVE DIAGNOSIS: Left intercostal neuralgia. PROCEDURE: Left intercostal nerve block. Subsequent to obtaining informed consent the patient was placed in an upright standard forward flexion position. Alcohol prep was used to sterilize the site. A 25-gauge needle with 0.125% Marcaine and 40 mg of Kenalog was placed to rest on left rib at the level of T3 and gently slid downward into the intercostal space. Negative heme. Medication was gently injected along the intercostal nerve. The patient tolerated the procedure well with no overt complications. She will be followed up in the office.[facility] 11-16-2021 NoteCONSULTATION CONSULTATION DATE: 11/16/2021 This is a pleasant 51-year-old female who reports to the clinic for a 2-month follow-up for her thoracic pain and left-side pain. Today she rates the pain 5 out of 10, described as sharp and shooting, that originates lateral to her left scapula and shoots along the rib to her sternum. It is aggravated by lifting, bending, sitting, standing and twisting. She does use ice which greatly mitigates the pain. Current medications include ibuprofen 800 mg b.i.d., Baclofen 40 mg b.i.d., gabapentin 600 mg t.i.d., Tylenol and Valium. The patient has also trialed a new right lower extremity and foot brace which has greatly decreased her right footdrop. She does ambulate with a wheeled walker with the assistance of her foot brace. No foot dragging is noted. The patient is complaining of neck pain with lateral rotation and flexion/extension. The patient states she hears clicks and pops with rotating her neck. REVIEW OF SYSTEMS, PAST MEDICAL HISTORY, ALLERGIES AND IMAGES: Have been reviewed and noted in the chart. PHYSICAL EXAM: VITAL SIGNS: Blood pressure 113/73, heart rate is 101, temperature is 97.1. Height is 4'11 , weighs 72.4 kg. GENERAL APPEARANCE: Appropriate, pleasant and in no acute distress. FOCUSED EXAM: NECK: Range of motion is decreased in lateral rotation and flexion/extension. Trapezius, cervical muscles are non-spasmodic. Reproduction of spinoaxial pain noted to compression along the cervical facets of C4, C5 and C6, C7 which reproduces the patient's pain symptomatology. Fullness palpated as well, which is concordant with ill facet arthropathy, cervical spondylosis. Slight referral to the left anterior trapezius. BACK: Range of motion is functional lateral rotation and flexion/extension. Paravertebral muscles are non-spasmodic. Compression along T3 dermatome to the left reproduces the radiating pain along her rib to her sternum. MUSCULOSKELETAL: Upper extremities: Motor is intact, 4 out of 5 bilaterally, +1 bilateral brachioradialis. NEUROLOGICAL: Radicular sensory is intact to her lower and upper extremities. DIAGNOSIS: Cervicalgia, cervical degenerative disk, cervical spondylosis and thoracic neuritis. PLAN: The patient will receive a left intercostal thoracic nerve block along T4 which she does agree to. We will authorize for a #1 bilateral MBB to C4, C5 and C6, C7. In the meantime the patient was encouraged to continue with her heat rub, and home exercises as well as multivitamin regimen. The patient agrees to the plan of care and would like to move forward and she will be followed in the clinic post-procedure. [facility] Signed and Approved by: MADDISON COOPER . 11/24/2021 14:15:00[facility]05-26-2022 NoteCONSULTATION CONSULTATION DATE: 09/28/2021 HISTORY OF PRESENT ILLNESS: This is a very pleasant, 51-year-old female who is well known to the Pain Clinic. She returns today for two and half months follow up for her chronic pain pattern. Today, her main complaint is radiating thoracic pain that starts under the left aspect of her scapula, radiating under her left breast to her sternum. Patient states at times it is shocking and sharp that it takes her breath away. She is also here to discuss possible brace that could be used for her right leg and ankle as she has internal rotation of her ankle, making it difficult to walk. She is mobile with her Rollator and her job is willing to pay for this brace. She rates her pain 6/10 today which is primarily the thoracic radiating pain. Current medications include baclofen 40 mg b.i.d., Celexa, gabapentin, Tylenol and a multivitamin regimen. She denies any new radicular pain or vasomotor changes. She has been doing home stretches and using a cold compress to mitigate her radiating thoracic pain, which is helpful but not long lasting. Patient's REVIEW OF SYSTEMS / PAST MEDICAL HISTORY / ALLERGIES and IMAGES have been reviewed and they are noted on the chart. PHYSICAL EXAM: VITAL SIGNS: Blood pressure 148/88, heart rate is 92. Temperature is 97.5. She is 4'11 and weighs 71 kg. GENERAL APPEARANCE: Very pleasant, jovial, no acute distress. FOCUSED EXAM - BACK: Range of motion is within functional limits for her. Paravertebral muscles are taut but non-spasmodic. MUSCULOSKELETAL: Diffuse muscle atrophy noted to bilateral lower extremities. Right lower extremity foot and ankle edema while in dependent position. Gross motor movement is intact. Right foot and ankle inwardly rotate with ambulation. Patient uses a Rollator to walk. NEUROLOGICAL: Negative polyneuropathy. +1 bilateral patellar reflexes. IMPRESSION: Thoracic radiculitis, intercostal neuralgia, right ankle weakness. PLAN: To address her thoracic radiculitis, we would like to gain authorization for a left transforaminal epidural steroid injection to T4 and T5. A prescription will be provided to the patient's employer for right lower extremity and ankle brace. 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 Patient is to follow up post procedure and patient agrees to move forward with the plan of care. [facility] Signed and Approved by: MADDISON COOPER . 10/05/2021 16:00:00[facility]12-17-2021 NoteHNO ID: [id number] Author: Melva Antonio MD Service: ? Author Type: Physician Type: Progress Notes Filed: 04/21/2021 7:16 PM Note Text: She is seen in follow-up today because of a thoracic myelopathy. She believes that there has been some improvement in her activities of daily living. The MRI of the thoracic spine failed to reveal any evidence of intercurrent pathology. Today on examination she is awake, alert, pleasant, cooperative and coherent. Although she stands readily her stance is a least mild to moderately wide-based and the gait very prominently spastic/ataxic. The rapid alternating movements of the fingers are normal bilaterally with a mild decrement in the feet this a bit more prominent on the right. Cranial Nerves: II?visual florentino full III IV ?extraocular movements normal VII?muscles of facial expression normal in power bilaterally Motor System: Strength in the deltoids, biceps, triceps, wrist extensors, finger extensors, interossei, iliopsoas, quadriceps, hamstrings, anterior tibialis and toe extensors is normal save for suspect mild weakness of the right iliopsoas and hamstrings with mild to moderate weakness of the anterior tibialis/toe extensors. The tendon reflexes are at least moderately increased in the lower extremities particularly on the right and there are bilateral Babinski responses. Again noted is mild to moderate spastic tone in both lower extremities. In summary, overall she is doing well all things considered and I have encouraged her to persevere with regard to physical therapy. Follow-up will be on an as-needed basis.[facility] [id number] History of Present illness Narrative* Melva Antonio MD - 04/21/2021 7:10 PM EST She is seen in follow-up today because of a thoracic myelopathy. She believes that there has been some improvement in her activities of daily living. The MRI of the thoracic spine failed to reveal any evidence of intercurrent pathology. Today on examination she is awake, alert, pleasant, cooperative and coherent. Although she stands readily her stance is a least mild to moderately wide-based and the gait very prominently spastic/ataxic. The rapid alternating movements of the fingers are normal bilaterally with a mild decrement in the feet this a bit more prominent on the right. Cranial Nerves: II visual florentino full III IV extraocular movements normal VII muscles of facial expression normal in power bilaterally Motor System: Strength in the deltoids, biceps, triceps, wrist extensors, finger extensors, interossei, iliopsoas, quadriceps, hamstrings, anterior tibialis and toe extensors is normal save for suspect mild weakness of the right iliopsoas and hamstrings with mild to moderate weakness of the anterior tibialis/toe extensors. The tendon reflexes are at least moderately increased in the lower extremities particularly on the right and there are bilateral Babinski responses. Again noted is mild to moderate spastic tone in both lower extremities. In summary, overall she is doing well all things considered and I have encouraged her to persevere with regard to physical therapy. Follow-up will be on an as-needed basis. [facility] Miscellaneous Notes* Telephone Encounter - Zoë Bush RN - 02/06/2021 4:53 PM EDT Clinical records available in scanned documents for your review. * Telephone Encounter - Maggie Sin - 02/06/2021 4:39 PM EDT Received outside medical records by fax, scanned to patient's chart. documented in this encounterHol[facility] [place]21 NoteHNO ID: [id number] Author: Melva Antonio MD Service: ? Author Type: Physician Type: Progress Notes Filed: 02/02/2021 5:10 PM Note Text: She is seen in follow-up today because of a thoracic myelopathy. She believes that there has been some ongoing return of strength in both lower extremities. She apparently had the MRI of the thoracic spine performed but we have yet to receive the results. Today on examination she is awake, alert, pleasant, cooperative and coherent. She stands readily and her gait displays a prominent spastic/ataxic quality. Her stance is at least mild to moderately wide-based. Cranial Nerves: II?visual florentino full III IV ?extraocular movements normal VII?muscles of facial expression normal in power bilaterally Motor System: Strength in the deltoids, biceps, triceps, wrist extensors, finger extensors, interossei, iliopsoas, quadriceps, hamstrings, anterior tibialis and toe extensors is normal save for suspect mild weakness in the right iliopsoas and hamstrings with moderate weakness of the anterior tibialis/toe extensors. Tendon reflexes are at least moderately increased in the lower extremities particularly on the right and there are bilateral Babinski responses. Mild to moderate spastic tone is noted in both lower extremities. In summary, I believe she has made mild improvement. We will not alter her management at this time and a follow-up visit has been scheduled.[facility] [id number] History of Present illness Narrative* Melva Antonio MD - 02/02/2021 4:55 PM EDT She is seen in follow-up today because of a thoracic myelopathy. She believes that there has been some ongoing return of strength in both lower extremities. She apparently had the MRI of the thoracicspine performed but we have yet to receive the results. Today on examination she is awake, alert, pleasant, cooperative and coherent. She stands readily and her gait displays a prominent spastic/ataxic quality. Her stance is at leastmild to moderately wide-based. Cranial Nerves: II visual florentino full III IV extraocular movements normal VII muscles of facial expression normal in power bilaterally Motor System: Strength in the deltoids, biceps, triceps, wrist extensors, finger extensors, interossei, iliopsoas, quadriceps, hamstrings, anterior tibialis and toe extensors is normal save for suspect mild weakness in the right iliopsoas and hamstrings with moderate weakness of the anterior tibialis/toe extensors. Tendon reflexes are at least moderately increased in the lower extremities particularly on the right and there are bilateral Babinski responses. Mild to moderate spastic tone is noted in both lower extremities. In summary, I believe she has made mild improvement. We will not alter her management at this time and a follow-up visit has been scheduled. documented in this encounterHol[facility]-2021 NoteHNO ID: [id number] Author: Katherine Louise Service: ? Author Type: ? Type: Progress Notes Filed: 12/05/2020 10:12 AM Note Text: Mother with pt.[facility] [id number] History and physical note* Melva Antonio MD - 12/02/2020 1:57 PM EDT Ms. Elda Tariq is essentially self-referred for an initial outpatient consultation because of paraplegia. She is a 50-year-old right-handed white female with a past medical history otherwise significant for hypothyroidism. In late 2016 she began developing numbness and weakness of both lower extremities which progressed. She began to drag both legs and there was a series of falls. Subsequent evaluation including imaging demonstrated bone spurs as well as herniated disks involving the thoracic spine. This was apparently from T2-T10. She saw a local neurosurgeon and subsequently was referred to a tertiary center where she underwent surgery on May 13, 2017 for. Upon awakening she was pa ralyzed from the lower chest distally. Her postoperative course was complicated by DVT with pulmonary emboli. Previous to this postoperatively there were issues with hypotension which subsequently resolved. She was in a mcc for 4 months and states that she began to improve about a year and a half after the incident with decreasing numbness although she still has patchy numbness from thejust below the breasts distally this less extensive on the left. She estimates approximately 85% return of a combination of both sensory and motor function in the left leg but only 10% on the right. About a year ago she began to walk with a walker and she has been able to drive with a suitably adapted vehicle. She continues to experience a deep pain about the lower chest circumferentially. Chronic problems with constipation continue and she finds the paresthesias quite troublesome from time to time for which she takes Neurontin. Spasticity has been an issue and she is taking baclofen. Past Medical History: Her past medical history is as previously delineated. Family History: There is no history in her family of inherited problems with coordination, MultipleSclerosis, peripheral nerve disease, recurrent troublesome headaches or seizure. Her maternal greatuncle had muscular dystrophy and a maternal great aunt parkinsonism/dementia. Her paternal grandmother also had dementia. Psychosocial History: She is and was 32 years. She has 2 children both of whom arehealthy. She is a non-smoker/non-drinker. 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 Review of Systems: There is no history of recurrent troublesome headaches or seizures but she fainted once with the pulmonary emboli. She denies any weakness, wasting, unusual cramping or twitching of her muscles, numbness or tingling aside from what we have already discussed or implied. She experiences shooting pains in various parts of her body these with an electrical quality. There are no visual difficulties aside from wearing corrective lenses and she denies any aberration of her sense of hearing, taste or smell. Speech, swallowing, bladder and bowel function are unimpaired aside from what we have already discussed or implied. There is no history of head injury sufficient to cause lossof consciousness, fracture of the spinal column, meningitis or encephalitis. Neurologic examination on December 02, 2020 revealed an awake, alert, pleasant, cooperative and coherent woman. She can stand from her wheelchair and her stance is moderately wide-based with the gait having a prominent spastic/ataxic quality. We did not feel it prudent to assess for rombergism or have her attempt to walk tandem. The rapid alternating movements of the tongue fingers and toes were performed well save for a mild decrement in the left toes with a moderate decrement of the right. Hpjtzv-[id number] was performed without difficulty. Cranial Nerves: II visual florentino full III IV extraocular movements normal VII muscles of facial expression normal in power bilaterally XII tongue midline Motor System: Strength in the deltoids, biceps, triceps, wrist extensors, finger extensors, interossei, iliopsoas, quadriceps, hamstrings, anterior tibialis and toe extensors was normal with the notable exception of at least mild weakness of the left iliopsoas, hamstrings anterior tibialis and toe extensors with relative sparing of the quadriceps. On the right the iliopsoas and hamstrings were mild to moderately weak again with sparing of the quadriceps which were at least mildly weak. There was a least moderate weakness of the right anterior tibialis and toe extensors. The tendon reflexes were symmetric in the upper extremities but at least moderate to markedly increased at the quadriceps b ilaterally. The left gastrocsoleus tendon reflex was normal to mildly reduced with a moderate decrement of the right. There were bilateral Babinski responses. Sensory System: Joint position sensation was markedly reduced if not totally absent at the great toes particularly on the right. Vibration sensation was at least mild to moderately impaired in the same distribution. There was a patchy decrement to superficial pain beginning at the level of approximately T5-T6 this becoming more patchy distally. In summary, the history and examination are compatible with a thoracic myelopathy. I suspect that this may actually be ischemic in etiology. After further consideration we have instructed her to increase the dose of gabapentin. We have also requested an MRI of the thoracic spine without and with contrast. She is to contact us for the results and a follow-up visit has been scheduled. documented in this encounterHol[facility]-2021 Instructions* Patient Instructions* Melva Antonio MD - 12/02/2020 1:45 PM EDT Please increase the dose of gabapentin to two three times daily. documented in this encounterHol[facility]07-30-2021 History of Present illness Narrative* Katherine Louise - 12/02/2020 12:52 PM EDT Mother with pt. documented in this encounterHol[facility] [place]11-07-2017 History general Narrative - Reported* Type Description Date Medical History HTN Medical History hypothyroidism Medical History h/o SOB Medical History Diabetes Medical History EKG in the office 03/12/17 Medical History EMG BLE 04/12/17 Dr Dutta Surgical History x 2 Surgical History C-Sections x2 Surgical History D & C x2 Surgical History D&C 3 Surgical History CTS right wrist 03/2016 Surgical History RT CTR 03/07/16 Surgical History CTS left wrist 03/[address] Surgical [address] CTR Dr. Gibbs 03/27/17 Surgical History T3-T10 decompressive laminectom y @ 05/2017 Hospitalization History see surgical hx [place] Other Evaluation note* Diagnosis Thoracic myelopathy- Primary Spondylosis with myelopathy, thoracic region Myelopathy (HCC) Unspecified disease of spinal cord documented in [facility] encounter [facility] [place] [facility]* Diagnosis Thoracic myelopathy- Primary Spondylosis with myelopathy, thoracic region documented in this encounter [facility] [place] [facility]* Diagnosis Thoracic myelopathy- Primary Spondylosis with myelopathy, thoracic region documented in this encounter [facility] [place] [facility]* Diagnosis Encounter for weight management documented in this encounter [facility] HealthcareEvaluation noteNo assessment information availableWKettering Health [facility] Work Phone: Evaluation note* Diagnosis Fall on stairs, initial encounter- Primary Right ankle swelling Effusion of ankle and foot joint Swelling of right foot Left foot pain Pain in soft tissues of limb Right leg pain Pain in soft tissues of limb Other closed fracture of distal end of right tibia, initial encounter Swelling of right foot Right ankle swelling Effusion of ankle and foot joint Fall on stairs, initial encounter Left foot pain Pain in soft tissues of limb Right leg pain Pain in soft tissues of limb Right leg pain Pain in soft tissues of limb Right leg pain Pain in soft tissues of limb documented in this encounter [facility] HealthcareEvaluation note* Diagnosis Closed fracture of distal end of left tibia, unspecified fracture morphology, initial encounter- [facility] Other closed fracture of distal end of right tibia, initial encounter- Primary [facility] Diagnosis APPOINTMENT CANCELLED- Primary [facility]* Diagnosis Onset Date Resolution Status Breast hypertrophy acute Breast ptosis acute Paraplegia acute Chronic back pain chronic [facility] Work Phone: Evaluation note* Diagnosis Spondylosis with myelopathy, thoracic region- Primary documented in this encounter [facility] [place] [facility]* Diagnosis Onset Date Resolution Status Breast hypertrophy acute Breast ptosis acute Paraplegia acute Chronic back pain chronic Breast hypertrophy acute Chronic back pain chronic [facility] Work Phone: Evaluation note* Diagnosis Onset Date Resolution Status Breast hypertrophy acute Breast ptosis acute Paraplegia acute Chronic back pain chronic Breast hypertrophy acute Chronic back pain chronic Breast hypertrophy acute Breast ptosis acute Chronic back pain chronic Breast hypertrophy acute Breast ptosis acute Chronic back pain chronic [facility] Work Phone: Reason for referral (narrative)* Diagnostic Procedure Only (Routine) - Pending Review Specialty Diagnoses / Procedures Referred By [place] Referred To Contact XR IMAGING Diagnoses Spondylosis with myelopathy, thoracic region Procedures XR SCOLIOSIS PA STAND/LAT 2V RADEX ENTIR THRC LMBR CRV SAC SPI W/SKULL 2/3 Elda Powell PA-C [address] [place] [address] [place] [address] Referral ID Status Reason Start Date Expiration Date Visits Requested Visits Authorized [id number] Pending Review Auto-Generat ed Referral 08/27/2023 09/25/2024 1 1 [facility] Summary Purpose Family History No Family History Records Found Relationship Condition Age at Onset Recorded Date/T karma Not Specified Malignant neoplasm of skin Unknown Diabetes mellitus Unknown Osteoporosis Unknown Disorder of kidney Unknown High blood cholesterol Unknown Arthritis Unknown Heart disease Unknown Hypertension Unknown Rubella Unknown Asthma Unknown Advance Directives No Advanced Directives Records FoundDocuments on File Type Date Recorded Patient Nursing Home Assistant Administrator Expl anation Advance Directives and Living Will 09/10/2017 2017-09-09 full code Advance Directive Response Recorded Date/ Time Living Will No August 23, 2023 8:33am Power of Route Sales Representative No August 22 8:33am Reason for Referral Status Reason Specialty Diagnoses / Procedures Referred By Contact Referred To Contact Pending Review Auto-Generated Referral MR IMAGING Diagnoses Myelopathy (HCC) Procedures MRI THORACIC SPINE WO/W IVCON MRI, [place] [id number] [address] [place] [address] Mr Imaging Chief Complaint and Reason for Visit Chief Complaint BREAST REDUCTION Chief Complaint BREAST REDUCTION pre #1 Bilateral Breast Reduction Reason for Visit Breast hypertrophy Breast ptosis Paraplegia Chronic back pain Chief Complaint BREAST REDUCTION pre #1 Bilateral Breast Reduction pre #2 Bilateral breast red. Reason for Visit Breast hypertrophy Breast ptosis Paraplegia Chronic back pain Breast hypertrophy Chronic back pain Chief Complaint BREAST REDUCTION pre #1 Bilateral Breast Reduction pre #2 Bilateral breast red. Bilateral Breast Reduction Bilateral Breast Reduction Reason for Visit Breast hypertrophy Breast ptosis Paraplegia Chronic back pain Breast hypertrophy Chronic back pain Breast hypertrophy Breast ptosis Chronic back pain Breast hypertrophy Breast ptosis Chronic back pain Chief Complaint BREAST REDUCTION pre #1 Bilateral Breast Reduction pre #2 Bilateral breast red. Bilateral Breast Reduction Bilateral Breast Reduction post #1 heidi breast red Reason for Visit Breast hypertrophy Breast ptosis Paraplegia Chronic back pain Breast hypertrophy Chronic back pain Breast hypertrophy Breast ptosis Chronic back pain Breast hypertrophy Breast ptosis Chronic back pain Additional Source Comments INFORMATION SOURCE (unrecogn ized section and content) DATE CREATED AUTHOR 10/25/2017 [facility] DATE CREATED AUTHOR AUTHOR'S ORGANIZ ATION 08/11/2018 [place] [facility] DATE CREATED AUTHOR AUTHOR'S ORGANIZ ATION 04/22/2021 [facility] DATE CREATED AUTHOR AUTHOR'S ORGANIZ ATION 07/30/2022 [facility] DATE CREATED AUTHOR AUTHOR'S ORGANIZ ATION 03/19/2023 [facility] DATE CREATED AUTHOR AUTHOR'S ORGANIZ ATION 05/30/2023 [facility] DATE CREATED AUTHOR AUTHOR'S ORGANIZ ATION 08/20/2023 [facility] DATE CREATED AUTHOR AUTHOR'S ORGANIZ ATION 08/28/2023 [facility] DATE CREATED AUTHOR AUTHOR'S ORGANIZ ATION 10/24/2023 [facility] Source Comments (unrecognize d section and content) In the event this informatio n is protected by the Federal Confidentiality of Alcohol and Drug Abuse Patient Records regulations: The Federal rules restrict any use of the information to criminally investigate or prosecute any alcohol or drug abuse patient.[facility] the event this information is protected by the Federal Confidentiality of Alcohol and Drug Abuse Patient Records regulations: The Federal rules restrict any use of the information to criminally investigate or prosecute any alcohol or drug abuse patient.[facility] the event this information is protected by the Federal Confidentiality of Alcohol and Drug Abuse Patient Records regulations: The Federal rules restrict any use of the information to criminally investigate or prosecute any alcohol or drug abuse patient.[facility] the event this information is protected by the Federal Confidentiality of Alcohol and Drug Abuse Patient Records regulations: The Federal rules restrict any use of the information to criminally investigate or prosecute any alcohol or drug abuse patient.[facility] the event this information is protected by the Federal Confidentiality of Alcohol and Drug Abuse Patient Records regulations: The Federal rules restrict any use of the information to criminally investigate or prosecute any alcohol or drug abuse patient.[facility] the event this information is protected by the Federal Confidentiality of Alcohol and Drug Abuse Patient Records regulations: The Federal rules restrict any use of the information to criminally investigate or prosecute any alcohol or drug abuse patient.[facility] the event this information is protected by the Federal Confidentiality of Alcohol and Drug Abuse Patient Records regulations: The Federal rules restrict any use of the information to criminally investigate or prosecute any alcohol or drug abuse patient.[facility] the event this information is protected by the Federal Confidentiality of Alcohol and Drug Abuse Patient Records regulations: The Federal rules restrict any use of the information to criminally investigate or prosecute any alcohol or drug abuse patient.[facility] Reason for Visit (unrecogniz ed section and content) Reason Comments New Patient Paralyzed after back surgery in 2018 from the chest down Leg Weakness Reason Comments Leg Weakness Spasticity Reason Comments Received Outside Medical Records Reason Comments Follow Up Leg Weakness Spasticity Reason Comments Weight Management Reason Comments Fall Reason Comments Ankle Pain Right Reason Comments Radiology MRI Reason Comments Appointment Cancelled Care Teams (unrecognized sec tion and content) Dip Painter Relationship Specialty Start Date End Date Vale Barnes MD [address] [place] [address] PCP - General Family Medicine 05/14/23 Team Status: Inactive Member Role Status Dates Dr. Carly Croft MD Attending Provider Active Dip Painter Relationship Specialty Start Date End Date Vale Barnes MD [address] [place] [address] PCP - General Family Medicine 05/14/23 Dip Painter Relationship Specialty Start Date End Date Vale Barnes MD [address] [place] [address] PCP - General Family Medicine 05/14/23 Dip Painter Relationship Specialty Start Date End Date Vale Barnes MD [address] [place] [address] PCP - General Family Medicine 05/14/23 Dip Painter Relationship Specialty Start Date End Date Vale Barnes MD [address] [place] [address] PCP - General Family Medicine 05/14/23 Dip Painter Relationship Specialty Start Date End Date Obed Ashford CNP [address] [place] [address] Referring Family Medicine 05/09/23 Obed Ashford CNP [address] [place] [address] Family Medicine 05/12/23 Dip Painter Relationship Specialty Start Date End Date Obed Ashford CNP [address] [place] [address] Referring Family Medicine 05/09/23 Obed Ashford CNP [address] [place] [address] Family Medicine 05/12/23 Dip Painter Relationship Specialty Start Date End Date Obed Ashford CNP [address] [place] [address] Referring Family Medicine 05/09/23 Obed Ashford CNP [address] [facility] [place] [address] Family Medicine 05/12/23 Team Status: Active Member Role Status Dates VALE BARNES Primary Care Provider Active Team Status: Inactive Member Role Status Dates Dr. Carly Croft MD Attending Provider Active MOLLY HOOVER Primary Care Provider, Referring Prov ider Active Team Status: Active Member Role Status Dates Dr. Carly Croft MD Attending Provid er, Referring Provider, Other Provider Active MOLLY HOOVER Primary Care Provider Active Team Status: Inactive Member Role Status Dates Dr. Calry Croft MD Attending Provider, Referring Provider Active MOLLY HOOVER Primary Care Provider Active Goals (unrecognized section and content) Goals may be documented in a n alternate section FOR RECORDS PERTAINING TO PATIENTS WHO ARE OR HAVE BEEN ENROLLED IN A CHEMICAL DEPENDENCY/SUBSTANCEABUSE PROGRAM, SOME INFORMATION MAY BE OMITTED. This clinical summary was aggregated from multiple sources. Caution should be exercised in using it in the provision of clinical care. This summary normalizes information from multiple sources, and as a consequence, information in this document may materially change the coding, format and clinical context of patient data. In addition, data may be omitted in some cases. CLINICAL DECISIONS SHOULD BE BASED ON THE PRIMARY CLINICAL RECORDS. [facility]. provides no warranty or guarantee of the accuracy or completeness of information in this document.
[2023-11-14 03:09] LABS: Age Gdln ACOG Testing Note (.); HPV Aptima Positive (Negative); HPV Genotype 16 Positive (Negative); HPV Genotype 18,45 Negative (Negative); IGP, Aptima HPV, rfx 16/18,45 Note (.)
== END 2023-11-06 21:20 | disposition home or self-care (01) ==
LOC: LAB 21:19
PROVIDERS: PCP Family Medicine; Visit Provider Obstetrics & Gynecology
DX: Z01.419 Encounter for gynecological examination (general) (routine) without abnormal findings (principal)
CPT/HCPCS: 87624; 88175

== ENCOUNTER 2024-03-12 09:44 | Outpatient (REF) | payer MEDICARE, MEDICAID, SELFPAY | END 2024-03-12 09:45 | disposition home or self-care (01) | LOC: LAB 09:44 | PROVIDERS: PCP Family Medicine; Visit Provider Obstetrics & Gynecology | DX: A63.0 Anogenital (venereal) warts (principal) | CPT/HCPCS: 88305 ==

== ENCOUNTER 2024-12-01 15:07 | Outpatient (REF) | payer MEDICARE, MEDICAID, SELFPAY ==
--- OUTSIDE RECORDS SUMMARY | 2023-08-21 07:15 | XMS_ITS | Continuity of Care Document ---
Author Organization [facility] Address [address] [place] [phone] Phone Care Team Providers Care Mold Filler Name Role Phone Rosi TONJA Aaron Unavailable Unavailable Allergies, Adverse Reactions, Alerts Substance Reaction Status Criticality prednisone Active No Information metformin Active No Information Medications Medication Instructions Dosage Effective Dates (start - stop) Status Comments magnesium 200 mg tablet once a day - Active Valium 5 mg tablet take 1 tablet by oral route 2 times every day 5 MG - Active Vitamin D3 Complete 18 mg iron-800 mcg-150 mg tablet Once a day - Active Collagen Skin Renewal 30 mg-833.3 mg tablet once a day - Active Wegovy 1 mg/0.5 mL subcutaneous pen injector inject (1MG) by subcutaneous route every week on the same day of each week 1 MG - Active venlafaxine 75 mg tablet take 1 tablet by oral route 2 times every day with food 75 MG - Active ibuprofen 800 mg tablet take 1 tablet by oral route 3 times every day with food 800 MG - Active baclofen 20 mg tablet take 1 tablet by oral route 4 times every day 20 MG - Active gabapentin 300 mg capsule take 1 capsule by oral route 3 times every day 300 MG - Active levothyroxine 100 mcg tablet take 1 tablet by oral route every day 100 MCG - Active Tylenol 325 mg capsule - Active Claritin 10 mg tablet take 1 tablet by oral route every day 10 MG - Active citalopram 20 mg tablet take 1 tablet by oral route every day 20 MG - No Longer Active Procedures Procedure Date Prophylaxis Adult Oral Hygiene Instruction [employer] [place] Dis Aug Bitewings Four Films Prophylaxis Adult Moderate Risk [employer] [place] Dis Dec Oral Hygiene Instruction Periodic Oral Eval Estab Patient 2022 PPE Prophylaxis Adult Oral Hygiene Instruction Prophylaxis Adult Oral Hygiene Instruction Intraoral-complete Series (bw) 19 Comp Oral Eval New/estab Patient 2018 Oral Hygiene Instruction Advance Directives Directive Yes / No Effective Date File Name No Information Encounters Encounter Description Practice Location Reason(s) For Visit Diagnoses Date Provider Providers Copied on Encounter [facility], [address] [place] [address], [id number], [place] tel:[phone] [facility] [place] ([place]) Encounter for screening for dental disordersBody mass index [BMI] 31.0-31.9, adult Rosi DMD Aaron. [address] [place] [address], [id number], [place]. tel:[phone] [facility], [address] [place] [address], [id number], [place] tel:[phone] [facility] [place] (chief complaint) Encounter for screening for dental disorders Rosi DMD Aaron. [address] [place] [address], [id number], [place]. tel:[phone] [facility], [address] [place] [address], [id number], [place] tel:[phone] Dental Clinic Encounter for screening for dental disorders Jamil [facility] Lorenzo. [address] [place] [address], [id number], [place]. tel:[phone] [facility], [address] [place] [address], [id number], [place] tel:[phone] Dental Clinic Encounter for screening for dental disorders Jamil GARZAS Lorenzo. [address] [place], [place], [id number], [place]. tel:[phone] [facility], [address] [place], [place], [id number], tel:[phone] [facility] Clinic Dental [place] (chief complaint) Encounter for screening for dental disorders Anderson Li. [address] [place], [place], [id number], [place]. tel:[phone] Family History Family Member Type Diagnosis Age At Onset Father Problem (finding) coronary arterioscleros is Mother Problem (finding) Alive and well Father Problem (finding) Alive and well Payers Payer name Insurance type Covered green party ID Luis neville(s) Marilee [facility] (Anthem Medicare) CI [id number] Social History Type Description Quantity Date Captured Comments Alcohol Use Details Unknown Caffeine Use Details Unknown Tobacco Use Status Current non-smoker Smoking Status Never smoker Non-Smoking Tobacco Use Details : No Details Available : No Details Available Sex Female Sexual Orientation Straight or heterosexual Gender Identity Female Vital Signs Date / Time: Height Weight BMI Pulse Rate Blood Pressure Temperature Respiratory Rate Body Surface Area Head Circumference Head Circ. Percentile Wt./[place]. Percentile BMI percentile Pulse Ox Inhaled Ox 11:19 AM 59.00 in 71.668 kg (158.00 lbs) 31.9 1 kg/m eter (2) 80 /min 130/79 mm[Hg] 98.30 F 1.73 meter(2) Chief Complaint And Reason For Visit From encounter dated '08/21/2023 11:15'. PA (chief complaint). Description: PA Reason For Referral Reason For Referral No Information Plan Of Treatment Date Type Action Status Goal FOBT. Due on due Goal Unhealthy drug use screening . Due on due Goal Lipid panel. Due on due Goal Colonoscopy. Due on due Goal Tdap Vaccine. Due on [address]-Colonography. Due on due Goal Depression screening. Due on due Goal Hep A. Due on du e Goal Zoster vaccine (). Due on due Goal FIT-DNA. Due on due Goal HPV. Due on due Goal Tdap. Due on due Goal Mammogram. Due on due Goal Hepatitis C screening. Due o n due Goal Influenza vaccine. Due on Ap due Goal FIT. Due on due Goal PRAPARE ASSESSMENT. Due on A due Goal Dietary management education , guidance, and counseling completed Goal Colonoscopy. Due on due Goal Zoster vaccine (). Due on due Goal Depression screening. Due on due Goal Tdap Vaccine. Due on 2022 due Goal Hep A. Due on du e Goal Mammogram. Due on 3 due Goal PRAPARE ASSESSMENT. Due on A due Goal Influenza vaccine. Due on Au due Goal Lipid panel. Due on 023 due Goal FOBT. Due on due Goal Tdap. Due on due History Of Present Illness Encounter Date Complaint History Of Prese nt Illness SAL HUANG SAL HUANG Dental New Dental New Functional Status Date Functional Assessmen t No Information Instructions Date Instruction Additional Infor paola Giving encouragement to exercise Related to Body mass index [BMI] 31.0-31.9, adult Dietary management e ducation, guidance, and counseling Related to Body mass index [BMI] 31.0-31.9, adult Assessments Type Assessment Date assessment Encounter for screening for dent al disorders assessment Body mass index [BMI] 31.0-31.9, adult Patient Care Teams Name Effective Dates (start - stop) Status Members No Information
--- OUTSIDE RECORDS SUMMARY | 2024-11-26 11:15 | XMS_ITS | Encounter Summary ---
Author Organization [facility] Address [address] [place] [address] Care Team Providers Care Elevator Tender Name Role Phone Mercedes Baptiste TANK REFINISHER Unavailable + [phone] Mercedes Baptiste TANK REFINISHER Unavailable + [phone] Source Comments In the event this information is protected by the Federal Confidentiality of Alcohol and Drug AbusePatient Records regulations: The Federal rules restrict any use of the information to criminally investigate or prosecute any alcohol or drug abuse patient.[facility] Reason for Referral * Occupational Therapy (Routine) - Pending Review Specialty Diagnoses / Procedures Referred By [place] Referred To Contact [facility] Diagnoses Upper extremity weakness Procedures CONSULT TO DIRECTOR OF DIETARY OCCUPATIONAL THERAPY EVAL HIGH COMPLEX 60 MINS Veronica Aguirre MD [address] [place] [address] Phone: tel: fax: [facility] [address] [place] [address] Referral ID Status Reason Start Date Expiration Date Visits Requested Visits Authorized [id number] Pending Review Auto-Generat ed Referral 11/26/2024 11/26/2025 1 1 * Physical Therapy (Routine) - Pending Review Specialty Diagnoses / Procedures Referred By Contac t Referred To Contact [facility] Diagnoses Thoracic spondylosis with myelopathy Paraparesis (HCC) Spasticity Procedures CONSULT TO PHYSICAL THERAPY PHYSICAL THERAPY EVALUATION HIGH COMPLEX 45 MINS Veronica Aguirre MD [address] [place] [address] Phone: tel: fax: [facility] [address] [place] [address] Referral ID Status Reason Start Date Expiration Date Visits Requested Visits Authorized [id number] Pending Review Auto-Generat ed Referral 11/26/2024 11/26/2025 1 1 Reason for Visit * Injectable (Routine) - Authorized Specialty Diagnoses / Procedures Referred By Contac t Referred To Contact Neurology / [facility]YSICAL [facility]ICINE [facility] Diagnoses Thoracic spondylosis with myelopathy Spasticity Paraparesis (HCC) Procedures BOTULINUM TOXIN A PER 1 UNIT INITIAL J0585 - BOTULINUM TOXIN A UP TO 400 UNITS EVERY 90 DAYS x 1 YEAR FOR SPASTICITY 98834 - CHEMODENERV 1 EXTREMITY 1-4 88681 - CHEMODENERV ADDL EXTREM 1-4 EA 53466 - CHEMODENERV 1 EXTREM 5/> MUS 42431 EACH ADDITIONAL EXTREMITY, 5 OR MORE MUSCLES Michelet Peña MD [address] [place] [address] Phone: tel: fax: Michelet Peña MD [address] [place] [address] Phone: tel: fax: Referral ID Status Reason Start Date Expiration Date V isits Requested Visits Authorized [id number] Authorized 03/20/2024 03/20/2025 4 4 Encounter Details Date Type Department Care Team (Late st Contact Info) Description 11/26/2024 11:15 AM EDT Office Visit [facility] [address] [place] [address] Veronica Aguirre MD [address] [place] [address] Thoracic spondylosis with myelopathy (Primary Dx); Paraparesis (HCC); Spasticity; Upper extremity weakness; Left foot drop Social History Tobacco Use Types Packs/Day Years Used Date Smoking Tobacco: Never Smokeless Tobacco: Never Alcohol Use Standard Drinks/Week Comments Not Currently 0 (1 standard drink = 0.6 oz pur e alcohol) PHQ-2 Answer Date Recorded PHQ-2 score 0 01/09/2024 Area Deprivation Index Answer Date Harry rded National Score (1-100), lower number is lower ri sk 94 05/29/2023 State Score (1-10), lower number is lower risk 9 05/29/2023 Data from: https://www.neighborhoodatlas.medicine.[facility].edu/. Last address used for calculation [address] 05/29/2023 Comments No Sex and Gender Information Value Date Recorded Sex Assigned at Female 11/30/2020 12:16 PM EDT Legal Sex Female 1:28 PM EST Gender Identity Female 11/30/2020 12:16 PM EDT Sexual Orientation Straight 11/30/2020 12 :16 PM EDT documented as of this encounter Patient Instructions * Patient Instructions* Veronica Aguirre MD - 11/26/2024 11:38 AM EDT You have received botulinum toxin injections today. The skin around the site of injections should be monitored for a couple of days. If redness or swelling occur, the skin should be examined by a health patient care nursing assistant to rule out infection. If you experience pain in the muscles injected over the next few days, you can place an ice pack wrapped in a thin towel over your skin for about 20 minutes at a time. Please call our office at [phone] with any questions or concerns. *If you experience life threatening symptoms (such as difficulty breathing or swallowing) please call 911 to be seen at your local ER. Then call the office [phone] to make us aware and to schedule a follow up appointment in clinic. Dr. Veronica Aguirre documented in this encounter Progress Notes * Veronica Aguirre MD - 11/26/2024 11:15 AM EDT Images from the original note were not included. BOTULINUM TOXIN THERAPY Patient unaccompanied Current complaints / history since last visit: most recent botulinum toxin injections on 07/21/2024.Injections last about 12 weeks. Feels like her quads are very tight; painful feeling with walking. Feels like the injections are helping but she is interested in a higher dose. Right calf muscle and thigh muscles feel more tight. Illnesses / hospitalizations since the last visit: None Other updates: None Anticoagulation: None Home stretching/exercise routine: Stretching as much as she can PT/OT: Not currently but does need hand controls for her new car Botox Tracking Pain related to the purpose of the visit: Tightness pain in her legs; yesterday was a 01/13 Patient Entered Data PROMIS No data to display Spasticity NRS 11/26/2024 07/20/2024 04/17/2024 -- Spasticity Level 9 10 8 Spasm Scale 11/26/2024 07/20/2024 04/17/2024 -- Spasm Frequency No spasm No spasm No spasm Global Impression of Change 11/26/2024 07/20/2024 04/17/2024 -- Rehab global impression of change Minimally improved No change Not applicable Nutritional status: appetite stable, weight stable, swallowing no issues Driving issues: Does need hand controls for a car that she recently purchased Safety concerns regarding living situations and safety at home: No At risk for falling: No falls since last visit Examination: Strength Right Left Shoulder abduction 5 5 Elbow flexion 5 5 Elbow extension 5 5 Wrist extension 5 5 Hip flexion 5 5 Knee flexion 4 5 Knee extension 5 5 Plantarflexion 5 5 Dorsiflexion 1 2 Spasticity Right Left Shoulder 0 0 Elbow flexors 0 0 Elbow extensors 0 0 Wrist flexors 0 0 Wrist extensors 0 0 Finger flexors 0 0 Finger extensors 0 0 Hip adductors 2 2 Knee extensors 1+ 1+ Knee flexors 1+ 1+ Plantarflexors 1+ 1+ Modified Nav Scale 0 - No increase in tone 1 - Slight increase in tone (catch and release at end of ROM) 1+ - Slight increase in tone, manifested by a catch, followed by minimal resistance throughout remainder (less than half of ROM) 2 - Marked increase in tone through most of the ROM, but affected part(s) easily moved 3 - Considerable increase in tone; passive movement difficult 4 - Affected part(s) rigid in flexion or extension Spasms observed: RUE: no right upper extremity spasms LUE: no left upper extremity spasms RLE: right lower extremity spasms +clonus LLE: left lower extremity spasms +clonus Timed 25 foot walk: 15.6 seconds Assistance required: walker with wheels Ambulation Index Score: 5 - Bilateral support and 25 ft <20 sec OR unilateral support and 25 ft >20 sec UNIVERSAL PROTOCOL / SAFETY CHECKLIST Procedure to be Performed: Botulinum toxin injections Sign In: A Moment of CARE was completed. Appropriate PPE (Personal Protective Equipment) worn by all providers involved with the procedure. Special equipment utilized EMG. Patient/Surrogate Stated/Verified: Patient name, Date of , Relevant allergies, and The intended procedure Time Out: Relevant labs, photos, and/or imaging studies have been reviewed. Intended patient and procedure match the source document(s) (e.g. consent, H&P, associated studies [imaging, pathology]) match the intended patient and procedure. Consent obtained and matches the intended procedure. Yes. Correct side/site has been marked and visible. Medications required for this procedure are verified. Fire risk assessed and is not applicable. Implants: are not applicable. Sign Out: Specimens not collected. All instruments, equipment, possible retained foreign bodies are accounted for. Yes. The post-procedure plan of care has been communicated to the patient or surrogate. The risks, benefits and alternatives of the procedure were explained. Written Consent Obtained: yes - 04/21/2024 Clinician(s) performing the injections: Dr. Veronica Aguirre Hat Former: Selena Mcguire RN The patient was positioned supine on exam table. Brand of toxin injected: Botox. After skin preparation with alcohol, a total dose of 400 units were injected as follows: Muscle Limb/Side Dose Guidance Comments Adductors RLE 25 units EMG 1 sites Medial hamstrings RLE 25 units EMG 1 sites Lateral hamstrings RLE 25 units EMG 1 sites Medial gastrocs RLE 50 units EMG 1 sites Lateral gastrocs RLE 25 units EMG 1 sites Soleus RLE 50 units EMG 1 sites Adductors LLE 25 units EMG 1 sites Medial gastrocs LLE 50 units EMG 1 sites Lateral gastrocs LLE 25 units EMG 1 sites Soleus LLE 50 units EMG 2 sites Quads RLE 25 units EMG 1 sites Quads LLE 25 units EMG 1 sites Total Dose: 400 0 units discarded. Dilution: 100 units / 2 ml LOT #: [id number] Expiration Date: Month: 9 Year: 27 The injections were well tolerated. Minimal bleeding occurred at the injection sites. Assessment: (M47.14) Thoracic spondylosis with myelopathy (primary encounter diagnosis) (G82.20) Paraparesis (HCC) (R25.2) Spasticity (R29.898) Upper extremity weakness (M21.372) Left foot drop MS BT PRE AUTH The patient is a 54 year old female with a history of thoracic myelopathy and subsequent paraparesis who presents today for botulinum toxin injections. Plan: 1 - Botulinum toxin injections done today, 400 units (2:1 dilution). Patient to have follow up appointment with Chelo Avila PA-C, to discuss efficacy of increased dosage and dilution strategy (2:1). Currently do not have enough medication for injection to the left hamstrings which she requires. 2 - Patient should continue to done her R AFO, and new prescription today for L AFO given bilateralfoot drop. 3 - Consults to PT and OT. Would benefit from gait training and evaluation for UE weakness, respectively, and need for hand controls in her car. Follow up - 3 months for repeat botulinum toxin injections Veronica Aguirre DO, MPH Physical Medicine and Rehabilitation documented in this encounter Plan of Treatment Upcoming Encounters Date Type Department Care Team (Late st Contact Info) Description 12/22/2024 3:00 PM EDT [facility] [address] [place] [address] Chelo Avila PA-C [address] [place] [address] follow up 12/24/2024 3:40 PM EDT Office Visit [facility] [address] [place], [place] [id number] [place] [address] [place] [address] 4 month follow up 03/09/2025 1:00 PM EST Office Visit [facility] [address] [place] [address] Veronica Aguirre MD [address] [place] [address] BOTOX 10/26/2025 1:10 PM EDT Office Visit Endocrinology [address] [place] [address] Hany Sanabria MD [address] [place] [address] Follow up 1 year documented as of this encounter Visit Diagnoses Diagnosis Thoracic spondylosis with myelopathy- Primary Spondylosis with myelopathy, thoracic region Paraparesis (HCC) Paraplegia Spasticity Abnormal involuntary movements Upper extremity weakness Other musculoskeletal symptoms referable to limbs Left foot drop Other acquired deformity of ankle and foot documented in this encounter Administered Medications Inactive Administered Medications - up to 3 most recent administrations Medication Order MAR Action Action Date Dose Rate Site onabotulinum toxin type A 400 Units injection (BOTOX) 400 Units, INTRAMUSCULAR, ONCE, 1 dose, On Areli 11/26/24 at 1130, Reconstitute with 1.2 mL 0.9% NaCl. This record documents the total dose provided to patient. See progress note for specific locations and amounts administered. 2:1 dilution REFRIGERATE - Pharmaceutical Waste: Lab Pack - Given 11/26/2024 11:22 AM EDT 400 Units Other documented in this encounter Care Teams Elevator Tender Relationship Specialty Start Date End Date Mercedes Baptiste CNP [address] [place] [address] Referring Family Medicine 05/09/23 Mercedes Baptiste CNP [address] [place] [address] Family Medicine 05/12/23 documented as of this encounter
--- OUTSIDE RECORDS SUMMARY | 2024-11-27 10:15 | XMS_ITS | Encounter Summary ---
Author Organization [facility] Address [address] [place] [address] Care Team Providers Care Rock Cutter Name Role Phone Vale Hubbard MD Primary Care Provider [phone] Vale Hubbard MD Unavailable [phone] Mercedes Baptiste LINE SERVICE TECHNICIAN Unavailable [phone] Rolo Ledezma LPN Unavailable [phone] Reason for Visit * Reason Comments UTI Encounter Details Date Type Department Care Team (Latest Contact Info) Description 11/27/2024 10:15 AM EDT Clinical Support [facility] Family Medicine [address] [place] [address] Hematuria, unspecified type (Primary Dx); Urinary frequency; Urinary urgency; Abdominal pressure Social History Tobacco Use Types Packs/Day Years Used Date Smoking Tobacco: Never Smokeless Tobacco: Never Alcohol Use Standard Drinks/Week Comments Not Currently 0 (1 standard drink = 0.6 oz pur e alcohol) A few drinks a year Humiliation, Afraid, Rape, and Kick questionnair e Answer Date Recorded Within the last year, have y ou been afraid of your partner or ex-partner? No 05/08/2023 Within the last year, have y ou been humiliated or emotionally abused in other ways by your partner or ex-partner? No Within the last year, have y ou been kicked, hit, slapped, or otherwise physically hurt by your partner or ex-partner? No 05/08/2023 Within the last year, have y ou been raped or forced to have any kind of sexual activity by your partner or ex-partner? No 05/08/2023 Social Connection and Isolat ion Panel [NHANES] Answer Date Recorded In a typical week, how many times do you talk on the phone with family, friends, or neighbors? More than three times a week 05/08/2023 How often do you get togethe r with friends or relatives? Twice a week 05/08/2023 How often do you attend chur ch or yazdanism services? Never 05/08/2023 Do you belong to any clubs o r organizations such as rastafari groups, unions, fraternal or athletic groups, or school groups? No 05/08/2023 How often do you attend meet ings of the clubs or organizations you belong to? Never 05/08/2023 Are you , , di vorced, , never , or living with a partner? 05/08/2023 AUDIT-C Answer Date Recorded Q1: How often do you have a drink containing alc ohol? Monthly or less 05/08/2023 Q2: How many drinks containi ng alcohol do you have on a typical day when you are drinking? 1 or 2 05/08/2023 Q3: How often do you have si x or more drinks on one occasion? Never 05/08/2023 Overall Financial Resource Strain (CARDIA) Answe r Date Recorded How hard is it for you to pa y for the very basics like food, housing, medical care, and heating? Not very hard 05/08/2023 PHQ-2 Answer Date Recorded Patient Health Questionnaire-2 Score 1 08/10/2024 [facility] of Occupat ional Health - Occupational Stress Questionnaire Answer Date Recorded Do you feel stress - tense, restless, nervous, or anxious, or unable to sleep at night because your mind is troubled all the time - these days? Not at all 05/08/2023 Exercise Vital Sign Answer Date Recorde d On average, how many days pe r week do you engage in moderate to strenuous exercise (like a brisk walk)? 3 days 05/08/2023 On average, how many minutes do you engage in exercise at this level? 30 min 05/08/2023 Hunger Vital Sign Answer Date Recorded Within the past 12 months, y ou worried that your food would run out before you got the money to buy more. Never true 05/08/19 24 Within the past 12 months, t he food you bought just didn't last and you didn't have money to get more. Never true 05/08/2023 PRAPARE - Transportation Answer Date Re corded In the past 12 months, has l ack of transportation kept you from medical appointments or from getting medications? No 07/2023 In the past 12 months, has l ack of transportation kept you from meetings, work, or from getting things needed for daily living? No 05/08/2023 Housing Stability Vital Sign Answer David e Recorded In the last 12 months, was t here a time when you were not able to pay the mortgage or rent on time? No 05/08/2023 In the last 12 months, how many places have you lived? 1 05/08/2023 In the last 12 months, was t here a time when you did not have a steady place to sleep or slept in a senior care (including now)? No 05/08/2023 Comments No Sex and Gender Information Value Date Recorded Sex Assigned at Not on file Legal Sex Female 6:42 PM EDT Gender Identity Not on file Sexual Orientation Not on file documented as of this encounter Progress Notes * Sumaya Villar MA - 11/27/2024 10:15 AM EDT Patient is here with sx of urinary frequency, urinary urgency, and lower abdominal pressure that started Saturday. She also states that she wet the bed Saturday night without a warning. documented in this encounter Plan of Treatment Upcoming Encounters Date Type Department Care Team (Late st Contact Info) Description 12/02/2024 1:00 PM EDT [facility] [address] [place] [address] Patrciia Maki NP [address] [facility] [place], [place] [id number] 12/07/2025 11:00 AM EDT Procedure Visit [facility] [address] [facility] [place] [id number] Giorgi Prakash DO [address] [facility] [place] [address] documented as of this encounter Goals Goal Patient Goal Type Associated Problems Recent Progress Patient-Stated? Author Help patient manage antidepressant medication Care Plan Patient on antidepressant monitoring plan Mercedes Mike NP documented as of this encounter Procedures Procedure Name Priority Date/Time Associated Diagnosis Comments CULTURE, URINE, ROUTINE Routine 11/27/2024 10:35 AM EDT Urinary frequency Urinary urgency Abdominal pressure Hematuria, unspecified type POCT URINALYSIS DIPSTICK Routine 11/27/2024 10:23 AM EDT Urinary frequency Urinary urgency Abdominal pressure Hematuria, unspecified type documented in this encounter Results * Urine culture (clean catch) (11/27/2024 10:35 AM EDT) MICRO NUMBER [id number] [facility] SPECIMEN QUALITY Adequate QUEST SOURCE: (QUEST) URINE QUEST STATUS FINAL [facility] RESULT SEE NOTE [facility] Comment: No Growth Urine Urine specimen obtained by clean catch procedure / Unknown 11/27/2024 10:35 AM EDT 11/27/2024 10:36 AM EDT Narrative Resulting Agency Comment Performing Organization Information Site ID: QPT Name: [facility] Address: [address] [place] [address], [address] [place] [id number] Director: Bernardo Jackson MD Patricia Maki NP LAB MICROBIOLOGY - GENERAL [place]LOTTE BOUCHER Final Result [facility] * (ABNORMAL) POCT urinalysis dipstick manually resulted (11/27/2024 10:23 AM EDT) Color, UA Yellow Clarity, UA Clear Glucose, UA Negative Negative - 2000(110) ++++ mg/dL Bilirubin, UA Negative Negative - 4(70) +++ mg/dL Ketones, UA Negative Negative - 160(16) ++++ mg/dL Spec Grav, UA 1.010 1 - 1.03 Blood, UA Positive Negative - 50 Peterson/mcL pH, UA 6.0 5 - 9 Protein, UA Positive Negative - 2000(20) ++++ mg/dL Urobilinogen, UA 0.2 0.2 - 12 mg/dL Leukocytes, UA Positive Negative - 500+++ Madai/mcL Nitrite, UA Negative Negative - Positive Urine 11/27/2024 10:2 3 AM EDT Patricia Maki LINE SERVICE TECHNICIAN POINT OF CARE TEST ENTER/EDIT O RDERABLES Final Result documented in this encounter Visit Diagnoses Diagnosis Hematuria, unspecified type- Primary Urinary frequency Urinary urgency Urgency of urination Abdominal pressure Abdominal pain, unspecified site documented in this encounter Additional Health Concerns Active Problems Noted Date Diagnosed Date Patient on antidepressant monitoring plan 2024 Assessment Noted Time PHQ-9 Depression Total Score: 4 08/11/19 25 1:00 PM EDT documented as of this encounter Care Teams Rock Cutter Relationship Specialty Start Date End Date Vale Hubbard MD [address] [place] [address] PCP - General Family Medicine 05/14/23 Vale Hubbard MD [address] [place] [address] PCP - Kayden XIE 06/06/23 Mercedes Baptiste NP [address] [place] [address] Nurse Practitioner Family Medicine 09/17/23 Rolo Ledezma LPN [address] [place] [address] Licensed Practical Nurse Family Medicine 04/10/24 documented as of this encounter
--- OUTSIDE RECORDS SUMMARY | 2024-12-01 09:20 | XMS_ITS | Encounter Summary ---
Author Organization [facility] Address [address] [place] [address] Care Team Providers Care General Dentist Name Role Phone Vale Hubbard MD Primary Care Provider Vale Hubbard MD Unavailable [phone] Mercedes Baptiste SHIPPING TECHNICIAN Unavailable [phone] Rolo Ledezma LPN Unavailable [phone] Reason for Visit * Reason Comments Gynecologic Exam Encounter Details Date Type Department Care Team (Late st Contact Info) Description 12/01/2024 9:20 AM EDT Office Visit [facility] [address] [facility] [place] [id number] Giorgi Prakahs DO [address] [facility] [address] [place], [place] [id number] Well woman exam with routine gynecological exam; Osteoporosis, post-menopausal ; Breast cancer screening by mammogram; Exposure to STD Social History Tobacco Use Types Packs/Day Years [...] week 05/08/2023 How often do you attend [facility] or christian services? Never 05/08/2023 Do you belong to any clubs o r organizations such as synagogue groups, unions, fraternal or athletic groups, or [...] Recorded Patient Health Questionnaire-2 Score 1 08/10/2024 [facility] of Occupat ional Health - Occupational Stress [...] place to sleep or slept in a correction (including now)? No 05/08/2023 Comments No Sex and Gender Information Value Date Recorded Sex Assigned at Not on file Legal Sex Female 6:42 PM EDT Gender Identity Not on file Sexual Orientation Not on file documented as of this encounter Last Filed Vital Signs Vital Sign Reading Time Taken Comments Blood Pressure 124/78 12/01/2024 10:11 AM EDT Pulse - - Temperature - - Respiratory Rate - - Oxygen Saturation - - Inhaled Oxygen Concentration - - Weight 75.8 kg (167 lb) 12/01/2024 10:11 AM EDT Height - - Body Mass Index 33.73 09/07/2024 1:03 PM EDT documented in this encounter Progress Notes * Domi Dan, RESIDENTIAL TECH - 12/01/2024 9:20 AM EDT Reason for Appointment: Patient ID: Elda Ng is a 54 y.o. female who presents for Gynecologic Exam Patient presents today for Annual Exam. MEDICATIONS Current Outpatient Medications Medication Instructions acetaminophen (Tylenol) 325 MG tablet albuterol HFA 90 mcg/act inhaler INHALE 2 PUFFS EVERY 4 HOURS IF NEEDED FOR WHEEZING. alendronate (FOSAMAX) 70 mg, Oral, Every 7 days, Take in the morning with a full glass of water, rob empty stomach, and do not take anything else by mouth or lie down for the next 30 min. amoxicillin-clavulanate (Augmentin) 875-125 MG tablet 875 mg, Oral, 2 times daily baclofen (LIORESAL) 40 mg, Oral, 2 times daily Calcium Carb-Cholecalciferol (CALCIUM 500 + D PO) 1 each, Daily cholecalciferol (Vitamin D-3) 25 MCG (1000 UT) capsule Vitamin D3 citalopram (CELEXA) 40 mg, Oral, Daily docusate sodium (COLACE) 100 mg, 2 times daily fluticasone (Flonase) 50 MCG/ACT nasal spray 1 spray, Each Nostril, Daily, Shake gently. Before first use, prime pump. After use, clean tip and replace cap. gabapentin (Neurontin) 600 MG tablet TAKE ONE TABLET BY MOUTH TWICE A DAY IN THE MORNING AND BEFOREBEDTIME hydrOXYzine HCl (ATARAX) 25 mg, Oral, 2 times daily PRN IBU 800 MG tablet TAKE ONE TABLET BY MOUTH THREE TIMES A DAY NEEDED FOR MILD PAIN loratadine (Claritin) 10 MG tablet Every 24 hours Melatonin 10 MG sublingual tablet naltrexone (DEPADE) 25 mg, Oral, Daily nystatin (Mycostatin) 753592 UNIT/GM powder Topical, 2 times daily onabotulinumtoxinA (Botox) 100 units injection Injected every 3 months for spasticity as directed Synthroid 100 MCG tablet TAKE ONE TABLET BY MOUTH EVERY MORNING BEFORE MEALS valACYclovir (VALTREX) 500 mg, Oral, Daily ALLERGIES Allergies Allergen Reactions Metformin Other Chest pain PROBLEMS Active Ambulatory Problems Diagnosis Date Noted Abnormal weight gain 10/23/2022 Carpal tunnel syndrome, left 10/23/2022 Constipation 10/23/2022 Enlarged uterus 10/23/2022 Gait disturbance 10/23/2022 Gastroesophageal reflux disease 10/23/2022 Hypothyroidism 10/23/2022 Menorrhagia 10/23/2022 Mild episode of recurrent major depressive disorder 10/23/2022 Neurogenic bladder 10/23/2022 Neurogenic bowel 10/23/2022 Neuropathy 10/23/2022 Obesity 10/23/2022 Panic disorder 10/23/2022 Paraparesis (HCC) 10/23/2022 Spinal cord injury at T1-T6 level ([facility]) 10/23/2022 Thickened endometrium 10/23/2022 Degeneration of lumbar intervertebral disc 10/23/2022 Genital warts 03/31/2024 Foot drop, right foot 04/16/2024 Resolved Ambulatory Problems Diagnosis Date Noted Spinal cord injury at ([facility]) 10/24/2022 Past Medical History: Diagnosis Date Abnormal Pap smear of cervix 2020? 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 I get it on my scalp, behind my ears, my chin, and between my breasts at times. Mostly in the winter months. Fibroid 2021? MOISES (generalized anxiety disorder) Herpes simplex Cold sores since a child History of pulmonary embolism Hypertension Hypothyroid Major depressive disorder Major depressive disorder, recurrent episode, mild Menopause ovarian failure I believe im perimenopausal Obesity (BMI 30.0-34.9) Obsessive compulsive disorder Polycystic ovary syndrome 1997? Postmenopausal state Spinal cord injury, T1-T6 ([facility]) Spinal cord injury, thoracic region ([facility]) Thoracic disc disease Urinary tract infection Many but moreso since my SCI Vaginal discharge Wheezing HISTORY PAST MEDICAL HISTORY SOCIAL HISTORY Past Medical History: Diagnosis Date Abnormal Pap smear of cervix 2020? 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 I get it on my scalp, behind my ears, my chin, and between my breasts at times. Mostly in the winter months. Enlarged uterus Fibroid 2021? MOISES (generalized anxiety disorder) Gastroesophageal reflux disease Herpes simplex Cold sores since a child History of pulmonary embolism Hypertension Hypothyroid Major depressive disorder Major depressive disorder, recurrent episode, mild Menopause ovarian failure I believe im perimenopausal Menorrhagia Obesity (BMI 30.0-34.9) Obsessive compulsive disorder Panic disorder Paraparesis (HCC) Polycystic ovary syndrome 1997? Postmenopausal state Spinal cord injury, T1-T6 (HCC) Spinal cord injury, thoracic region (HCC) Thickened endometrium Thoracic disc disease Urinary tract infection Many but moreso since my SCI Vaginal discharge Wheezing Social History Tobacco Use Smoking status: Never Smokeless tobacco: Never Vaping Use Vaping status: Never Used Substance Use Topics Alcohol use: Not Currently Comment: A few drinks a year Drug use: Not Currently FAMILY HISTORY Family History Problem Relation Name Age of Onset Diabetes Mother Kamryn Spearspkins Hypertension Mother Kamryn [place] Arthritis Mother Kamryn [place] Heart disease Father Jerardo Hernandez Hypertension Father Jerardo Hernandez Heart failure Father Jerardo SpearsHernandez Asthma Son Aaron Tariq Hearing loss Maternal Grandmother Antonette Thyroid disease Maternal Grandmother Antonette Cancer Paternal Grandfather Martita Diabetes Father's Brother Pancho SURGICAL HISTORY Past Surgical History: Procedure Laterality Date BACK SURGERY 2018 CARPAL TUNNEL RELEASE Left 03/27/2017 Dr. Gibbs CARPAL TUNNEL RELEASE Right 03/07/2016 SECTION, LOW TRANSVERSE x2 DILATION AND CURETTAGE OF UTERUS 3 TUBAL LIGATION Bilateral REVIEW OF SYSTEMS Review of Systems: Review of Systems Constitutional: Negative. HENT: Negative. Eyes: Negative. Respiratory: Negative. Cardiovascular: Negative. Gastrointestinal: Negative. Genitourinary: Negative. Musculoskeletal: Negative. Skin: Negative. Neurological: Negative. All other systems reviewed and are negative. Hematological: Negative. Endocrine: Negative. Allergic/Immunologic: Negative. OBJECTIVE Objective: Physical Exam Constitutional: Appearance: Normal appearance. She is well-developed. Genitourinary: Vulva normal. Cardiovascular: Rate and Rhythm: Normal rate and regular rhythm. Pulmonary: Effort: Pulmonary effort is normal. Breath sounds: Normal breath sounds. Abdominal: General: Bowel sounds are normal. There is no distension. Palpations: Abdomen is soft. Tenderness: There is no abdominal tenderness. There is no guarding or rebound. Musculoskeletal: General: No swelling. Normal range of motion. Right lower leg: No edema. Left lower leg: No edema. Neurological: Mental Status: She is alert and oriented to person, place, and time. Skin: General: Skin is warm and dry. Psychiatric: Mood and Affect: Mood normal. Behavior: Behavior normal. Vitals and nursing note reviewed. Exam conducted with a four slide machine operator present. Vitals: Estimated body mass index is 33.73 kg/m?? as calculated from the following: Height as of 09/07/24: 4' 11 . Weight as of this encounter: 167 lb. BP: 124/78 No LMP recorded. ASSESSMENT & PLAN ICD-10-CM 1. Well woman exam with routine gynecological exam Z01.419 THIN PREP TIS PAP AND HR HPV DNA 2. Osteoporosis, post-menopausal M81.0 DEXA bone density 3. Breast cancer screening by mammogram Z12.31 Bilateral screening mammogram Bilateral screening mammogram 4. Exposure to STD Z20.2 SURESWAB(R) ADVANCED VAGINITIS PLUS, TMA CHLAMYDIA TRACHOMATIS (GENITO/STI) Neisseria gonorrhea DNA probe, direct Orders Placed This Encounter Procedures Bilateral screening mammogram DEXA bone density CHLAMYDIA TRACHOMATIS (GENITO/STI) Neisseria gonorrhea DNA probe, direct Annual Wellness Exam: Patient presents today for routine annual exam. Patient states she has complaints of yellow discharge. Patients vitals were reviewed and within normal limits. Growth and development is noted to be appropriate for age. No mental health concerns was expressed. Pap Smear: Speculum was inserted into the vagina and pap was obtained without difficulty. HPV testing was performed per age guideline. Patient was advised that pap results could take anywhere from 7 to 10 days to receive and our office will reach out to the patient with those once we have them. Patient can also view results via gamigo. I reinforced importance of condom use for STI prevention. Patient requested cultures to be performed with today's visit. Breast Exam: Upon examination, clinical breast exam was noted to be normal and screening mammogram was ordered and given to patient to have obtained. Patient was counseled on breast self-awareness, including the importance of knowing what is normal for her own breasts and promptly reporting any changes such as new lumps, skin dimpling, nipple discharge, or pain. Screening mammogram was recommended annually. Discussed signs and symptoms of breast cancer and when to seek medical attention. Answered all patient questions. DEXA Counseling: DEXA scan ordered and given to the patient to have performed for osteoporosis screening per guidelines. Patient counseled on bone health, including the importance of calcium and vitamin D intake, weight-bearing exercise, fall prevention, and avoiding tobacco and excessive alcohol. Discussed purposeof DEXA in assessing fracture risk and monitoring bone density. Patient advised results will be reviewed upon completion and next steps discussed as needed. Follow Up: Patient is to return to our office in one year for annual exam unless needed otherwise. Documented by Domi Dan LPN on behalf of: Giorgi Prakash DO documented in this encounter Plan of Treatment Upcoming Encounters Date Type Department Care Team (Late st Contact Info) Description 12/02/2024 1:00 PM EDT Office Visit [facility] [address] [place] [address] Patricia Maki NP [address] [place], [place] [id number] 12/07/2025 11:00 AM EDT Procedure Visit [facility] [address] [place] [address] Giorgi Prakash DO [address] [place] [address] Scheduled Orders Name Type Priority Associated Diagnoses Orde r Schedule Bilateral screening mammogram Imaging Routine Breast cancer screening by mammogram Expected: 12/01/2024 (Approximate), Expires: 02/01/2026 DEXA bone density Imaging Routine Osteoporosis, post-menopausal Expected: 12/01/2024 (Approximate), Expires: 12/01/2025 THIN PREP TIS PAP AND HR HPV DNA Pathology and Cytology Routine Well woman exam with routine gynecological exam Ordered: 12/01/2024 SURESWAB(R) ADVANCED VAGINITIS PLUS, TMA Pathology and Cytology Routine Exposure to STD Ordered: 12/01/2024 CHLAMYDIA TRACHOMATIS (GENITO/STI) Lab Routine Exposure to STD Ordered: 12/01/2024 Neisseria gonorrhea DNA probe, direct Lab Routine Exposure to STD Ordered: 12/01/2024 documented as of this encounter Goals Goal Patient Goal Type Associated Problems Recent Progress Patient-Stated? Author Help patient manage antidepressant medication Care Plan Patient on antidepressant monitoring plan No Mercedes Baptiste NP documented as of this encounter Visit Diagnoses Diagnosis Well woman exam with routine gynecological exam Routine gynecological examination Osteoporosis, post-menopausal Senile osteoporosis Breast cancer screening by mammogram Exposure to STD documented in this encounter Additional Health Concerns Active Problems Noted Date Diagnosed Date Patient on antidepressant monitoring plan 2024 Assessment Noted Time PHQ-9 Depression Total Score: 4 08/11/19 25 1:00 PM EDT documented as of this encounter Care Teams General Dentist Relationship Specialty Start Date End Date Vale Hubbard MD [address] [place] [address] PCP - General Family Medicine 05/14/23 Vale Hubbard MD [address] [place] [address] PCP - Kayden XIE 06/06/23 Mercedes Baptiste NP [address] [place] [address] Nurse Practitioner Family Medicine 09/17/23 Rolo Ledezma LPN [address] [facility] [address] [place] [phone] Licensed Practical Nurse Family Medicine 04/10/24 documented as of this encounter
--- OUTSIDE RECORDS SUMMARY | 2024-12-01 15:10 | XMS_ITS | Encounter Summary ---
Author Organization [facility] Address [address] [place] [address] Care Team Providers Care Production Control Coordinating Clerk Name Role Phone Mercedes Baptiste RUG CLEANING SUPERVISOR Unavailable + [phone] Mercedes Baptiste RUG CLEANING SUPERVISOR Unavailable + [phone] Source Comments In the event this information is protected by the Federal Confidentiality of Alcohol and Drug AbusePatient Records regulations: The Federal rules restrict any use of the information to criminally investigate or prosecute any alcohol or drug abuse patient.[facility] Encounter Details Date Type Department Care Team (Late st Contact Info) Description 04/13/2024 Get Medical Advice Rehab Medicine [address] [place], [place] [id number] Michelet Peña MD [address] [place] [address] Tizanidine Social History Tobacco Use Types Packs/Day Years Used Date Smoking Tobacco: Never Smokeless Tobacco: Never PHQ-2 Answer Date Recorded PHQ-2 score 0 01/09/2024 Area Deprivation Index Answer Date Harry rded National Score (1-100), lower number is lower ri sk 94 05/29/2023 State Score (1-10), lower number is lower risk 9 05/29/2023 Data from: https://www.neighborhoodatlas.medicine.[facility]/. Last address used for calculation [address] 05/29/2023 Comments No Sex and Gender Information Value Date Recorded Sex Assigned at Female 11/30/2020 12:16 PM EDT Legal Sex Female 1:28 PM EST Gender Identity Female 11/30/2020 12:16 PM EDT Sexual Orientation Straight 11/30/2020 12 :16 PM EDT documented as of this encounter Plan of Treatment Upcoming Encounters Date Type Department Care Team (Late st Contact Info) Description 12/22/2024 3:00 PM EDT [facility] [address] [place] [address] Chelo Avila PA-C [address] [place] [address] follow up 12/24/2024 3:40 PM EDT Office Visit [facility] [place] [address] [place] [address] [place] [address] [place] [address] 4 month follow up 03/09/2025 1:00 PM EST Office Visit [facility] [address] [place] [address] Veroncia Aguirre MD [address] [place] [address] BOTOX 10/26/2025 1:10 PM EDT Office Visit Endocrinology [address] [place] [address] Hany Sanabria MD [address] [place] [address] Follow up 1 year documented as of this encounter Visit Diagnoses Not on filedocumented in this encounter Care Teams Production Control Coordinating Clerk Relationship Specialty Start Date End Date Mercedes Baptiste CNP [address] [place] [address] [id number] Referring Family Medicine 05/09/23 Mercedes Baptiste CNP [address] [place], [place] [phone] Family Medicine 05/12/23 documented as of this encounter
--- OUTSIDE RECORDS SUMMARY | 2024-12-01 15:10 | XMS_ITS | Clinical Summary ---
Author Organization [employer] [facility] Address [id number] [address] [place] [address] Care Team Providers Care Material Handler Loader Name Role Phone Steveericka Mercedes Camille WEBBN-MECHANICAL AND AUTO BODY CAR CHECKER Primary Care Pro vider Allergies Active Allergy Reactions Criticality Noted Date Comments Metformin Other (See Comments) 03/25/2017 Chest pain Medications levothyroxine (SYNTHROID, LEVOTHROID) 100 MCG tablet Take 100 mcg by mouth daily. Active citalopram (CeleXA) 20 mg tablet Take 20 mg by mouth daily. Active fluconazole (DIFLUCAN) 150 mg tablet Take 150 mg by mouth once. Active omeprazole (PriLOSEC) 20 mg capsule Take 20 mg by mouth daily. Active albuterol (PROVENTIL HFA;VENTOLIN HFA) 90 mcg/actuation inhaler Inhale 2 puffs every 6 (six) hours as needed for wheezing. Active loratadine (CLARITIN) 10 mg tablet Take 10 mg by mouth daily. Active ibuprofen (ADVIL,MOTRIN) 800 mg tablet Take 800 mg by mouth every 6 (six) hours as needed for pain. Active sitaGLIPtin (JANUVIA) 100 mg tablet Take 100 mg by mouth daily. Active tgjwubju-rkkx-XS -calcium &mins (THERAGRAN-M) 9 mg iron-400 mcg tablet Take 1 tablet by mouth daily. Active metoprolol tartrate (LOPRESSOR) 25 mg tablet Take 25 mg by mouth 2 (two) times a day. Active Family History Medical History Relation Name Comments Heart attack Father x2 Diabetes Mother Hypertension Mother Sarcoidosis Mother Relation Name Status Comments Father Alive Mother Alive Social History Tobacco Use Types Packs/Day Years Used Date Smoking Tobacco: Never Smokeless Tobacco: Never Alcohol Use Standard Drinks/Week Comments Yes 0 (1 standard drink = 0.6 oz pur e alcohol) rare Childcare Answer Date Recorded Childcare Unknown 10/15/2018 Employment Answer Date Recorded Employment Unknown 10/15/2018 Purpose - Life Answer Date Recorded Purpose and direction in life Unknown Comments No Sex and Gender Information Value Date Recorded Sex Assigned at Female 08/19/2019 2:19 PM EDT Legal Sex Female 11:49 AM EDT Gender Identity Female 08/19/2019 2:19 PM EDT Sexual Orientation Straight 08/19/2019 2: 19 PM EDT Last Filed Vital Signs Vital Sign Reading Time Taken Comments Blood Pressure 106/71 03/27/2017 8:30 AM EST Pulse 72 03/27/2017 8:30 AM EST Temperature 36.9 C (98.5 F) 03/27/2017 6:26 AM EST Respiratory Rate 16 03/27/2017 6:26 AM EST Oxygen Saturation 95% 03/27/2017 8:30 AM EST Inhaled Oxygen Concentration - - Weight 94.8 kg (209 lb) 03/27/2017 6:26 AM EST Height 149.9 cm (4' 11.02 ) 03/27/2017 6:[address] Body Mass Index 42.19 03/27/2017 6:26 AM EST Plan of Treatment Health Maintenance Due Date Last Done Comments Depression Screening 1984 Tobacco Screening 1984 Adult BMI Screening 01/14/1990 Zoster (Shingles) Vaccine (1 of 2) 01/14/2022 COVID-19 Vaccine (3 - 2023-2 5 season) 2024 08/18/2020, 07/28/2020 Influenza Vaccine 01/04/2025 02/07/2024, , 04/03/2022, Additional history exists Pap Smear 11/05/2026 11/06/2023 DTaP,Tdap and Td Vaccines (3 - Td or Tdap) 07/14/2032 07/14/2022, 07/14/2022 Medical Devices Not on file Insurance MEDICAID [place] Care Teams Material Handler Loader Relationship Specialty Start Date End Date Mercedes Baptiste APRN-ROSAS [address] [place] [address] PCP - General Family Medicine 05/15/23
--- OUTSIDE RECORDS SUMMARY | 2024-12-01 15:10 | XMS_ITS | Clinical Summary ---
Author Organization [facility] Address [address] [place] [address] Care Team Providers Care Director Work Name Role Phone Mercedes Baptiste HEALTH INFORMATICS ADVISOR Unavailable + [phone] Mercedes Baptiste HEALTH INFORMATICS ADVISOR Unavailable [phone] Allergies Active Allergy Reactions Criticality Noted Date Comments Metformin Other: See Comments High 06/21/2016 Chest pain Medications acetaminophen (TYLENOL) 325 mg tablet Active albuterol HFA (PROVENTIL HFA, VENTOLIN HFA) 90 mcg/actuation inhaler Inhale 2 Puffs as instructed every 6 hours as needed. 5 Active baclofen (LIORESAL) 20 mg tablet Take 40 mg by mouth twice daily. 1 Active diphenhydrAMINE (BENADRYL ALLERGY) 12.5 mg/5 mL liquid Activ e ibuprofen (MOTRIN) 800 mg tablet Take 800 mg by mouth every 6 hours as needed. Active levothyroxine (SYNTHROID) 100 mcg tablet Take 100 mcg by mouth. 5 Active loratadine (CLARITIN) 10 mg tablet Take 10 mg by mouth. Active melatonin 10 mg subl Active valACYclovir (VALTREX) 1 gram Take 1,000 mg by mouth once daily. 1 Active gabapentin (NEURONTIN) 600 mg tablet Take 600 mg by mouth three times a day. Active alendronate (FOSAMAX) 70 mg tablet Take 70 mg by mouth one time a week. In AM with cup of water on empty stomach. Nothing else by mouth and stay upright for 30 min. Active calcium carbonate/vitam in D2 ([id number] ORAL) Take 2 capsules by mouth once daily. Active docusate sodium (COLACE ORAL) Take 3 tablets by mouth daily at bedtime. Active venlafaxine ER (EFFEXOR XR) 150 mg 24 hr capsule Take 150 mg by mouth. 4 Active hydrOXYzine pamoate (VISTARIL) 25 mg capsule Take 25 mg by mouth three times a day as needed. 2 Active buPROPion (WELLBUTRIN) 100 mg tablet Take 100 mg by mouth once daily. 4 Active naltrexone 50 mg tablet Take 25 mg by mouth once daily. 4 Active onabotulinum toxin type A (BOTOX) 100 unit solr Injected every 3 months for spasticity as directed 4 Active tiZANidine (ZANAFLEX) 2 mg tablet Take 1 tablet by mouth three times a day. 90 tablet 5 4 Active citalopram (CELEXA) 40 mg tablet Take 40 mg by mouth. 5 Active Hospital, Clinic, or Other Facility Administered Medication Ordered Dose Route Frequency Start Date End Date Status onabotulinum toxin type A 400 Units injection (BOTOX) 400 Units IM ONCE 11/26/2024 11/27/19 Ended Active Problems Problem Noted Date Diagnosed Date Thoracic myelopathy 12/02/2020 Encounters Date Type Department Care Team Description 11/26/2024 11:15 AM EDT Office Visit [facility] [address] [place], [place] [phone] Veronica Aguirre MD Thoracic spondylosis with myelopathy (Primary Dx); Paraparesis (HCC); Spasticity; Upper extremity weakness; Left foot drop 11/26/2024 Travel 10/27/2024 10:30 AM EDT Office Visit Endocrinology [address] [place] [address] Hany Sanabria MD Nontoxic single thyroid nodule (Primary Dx); Acquired hypothyroidism 10/25/2024 Travel 09/15/2024 Get Medical Advice Neurology [address] [place] [address] Vale Humphreys MD Hand Controls from Last 3 Months Social History Tobacco Use Types Packs/Day Years Used Date Smoking Tobacco: Never Smokeless Tobacco: Never Tobacco Cessation:Counseling Given: Not Answered Alcohol Use Standard Drinks/Week Comments Not Currently 0 (1 standard drink = 0.6 oz pur e alcohol) PHQ-2 Answer Date Recorded PHQ-2 score 0 01/09/2024 Area Deprivation Index Answer Date Harry rded National Score (1-100), lower number is lower ri sk 94 05/29/2023 State Score (1-10), lower number is lower risk 9 05/29/2023 Data from: https://www.neighborhoodatlas.medicine.[facility]/. Last address used for calculation [facility] 05/29/2023 Comments No Sex and Gender Information Value Date Recorded Sex Assigned at Female 11/30/2020 12:16 PM EDT Legal Sex Female 1:28 PM EST Gender Identity Female 11/30/2020 12:16 PM EDT Sexual Orientation Straight 11/30/2020 12 :16 PM EDT Last Filed Vital Signs Vital Sign Reading Time Taken Comments Blood Pressure 153/77 10/27/2024 10:29 AM EDT Pulse 85 10/27/2024 10:29 AM EDT Temperature 36.2 C (97.1 F) 04/21/2021 2:24 PM EST Respiratory Rate 22 02/02/2021 2:49 PM EDT Oxygen Saturation 97% 04/21/2021 2:24 PM EST Inhaled Oxygen Concentration - - Weight 74.8 kg (165 lb) 10/27/2024 10:29 AM EDT Height 149.9 cm (4' 11 ) 04/21/2021 2:24 PM EST Body Mass Index 33.33 04/21/2021 2:24 PM EST Plan of Treatment Upcoming Encounters Date Type Department Care Team (Late st Contact Info) Description 12/22/2024 3:00 PM EDT [facility] [address] [place] [address] Chelo Avila, PA-C [address] [place], [place] [id number] follow up 12/24/2024 3:40 PM EDT Office Visit [facility] [address] [place], [place] [phone] [place] [address] [place] [address] 4 month follow up 03/09/2025 1:00 PM EST Office Visit [facility] [address] [place] [address] Veronica Aguirre MD [address], [place] [id number] BOTOX 10/26/2025 1:10 PM EDT Office Visit Endocrinology [address] [place] [address] Hany Sanabria MD [address] [place], [place] [id number] Follow up 1 year Health Maintenance Due Date Last Done Comments Anxiety Screening 01/14/1990 Depression Screening 01/14/1990 HIV Screening 01/14/1990 Hepatitis C Screening 01/14/1990 Hepatitis B Vaccine (1 of 3 - 19+ 3-dose series) 01/14/1991 Cervical Cancer Screening 01/14/1993 CT Colonography 01/14/2017 Cologuard (FIT-DNA) 01/14/2017 Colonoscopy 01/14/2017 Colorectal Cancer Screening 01/14/2017 Fecal Occult Blood 01/14/2017 Lipid Screening 01/14/2017 Sigmoidoscopy 01/14/2017 Pneumococcal Vaccine: 50+ (1 of 1 - PCV) 01/14/2022 Shingrix Vaccine (1 of 2) 01/14/2022 Mammogram Screening 06/14/2023 06/14/2022, 06/14/2022, 04/26/2022 Medicare Advantage Annual We llness Visit 05/06/2024 Influenza Vaccine (#1) 2025 , 03/08/2023, 04/03/2022, Additional history exists Diabetes Screening 05/29/2026 05/29/2023, 0 09/12/2017, 05/15/2017, Additional history exists DTaP,Tdap,Td Vaccine (3 - Td or Tdap) 07/14/2032 07/14/2022, 07/14/2022 Procedures Procedure Name Priority Date/Time Associated Diagnosis Comments COMPREHENSIVE METABOLIC PANEL Routine 05/29/2023 11:50 AM EST Spondylosis with myelopathy, thoracic region Spinal stenosis of lumbar region, unspecified whether neurogenic claudication present from Last 3 Months or Most Recently Relevant to Health Maintenance Results * (ABNORMAL) COMP METABOLIC PANEL (05/29/2023 11:50 AM EST) Protein, Total 7.6 6.3 - 8.0 g/dL 05/29/2023 1:45 PM [facility] Albumin 4.6 3.9 - 4.9 g/dL 05/29/2023 1:45 PM [facility] Calcium, Total 9.8 8.5 - 10.2 mg/dL 05/29/2023 1:45 PM [facility] Bilirubin, Total 0.3 0.2 - 1.3 mg/dL 05/29/2023 1:45 PM [facility] Alkaline Phosphatase 62 34 - 123 U/L 05/29/2023 1:45 PM [facility] AST 26 13 - 35 U/L 05/29/2023 1:45 PM [facility] ALT 26 7 - 38 U/L 05/29/2023 1:45 PM [facility] Glucose 85 74 - 99 mg/dL 05/29/2023 1:45 PM [facility] Comment: The [place] Diabetes Association (ADA) provides guidance for cutoff [...] Standards of Medical Care in Diabetes 2016, [place] Diabetes Association. Diabetes Care. 2016.39(Suppl 1). BUN 23(H) 7 - 21 mg/dL 05/29/2023 1:45 PM [facility] Creatinine 0.62 0.58 - 0.96 mg/dL 05/29/2023 1:45 PM [facility] Sodium 141 136 - 144 mmol/L 05/29/2023 1:45 PM [facility] Potassium 4.5 3.7 - 5.1 mmol/L 05/29/2023 1:45 PM [facility] Chloride 99 97 - 105 mmol/L 05/29/2023 1:45 PM [facility] CO2 30 22 - 30 mmol/L 05/29/2023 1:45 PM [facility] Anion Gap 12 9 - 18 mmol/L 05/29/2023 1:45 PM [facility] Estimated Glomerular Filtration Rate 108 >=60 mL/min/1.7 3m 05/29/2023 1:45 PM [facility] Comment:Estimated Glomerular Filtration Rate (eGFR) is calculated using the 2020 CKD-EPI creatinine equation. This equation utilizes serum creatinine, sex, and age as parameters. The creatinine assay has traceable calibration to isotope dilution- mass spectrometry. Refer to KDIGO guidelines for clinical interpretation. In patients with unstable renal function, e.g. those with acute kidney injury, the eGFR may not accurately reflect actual GFR. Blood BLOOD SPECIMEN / Unknown Venipuncture / Unknown 05/29/2023 11:50 AM EST 05/29/2023 11:50 AM EST us Vale Humphreys MD LABORATORY Final Result [facility] [address] [facility] [place] [address], from Last 3 Months or Most Recently Relevant to Health Maintenance [place] [address] [place] [address] MEDICARE ADVANTAGE HMO MEDICAID [place] Care Teams Director Work Relationship Specialty Start Date End Date Mercedes Baptiste CNP [address] [place] [address] [phone] Referring Family Medicine 05/09/23 Mercedes Baptiste CNP [address] [place] [address] [id number] Family Medicine 05/12/23
--- OUTSIDE RECORDS SUMMARY | 2024-12-01 15:10 | XMS_ITS | Encounter Summary ---
Author Organization [facility] Address [address] [place] [address] Care Team Providers Care Dairy Processing Supervisor Name Role Phone Carlos Hernandez MD Primary Care Provider [phone] Vale Hubbard MD Primary Care Provider [phone] Brad Arellano MD Unavailable [phone] Vale Hubbard MD Unavailable [phone] Mercedes Baptiste CLIENT TECHNICAL SUPPORT ASSOCIATE Unavailable [phone] Jes Benitez ORGANIC CHEMIST Unavailable [phone] Rolo Ledezma SPIRAL TUBE WINDER HELPER Unavailable [phone] Encounter Details Date Type Department Care Team (Late st Contact Info) Description 12/18/2022 Abstract [facility] [address] [place] [address] Carlos Hernandez MD [address] [place] [address] Social History Tobacco Use Types Packs/Day Years Used Date Smoking Tobacco: Never Alcohol Use Standard Drinks/Week Comments Never 0 (1 standard drink = 0.6 oz pur e alcohol) Caffeine intake: none PHQ-2 Answer Date Recorded Patient Health Questionnaire-2 Score 0 11/23/2022 Comments No Sex and Gender Information Value Date Recorded Sex Assigned at Not on file Legal Sex Female 6:42 PM EDT Gender Identity Not on file Sexual Orientation Not on file COVID-19 Exposure Response Date Recorded In the last 10 days, have yo u been in contact with someone who was confirmed or suspected to have Coronavirus/COVID-19? No / Unsure 12/05/2022 12:04 PM EDT documented as of this encounter Plan of Treatment Upcoming Encounters Date Type Department Care Team (Late st Contact Info) Description 12/02/2024 1:00 PM EDT Office Visit [facility] [address] [facility] [address] [facility] [place] [phone] Patricia Maki NP [address] [facility] [address] [place], [place] [address] 12/07/2025 11:00 AM EDT Procedure Visit [facility] [address] [place] [address] Giorgi Prakash DO [address] [place] Hernandez, [place] [phone] documented as of this encounter Visit Diagnoses Not on filedocumented in this encounter Care Teams Dairy Processing Supervisor Relationship Specialty Start Date End Date Carlos Hernandez MD PCP - General Family Medicine 10/24/22 05/13/23 Vale Hubbard MD [address] [place], [place] [phone] PCP - General Family Medicine 05/14/23 Brad Arellano MD [address] [facility] [address] [place] [address] PCP - Kayden XIE 12/04/22 05/05/23 Vale Hubbard MD [address] [place] [address] PCP - Kayden XIE 06/06/23 Mercedes Baptiste NP [address] [place] [address] Nurse Practitioner Family Medicine 09/17/23 Jes Benitez LSW [address] [place] [address] Safety Deposit Boxes Custodian Family Medicine 04/10/24 04/10/24 Rolo Ledezma, AISSATOU [address] [facility] [address] [place] [id number] Licensed Practical Nurse Family Medicine 04/10/24 documented as of this encounter
--- OUTSIDE RECORDS SUMMARY | 2024-12-01 15:10 | XMS_ITS | Encounter Summary ---
Author Organization [facility] Address [address] [place] [address] Care Team Providers Care Shipping And Receiving Material Handler Name Role Phone Vale Hubbard MD Primary Care Provider [phone] Vale Hubbard MD Unavailable [phone] Mercedes Baptiste STOCKROOM CLERK Unavailable Jes eBnitez WAFER POLISHING WORKER Unavailable Rolo Ledezma BOTTOM PRECIPITATOR OPERATOR Unavailable [phone] Reason for Visit * Reason Comments Med Refill Encounter Details Date Type Department Care Team (Late st Contact Info) Description 02/11/2024 Refill [facility] Family Medicine [address] [place] [address] Vale Hubbard MD [address] [place] [address] Mild intermittent asthma without complication (HCC) Social History Tobacco Use Types Packs/Day Years Used Date Smoking Tobacco: Never Smokeless Tobacco: Never Alcohol Use Standard Drinks/Week Comments Not Currently 0 (1 standard drink = 0.6 oz pur e alcohol) Caffeine intake: 1 cup vin Humiliation, Afraid, Rape, and Kick questionnair e [...] week 05/08/2023 How often do you attend [facility] or jehovah's witness services? Never 05/08/2023 Do you belong to any clubs o r organizations such as yazdanism groups, unions, fraternal or athletic groups, or [...] Date Recorded Patient Health Questionnaire-2 Score 0 08/06/2023 [facility] [place] of Occupat ional Health - Occupational Stress [...] place to sleep or slept in a mcfp (including now)? No 05/08/2023 Comments No Sex and Gender Information Value Date Recorded Sex Assigned at Not on file Legal Sex Female 6:42 PM EDT Gender Identity Not on file Sexual Orientation Not on file documented as of this encounter Miscellaneous Notes * Telephone Encounter - Yisel Ventura MA - 02/12/2024 6:52 AM EDT Approving, but needs appt for additional refills. documented in this encounter Plan of Treatment Upcoming Encounters Date Type Department Care Team (Late st Contact Info) Description 12/02/2024 1:00 PM EDT Office Visit [facility] [address] [facility] [place] [phone] Patricia Maki NP [address] [facility] [place] [address] 12/07/2025 11:00 AM EDT Procedure Visit [facility]U Hernandez [facility] [address] [place] [phone] Giorgi Prakash DO [address] [facility] [address] [place] [address] documented as of this encounter Visit Diagnoses Diagnosis Mild intermittent asthma without complication (HCC) documented in this encounter Additional Health Concerns Assessment Noted Time PHQ-9 Depression Total Score: 1 08/06/19 10:00 AM EDT documented as of this encounter Care Teams Shipping And Receiving Material Handler Relationship Specialty Start Date End Date Vale Hubbard MD [address] [facility] [place] [address] PCP - General Family Medicine 05/14/23 Vale Hubbard MD [address] [facility] [place] [address] PCP - Kayden XIE 06/06/23 Mercedes Baptiste NP [address] [facility] [place] [address] Nurse Practitioner Family Medicine 09/17/23 Jes Benitez LSW [address] [place] [address] Plant Changer Family Medicine 04/10/24 04/10/24 Rolo Ledezma LPN [address] [place] [address] Licensed Practical Nurse Family Medicine 04/10/24 documented as of this encounter
--- OUTSIDE RECORDS SUMMARY | 2024-12-01 15:10 | XMS_ITS | Encounter Summary ---
Author Organization [facility] Address [address] [place] [address] Care Team Providers Care Silver Buffer Name Role Phone Mercedes Baptiste ORACLE FINANCIALS DEVELOPER Unavailable + [phone] Mercedes Baptiste ORACLE FINANCIALS DEVELOPER Unavailable + [phone] Source Comments In the event this information is protected by the Federal Confidentiality of Alcohol and Drug AbusePatient Records regulations: The Federal rules restrict any use of the information to criminally investigate or prosecute any alcohol or drug abuse patient.[facility] Encounter Details Date Type Department Care Team (Late st Contact Info) Description 01/02/2021 Get Medical Advice Neurology [address] [place] [address] [place] [address] [place] [address] RE: Medication Question (Not Renewal) Social History Tobacco Use Types Packs/Day Years Used Date Smoking Tobacco: Never Smokeless Tobacco: Never PHQ-2 Answer Date Recorded PHQ-2 score 0 11/30/2020 Area Deprivation Index Answer Date Harry rded National Score (1-100), lower number is lower ri sk Not on file 12/02/2020 State Score (1-10), lower number is lower risk N ot on file 12/02/2020 Data from: https://www.neighborhoodatlas.[facility].edu/. Last address used for calculation Not on file 12/02/2020 Comments No Sex and Gender Information Value Date Recorded Sex Assigned at Female 11/30/2020 12:16 PM EDT Legal Sex Female 1:28 PM EST Gender Identity Female 11/30/2020 12:16 PM EDT Sexual Orientation Straight 11/30/2020 12 :16 PM EDT documented as of this encounter Miscellaneous Notes * Telephone Encounter - Yann Antonio MD - 01/02/2021 6:22 PM EDT Prescription order filed. Yann Antonio MD * Telephone Encounter - Cathleen GrayRn), RN - 01/02/2021 11:16 AM EDT Per OV 12/02 Please increase the dose of gabapentin to two three times daily. documented in this encounter Plan of Treatment Upcoming Encounters Date Type Department Care Team (Late st Contact Info) Description 12/22/2024 3:00 PM EDT [facility] [address] [place] [address] Chelo Avila PA-C [address] [place] [address] follow up 12/24/2024 3:40 PM EDT Office Visit [facility] [place] [address] [place], [place] [id number] [place] [address] [place] [address] 4 month follow up 03/09/2025 1:00 PM EST [facility] [address], [place] [address] Veronica Aguirre MD [address] [place] [address] BOTOX 10/26/2025 1:10 PM EDT Office Visit Endocrinology 57[address] [place] [address] Hany Sanabria MD [address] [facility] [place] [address] Follow up 1 year documented as of this encounter Visit Diagnoses Diagnosis Thoracic myelopathy- Primary Spondylosis with myelopathy, thoracic region documented in this encounter Care Teams Silver Buffer Relationship Specialty Start Date End Date Mercedes Baptiste CNP [address] [place] [address] Referring Family Medicine 05/09/23 Mercedes Baptiste CNP [address] [place] [address] Family Medicine 05/12/23 documented as of this encounter
--- OUTSIDE RECORDS SUMMARY | 2024-12-01 15:10 | XMS_ITS | Encounter Summary ---
Author Organization [facility] Address [address] [facility] [place] [address] Care Team Providers Care Service Delivery Analyst Name Role Phone Carlos Hernandez MD Primary Care Provider [phone] Vale Hubbard MD Primary Care Provider Brad Arellano MD Unavailable [phone] Vale Hubbard MD Unavailable [phone] Mercedes Baptiste LEAK OPERATOR PARAFFIN PLANT Unavailable [phone] Jes Benitez ASSORTMENT PLANNER Unavailable [phone] Rolo Ledezma PROPELLER ENGINEER Unavailable [phone] Encounter Details Date Type Department Care Team (Late st Contact Info) Description 11/20/2022 Abstract [facility] OBRONAL [address] [facility] [place] [address] Prerna Segundo PA [address] [facility] [address] [place], [place] [id number] Social History Tobacco Use Types Packs/Day Years Used Date Smoking Tobacco: Never Tobacco Cessation:Counseling Given: Not Answered Alcohol Use Standard Drinks/Week Comments Never 0 [...] on file documented as of this encounter Functional Status * Over the past 2 weeks, how often have you been bothered by any of the following problems? Question Answer Date of Assessment Author Little interest or pleasure in doing things Not at all 11/23/2022 8:56 AM EDT Criss Dodd Feeling down, depressed, or hopeless Not at all 11/23/2022 8:56 AM EDT Vijay Dodd Patient Health Questionnaire -2 Score 0 11/23/2022 8:56 AM EDT Criss Dodd documented as of this encounter Plan of Treatment Upcoming Encounters Date Type Department Care Team (Late st Contact Info) Description 12/02/2024 1:00 PM EDT Office Visit [facility] [address] [facility] [place] [address] Patricia Maki NP [address] [facility] [address] [place], [place] [address] 12/07/2025 11:00 AM EDT Procedure Visit R[facility]U Hernandez [facility]Maryellen [address] [place] [address] Giorgi Prakash DO [address] [facility] [place] [address] documented as of this encounter Visit Diagnoses Not on filedocumented in this encounter Care Teams Service Delivery Analyst Relationship Specialty Start Date End Date Carlos Hernandez MD PCP - General Family Medicine 10/24/22 05/13/23 Vale Hubbard MD [address] [facility] [address] [place], [place] [address] PCP - General Family Medicine 05/14/23 Brad Arellano MD [address] [facility] [address] [place] [address] PCP - Kayden XIE 12/04/22 05/05/23 Vale Hubbard MD [address] [place] [address] PCP - Kayden XIE 06/06/23 Mercedes Baptiste NP [address] [place] [address] Nurse Practitioner Family Medicine 09/17/23 Jes Benitez, ROGER [address] [place] [address] Directional Driller Family Medicine 04/10/24 04/10/24 Rolo Ledezma, AISSATOU [address] [facility] [address] [place] [address] Licensed Practical Nurse Family Medicine 04/10/24 documented as of this encounter
--- OUTSIDE RECORDS SUMMARY | 2024-12-01 15:10 | XMS_ITS | Encounter Summary ---
Author Organization [facility] Address [address] [facility] [place] [address] Care Team Providers Care Trouble Shooting Mechanic Name Role Phone Carlos Hernandez MD Primary Care Provider Vale Hubbard MD Primary Care Provider [phone] Brad Arellano MD Unavailable [phone] Vale Hubbard MD Unavailable [phone] Mercedes Baptiste UX RESEARCH ASSOCIATE Unavailable [phone] Jes Benitez MEDIA CONSULTANT Unavailable [phone] Rolo Ledezma BURNISHING MACHINE OPERATOR Unavailable [phone] Reason for Visit * Reason Onset Date Comments Med Refill 04/09/2023 Encounter Details Date Type Department Care Team (Late st Contact Info) Description 04/09/2023 Refill [facility] [address] [place] [address] Carlos Hernandez MD [address] [place] [address] Social History Tobacco Use Types Packs/Day Years [...] suspected to have Coronavirus/COVID-19? No / Unsure 04/09/2023 7:19 PM EST documented as of this encounter Plan of Treatment Upcoming Encounters Date Type Department Care Team (Late st Contact Info) Description 12/02/2024 1:00 PM EDT Office Visit [facility] 14[address] [place] [address] Patricia Maki NP 14[address] [place], [place] [address] 12/07/2025 11:00 AM EDT Procedure Visit [facility]U Hernandez [facility]ellen [address] [place] [address] Giorgi Prakash DO [address] [place] [address] documented as of this encounter Visit Diagnoses Not on filedocumented in this encounter Care Teams Trouble Shooting Mechanic Relationship Specialty Start Date End Date Carlos Hernandez MD PCP - General Family Medicine 10/24/22 05/13/23 Vale Hubbard MD [address] [place], [place] [address]34[address] PCP - General Family Medicine 05/14/23 Brad Arellano MD [address] [facility] [address] [place], [place] [address] PCP - Kayden XIE 12/04/22 05/05/23 Vale Hubbard MD [address] [place], [place] [phone] PCP - Kayden XIE 06/06/23 Mercedes Baptiste NP [address] [place] [address] Nurse Practitioner Family Medicine 09/17/23 Jes Benitez LSW [address] [place] [address] Certified Recreational Therapist Family Medicine 04/10/24 04/10/24 Rolo Ledezma, AISSATOU [address] [facility] [address] [place] [address] Licensed Practical Nurse Family Medicine 04/10/24 documented as of this encounter
--- OUTSIDE RECORDS SUMMARY | 2024-12-01 15:10 | XMS_ITS | Encounter Summary ---
Author Organization [facility] Address [address] [facility] [place] [address] Care Team Providers Care Grass Cutter Name Role Phone Vale Hubbard MD Primary Care Provider [phone] Vale Hubbard MD Unavailable [phone] Mercedes Baptiste PLATE SETTER Unavailable Jes Benitez FOOD RUNNER Unavailable [phone] Rolo Ledezma CLINICAL EDUCATION MANAGER Unavailable [phone] Encounter Details Date Type Department Care Team (Late st Contact Info) Description 03/17/2024 Abstract [facility] Mary [facility]OSA [address] [facility] [place] [id number] Prerna Segundo PA [address] [facility] [address] [place], [facility] Social History Tobacco Use Types Packs/Day Years [...] 05/08/2023 How often do you attend chur or mosque services? Never 05/08/2023 Do you belong to any clubs o r organizations such as jew groups, unions, fraternal or athletic groups, or [...] Recorded Patient Health Questionnaire-2 Score 0 08/06/2023 [facility] of Occupat ional Health - Occupational Stress [...] place to sleep or slept in a penitentiary (including now)? No 05/08/2023 Comments No Sex and Gender Information Value Date Recorded Sex Assigned at Not on file Legal Sex Female 6:42 PM EDT Gender Identity Not on file Sexual Orientation Not on file documented as of this encounter Plan of Treatment Upcoming Encounters Date Type Department Care Team (Late st Contact Info) Description 12/02/2024 1:00 PM EDT Office Visit [facility] [address] [place] [address] Patricia Maki NP [address] [place] [address] 12/07/2025 11:00 AM EDT Procedure Visit RITU SOSA [address] [facility] [place] [address] Giorgi Prakash DO [address] [facility] [address] [place], [place] 40[address] documented as of this encounter Visit Diagnoses Not on filedocumented in this encounter Additional Health Concerns Assessment Noted Time PHQ-9 Depression Total Score: 1 08/06/19 10:00 AM EDT documented as of this encounter Care Teams Grass Cutter Relationship Specialty Start Date End Date Vale Hubbard MD [address] [place] [address] PCP - General Family Medicine 05/14/23 Vale Hubbard MD [address] [place] [address] PCP - Kayden XIE 06/06/23 Mercedes Baptiste NP [address] [place] [address] Nurse Practitioner Family Medicine 09/17/23 Jes Benitez LSW 14[address] [place] [address] Auxiliary Equipment Tender Family Medicine 04/10/24 04/10/24 Rolo Ledezma, AISSATOU [address] [facility] [address] [place] [address] Licensed Practical Nurse Family Medicine 04/10/24 documented as of this encounter
--- OUTSIDE RECORDS SUMMARY | 2024-12-01 15:10 | XMS_ITS | Encounter Summary ---
Author Organization [facility] Address [address] [place] [address] Care Team Providers Care Wind Operations Supervisor Name Role Phone Vale Hubbard MD Primary Care Provider [phone] Vale Hubbard MD Unavailable Mercedes Baptiste IMMUNOLOGIST Unavailable [phone] Jes Benitez RETAIL ATTENDANT Unavailable Rolo Ledezma LPN Unavailable [phone] Encounter Details Date Type Department Care Team (Late st Contact Info) Description 05/14/2023 Orders Only [facility] Family Medicine [address] [place] [address] Mercedes Baptiste IMMUNOLOGIST [address] [place] [address] Social History Tobacco Use Types Packs/Day Years Used Date Smoking Tobacco: Never Smokeless Tobacco: Never Alcohol Use Standard Drinks/Week Comments Never 0 (1 standard drink = 0.6 oz pur e alcohol) Caffeine intake: none Humiliation, Afraid, Rape, and Kick questionnair e [...] How often do you attend chur or confucianist services? Never 05/08/2023 Do you belong to any clubs o r organizations such as zoroastrianism groups, unions, fraternal or athletic groups, or [...] Date Recorded Patient Health Questionnaire-2 Score 0 05/09/2023 [facility] [place] of Occupat ional Health - Occupational Stress [...] place to sleep or slept in a usp (including now)? No 05/08/2023 Comments No Sex [...] EDT Office Visit [facility] [address] [place] [address] Patricia Maki NP [address] [place] [address] 12/07/2025 11:00 AM EDT Procedure Visit [facility]U S[facility] [address] [place] [address] [place] [address] Giorgi Prakash DO [address] [facility] [place] [address] documented as of this encounter Visit Diagnoses Not on filedocumented in this encounter Additional Health Concerns Assessment Noted Time PHQ-9 Depression Total Score: 0 05/09/19 12:57 PM EST documented as of this encounter Care Teams Wind Operations Supervisor Relationship Specialty Start Date End Date Vale Hubbard MD [address] [place] [address] PCP - General Family Medicine 05/14/23 Vale Hubbard MD [address] [place] [address] PCP - Kayden XIE 06/06/23 Mercedes Baptiste NP [address] [place] [address] Nurse Practitioner Family Medicine 09/17/23 Jes Benitez LSW [address] [place] [address] Hydrographical Technical Officer Family Medicine 04/10/24 04/10/24 Rolo Ledezma, AISSATOU [address] [facility] [address] [place] [address] Licensed Practical Nurse Family Medicine 04/10/24 documented as of this encounter
--- OUTSIDE RECORDS SUMMARY | 2024-12-01 15:10 | XMS_ITS | Encounter Summary ---
Author Organization [facility] Address [address] [place] [address] Care Team Providers Care Business Intelligence Developer Name Role Phone Carlos Hernandez MD Primary Care Provider [phone] Vale Hubbard MD Primary Care Provider Brad Arellano MD Unavailable Vale Hubbard MD Unavailable [phone] Mercedes Baptiste NP Unavailable Jes Benitez SOFTWARE WRITER Unavailable [phone] Rolo Ledezma BALL WINDER Unavailable [phone] Encounter Details Date Type Department Care Team (Late st Contact Info) Description 05/03/2023 Abstract [facility] [address] [place] [address] Mercedes Baptiste NP [address] [place] [phone] Social History Tobacco Use Types Packs/Day Years [...] Office Visit [facility] [address] [facility] [place] [address] Patricia Maki NP [address] [place], [place] [phone] 12/07/2025 11:00 AM EDT Procedure Visit RITU SOSA [address] [place] [address] Giorgi Prakash DO [address] [place], [place] [phone] documented as of this encounter Visit Diagnoses Not on filedocumented in this encounter Care Teams Business Intelligence Developer Relationship Specialty Start Date End Date Carlos Hernandez MD PCP - General Family Medicine 10/24/22 05/13/23 Vale Hubbard MD [address] [place], [place] [address] PCP - General Family Medicine 05/14/23 Brad Arellano MD [address] [facility] [address] [place] [address] PCP - Kayden XIE 12/04/22 05/05/23 Vale Hubbard MD [address] [place] [address] PCP - Kayden XIE 06/06/23 Mercedes Baptiste NP [address] [place] [address] Nurse Practitioner Family Medicine 09/17/23 Jes Benitez LSW [address] [place] [address] Hydraulic Punch Press Operator Family Medicine 04/10/24 04/10/24 Rolo Ledezma, AISSATOU [address] [facility] [address] [place] [address] Licensed Practical Nurse Family Medicine 04/10/24 documented as of this encounter
--- OUTSIDE RECORDS SUMMARY | 2024-12-01 15:10 | XMS_ITS | Encounter Summary ---
Author Organization [facility] Address [address] [place] [address] Care Team Providers Care Armament Mechanic Name Role Phone Mercedes Baptiste MANAGER ADVANCED Unavailable [phone] Mercedes Baptiste MANAGER ADVANCED Unavailable + [phone] Source Comments In the event this information is protected by the Federal Confidentiality of Alcohol and Drug AbusePatient Records regulations: The Federal rules restrict any use of the information to criminally investigate or prosecute any alcohol or drug abuse patient.[facility] Encounter Details Date Type Department Care Team (Late st Contact Info) Description 04/22/2024 [facility] [address] [place] [id number] Veronica Aguirre MD [address] [place] [address] Dizziness Social History Tobacco Use Types Packs/Day Years Used Date Smoking Tobacco: Never Smokeless Tobacco: Never PHQ-2 Answer Date Recorded PHQ-2 score 0 01/09/2024 Area Deprivation Index Answer Date Harry rded National Score (1-100), lower number is lower ri sk 94 05/29/2023 State Score (1-10), lower number is lower risk 9 05/29/2023 Data from: https://www.neighborhoodatlas.[facility]/. Last address used for calculation [address] 05/29/2023 Comments No Sex and Gender Information [...] Info) Description 12/22/2024 3:00 PM EDT [facility] [address] [place] [address] Chelo Avila PA-C [address] [place] [address] follow up 12/24/2024 3:40 PM EDT Office Visit [facility] [place] [address] [facility] [place] [address] [place] [address] [place] [address] 4 month follow up 03/09/2025 1:00 PM EST Office Visit [facility] [address] [place] [address] Veronica Aguirre MD [address] [place], [place] [phone] BOTOX 10/26/2025 1:10 PM EDT Office Visit Endocrinology [address] [facility] [place] [address] Hany Sanabria MD [address] [facility] [place] [address] Follow up 1 year documented as of this encounter Visit Diagnoses Not on filedocumented in this encounter Care Teams Armament Mechanic Relationship Specialty Start Date End Date Mercedes Baptiste CNP [address] [place] [id number] Referring Family Medicine 05/09/23 Mercedes Baptiste CNP [address] [place] [address] Family Medicine 05/12/23 documented as of this encounter
--- OUTSIDE RECORDS SUMMARY | 2024-12-01 15:10 | XMS_ITS | Encounter Summary ---
Author Organization [facility] Address [address] [place] [address] Care Team Providers Care Senior Electrical Designer Name Role Phone Mercedes Baptiste COMMERCIAL CONSTRUCTION SUPERINTENDENT Unavailable + [phone] Mercedes Baptiste COMMERCIAL CONSTRUCTION SUPERINTENDENT Unavailable + [phone] Source Comments In the event this information is protected by the Federal Confidentiality of Alcohol and Drug AbusePatient Records regulations: The Federal rules restrict any use of the information to criminally investigate or prosecute any alcohol or drug abuse patient.[facility] Reason for Visit * Reason Comments Appointment Pt returning call re garding botox injection reschedule,she will call back tomorrow Encounter Details Date Type Department Care Team (Late st Contact Info) Description 03/18/2024 Telephone [facility] [address] [address] Michelet Peña MD [address] [place] [address] Appointment (Pt returning call regarding botox injection reschedule,she will call back tomorrow) Social History Tobacco Use Types Packs/Day Years Used Date Smoking Tobacco: Never Smokeless Tobacco: Never PHQ-2 Answer Date Recorded PHQ-2 score 0 01/09/2024 Area Deprivation Index Answer Date Harry rded National Score (1-100), lower number is lower ri sk 94 05/29/2023 State Score (1-10), lower number is lower risk 9 05/29/2023 Data from: https://www.neighborhoodatlas.medicine.[facility]/. Last address used for calculation [address] 05/29/2023 Comments No Sex and Gender Information Value Date Recorded Sex Assigned at Female 11/30/2020 12:16 PM EDT Legal Sex Female 1:28 PM EST Gender Identity Female 11/30/2020 12:16 PM EDT Sexual Orientation Straight 11/30/2020 12 :16 PM EDT documented as of this encounter Miscellaneous Notes * Telephone Encounter - Gertrude Larry - 03/18/2024 4:24 PM EST Quang Call Name of caller : Elda Relationship to patient: Self Return call phone number : [phone] Reason for call : Pt returning call regarding botox injection reschedule,she will call back tomorrow documented in this encounter Plan of Treatment Upcoming Encounters Date Type Department Care Team (Late st Contact Info) Description 12/22/2024 3:00 PM EDT [facility] [address] [place] [id number] Chelo Avila, PA-C [address] [place] [address] follow up 12/24/2024 3:40 PM EDT Office Visit [facility] [place] [address] [place] [address] [place] [address] [place], [place] [phone] 4 month follow up 03/09/2025 1:00 PM EST Office Visit [facility] [address] [place], [place] [phone] Veronica Aguirre MD [address] [place] [address] BOTOX 10/26/2025 1:10 PM EDT Office Visit Endocrinology [address] [facility] [place] [address] Hany Sanabria MD [address] [place] [address] Follow up 1 year documented as of this encounter Visit Diagnoses Not on filedocumented in this encounter Care Teams Senior Electrical Designer Relationship Specialty Start Date End Date Mercedes Baptiste CNP [address] [place] [address] Referring Family Medicine 05/09/23 Mercedes Baptiste CNP [address] [place] [address] Family Medicine 05/12/23 documented as of this encounter
--- OUTSIDE RECORDS SUMMARY | 2024-12-01 15:10 | XMS_ITS | Encounter Summary ---
Author Organization [facility] Address [address] [place] [address] Care Team Providers Care Network Account Manager Name Role Phone Mercedes Baptiste MEDICAL EQUIPMENT TECHNICIAN Unavailable [phone] Mercedes Baptiste MEDICAL EQUIPMENT TECHNICIAN Unavailable [phone] Source Comments In the event this information is protected by the Federal Confidentiality of Alcohol and Drug AbusePatient Records regulations: The Federal rules restrict any use of the information to criminally investigate or prosecute any alcohol or drug abuse patient.[facility] Encounter Details Date Type Department Care Team (Late st Contact Info) Description 09/04/2023 Get Medical Advice Neurology [address] [place] [address] [place] [address] [place], [place] [id number] Neurosurgery Social History Tobacco Use Types Packs/Day Years Used Date Smoking Tobacco: Never Smokeless Tobacco: Never PHQ-2 Answer Date Recorded PHQ-2 score 0 04/20/2021 Area Deprivation Index Answer Date Harry rded National Score (1-100), lower number is lower ri sk 94 05/29/2023 State Score (1-10), lower number is lower risk 9 05/29/2023 Data from: https://www.neighborhoodatlas.[facility]/. Last address used for calculation [address] [...] Contact Info) Description 12/22/2024 3:00 PM EDT [facility] [address] [place] [address] Chelo Avila PA-C [address] [place] [address] follow up 12/24/2024 3:40 PM EDT Office Visit [facility] [address] [place] [address] [place] [address] [place] [address] 4 month follow up 03/09/2025 1:00 PM EST Office Visit [facility] [address] [place] [address] Veronica Aguirre MD [address] [place], [place] [id number] [place]OX 10/26/2025 1:10 PM EDT Office Visit Endocrinology [address] [place] [address] Hany Sanabria MD [address] [place] [address] Follow up 1 year documented as of this encounter Visit Diagnoses Not on filedocumented in this encounter Care Teams Network Account Manager Relationship Specialty Start Date End Date Mercedes Baptiste CNP [address] [place] [address] Referring Family Medicine 05/09/23 Mercedes Baptiste CNP [address] [place] [address] Family Medicine 05/12/23 documented as of this encounter
--- OUTSIDE RECORDS SUMMARY | 2024-12-01 15:10 | XMS_ITS | Encounter Summary ---
Author Organization [facility] Address [address] [facility] [place] [address] Care Team Providers Care Interface Designer Name Role Phone Vale Hubbard MD Primary Care Provider [phone] Vale Hubbard MD Unavailable [phone] Mercedes Baptiste RN CHEMICAL DEPENDENCY Unavailable [phone] Jes Benitez BLOWN FILM EXTRUSION OPERATOR Unavailable [phone] Rolo Ledezma INTERN ARCHITECT Unavailable [phone] Encounter Details Date Type Department Care Team (Late st Contact Info) Description 11/11/2023 Abstract [facility] [address] [place] [phone] Giorgi Prakash DO [address] [facility] [place] [address] Social History Tobacco Use Types Packs/Day Years [...] How often do you attend chur or faith services? Never 05/08/2023 Do you belong to any clubs o r organizations such as hindu groups, unions, fraternal or athletic groups, or [...] Patient Health Questionnaire-2 Score 0 08/06/2023 [facility] Occupat ional Health - Occupational Stress [...] place to sleep or slept in a long-term (including now)? No 05/08/2023 Comments No Sex [...] EDT Office Visit [facility] [address] [facility] [phone] Patricia Maki NP [address] [place] [address] 12/07/2025 11:00 AM EDT Procedure Visit [facility] [address] [place] [phone] Giorgi Prakash DO [address] [facility] [place] [address] documented as of this encounter Visit Diagnoses Not on filedocumented in this encounter Additional Health Concerns Assessment Noted Time PHQ-9 Depression Total Score: 1 08/06/19 10:00 AM EDT documented as of this encounter Care Teams Interface Designer Relationship Specialty Start Date End Date Vale Hubbard MD [address] [place] [address] PCP - General Family Medicine 05/14/23 Vale Hubbard MD [address] [place] [address] PCP - Kayden XIE 06/06/23 Mercedes Baptiste NP [address] [place] [address] Nurse Practitioner Family Medicine 09/17/23 Jes Benitez LSW [address] [place] [address] Low Altitude Air Defense Gunner Family Medicine 04/10/24 04/10/24 Rolo Ledezma, AISSATOU [address] [facility] [address] [place] [address] Licensed Practical Nurse Family Medicine 04/10/24 documented as of this encounter
--- OUTSIDE RECORDS SUMMARY | 2024-12-01 15:11 | XMS_ITS | Encounter Summary ---
Author Organization [facility] Address [address] [facility] [place] [address] Care Team Providers Care Assistant Executive Housekeeper Name Role Phone Vale Hubbard MD Primary Care Provider [phone] Vale Hubbard MD Unavailable [phone] Mercedes Baptiste POMPOM MAKER Unavailable [phone] Rolo Ledezma LPN Unavailable [phone] Encounter Details Date Type Department Care Team (Latest Contact Info) Description 11/27/2024 Travel Social History Tobacco Use Types Packs/Day Years [...] often do you attend chur ch or hindu services? Never 05/08/2023 Do you belong to any clubs o r organizations such as baptist groups, unions, fraternal or athletic groups, or [...] Recorded Patient Health Questionnaire-2 Score 1 08/10/2024 [facility] Occupat ional Health [...] place to sleep or slept in a custodial (including now)? No 05/08/2023 Comments No Sex and Gender Information Value Date Recorded Sex Assigned at Not on file Legal Sex Female 6:42 PM EDT Gender Identity Not on file Sexual Orientation Not on file documented as of this encounter Plan of Treatment Upcoming Encounters Date Type Department Care Team (Late st Contact Info) Description 12/02/2024 1:00 PM EDT [facility] [address] [place] [address] Patricia Maki NP [address] [place] [address] 12/07/2025 11:00 AM EDT Procedure Visit [facility] [address] [place] [address] Giorgi Prakash DO [address] [facility] [place] [address] documented as of this encounter Goals Goal Patient Goal Type Associated Problems Recent Progress Patient-Stated? Author Help patient manage antidepressant medication Care Plan Patient on antidepressant monitoring plan No Mercedes Baptiste NP documented as of this encounter Visit Diagnoses Not on filedocumented in this encounter Additional Health Concerns Active Problems Noted Date Diagnosed Date Patient on antidepressant monitoring plan 2024 Assessment Noted Time PHQ-9 Depression Total Score: 4 08/11/19 25 1:00 PM EDT documented as of this encounter Care Teams Assistant Executive Housekeeper Relationship Specialty Start Date End Date Vale Hubbard MD [address] [place] [address] PCP - General Family Medicine 05/14/23 Vale Hubbard MD [address] [place] [address] PCP - Kayden XIE 06/06/23 Mercedes Baptiste NP [address] [place] [address] Nurse Practitioner Family Medicine 09/17/23 Rolo Ledezma, AISSATOU [address] [facility] [address] [place] [address] Licensed Practical Nurse Family Medicine 04/10/24 documented as of this encounter
--- OUTSIDE RECORDS SUMMARY | 2024-12-01 15:11 | XMS_ITS | Encounter Summary ---
Author Organization [facility] Address [address] [place] [address] Care Team Providers Care Machine Tech Name Role Phone Vale Hubbard MD Primary Care Provider [phone] Vale Hubbard MD Unavailable [phone] Mercedes Baptiste MARINE PILOT Unavailable [phone] Rolo Ledezma LPN Unavailable [phone] Reason for Visit * Reason Comments Med Refill Encounter Details Date Type Department Care Team (Late st Contact Info) Description 10/19/2024 Refill [facility] Medicine [address] [place] [phone] Mercedes Baptiste MARINE PILOT [address] [place] [phone] Acute non-recurrent pansinusitis Social History Tobacco Use Types Packs/Day Years [...] How often do you attend chur or moravian services? Never 05/08/2023 Do you belong to any clubs o r organizations such as methodist groups, unions, fraternal or athletic groups, or [...] Recorded Patient Health Questionnaire-2 Score 1 08/10/2024 [facility] of Occupat ional Health - Occupational Stress [...] place to sleep or slept in a fdc (including now)? No 05/08/2023 Comments No Sex [...] EDT Office Visit [facility] [address] [facility] [place] [address] Patricia Maki NP [address] [place], [place] [address] 12/07/2025 11:00 AM EDT Procedure Visit [facility] [address] [place] [address] [place] [address] Giorgi Prakash DO [address] [facility] [place] [address] documented as of this encounter Goals Goal Patient Goal Type Associated Problems Recent Progress Patient-Stated? Author Help patient manage antidepressant medication Care Plan Patient on antidepressant monitoring plan No Mercedes Baptiset NP documented as of this encounter Visit Diagnoses Diagnosis Acute non-recurrent pansinusitis documented in this encounter Additional Health Concerns Active Problems Noted Date Diagnosed Date Patient on antidepressant monitoring plan 2024 Assessment Noted Time PHQ-9 Depression Total Score: 4 08/11/19 25 1:00 PM EDT documented as of this encounter Care Teams Machine Tech Relationship Specialty Start Date End Date Vale Hubbard MD [address] [place] [address] PCP - General Family Medicine 05/14/23 Vale Hubbard MD [address] [place] [address] PCP - Kayden XIE 06/06/23 Mercedes Baptiste NP [address] [place] [address] Nurse Practitioner Family Medicine 09/17/23 Rolo Ledezma LPN [address] [facility] [address] [place] [address] Licensed Practical Nurse Family Medicine 04/10/24 documented as of this encounter
--- OUTSIDE RECORDS SUMMARY | 2024-12-01 15:11 | XMS_ITS | Encounter Summary ---
Author Organization [facility] Address [address] [facility] [place] [address] Care Team Providers Care Gear Grinding Machine Operator Name Role Phone Vale Hubbard MD Primary Care Provider [phone] Vale Hubbard MD Unavailable Mercedes Baptiste BUTTON STATION WORKER Unavailable [phone] Jes Benitez STATION BAGGAGE AGENT Unavailable Rolo Ledezma FLAT SORTER PROCESSOR Unavailable [phone] Encounter Details Date Type Department Care Team (Late st Contact Info) Description 08/21/2023 Orders Only [facility] Family Medicine [address] [place] [address] Vale Hubbard MD [address] [place] [address] Colon cancer screening (Primary Dx) Social History Tobacco Use Types Packs/Day Years [...] week 05/08/2023 How often do you attend [facility] or baptism services? Never 05/08/2023 Do you belong to any clubs o r organizations such as druze groups, unions, fraternal or athletic groups, or [...] Recorded Patient Health Questionnaire-2 Score 0 08/06/2023 [facility] of Occupat ional Health - Occupational [...] to sleep or slept in a senior living (including now)? No 05/08/2023 Comments No Sex [...] EDT Office Visit [facility] [address] [place] [phone] Patricia Maki NP [address] [place], [place] [address] 12/07/2025 11:00 AM EDT Procedure Visit [facility] [address] [facility] [place] [phone] Giorgi Prakash, [address] [facility] [place] [address] documented as of this encounter Procedures Procedure Name Priority Date/Time Associated Diagnosis Comments LAB COLOGUARD COLON CANCER SCREEN Routine 01/26/2024 7:05 PM EDT Colon cancer screening documented in this encounter Results * Cologuard?? colon cancer screening (01/26/2024 7:05 PM EDT) NONINV COLON CA DNA+OCC BLD SCRN STL-IMP Negative Negative 01/30/2024 9:50 AM EDT [facility] (CLIA #:[id number]) Comment: NEGATIVE TEST RESULT. A negative Cologuard result indicates a low likelihood that a colorectal cancer (CRC) or advanced adenoma (adenomatous polyps with more advanced pre-malignant features) is present. The chance that a person with a negative Cologuard test has a colorectal cancer is less than 1 in 1500 (negative predictive value >99.9%) or has an advanced adenoma is less than 5.3% (negative predictive value 94.7%). These data are based on a prospective cross-sectional study of 10,000 individuals at average risk for colorectal cancer who were screened with both Cologuard and colonoscopy. (Renate Armstrong. et al, N Engl J Med 2014;370(14):7374-9569) The normal value (reference range) for this assay is negative. COLOGUARD RE-SCREENING RECOMMENDATION: Periodic colorectal cancer screening is an important part of preventive healthcare for asymptomatic individuals at average risk for colorectal cancer. Following a negative Cologuard result, the [place] Cancer Society and U.S. Multi-Society Task Force screening guidelines recommend a Cologuard re-screening interval of 3 years. References: [place] Cancer Society Guideline for Colorectal Cancer Screening: https://www.cancer.org/cancer/geysb-poeidk-qvidbm/rbsqhxanx-rykowqgeu-kqxkhre/ac s-rec ommendations.html.; Dewayne FORMAN, Lul HUTCHINS, Delio TURNER, Colorectal Cancer Screening: Recommendations for Physicians and Patients from the U.S. Multi-Society Task Force on Colorectal Cancer Screening , Am J Gastroenterology 2017; 112:8470-2345. TEST DESCRIPTION: Composite algorithmic analysis of stool DNA-biomarkers with hemoglobin immunoassay. Quantitative values of individual biomarkers are not reportable and are not associated with individual biomarker result reference ranges. Cologuard is intended for colorectal cancer screening of adults of either sex, 45 years or older, who are at average-risk for colorectal cancer (CRC). Cologuard has been approved for use by the U.S. FDA. The performance of Cologuard was established in a cross sectional study of average-risk adults aged 50-84. Cologuard performance in patients ages 45 to 49 years was estimated by sub-group analysis of near-age groups. Colonoscopies performed for a positive result may find as the most clinically significant lesion: colorectal cancer [4.0%], advanced adenoma (including sessile serrated polyps greater than or equal to 1cm diameter) [20%] or non- advanced adenoma [31%]; or no colorectal neoplasia [45%]. These estimates are derived from a prospective cross-sectional screening study of 10,000 individuals at average risk for colorectal cancer who were screened with both Cologuard and colonoscopy. (Renate Tabor al, N Engl J Med 2014;370(14):0575-0910.) Cologuard may produce a false negative or false positive result (no colorectal cancer or precancerous polyp present at colonoscopy follow up). A negative Cologuard test result does not guarantee the absence of CRC or advanced adenoma (pre-cancer). The current Cologuard screening interval is every 3 years. ([place] [employer] and U.S. Multi-Society Task Force). Cologuard performance data in a 10,000 patient pivotal study using colonoscopy as the reference method can be accessed at the following location: www.Bizware.Gigaom/results. Additional description of the Cologuard test process, warnings and precautions can be found at www.Clipsurerd.com. Stool specimen (specimen) 01/26/2024 7:05 PM EDT 01/28/2024 12:37 PM EDT Vale Hubbard MD LAB MOLECULAR DIAGNOSTICS ORD ERABLES Final Result [facility] (CLIA #:[id number]) [place] [address], [place] [phone] documented in this encounter Visit Diagnoses Diagnosis Colon cancer screening- Primary Special screening for malignant neoplasms, colon documented in this encounter Additional Health Concerns Assessment Noted Time PHQ-9 Depression Total Score: 1 08/06/19 24 10:00 AM EDT documented as of this encounter Care Teams Gear Grinding Machine Operator Relationship Specialty Start Date End Date Vale Hubbard MD [address] [place] [address] PCP - General Family Medicine 05/14/23 Vale Hubbard MD [address] [place] [address] PCP - Kayden XIE 06/06/23 Mercedes Baptiste NP [address] [place] [address] Nurse Practitioner Family Medicine 09/17/23 Jes Benitez LSW [address] [place] [address] Coding File Clerk Family Medicine 04/10/24 04/10/24 Rolo Ledezma LPN [address] [place] [address] Licensed Practical Nurse Family Medicine 04/10/24 documented as of this encounter
--- OUTSIDE RECORDS SUMMARY | 2024-12-01 15:11 | XMS_ITS | Encounter Summary ---
Author Organization [facility] Healthcare Address [address] [place] [address] Care Team Providers Care Salvage Diver Name Role Phone Vale Hubbard MD Primary Care Provider [phone] Vale Hubbard MD Unavailable [phone] Mercedes Baptiste SKIRT MAKER Unavailable [phone] Rolo Ledezma LPN Unavailable [phone] Encounter Details Date Type Department Care Team (Late st Contact Info) Description 11/20/2024 Patient Outreach [facility] [address] [place] [id number] Rolo Ledezma LPN [id number] [facility] [address] [place] [id number] Social History Tobacco Use Types Packs/Day Years [...] often do you attend chur ch or gnosticist services? Never 05/08/2023 Do you belong to any clubs o r organizations such as advent groups, unions, fraternal or athletic groups, or [...] Recorded Patient Health Questionnaire-2 Score 1 08/10/2024 [facility] - [...] as of this encounter Progress Notes * Rolo Ledezma LPN - 11/20/2024 4:24 PM EDT <November 20, 2024, 16:24 - Rolo Ledezma LPN> Received message from Patient, Elda Ng, 1970, advising of purchase of new car. Patient is in need of hand pedal installation. Patient reports Medicare has advised of 80% coverage of installation costs et Workers with Disabilities has agreed to cover remaining. Patient has been in contact with [employer] in [place]. Patient states [employer] has agreed to order parts, but can not bill insurances. Patient is uncertain if Medicare/Workers with Disabilities will pay [employer] directly if invoice is presented or if invoice would need to be covered by Patient. * ROGER Enriquez - 11/20/2024 4:24 PM EDT <November 23, 2024, 09:52 - ROGER Enriquez> CORPORATE SECURITY MANAGER exploring options to get hand pedal covered by medicare. [employer] appears to be the only provider in [facility] that can add adaptations to vehicle. Discussed with pt. She paid for original hand pedal OOP not knowing that insurance could cover it. Enc pt to get quote from [employer], and then contact [facility] to find out if they can send payment, or if she would have to pay OOP again and request reimbursement. CORPORATE SECURITY MANAGER will continue to explore options and notify pt we find an option that can bill medicare. * ROGER Enriquez - 11/20/2024 4:24 PM EDT <November 24, 2024, 08:51 - ROGER Enriquez> Update from pt, she called medicare and was told a prior auth paper would need to be filled out andproof that she medically needs it. She requested a fax number of where info should be sent, and therep told her the doctors office would know where to send it. Pt will call her insurance again todayto see if she can get better directions. Enc pt to clarify what insurance will want for proof of medical need (F2F or therapy eval?) and ask that they fax us any forms that may need completed. * ROGER Enriquez - 11/20/2024 4:24 PM EDT <November 24, 2024, 13:07 - ROGER Enriquez> Updates received from pt, she did an online chat with [facility] and was told this office would need to submit a PAC-IM form to her insurance. CORPORATE SECURITY MANAGER looked up this form and it is used to get authorization for facility placement not for DME. Pt also calling around to try to find a different provider that may be able to bill her [facility] for hand pedal. Advised CORPORATE SECURITY MANAGER will explore options further as well. LM for Stay At Home Modifications [phone] LM for [facility] [place] [phone] * ROGER Enriquez - 11/20/2024 4:24 PM EDT <November 24, 2024, 14:15 - ROGER Enriquez> Spoke to pt. She has been calling around to different places and is getting conflicting info. Everywhere she has talked to says they cannot bill Medicare. Advised normally medicare only covers DME for use in the home, so this may indicate that they won't cover vehicle modifications either. Questionif a provider could bill her medicaid only. Pt will try calling Medicaid again to discuss, and willalso contact [employer] to ask if they bill medicaid. Advised that ROGER has call out to [facility] in [place] to see if they can offer further guidance. Provided pt with their phone# as well. * ROGER Enriquez - 11/20/2024 4:24 PM EDT <November 25, 2024, 11:37 - ROGER Enriquez> Consulted [place] [employer]. They advise that Medicare does not cover hand controls forvehicle, and medicaid would only cover if pt were on a Waiver program. Pt originally mentioned getting help with cost through Workers with Disabilities program. He states a quote could be sent to them to determine how much they will cover. Updated pt. She is unsure if she I on a medicaid waiver. She will call medicaid to find out and will also try to follow up with [employer] about getting a quote. She will also contact Medicaid Buy-In for Workers with Disabilities to ask about help with cost. * ROGER Enriquez - 11/20/2024 4:24 PM EDT <November 30, 2024, 08:52 - ROGER Enriquez> Update from pt on 11/27 advising she called Medicaid to ask about coverage and was once again told that provider would need to submit a PA for the hand controls but rep could not provide us with a form or the fax number to send it to. Pt plans to start a GoFundMe to help with cost. * Rolo Ledezma LPN - 11/20/2024 4:24 PM EDT <November 30, 2024, 12:02 - Rolo Ledezma LPN> Noted. Thank you. documented in this encounter Plan of Treatment Upcoming Encounters Date Type Department Care Team (Late st Contact Info) Description 12/02/2024 1:00 PM EDT [facility] [address] [place] [phone] Patricia Maki NP [address] [place] [address] 12/07/2025 11:00 AM EDT Procedure [facility] [address] [address] Giorgi Prakash DO [address] [place] [address] documented as of this encounter Goals Goal Patient Goal Type Associated Problems Recent Progress Patient-Stated? Author Help patient manage antidepressant medication Care Plan Patient on antidepressant monitoring plan No Mercedes Baptiste NP documented as of this encounter Visit Diagnoses Diagnosis Spinal cord injury at T1-T6 level (HCC)- Primary Acquired hypothyroidism Unspecified hypothyroidism documented in this encounter Additional Health Concerns Active Problems Noted Date Diagnosed Date Patient on antidepressant monitoring plan 2024 Assessment Noted Time PHQ-9 Depression Total Score: 4 08/11/19 25 1:00 PM EDT documented as of this encounter Care Teams Salvage Diver Relationship Specialty Start Date End Date Vale Hubbard MD [address] [place] [address] PCP - General Family Medicine 05/14/23 Vale Hubbard MD [address] [place] [address] PCP - [facility] 06/06/23 Mercedes Baptiste NP [address] [place] [address] Nurse Practitioner Family Medicine 09/17/23 Rolo Ledezma LPN [address] [facility] [address] [place] [id number] Licensed Practical Nurse Family Medicine 04/10/24 documented as of this encounter
--- OUTSIDE RECORDS SUMMARY | 2024-12-01 15:11 | XMS_ITS ---
Author Organization [facility] Address [address] [facility] [place] [address] Care Team Providers Care Boat Camp Operator Name Role Phone Vale Hubbard MD Primary Care Provider [phone] Vale Hubbard MD Unavailable [phone] Mercedes Baptiste PLASTER MODEL AND MOLD MAKER Unavailable [phone] Rolo Ledezma LPN Unavailable [phone] Chronic Care Management (CCM) Status:Enrolled (Active) Start date:04/10/2024 Enrollment date:04/10/2024 Enrollment reason:Referred by provider Overview Please assess for Care Management needs. 04/10/24, 4:03 PM - Rolo Ledezma LPN- Patient gives verbal consent to be enrolled in CCM Program and understands there could be a bill for this service should insurer/policy change in the future. Case Team Name Relationship Phone Rolo Ledezma LPN(Responsible Staff) Licensed Pr actical Nurse [phone] Continued Care and Services Coordination
--- OUTSIDE RECORDS SUMMARY | 2024-12-01 15:11 | XMS_ITS | Clinical Summary ---
Author Organization [facility] Address [address] [place] [address] Care Team Providers Care Real Estate Sales Associate Name Role Phone Vale Hubbard MD Primary Care Provider Vale Hubbard MD Unavailable [phone] Mercedes Baptiste RHEUMATOLOGY SPECIALIST Unavailable [phone] Rolo Ledezma LPN Unavailable [phone] Allergies Active Allergy Reactions Criticality Noted Date Comments Metformin Other 03/25/2017 Chest pain Medications cholecalciferol (Vitamin D-3) 25 MCG (1000 UT) capsule Vitamin D3 Active loratadine (Claritin) 10 MG tablet 1 (one) time each day at the same time. Active Calcium Carb-Cholecalcife rol (CALCIUM 500 + D PO) Take 1 each by mouth in the morning. Active docusate sodium (Colace) 100 MG capsule Take 100 mg by mouth in the morning and 100 mg before bedtime. Active acetaminophen (Tylenol) 325 MG tablet Active Melatonin 10 MG sublingual tablet Ac tive valACYclovir (Valtrex) 500 MG tabletIndications :Recurrent cold sores Take 1 tablet (500 mg) by mouth Daily 90 tablet 024 Active hydrOXYzine HCl (Atarax) 25 MG tabletIndications :Panic disorder Take 1 tablet (25 mg) by mouth 2 (two) times a day as needed for itching 60 tablet 024 Active alendronate (Fosamax) 70 MG tabletIndications :Osteoporosis, post-menopausal Take 1 tablet (70 mg) by mouth every 7 (seven) days Take in the morning with a full glass of water, on an empty stomach, and do not take anything else by mouth or lie down for the next 30 min. 12 tablet 3 024 2024 Active onabotulinumtoxin A (Botox) 100 units injection Injected every 3 months for spasticity as directed Active naltrexone (Depade) 50 MG tabletIndications :Class 1 obesity due to excess calories without serious comorbidity with body mass index (BMI) of 32.0 to 32.9 in adult Take 0.5 tablets (25 mg) by mouth Daily 30 tablet Active Additional Information Patient not taking.Reported on 09/07/2024 nystatin (Mycostatin) 716142 UNIT/GM powderIndications :Skin yeast infection Apply topically 2 (two) times a day 30 g 024 2024 Active fluticasone (Flonase) 50 MCG/ACT nasal sprayIndications: Allergic rhinitis due to other allergic trigger, unspecified seasonality ADMINISTER 1 SPRAY INTO EACH NOSTRIL DAILY SHAKE GENTLY. BEFORE FIRST USE, PRIME PUMP. AFTER USE, CLEAN TIP AND REPLACE CAP. 48 mL 1 025 Active gabapentin (Neurontin) 600 MG tabletIndications :Paraparesis (HCC) TAKE ONE TABLET BY MOUTH TWICE A DAY IN THE MORNING AND BEFORE BEDTIME 180 tablet 1 025 Active albuterol HFA 90 mcg/act inhalerIndication s:Mild intermittent asthma without complication (HCC) INHALE 2 PUFFS EVERY 4 HOURS IF NEEDED FOR WHEEZING. 18 g 025 Active citalopram (CeleXA) 40 MG tabletIndications :Panic disorder Take 1 tablet (40 mg) by mouth Daily 90 tablet 1 025 Active Synthroid 100 MCG tabletIndications :Acquired hypothyroidism TAKE ONE TABLET BY MOUTH EVERY MORNING BEFORE MEALS 90 tablet 1 025 Active IBU 800 MG tabletIndications :Spinal cord injury at T1-T6 level (HCC) TAKE ONE TABLET BY MOUTH THREE TIMES A DAY NEEDED FOR MILD PAIN 270 tablet 1 025 Active amoxicillin-clavu lanate (Augmentin) 875-125 MG tabletIndications :Acute cystitis with hematuria Take 1 tablet (875 mg) by mouth in the morning and 1 tablet (875 mg) before bedtime. Do all this for 5 days. 10 tablet 025 2024 Active baclofen (Lioresal) 20 MG tabletIndications :Muscle spasticity Take 2 tablets (40 mg) by mouth in the morning and 2 tablets (40 mg) before bedtime. 360 tablet 025 Active IBU 800 MG tabletIndications :Spinal cord injury at T1-T6 level (HCC) TAKE ONE TABLET BY MOUTH THREE TIMES A DAY NEEDED FOR MILD PAIN 270 tablet 024 2024 Discontinued baclofen (Lioresal) 20 MG tabletIndications :Muscle spasticity Take 2 tablets (40 mg) by mouth in the morning and 2 tablets (40 mg) before bedtime. 360 tablet 025 2024 Discontinued(R eorder) fluconazole (Diflucan) 150 MG tabletIndications :Antibiotic-induc ed yeast infection Take 1 tablet (150 mg) by mouth 1 (one) time for 1 dose 1 tablet 025 2024 Active Problems Problem Noted Date Diagnosed Date Foot drop, right foot 04/16/2024 Genital warts 03/31/2024 Abnormal weight gain 10/23/2022 Carpal tunnel syndrome, left 10/23/2022 Constipation 10/23/2022 Enlarged uterus 10/23/2022 Gait disturbance 10/23/2022 Gastroesophageal reflux disease 10/23/2022 Hypothyroidism 10/23/2022 Menorrhagia 10/23/2022 Mild episode of recurrent major depressive disor issa 10/23/2022 Neurogenic bladder 10/23/2022 Neurogenic bowel 10/23/2022 Neuropathy 10/23/2022 Obesity 10/23/2022 Panic disorder 10/23/2022 Paraparesis 10/23/2022 Spinal cord injury at T1-T6 level 10/23/2022 Thickened endometrium 10/23/2022 Degeneration of lumbar intervertebral disc 10/23 Resolved Problems Problem Noted Date Diagnosed Date Resolved Date Spinal cord injury at 10/24/2022 05/09/2023 Encounters Date Type Department Care Team Description 12/01/2024 9:20 AM EDT Office Visit [facility] [address] [facility] [place] [address] Giorgi Prakash DO Well woman exam with routine gynecological exam; Osteoporosis, post-menopausal ; Breast cancer screening by mammogram; Exposure to STD 12/01/2024 Bamboo flowsheet [facility] [address] [facility] [place] [address] Giorgi Prakash DO 11/30/2024 Results Follow-Up [place] [id number] [facility] [place] [address] Patricia Maki NP 11/29/2024 Refill [place] [address] [place] [address] Vale Hubbard MD Muscle spasticity 11/27/2024 10:15 AM EDT Clinical Support [facility] [address] [place] [address] Hematuria, unspecified type (Primary Dx); Urinary frequency; Urinary urgency; Abdominal pressure 11/27/2024 Orders Only [place] [address] [facility] [place] [address] Patricia Maki NP Acute cystitis with hematuria (Primary Dx); Antibiotic-induced yeast infection 11/27/2024 Travel 11/20/2024 Patient Outreach [place] [address] [place] [address] Rolo Ledezma LPN 11/11/2024 Patient Outreach [place] [address] [place] [address] Rolo Ledezma LPN 11/08/2024 Refill [facility] [address] [place] [address] Patricia Maki NP Spinal cord injury at T1-T6 level (HCC) 10/27/2024 Refill [facility] [address] [facility] [place] [address] Mercedes Baptiste NP Acquired hypothyroidism 10/26/2024 Refill [facility] [address] [facility] [place] [address] Mercedes Baptiste NP Panic disorder 10/25/2024 Refill [facility] [address] [facility] [place] [address] Vale Hubbard MD Mild intermittent asthma without complication ([facility]) 10/24/2024 Refill [facility] [address] [facility] [place] [address] Mercedes Baptiste NP Panic disorder 10/19/2024 Refill [facility] [address] [facility] [place] [address] Mercedes Baptiste NP Acute non-recurrent pansinusitis 09/29/2024 Refill [facility] [address] [facility] [place] [address] Mercedes Baptiste NP Paraparesis ([facility]) 09/07/2024 1:00 PM EDT Office Visit [place] [address] [facility] [place] [address] Mercedes Baptiste NP Panic disorder (Primary Dx); Mild episode of recurrent major depressive disorder ; Class 1 obesity due to excess calories without serious comorbidity with body mass index (BMI) of 32.0 to 32.9 in adult 09/07/2024 Bamboo flowsheet [facility] [address] [facility] [place] [address] Mercedes Baptiste NP 09/07/2024 Travel from Last 3 Months Immunizations Immunization Administration Dates Next Due DTP 07/14/2022 Influenza, High Dose Seasona l, Preservative Free 02/13/2018 Influenza, Injectable, MDCK, preservative free 12/29/2015 Influenza, injectable, MDCK, preservative free, quadrivalent 01/29/2020 Influenza, injectable, quadr ivalent, preservative free 03/08/2023,04/03/2022,07/06/2021,2018,12/18/2016 Influenza, seasonal, injecta ble, preservative free 02/07/2024,01/06/2015 Tdap 07/14/2022 Family History Medical History Relation Name Comments Heart disease Father Jerardo [place] Heart failure Father Jerardo Hernandez Hypertension Father Jerardo [place] Diabetes Father's Brother Pancho Hearing loss Maternal Grandmother Antonette Thyroid disease Maternal Grandmother Antonette Arthritis Mother Kamryn Hernandez Diabetes Mother Kamryn Hernandez Hypertension Mother Kamryn Hernandez Cancer Paternal Grandfather Holden Asthma Son Aaron Tariq Relation Name Status Comments Father Jerardo [place] Alive Father's Brother Pancho Maternal Grandmother Antonette Mother Kamryn [place] Alive Paternal Grandfather Holden Son Aaron Tariq 2 Social History Tobacco Use Types Packs/Day Years [...] often do you attend chur ch or jain services? Never 05/08/2023 Do you belong to any clubs o r organizations such as yarsanism groups, unions, fraternal or athletic groups, or [...] Recorded Patient Health Questionnaire-2 Score 1 08/10/2024 [facility] - Occupational Stress Questionnaire Answer Date Recorded [...] on file Sexual Orientation Not on file Last Filed Vital Signs Vital Sign Reading Time Taken Comments Blood Pressure 124/78 12/01/2024 10:11 AM EDT Pulse 78 09/07/2024 1:03 PM EDT Temperature 36 C (96.8 F) 07/04/2023 1:01 PM EST Respiratory Rate 18 09/07/2024 1:03 PM EDT Oxygen Saturation 98% 09/07/2024 1:03 PM EDT Inhaled Oxygen Concentration - - Weight 75.8 kg (167 lb) 12/01/2024 10:11 AM EDT Height 149.9 cm (4' 11 ) 09/07/2024 1:03 PM EDT Body Mass Index 33.73 09/07/2024 1:03 PM EDT Plan of Treatment Upcoming Encounters Date Type Department Care Team (Late st Contact Info) Description 12/02/2024 1:00 PM EDT Office Visit [facility] [address] [facility] [place] [address] Patricia Maki NP [address] [facility] [place] [address] 12/07/2025 11:00 AM EDT Procedure Visit [facility] [address] [facility] [place] [phone] Giorgi Prakash, DO [address] [facility] [place] [address] Health Maintenance Due Date Last Done Comments CT Colonography 1972 Colonoscopy 1972 FIT 1972 FOBT 1972 Sigmoidoscopy 1972 Influenza Vaccine (#1) 2025 , 03/08/2023, 04/03/2022, Additional history exists Mammogram 01/04/2025 06/14/2022, 04/26/2022 Postp oned from 06/14/2023 (Other Patient Reasons) Medicare Annual Wellness (AWV) 12/01/2025 12/01/2024, 06/14/2022 Colorectal Cancer Screening 01/25/2027 FIT-DNA 01/25/2027 01/26/2024 Cervical Cancer Screening 11/05/2028 HPV/Cotest 11/05/2028 Pap Smear 11/05/2028 11/06/2023, 06/14/2022 Goals Goal Patient Goal Type Associated Problems Recent Progress Patient-Stated? Author Help patient manage antidepressant medication Care Plan Patient on antidepressant monitoring plan Mercedes Mike NP Procedures Procedure Name Priority Date/Time Associated Diagnosis Comments CULTURE, URINE, ROUTINE Routine 11/27/2024 10:35 AM EDT Urinary frequency Urinary urgency Abdominal pressure Hematuria, unspecified type POCT URINALYSIS DIPSTICK Routine 11/27/2024 10:23 AM EDT Urinary frequency Urinary urgency Abdominal pressure Hematuria, unspecified type LAB COLOGUARD COLON CANCER SCREEN Routine 01/26/2024 7:05 PM EDT Colon cancer screening PAP SMEAR Routine 11/06/2023 12:00 AM EDT BI MAMMOGRAM DIAGNOSTIC BILATERAL Routine 06/14/2022 12:00 PM EST Other specified noninflammatory disorders of vagina Encounter for other screening for malignant neoplasm of breast Asymptomatic menopausal state Encounter for gynecological examination (general) (routine) without abnormal findings from Last 3 Months or Most Recently Relevant to Health Maintenance Results * Urine culture (clean catch) (11/27/2024 10:35 AM EDT) MICRO NUMBER [id number] QUEST SPECIMEN QUALITY Adequate QUEST SOURCE: (QUEST) URINE QUEST STATUS FINAL QUEST RESULT SEE NOTE QUEST Comment: No Growth Urine Urine specimen obtained by clean catch procedure / Unknown 11/27/2024 10:35 AM EDT 11/27/2024 10:36 AM EDT Narrative Resulting Agency Comment Performing Organization Information Site ID: QPT Name: [facility] Address: [address] [place] [address], [address] [place] [phone] Director: Bernardo Jackson MD Patricia Maki NP [facility] Final Result QUEST * (ABNORMAL) POCT urinalysis [...] 11/27/2024 10:2 3 AM EDT Patricia Maki NP POINT OF CARE TEST ENTER/EDIT O RDERABLES Final Result * Cologuard?? colon cancer screening (01/26/2024 7:05 PM EDT) Pathologist [facility] NONINV COLON CA DNA+OCC BLD SCRN STL-IMP Negative Negative 01/30/2024 9:50 AM EDT [facility]) (CLIA #:[id number]) Comment: NEGATIVE TEST RESULT. A negative Cologuard [...] (Renate Tabor al, N Engl J Med 2014;370(14):1544-8416) The normal value (reference range) for this assay is negative. COLOGUARD RE-SCREENING RECOMMENDATION: Periodic colorectal cancer screening is an important part of preventive healthcare for asymptomatic individuals at average risk for colorectal cancer. Following a negative Cologuard result, the [place] Cancer Society and U.S. Multi-Society Task Force screening guidelines recommend a Cologuard re-screening interval of 3 years. References: [place] Guideline for Colorectal Cancer Screening: https://www.cancer.org/cancer/sowrv-yncmgt-wngibu/nitnegkwb-spxctayfs-yngrkix/ac s-rec ommendations.html.; Dewayne DK, Lul CR, Delio BrowerK, Colorectal Cancer Screening: Recommendations for Physicians and Patients from the U.S. Multi-Society Task Force on Colorectal Cancer Screening , Am J Gastroenterology 2017; 112:4448-9977. TEST DESCRIPTION: Composite algorithmic analysis of stool [...] (Renate Tabor al, N Engl J Med 2014;370(14):8188-9604.) Cologuard may produce a false negative or false positive result (no colorectal cancer or precancerous polyp present at colonoscopy follow up). A negative Cologuard test result does not guarantee the absence of CRC or advanced adenoma (pre-cancer). The current Cologuard screening interval is every 3 years. ([place] Cancer Society and U.S. Multi-Society Task Force). Cologuard performance data in a 10,000 patient pivotal study using colonoscopy as the reference method can be accessed at the following location: www.Change Lane.Justyle/results. Additional description of the Cologuard test process, warnings and precautions can be found at www.cologuard.com. Stool specimen (specimen) 01/26/2024 7:05 PM EDT 01/28/2024 12:37 PM EDT Vale Hubbard MD LAB MOLECULAR DIAGNOSTICS ORD ERABLES Final Result [facility] ([facility]) (CLIA #:[id number]) [place] [address], * Pap Smear (11/06/2023 12:00 AM EDT) Swab Cervical swab / Unknown Giorgi Prakash DO LAB CYTOLOGY ORDERABLES Final Re sult EXTERNAL LAB * Bilateral diagnostic mammogram (06/14/2022 12:00 PM EST) Anatomical Region Laterality Modality Breast Bilateral Mammography Narrative 06/14/2022 12:00 PM EST PERFORMED AT [facility] LOCATION:[id number] Procedure Note CONVERSION, GENERIC - 11/09/2022 PERFORMED AT [facility] LOCATION:[id number] Giorgi Prakash DO IM BI PROCEDURES Final Result from Last 3 Months or Most Recently Relevant to Health Maintenance Additional Health Concerns Active Problems Noted Date Diagnosed Date Patient on antidepressant monitoring plan 2024 Insurance AN[employer] MEDICARE ADVANTAGE [place]ICAID [place] Advance Directives Documents on File Type Date Recorded Patient Copying Machine Mechanic Expl anation Advance Directives and Living Will 09/10/2017 2017-09-09 full code Care Teams Real Estate Sales Associate Relationship Specialty Start Date End Date Vale Hubbard MD [address] [place] [address] PCP - General Family Medicine 05/14/23 Vale Hubbard MD [address] [place] [address] PCP - Kayden XIE 06/06/23 Mercedes Baptiste NP [address] [place] [address] Nurse Practitioner Family Medicine 09/17/23 Rolo Ledezma, AISSATOU [address] [place] [address] Licensed Practical Nurse Family Medicine 04/10/24
--- OUTSIDE RECORDS SUMMARY | 2024-12-01 15:11 | XMS_ITS | Encounter Summary ---
Author Organization [facility] Address [address] [place] [address] Care Team Providers Care Railroad Maintenance Clerk Name Role Phone Mercedes Bpatiste SHELLFISH PROCESSING MACHINE TENDER Unavailable [phone] Mercedes Baptiste SHELLFISH PROCESSING MACHINE TENDER Unavailable + [phone] Source Comments In the event this information is protected by the Federal Confidentiality of Alcohol and Drug AbusePatient Records regulations: The Federal rules restrict any use of the information to criminally investigate or prosecute any alcohol or drug abuse patient.[facility] Encounter Details Date Type Department Care Team (Late st Contact Info) Description 09/15/2024 Get Medical Advice Neurology [address] [place] [address] [place] [address] [place], [place] [id number] Hand Controls Social History Tobacco Use Types Packs/Day Years Used Date Smoking Tobacco: Never Smokeless Tobacco: Never Alcohol Use Standard Drinks/Week Comments Not Currently 0 (1 standard drink = 0.6 oz pur e alcohol) PHQ-2 Answer Date Recorded PHQ-2 score 0 01/09/2024 Area Deprivation Index Answer Date Harry rded National Score (1-100), lower number is lower ri 94 05/29/2023 State Score (1-10), lower number is lower risk 9 05/29/2023 Data from: https://www.neighborhoodatlas.medicine.[facility].edu/. Last address used for calculation [place] 05/29/2023 Comments No Sex and [...] Contact Info) Description 12/22/2024 3:00 PM EDT [facility] [address] [place] [address] Chelo Avila [facility] [address] [place] [address] follow up 12/24/2024 3:40 PM EDT Office Visit [facility] [place] [address] [place] [address] [place] [address] [place], [place] [id number] 4 month follow up 03/09/2025 1:00 PM EST Office Visit [facility] [address] [place] [address] Veronica Aguirre MD [address] [place] [address] [place] 10/26/2025 1:10 PM EDT Office Visit Endocrinology [address] [place], [place] [address] Hany Sanabria MD [address] [facility] [place] [address] Follow up 1 year documented as of this encounter Visit Diagnoses Not on filedocumented in this encounter Care Teams Railroad Maintenance Clerk Relationship Specialty Start Date End Date Mercedes Baptiste CNP [address] [place] [address] Referring Family Medicine 05/09/23 Mercedes Baptiste CNP [address] [place], [place] [phone] Family Medicine 05/12/23 documented as of this encounter
--- OUTSIDE RECORDS SUMMARY | 2024-12-01 15:11 | XMS_ITS | Encounter Summary ---
Author Organization [facility] Address [address] [place] [facility] [place] [address] Care Team Providers Care Steel Roller Name Role Phone Vale Hubbard MD Primary Care Provider [phone] Vale Hubbard MD Unavailable [phone] Mercedes Baptiste CREDIT CARD SPECIALIST Unavailable [phone] Rolo Ledezma LPN Unavailable [phone] Reason for Visit * Reason Onset Date Comments Med Refill 11/29/2024 Encounter Details Date Type Department Care Team (Late st Contact Info) Description 11/29/2024 Refill [facility] [address] [place] [address] Vale Hubbard MD [address] [place] [address] Muscle spasticity Social History Tobacco Use Types Packs/Day Years [...] week 05/08/2023 How often do you attend [facility] or buddhism services? Never 05/08/2023 Do you belong to any clubs o r organizations such as mosque groups, unions, fraternal or athletic groups, or [...] Recorded Patient Health Questionnaire-2 Score 1 08/10/2024 [facility] - Occupational [...] EDT Office Visit [facility] [address] [facility] [place] [address] Patricia Maki NP [address] [place], [place] [address] 12/07/2025 11:00 AM EDT Procedure Visit [facility] [address] [place] [phone] Giorgi Prakash DO [address] [facility] [place] [address] documented as of this encounter Goals Goal Patient Goal Type Associated Problems Recent Progress Patient-Stated? Author Help patient manage antidepressant medication Care Plan Patient on antidepressant monitoring plan No Mercedes Baptiste NP documented as of this encounter Visit Diagnoses Diagnosis Muscle spasticity Spasm of muscle documented in this encounter Additional Health Concerns Active Problems Noted Date Diagnosed Date Patient on antidepressant monitoring plan 2024 Assessment Noted Time PHQ-9 Depression Total Score: 4 08/11/19 25 1:00 PM EDT documented as of this encounter Care Teams Steel Roller Relationship Specialty Start Date End Date Vale Hubbard MD [address] [place] [address] PCP - General Family Medicine 05/14/23 Vale Hubbard MD [address] [place] [address] PCP - Kayden XIE 06/06/23 Mercedes Baptiste NP [address] [place] [address] Nurse Practitioner Family Medicine 09/17/23 Rolo Ledezma LPN [address] [facility] [address] [place] [address] Licensed Practical Nurse Family Medicine 04/10/24 documented as of this encounter
--- OUTSIDE RECORDS SUMMARY | 2024-12-01 15:11 | XMS_ITS | Encounter Summary ---
Author Organization [facility] Address [address] [place] [address] Care Team Providers Care Plastic Extruding Machine Operator Name Role Phone Mercedes Baptiste WRITER Unavailable [phone] Mercedes Baptiste WRITER Unavailable + [phone] Source Comments In the event this information is protected by the Federal Confidentiality of Alcohol and Drug AbusePatient Records regulations: The Federal rules restrict any use of the information to criminally investigate or prosecute any alcohol or drug abuse patient.[facility] Encounter Details Date Type Department Care Team (Latest Contact Info) Description 11/26/2024 Travel Social History Tobacco Use Types Packs/Day [...] risk 9 05/29/2023 Data from: https://www.neighborhoodatlas.medicine.[facility].edu/. Last address used for calculation [address] 05/29/2023 Comments No Sex and Gender [...] Info) Description 12/22/2024 3:00 PM EDT [facility] [address] [address] Chelo Avila PARikiC [address] [place] [address] follow up 12/24/2024 3:40 PM EDT Office Visit [facility] [place] [address] [place] [address] [place] [address] [place], [place] [id number] 4 month follow up 03/09/2025 1:00 PM EST Office Visit [facility] [address] [address] Veronica Aguirre MD [address] [place] [address] [place] 10/26/2025 1:10 PM EDT Office Visit Endocrinology [address] [place] [address] Hany Sanabria MD [address] [facility] [place] [address] Follow up 1 year documented as of this encounter Visit Diagnoses Not on filedocumented in this encounter Care Teams Plastic Extruding Machine Operator Relationship Specialty Start Date End Date Mercedes Baptiste CNP [address] [place] [address] Referring Family Medicine 05/09/23 Mercedes Baptiste CNP [address] [place] [address] Family Medicine 05/12/23 documented as of this encounter
--- OUTSIDE RECORDS SUMMARY | 2024-12-01 15:11 | XMS_ITS | Encounter Summary ---
Author Organization [facility] Address [address] [place] [place] [address] Care Team Providers Care Pediatric Oncologist Name Role Phone Vale Hubbard MD Primary Care Provider [phone] Vale Hubbard MD Unavailable [phone] Mercedes Baptiste CORNER FORMER Unavailable [phone] Jes Benitez SOLE SCRAPER Unavailable Rolo Ledezma FUEL CELL ASSEMBLER Unavailable [phone] Encounter Details Date Type Department Care Team (Late st Contact Info) Description 09/17/2023 Abstract [facility] [address] [place] [address] Vale Hubbard MD [address] [place] [address] Social History Tobacco Use Types Packs/Day Years [...] How often do you attend chur or latter-day services? Never 05/08/2023 Do you belong to any clubs o r organizations such as moravian groups, unions, fraternal or athletic groups, or [...] Recorded Patient Health Questionnaire-2 Score 0 08/06/2023 [facility] of Occupat ional Health - Occupational Stress [...] place to sleep or slept in a chcf (including now)? No 05/08/2023 Comments No Sex [...] EDT Office Visit [facility] [address] [facility] [place] [address] Patricia Maki NP [address] [place], [place] [address] 12/07/2025 11:00 AM EDT Procedure Visit [facility] [address] [facility] [id number] Giorgi Prakash DO [address] [facility] [place] [address] documented as of this encounter Visit Diagnoses Not on filedocumented in this encounter Additional Health Concerns Assessment Noted Time PHQ-9 Depression Total Score: 1 08/06/19 10:00 AM EDT documented as of this encounter Care Teams Pediatric Oncologist Relationship Specialty Start Date End Date Vale Hubbard MD [address] [place] [address] PCP - General Family Medicine 05/14/23 Vale Hubbard MD [address] [place] [address] PCP - Kayden XIE 06/06/23 Mercedes Baptiste NP [address] [place] [address] Nurse Practitioner Family Medicine 09/17/23 Jes Benitez LSW [address] [place] [address] Consignee Family Medicine 04/10/24 04/10/24 Rolo Ledezma, AISSATOU [address] [facility] [address] [place] [address] Licensed Practical Nurse Family Medicine 04/10/24 documented as of this encounter
--- OUTSIDE RECORDS SUMMARY | 2024-12-01 15:11 | XMS_ITS | Encounter Summary ---
Author Organization [facility] Address [address] [facility] [place] [address] Care Team Providers Care Hardboard Press Operator Name Role Phone Vale Hubbard MD Primary Care Provider Vale Hubbard MD Unavailable Mercedes Baptiste RADIO CONTROL CRANE OPERATOR Unavailable Rolo Ledezma LPN Unavailable [phone] Encounter Details Date Type Department Care Team (Late st Contact Info) Description 11/27/2024 Orders Only [facility] [address] [place] [address] Patricia Maki NP [address] [place], [place] [id number] Acute cystitis with hematuria (Primary Dx); Antibiotic-induced yeast infection Social History Tobacco Use Types Packs/Day Years [...] How often do you attend chur or mandaeism services? Never 05/08/2023 Do you belong to any clubs o r organizations such as shinto groups, unions, fraternal or athletic groups, or [...] Recorded Patient Health Questionnaire-2 Score 1 08/10/2024 [facility] of Occupat ional Health - [...] place to sleep or slept in a alf (including now)? No 05/08/2023 Comments No Sex [...] EDT Office Visit [facility] [address] [place] [address] Patricia Maki NP [address] [place] [address] 12/07/2025 11:00 AM EDT Procedure Visit [facility] [address] [place] [address] [place] [address] Giorgi Prakash DO [address] [facility] [place] [address] documented as of this encounter Goals Goal Patient Goal Type Associated Problems Recent Progress Patient-Stated? Author Help patient manage antidepressant medication Care Plan Patient on antidepressant monitoring plan No Mercedes Baptiste NP documented as of this encounter Visit Diagnoses Diagnosis Acute cystitis with hematuria- Primary Antibiotic-induced yeast infection documented in this encounter Additional Health Concerns Active Problems Noted Date Diagnosed Date Patient on antidepressant monitoring plan 2024 Assessment Noted Time PHQ-9 Depression Total Score: 4 08/11/19 25 1:00 PM EDT documented as of this encounter Care Teams Hardboard Press Operator Relationship Specialty Start Date End Date Vale Hubbard MD [address] [place] [address] PCP - General Family Medicine 05/14/23 Vale Hubbard MD [address] [place] [address] PCP - Kayden XIE 06/06/23 Mercedes Baptiste NP [address] [place] [address] Nurse Practitioner Family Medicine 09/17/23 Rolo Ledezma LPN [address] [facility] [address] [place] [address] Licensed Practical Nurse Family Medicine 04/10/24 documented as of this encounter
--- OUTSIDE RECORDS SUMMARY | 2024-12-01 15:11 | XMS_ITS | Encounter Summary ---
Author Organization [facility] Address [address] [place] [address] Care Team Providers Care Rn Orthopaedics Name Role Phone Mercedes Baptiste HEALTH UNIT CLERK Unavailable [phone] Mercedes Baptiste HEALTH UNIT CLERK Unavailable [phone] Source Comments In the event this information is protected by the Federal Confidentiality of Alcohol and Drug AbusePatient Records regulations: The Federal rules restrict any use of the information to criminally investigate or prosecute any alcohol or drug abuse patient.[facility] Encounter Details Date Type Department Care Team (Late st Contact Info) Description 08/28/2024 Patient Msg Otolaryngology [address] [place] [address] Gregory Alvarado MD [address] [facility] [address] [place] [address] Appointment Social History Tobacco Use Types Packs/Day Years [...] is lower risk 9 05/29/2023 Data from: https://www.neighborhoodatlas.medicine.[facility].edu/. Last address used for calculation [...] Info) Description 12/22/2024 3:00 PM EDT [facility] [address] [address] Chelo Avila PA-C [address] [place] [address] follow up 12/24/2024 3:40 PM EDT Office Visit [facility] [address] [facility] [place] [address] [place] [address] [place] [address] 4 month follow up 03/09/2025 1:00 PM EST Office Visit [facility] [address] [place] [address] Veronica Aguirre MD [address] [place], [place] [phone] [place] 10/26/2025 1:10 PM EDT Office Visit Endocrinology [address] [facility] [place] [address] Hany Sanabria MD [address] [facility] [place] [address] Follow up 1 year documented as of this encounter Visit Diagnoses Diagnosis Thyroid nodule- Primary Nontoxic uninodular goiter documented in this encounter Care Teams Rn Orthopaedics Relationship Specialty Start Date End Date Mercedes Baptiste CNP [address] [place], [place] [phone] Referring Family Medicine 05/09/23 Mercedes Baptiste CNP [address] [place], [place] [phone] Family Medicine 05/12/23 documented as of this encounter
--- OUTSIDE RECORDS SUMMARY | 2024-12-01 15:11 | XMS_ITS | Encounter Summary ---
Author Organization [facility] Address [address] [place] [address] Care Team Providers Care Filler Spreader Name Role Phone Vale Hubbard MD Primary Care Provider [phone] Vale Hubbard MD Unavailable [phone] Mercedes Baptiste EXCHANGE ENGINEER Unavailable Jes Benitez ACID PATROLLER Unavailable Rolo Ledezma CIRCUS ROUSTABOUT Unavailable [phone] Encounter Details Date Type Department Care Team (Late st Contact Info) Description 09/19/2023 Abstract [facility] [address] [facility] [place] [address] Kat Nelson LPN [address] [facility] [place] [address] Social History Tobacco Use Types Packs/Day [...] How often do you attend chur or amish services? Never 05/08/2023 Do you belong to any clubs o r organizations such as congregational groups, unions, fraternal or athletic groups, or [...] Recorded Patient Health Questionnaire-2 Score 0 08/06/2023 [facility] of Occupat ional Health - Occupational Stress [...] place to sleep or slept in a nursing home (including now)? No 05/08/2023 Comments No Sex [...] EDT Office Visit [facility] [address] [facility] [place] [address] Patricia Maki NP [address] [place] [address] 12/07/2025 11:00 AM EDT Procedure Visit [facility] [address] [place] [address] Giorgi Prakash DO [address] [facility] [place] [address] documented as of this encounter Visit Diagnoses Not on filedocumented in this encounter Additional Health Concerns Assessment Noted Time PHQ-9 Depression Total Score: 1 08/06/19 10:00 AM EDT documented as of this encounter Care Teams Filler Spreader Relationship Specialty Start Date End Date Vale Hubbard MD [address] [place] [address] PCP - General Family Medicine 05/14/23 Vale Hubbard MD [address] [place] [address] PCP - Kayden XIE 06/06/23 Mercedes Baptiste NP [address] [place] [address] Nurse Practitioner Family Medicine 09/17/23 Jes Benitez LSW [address] [place] [address] Underwriting Clerk Family Medicine 04/10/24 04/10/24 Rolo Ledezma, AISSATOU [address] [facility] [address] [place] [address] Licensed Practical Nurse Family Medicine 04/10/24 documented as of this encounter
--- OUTSIDE RECORDS SUMMARY | 2024-12-01 15:11 | XMS_ITS | Encounter Summary ---
Author Organization [facility] Address [address] [facility] [place] [address] Care Team Providers Care Hog Sticker Name Role Phone Vale Hubbard MD Primary Care Provider [phone] Vale Hubbard MD Unavailable [phone] Mercedes Baptiste FLOORWALKER Unavailable [phone] Rolo Ledezma LPN Unavailable [phone] Encounter Details Date Type Department Care Team (Late st Contact Info) Description 11/30/2024 Results Follow-Up [facility] [address] [place] [address] Patricia Maki NP [address] [place], [place] [phone] Social History Tobacco Use Types Packs/Day Years [...] How often do you attend chur or shinto services? Never 05/08/2023 Do you belong to any clubs o r organizations such as adventist groups, unions, fraternal or athletic groups, or [...] Recorded Patient Health Questionnaire-2 Score 1 08/10/2024 [facility] [place] of Occupat ional Health - Occupational Stress [...] place to sleep or slept in a long term (including now)? No 05/08/2023 Comments No Sex [...] EDT Office Visit [facility] [address] [place] [address] Patricia Maki NP [address] [place] [id number] 12/07/2025 11:00 AM EDT Procedure Visit [facility] [address] [place] [address] [place] [address] Giorgi Prakash, DO [address] [facility] [place] [address] documented as of this encounter Goals Goal [...] documented as of this encounter Care Teams Hog Sticker Relationship Specialty Start Date End Date Vale Hubbard MD [address] [place] [address] PCP - General Family Medicine 05/14/23 Vale Hubbard MD [address] [place] [address] PCP - Kayden XIE 06/06/23 Mercedes Baptiste NP [address] [place] [address] Nurse Practitioner Family Medicine 09/17/23 Rolo Ledezma LPN [address] [facility] [address] [place] [address] Licensed Practical Nurse Family Medicine 04/10/24 documented as of this encounter
--- OUTSIDE RECORDS SUMMARY | 2024-12-01 15:11 | XMS_ITS | Encounter Summary ---
Author Organization [facility] Address [address] [facility] [place] [address] Care Team Providers Care Information Manager Name Role Phone Vale Hubbard MD Primary Care Provider [phone] Vale Hubbard MD Unavailable [phone] Mercedes Baptiste DIRECTOR PERIOPERATIVE Unavailable [phone] Rolo Ledezma LPN Unavailable [phone] Encounter Details Date Type Department Care Team (Late st Contact Info) Description 12/01/2024 Willianboo flowsheet [facility] [address] [place] [address] Giorgi Prakash DO [address] [facility] [address] [place], [place] [address] Social History Tobacco Use Types Packs/Day Years [...] often do you attend chur ch or faith services? Never 05/08/2023 Do you belong to any clubs o r organizations such as hinduism groups, unions, fraternal or athletic groups, or [...] Recorded Patient Health Questionnaire-2 Score 1 08/10/2024 [facility] of Occupat ional Health - Occupational [...] EDT Office Visit [facility] [address] [facility] [place] [address] Patricia Maki NP [address] [place] [address] 12/07/2025 11:00 AM EDT Procedure Visit [facility]U S[facility] [address] [place] [address] Giorgi Prakash, [address] [place] [address] documented as of this encounter Goals Goal [...] documented as of this encounter Care Teams Information Manager Relationship Specialty Start Date End Date Vale Hubbard MD [address] [place] [address] PCP - General Family Medicine 05/14/23 Vale Hubbard MD [address] [place] [address] PCP - Kayden XIE 06/06/23 Mercedes Baptiste NP [address] [place] [address] Nurse Practitioner Family Medicine 09/17/23 Rolo Ledezma, AISSATOU [address] [facility] [address] [place] [address] Licensed Practical Nurse Family Medicine 04/10/24 documented as of this encounter
--- OUTSIDE RECORDS SUMMARY | 2024-12-01 15:11 | XMS_ITS | Encounter Summary ---
Author Organization [facility] Address [address] [facility] [place] [address] Care Team Providers Care Barley Steeper Name Role Phone Vale Hubbard MD Primary Care Provider [phone] Vale Hubbard MD Unavailable [phone] Mercedes Baptiste REHABILITATION CONSTRUCTION SPECIALIST Unavailable [phone] Rolo Ledezma LPN Unavailable [phone] Reason for Visit * Reason Onset Date Comments Med Refill 08/06/2024 Encounter Details Date Type Department Care Team (Late st Contact Info) Description 08/06/2024 Refill [facility] Family Medicine [address] [place] [address] Vale Hubbard MD [address] [place] [address] Mild intermittent asthma without complication [...] week 05/08/2023 [facility] sa[facility] or druze services? Never 05/08/2023 Do you belong to any clubs o r organizations such as judaism groups, unions, fraternal or athletic groups, or [...] Recorded Patient Health Questionnaire-2 Score 1 08/10/2024 [facility] of Occupat ional Health - Occupational [...] EDT Office Visit [facility] [address] [place] [address] Patricia Maki NP [address] [place] [address] 12/07/2025 11:00 AM EDT Procedure Visit [facility] [address] [facility] [place] [phone] Giorgi Prakash DO [address] [facility] [place] [address] documented as of this encounter Visit Diagnoses Diagnosis Mild intermittent asthma without complication (HCC) documented in this encounter Additional Health Concerns Assessment Noted Time PHQ-9 Depression Total Score: 1 08/06/19 24 10:00 AM EDT documented as of this encounter Care Teams Barley Steeper Relationship Specialty Start Date End Date Vale Hubbard MD [address] [facility] [place] [address] PCP - General Family Medicine 05/14/23 Vale Hubbard MD [address] [facility] [place] [address] PCP - Kayden XIE 06/06/23 Mercedes Baptiste NP [address] [facility] [place] [address] Nurse Practitioner Family Medicine 09/17/23 Rolo Ledezma LPN [address] [facility] [address] [place] [address] Licensed Practical Nurse Family Medicine 04/10/24 documented as of this encounter
[2024-12-03 14:10] LABS: Age Gdln ACOG Testing Note (.); IGP, Aptima HPV, rfx 16/18,45 Note (.)
== END 2024-12-01 15:08 | disposition home or self-care (01) ==
LOC: LAB 15:07
PROVIDERS: PCP Family Medicine; Visit Provider Obstetrics & Gynecology
DX: Z01.419 Encounter for gynecological examination (general) (routine) without abnormal findings (principal)
CPT/HCPCS: 87624; 88175